=== PATIENT | female | born 1955 | race Two or more races ===

== ENCOUNTER 2019-12-28 09:57 | Emergency (ER) | payer MEDICAID, SELFPAY ==
[2019-12-28 10:31] VITALS: BP 159/72; PULSE 87; RESP 18; TEMP 36.7; O2SAT 94; BMI 34.3
--- NOTE | 2019-12-28 10:44 | XR_ITS ---
EXAMINATION: XR CHEST CLINICAL INFORMATION: Productive cough x1 week COMPARISON: None TECHNIQUE: 2 views of the chest were obtained. FINDINGS: The lungs are well-expanded and clear. The heart size and pulmonary vascularity is normal. There is moderate spondylosis dorsal spine. No lytic process. XR/XR chest 2V IMPRESSION: Unremarkable chest examination.
--- NOTE | 2019-12-28 11:49 | ED.URI ---
HPI - URI/Sore Throat General Chief Complaint: Upper Respiratory Symptoms Stated Complaint: vomiting Time Seen by Provider: 12/28/19 10:34 Source: patient Mode of arrival: ambulatory Limitations: language barrier (Lithuanian Speaking ) History of Present Illness HPI Narrative: 64yoF presenting t the ED c c/o intermittent headaches, Body aches, chills, subjective fevers and productive cough for a few days. Reports that her daughter is positive for COVID and she went to her house to bring her food despite knowing that she was COVID positive. Reports she also quit smoking 1 week ago. Denies any other additional complaints or concerns at this time. Denies recent travel. Related Data Previous Rx's Medication Instructions Recorded acetaminophen [Tylenol] 650 mg PO Q6H PRN #14 tab 12/28/19 albuterol sulfate 1 inh INHALATION QID PRN #6.7 g 12/28/19 azithromycin See Rx Instructions .ROUTE 12/28/19 .COMPLEX #6 tab ondansetron HCl [Zofran] 4 mg PO Q8H PRN #14 tab 12/28/19 Allergies Allergy/AdvReac Type Severity Reaction Status Date / Time peanut [PEANUTS] Allergy Severe THROAT Verified 12/28/19 10:31 SWELLING avocado [AVOCADO] Allergy Intermediate THROAT Unverified 11/19/19 15:19 SWELLING cat dander [CAT DANDER] Allergy Unknown UNKNOWN Unverified 11/19/19 15:19 PER H&P Review of Systems Review of Systems: Constitutional : + Fever, + Chills, No fatigue, No Malaise ENT/Mouth : No sore throat, No runny nose Eyes: No Discharge Cardiovascular : No Chest Pain, No SOB Respiratory : + Cough, + Sputum, No Wheezing, No Smoke Exposure, No Dyspnea Gastrointestinal : No Nausea, No Vomiting, No Diarrhea Genitourinary : No irregular bleeding, No Dysuria, No Urinary Frequency, No Hematuria, No Urinary Incontinence, No Urgency, No Flank Pain, Musculoskeletal : No Myalgia Skin : No rash Neuro : + Headache Yes all other systems are reviewed and are negative [facility] Past Medical History Attestation statement: The following information was validated with the patient. Surgical History H/O section History of esophagogastroduodenoscopy (EGD) Hx of brain surgery Hx of colonoscopy Family History Family History Father Esophageal cancer Smoker Mother No problems noted. Brother No problems noted. Brother No problems noted. Sister No problems noted. Sister No problems noted. Sister No problems noted. Sister No problems noted. Son No problems noted. Daughter No problems noted. Daughter No problems noted. Daughter No problems noted. Social History Social History Alcohol intake: never Smoking Status: Former smoker Tobacco Type: Cigarette and E-Cigarette Use of substances other than those prescribed or required for medical reasons: No Advance Directives: No Advance Directives Information Provided: No Physical Exam Vital Signs: Vital Signs: Vital Signs Temp Pulse Resp BP Pulse Ox 12/28/19 12:28 98.8 F 76 16 166/76 H 94 12/28/19 10:31 98.1 F 87 18 159/72 H 94 Body Mass Index 34.3 vital signs have been reviewed as normal and appeared to be correct. Blood pressure normal. Heart rate normal. Respiration rate normal. Temperature normal. Oxygen saturation normal. Appearance: Alert. Oriented X3. No acute distress. Head: Normal external exam. Normocephalic. Atraumatic. No Snowden signs noted. No raccoon eyes noted Eyes: PERRLA. EOMI. Conjunctiva and sclera normal. Eyelids normal. ENT: EAC normal. TM's Normal. Pharynx normal. Uvula midline. Moist mucous membranes. No trismus noted. No drooling noted. No muffled voice noted. Neck: Normal inspection. Neck supple. FROM. No adenopathy. Thyroid Normal. No meningeal signs. No neck mass noted. CVS: Normal heart rate and rhythm. Heart sound normal. No murmurs noted. Pulses normal throughout. Respiratory: No respiratory distress. Painless inspiration. Breath sounds normal. No wheezes/rales/rhonchi noted. Chest nontender. No accessory muscle usage noted or decreased air movement noted. Abdomen: Soft and nontender. Bowel sounds normal in all 4 quadrants. No distention noted. No organomegaly noted. No visible injury noted. Back: No CVA tenderness. Full range of motion noted. Skin: Skin warm and dry. Normal skin color. Normal skin turgor. No rashes/lesions/lacerations noted. Extremities: No lower extremity edema. Extremities exhibit normal range of motion. Extremities nontender. Neuro: Oriented X 3. No motor deficit. No sensory deficit. Reflexes normal. Course Course Course Narrative: 10:45AM 64yoF presenting t the ED c c/o intermittent headaches, Body aches, chills, subjective fevers and productive cough for a few days. Reports that her daughter is positive for COVID and she went to her house to bring her food despite knowing that she was COVID positive. Reports she also quit smoking 1 week ago. Denies any other additional complaints or concerns at this time. Denies recent travel. - Concern for COVID-19 vs bacterial PNA. - Plan CXR and COVID-19 swab then Re-evaluate. Reevaluation(s) Reevaluation #1: CXR WNL.COVID swab pending at this time. Will d/c home c symptomatic tx along c instructions to f/u PCP. Pt understands and agrees with plan . Discharge Plan Discharge Clinical Impression: Viral infection Patient Disposition: Home, Self-Care Instructions: Viral Syndrome (ED), COVID-19 (Coronavirus Disease 2019) (ED) Additional Instructions: Based on your symptoms and history we have sent a COVID-19. Although your RESULT IS PENDING at this time. RESULTS should return within 72 hours. At this time you will be contacted with either NEGATIVE OR POSITIVE results. -Please wait until we contact you for your results. At this time you will be okay for discharge. Please plan for self quarantine for up to 14 days. Do not expose yourself to others. You may not go to work. If testing does come back negative you may return to activities as long as you are no longer having any symptoms for at least 3 days. Please continue to follow cold instructions and wash your hands frequently. You may take Tylenol as directed on the bottle for pain or fever. Patient seen in the emergency department on 12/28/2019 and should be excused from work until negative test results AND until 72 hours without any symptoms AND at least 10 days have passed since symptoms first appeared or since last exposure to COVID-19 positive patient CDC Guidelines for home isolation: - Stay away from others - WEAR A MASK if you are sick AND STAY HOME - Cover your mouth and nose with a tissue when you cough or sneeze. Dispose of tissues in a lined trash can and wash your hands immediately with soap and water for at least 20 seconds. If soap and water are not available, clean hands with alcohol-based hand assembly lead person that contains at least 60% alcohol. - Clean your hands often with soap and water for at least 20 seconds - Avoid touching your eyes, nose and mouth with unwashed hands - Do not share dishes, drinking glasses, cups, eating utensils, towels, or bedding with other people in your home. After using these items, wash them thoroughly with soap and water or put in the obstetrics gyn physician. - Clean high-touch surfaces in your isolation area ( sick room and bathroom) every day; let a caregiver clean and disinfect high-touch surfaces in other areas of the home. Clean the area or item with soap and water or another detergent if it is dirty. Then, use a household disinfectant. - Limit contact with pets and animals: If you must care for a pet, wash your hands before and after interacting with them). Prescriptions: New azithromycin 250 mg tablet See Rx Instructions .ROUTE .COMPLEX Qty: 6 RF: 0 albuterol sulfate 90 mcg/actuation HFA aerosol inhaler 1 inh inhalation QID PRN (Reason: shortness of breath or wheezing) Qty: 6.7 RF: 0 acetaminophen [Tylenol] 325 mg tablet 650 mg PO Q6H PRN (Reason: fever or pain) Qty: 14 RF: 0 ondansetron HCl [Zofran] 4 mg tablet 4 mg PO Q8H PRN (Reason: nausea and vomiting) Qty: 14 RF: 0 Referrals: [facility] [Primary Care Provider] - 2 days Print Language: Lithuanian
[2019-12-28 12:28] VITALS: BP 166/76; PULSE 76; RESP 16; TEMP 37.1; O2SAT 94
== END 2019-12-28 12:44 | disposition home or self-care (01) ==
PROVIDERS: Physician Assistant Medical; Emergency Provider Emergency Medicine
DX: B34.9 Viral infection, unspecified (principal); J06.9 Acute upper respiratory infection, unspecified; Z20.828 Contact with and (suspected) exposure to other viral communicable diseases; F17.200 Nicotine dependence, unspecified, uncomplicated; Z71.6 Tobacco abuse counseling
CPT/HCPCS: 71046; 87635; 99283; 99284

== ENCOUNTER 2019-12-30 13:18 | Outpatient (REF) | payer MEDICAID, SELFPAY ==
--- NOTE | 2019-12-30 | US_ITS ---
EXAMINATION: NONINVASIVE ASSESSMENT OF THE ARTERIES OF BOTH LOWER EXTREMITIES WITH PVR EXAM AND BILATERAL LOWER EXTREMITY DUPLEX CLINICAL INFORMATION: Peripheral vascular disease TECHNIQUE: Ankle pulse volume recordings, ankle pressure measurements and ankle brachial indices were obtained of the lower extremity arterial system bilaterally in addition to duplex Doppler techniques with wave form analysis and measurement of velocities in the common femoral, profunda femoral, superficial femoral, popliteal and tibial arteries. The study was performed only at rest. COMPARISON: None FINDINGS: a) AT REST: RIGHT LE. The right ankle-brachial index is: 1.2 2. Right ankle pressure: normal. 3. Right ankle PVR waveform: normal. 4. Right direct duplex Doppler findings: No significant plaque or visible stenosis. * Common femoral artery: 132 cm/s, Diastolic flow reversal: Yes * Superficial femoral artery (proximal, mid, distal): 697267, and 128 cm/s, Diastolic flow reversal: Yes * Popliteal artery: 104 cm/s, Diastolic flow reversal: Yes * Posterior tibial artery: 46 cm/s, Diastolic flow reversal: No LEFT LE. The left ankle-brachial index is: 1.2 2. Left ankle pressure: normal. 3. Left ankle PVR waveform: normal. 4. Left direct duplex Doppler findings: No significant plaque or visible stenosis * Common femoral artery: 100 cm/s, Diastolic flow reversal: Yes * Superficial femoral artery (proximal, mid, distal): 116, 107 and 91 cm/s, Diastolic flow reversal: Yes * Popliteal artery: 69 cm/s, Diastolic flow reversal: Yes * Posterior tibial artery: 94 cm/s, Diastolic flow reversal: Yes SINGH Reference: * >0.97-1.25 = normal - no significant arterial disease * 0.75-0.96 = mild peripheral arterial disease * 0.5-0.74 = moderate peripheral arterial disease * <0.50 = severe peripheral arterial disease US/US SINGH complete IMPRESSION: There is no evidence of any hemodynamically significant lower extremity arterial disease by pressure, waveform or duplex Doppler criteria at rest. There is a monophasic waveform seen in the right posterior tibial artery. Otherwise there are normal triphasic waveforms throughout.
--- NOTE | 2019-12-30 13:33 | US_ITS ---
EXAMINATION: NONINVASIVE ASSESSMENT OF THE ARTERIES OF BOTH LOWER EXTREMITIES WITH PVR EXAM AND BILATERAL LOWER EXTREMITY DUPLEX CLINICAL INFORMATION: Peripheral vascular disease TECHNIQUE: Ankle pulse volume recordings, ankle pressure measurements and ankle brachial indices were obtained of the lower extremity arterial system bilaterally in addition to duplex Doppler techniques with wave form analysis and measurement of velocities in the common femoral, profunda femoral, superficial femoral, popliteal and tibial arteries. The study was performed only at rest. COMPARISON: None FINDINGS: a) AT REST: RIGHT LE. The right ankle-brachial index is: 1.2 2. Right ankle pressure: normal. 3. Right ankle PVR waveform: normal. 4. Right direct duplex Doppler findings: No significant plaque or visible stenosis. * Common femoral artery: 132 cm/s, Diastolic flow reversal: Yes * Superficial femoral artery (proximal, mid, distal): [id number], and 128 cm/s, Diastolic flow reversal: Yes * Popliteal artery: 104 cm/s, Diastolic flow reversal: Yes * Posterior tibial artery: 46 cm/s, Diastolic flow reversal: No LEFT LE. The left ankle-brachial index is: 1.2 2. Left ankle pressure: normal. 3. Left ankle PVR waveform: normal. 4. Left direct duplex Doppler findings: No significant plaque or visible stenosis * Common femoral artery: 100 cm/s, Diastolic flow reversal: Yes * Superficial femoral artery (proximal, mid, distal): 116, 107 and 91 cm/s, Diastolic flow reversal: Yes * Popliteal artery: 69 cm/s, Diastolic flow reversal: Yes * Posterior tibial artery: 94 cm/s, Diastolic flow reversal: Yes SINGH Reference: * >0.97-1.25 = normal - no significant arterial disease * 0.75-0.96 = mild peripheral arterial disease * 0.5-0.74 = moderate peripheral arterial disease * <0.50 = severe peripheral arterial disease US/US arterial duplex LE BI IMPRESSION: There is no evidence of any hemodynamically significant lower extremity arterial disease by pressure, waveform or duplex Doppler criteria at rest. There is a monophasic waveform seen in the right posterior tibial artery. Otherwise there are normal triphasic waveforms throughout.
== END 2019-12-30 13:19 | disposition home or self-care (01) ==
LOC: HO.US 13:18
PROVIDERS: PCP Internal Medicine; Visit Provider Surgery Vascular Surgery
DX: I73.9 Peripheral vascular disease, unspecified (principal)
CPT/HCPCS: 93923; 93925

== ENCOUNTER 2020-03-09 13:23 | Outpatient (RCR) | payer MEDICAID, SELFPAY ==
--- NOTE | 2020-03-23 15:17 | MHC.PT.EP ---
[facility] [place] Office [place] Office [place] Office [address] [phone] F: [phone] F: [phone] F: [phone] F: [phone] Physical Therapy Plan of Care Date of Evaluation: 03/09/20 Date of Surgery: NA Diagnosis: PAIN IN RIGHT THIGH (M79.651) PER DR. LINDQUIST Assessment: JOSE IS A PLEASANT 64 YO FEMALE WITH INCREASING POSTERIOR THIGH PAIN OF APROX 6 MONTHS DURATION WITH INSIDEOUS ONSET. IMPAIRMENTS INCLUDE DECREASED DECREASED TRUNK AND LE ROM, DECREASED STRENGTH OF CORE AND LE, ALTERED POSTURE AND SOFT TISSUE RESTRICTIONS, INCREASED PAIN. FUNCTIONAL LIMITATIONS INCLUDE DECREASED TOLERANCE TO LIFTING, REACHING, BENDING AND SQUATTING. DECREASED TOLERANCE TO WALKING, STANDING AND SITTING. SHE REPORTS DECREASED ABILITY TO PERFORM HOMEMAKING TASKS AND DISRUPTED SLEEP. Frequency and Duration: The patient will be seen 2 X WEEK FOR 5 WEEKS Short Term Goals: INITIATE HEP AND EDUC IN SELF MANAGEMENT OF SYMPTOMS WITH EVIDENCE OF LEARNING IN 4 WEEKS Nursing Home Goals: FULL LUMBAR ROM IN 5 WEEKS FULL LE STRENGTH EQUAL NADIYA IN 5 WEEKS INDEPENDENT WITH HEP WITH PAIN NO GREATER THAN 2/10 IN 5 WEEKS ELIMINATION OF LE SYMPTOMS IN 4 WEEKS Treatment Plan: Modalities to reduce pain, spasms and effusion. Manual therapy to restore motion and function. Therapeutic exercise to improve strength and flexibility. Neuromuscular re-education for posture and balance. Therapeutic activities to return to functional activities of daily living. Electronically signed by: ANIKET ASHBY PT, DPT Please sign and return to therapist. Thank you for your referral.
== END 2020-11-02 13:55 | disposition home or self-care (01) ==
LOC: HO.PT 13:23
PROVIDERS: PCP Internal Medicine; Visit Provider Internal Medicine
DX: M79.651 Pain in right thigh (principal)
CPT/HCPCS: 97110; 97162

== ENCOUNTER 2020-03-16 13:38 | Outpatient (REF) | payer MEDICAID, SELFPAY ==
--- NOTE | 2020-03-16 13:45 | MM_ITS ---
EXAMINATION: MM DIAGNOSTIC DIGITAL BREAST TOMOSYNTHESIS, BILATERAL US DIAGNOSTIC ULTRASOUND BREAST, BILATERAL CLINICAL INFORMATION: Bilateral upper outer breast pain and palpable fullness for approximately 3 weeks. The lifetime risk of breast cancer based on the Tyrer-Cuzick Model is 6%. COMPARISON: Mammography: 09/29/2018, 07/01/2017, 05/30/2016 TECHNIQUE: Digital breast tomosynthesis is performed in both the craniocaudal and mediolateral oblique views along with computer-aided detection (CAD). Synthesized 2D images are generated from the tomosynthesis. Additional exaggerated right CC view is provided. Ultrasound of each breast is targeted to the areas of clinical concern posterior upper outer breast. Grayscale imaging and color Doppler are performed without and with harmonics. Patient is able to point to the areas of concern at time of imaging. FINDINGS: The breasts are almost entirely fatty (ACR BI-RADS breast composition Category a). Parenchymal pattern is similar to prior studies. There is no developing density or interval mass or architectural abnormality. No abnormal calcifications. Bilateral axillary nodes are stable, similar to prior exams. There is no skin thickening or coarsening of the Farhat's ligaments. Ultrasound of each breast demonstrates no cystic or solid mass, architectural abnormality, or focal duct ectasia. There is no skin thickening or edema tracking in soft tissue planes. The patient's palpable areas correspond to the stable bilateral axilla. There is no melba hyperemia. Results are discussed with the patient at time of visit. MM/MM tomosynthesis diagnostic BI IMPRESSION: 1. No mammographic evidence of malignancy or inflammatory changes. 2. Unremarkable bilateral targeted breast ultrasound. ASSESSMENT: BI-RADS 2: Benign RECOMMENDATION: 1. Patient should be managed based on the clinical impression. If clinically indicated, further evaluation may be considered with surgical consult. Decision to proceed with biopsy should be based on clinical grounds and degree of clinical concern. 2. Otherwise, routine annual screening mammography. This patient's information was entered into a reminder system with a target due date for their next mammogram.
== END 2020-03-16 13:39 | disposition home or self-care (01) ==
LOC: HO.MAMMO 13:38
PROVIDERS: Visit Provider Internal Medicine
DX: N64.4 Mastodynia (principal); N64.1 Fat necrosis of breast
CPT/HCPCS: 76642; 77062; 77066

== ENCOUNTER 2020-04-08 13:00 | Outpatient (RCR) | payer MEDICAID, SELFPAY | END 2020-11-08 07:55 | disposition home or self-care (01) | LOC: HO.PT 13:00 | PROVIDERS: PCP Internal Medicine; Visit Provider Internal Medicine | DX: M79.651 Pain in right thigh (principal) ==

== ENCOUNTER 2020-06-22 10:35 | Outpatient (REF) | payer MEDICAID, SELFPAY ==
[2020-06-22 12:18] LABS: Blood Urea Nitrogen 22 mg/dL (9-16); Estimated Glomerular Filt Rate 45
== END 2020-06-22 10:36 | disposition home or self-care (01) ==
LOC: HO.LAB 10:35
PROVIDERS: PCP Internal Medicine; Visit Provider Psychiatry & Neurology Neurology
DX: G44.209 Tension-type headache, unspecified, not intractable (principal); I67.1 Cerebral aneurysm, nonruptured
CPT/HCPCS: 36415; 82565; 84520

== ENCOUNTER → 2020-06-24 08:41 | Outpatient (BNVA) | payer MEDICAID, SELFPAY | PROVIDERS: Visit Provider Nurse Practitioner ==

== ENCOUNTER 2020-06-30 13:32 | Outpatient (REF) | payer MEDICAID, SELFPAY ==
--- NOTE | ~2020-06-30 | CT_ITS ---
EXAMINATION: CT ANGIOGRAM BRAIN, HEAD CLINICAL INFORMATION: Tension-type headache. COMPARISON: CT head 11/20/2019. CT angiography head 02/21/2016. TECHNIQUE: Test bolus sequences followed by intravenous administration 100 mL of Omnipaque 350 intravenous contrast. Helical imaging was performed in the axial plane from the skull base to the vertex. Delayed postcontrast imaging of the head was also performed. The data was processed at the hematology technologist workstation for generation of MIP sequences. Three-dimensional volume rendered reformatted images were also generated at an offline 3-D workstation. Stenoses are made with reference to the NASCET criteria unless otherwise specified. This CT examination was performed using dose optimization techniques as appropriate, variously including the following: *Automated exposure control *Adjustment of mA and/or kV according to patient size (this includes techniques or standardized protocols for targeted exams where dose is matched to indication/reason for exam; i.e. extremities or head) *Use of iterative reconstruction technique DLP: 2597 mGy-cm FINDINGS: Preliminary unenhanced CT the head: A grossly compact 6 mm diameter coil mass is present medially superior to the terminus of the left internal carotid artery and partial visualization is made of a stent within the A1 segment of the left anterior cerebral artery. No intracranial hemorrhage, tumors or acute infarcts are noted. The ventricles and sulci demonstrate mild diffuse commensurate prominence. No abnormal extra-axial fluid collections are visualized. Bilateral ocular lens extractions are visualized. Mild physiologic mucosal thickening is noted within the maxillary sinuses. Delayed IV postcontrast enhanced CT of the head: No abnormal enhancement of the brain parenchyma is visualized. Normal intraluminal opacification is noted within the major intracranial dural sinuses. CT angiography head: Scattering artifact emanates from the left ICA terminus coil mass and stent within the A1 segment of the left anterior cerebral artery. Artifact partially obscures visualization of adjacent structures. No additional intracranial aneurysms are identified. An anterior communicating artery and a diminutive left posterior communicating artery are noted. No large vessel intracranial occlusions are visualized. Multiple 3-D thick section maximum intensity projection reformatted images confirm findings made upon review of the initial axial data image set. Multiple volumetric reformatted images confirm findings made upon review of the axial image data set. CT/CT angio head IMPRESSION: 1. 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 2. No additional intracranial aneurysms identified.
[2020-06-30] MEDS: iohexoL 350 MG/ML 100 ML INFUS..BTL IV (15:24)
== END 2020-06-30 13:33 | disposition home or self-care (01) ==
LOC: HO.CT 13:32
PROVIDERS: Visit Provider Psychiatry & Neurology Neurology
DX: G44.209 Tension-type headache, unspecified, not intractable (principal); I67.1 Cerebral aneurysm, nonruptured
CPT/HCPCS: 70496; Q9967

== ENCOUNTER → 2020-07-21 09:29 | Outpatient (BNVA) | payer MEDICAID, SELFPAY | PROVIDERS: Visit Provider Nurse Practitioner ==

== ENCOUNTER 2020-10-03 11:08 | Outpatient (REF) | payer MEDICARE, SELFPAY ==
--- NOTE | ~2020-10-03 | XR_ITS ---
EXAMINATION: RIGHT HIP AND LUMBAR SPINE. CLINICAL INFORMATION: Pain in right thigh. Low back pain. COMPARISON: None TECHNIQUE: 2 views right hip. Lumbar spine 3 views. FINDINGS: Right hip: There is no visible acute fracture, dislocation or subluxation seen. No bony erosive changes seen there are small enthesophytes along the greater and lesser trochanter. The soft tissues are normal. Lumbar spine: There is mild straightening of lumbar lordosis. The vertebral heights and alignment is normal. There is loss of L1-L2, L2-L3 disc heights with ventral L1-are normal left lateral L3-L4 moderate osteophytosis. No acute fracture or lytic process seen. Paravertebral soft tissues are normal. XR/XR hip RT min 2V IMPRESSION: No visible acute fracture or dislocation right hip. Small enthesophytes along the greater and lesser trochanter. Mild degenerative endplate spondylosis L1-L2 and L2-L4 disc levels. No visible acute fracture, dislocation or lytic process.
--- NOTE | ~2020-10-03 | XR_ITS ---
EXAMINATION: RIGHT HIP AND LUMBAR SPINE. CLINICAL INFORMATION: Pain in right thigh. Low back pain. COMPARISON: None TECHNIQUE: 2 views right hip. Lumbar spine 3 views. FINDINGS: Right hip: There is no visible acute fracture, dislocation or subluxation seen. No bony erosive changes seen there are small enthesophytes along the greater and lesser trochanter. The soft tissues are normal. Lumbar spine: There is mild straightening of lumbar lordosis. The vertebral heights and alignment is normal. There is loss of L1-L2, L2-L3 disc heights with ventral L1-are normal left lateral L3-L4 moderate osteophytosis. No acute fracture or lytic process seen. Paravertebral soft tissues are normal. XR/XR lumbar spine 2-3V IMPRESSION: No visible acute fracture or dislocation right hip. Small enthesophytes along the greater and lesser trochanter. Mild degenerative endplate spondylosis L1-L2 and L2-L4 disc levels. No visible acute fracture, dislocation or lytic process.
== END 2020-10-03 11:09 | disposition home or self-care (01) ==
LOC: HO.XRAY 11:08
PROVIDERS: PCP Internal Medicine; Visit Provider Internal Medicine
DX: M79.651 Pain in right thigh (principal); M54.89 Other dorsalgia
CPT/HCPCS: 72100; 73502

== ENCOUNTER → 2020-10-24 08:48 | Outpatient (BNVA) | payer MEDICARE, SELFPAY | PROVIDERS: Visit Provider Nurse Practitioner | DX: K59.04 Chronic idiopathic constipation (principal); K21.9 Gastro-esophageal reflux disease without esophagitis; K29.30 Chronic superficial gastritis without bleeding; R14.0 Abdominal distension (gaseous); R13.12 Dysphagia, oropharyngeal phase | CPT/HCPCS: Q3014 ==

== ENCOUNTER → 2020-11-24 15:46 | Outpatient (BNVA) | payer MEDICARE, SELFPAY | PROVIDERS: PCP Internal Medicine; Visit Provider Nurse Practitioner | DX: K21.9 Gastro-esophageal reflux disease without esophagitis (principal); K59.04 Chronic idiopathic constipation; R13.12 Dysphagia, oropharyngeal phase; R14.0 Abdominal distension (gaseous) | CPT/HCPCS: Q3014 ==

== ENCOUNTER → 2020-12-27 15:50 | Outpatient (BNVA) | payer MEDICARE, SELFPAY | PROVIDERS: Visit Provider Nurse Practitioner | DX: Z13.89 Encounter for screening for other disorder (principal) | CPT/HCPCS: Q3014 ==

== ENCOUNTER 2021-01-04 13:15 | Outpatient (REF) | payer MEDICARE, SELFPAY ==
--- NOTE | ~2021-01-04 | XR_ITS ---
EXAMINATION: XR KNEE, RIGHT CLINICAL INFORMATION: Pain in the right knee COMPARISON: None TECHNIQUE: Three views of the right knee. This includes AP upright view. FINDINGS: No fracture or subluxation. Compartmental joint spaces are maintained. Small tricompartmental marginal osteophytes. Small joint effusion. Enthesophyte formation of the patella. XR/XR knee RT 3V IMPRESSION: Mild tricompartmental degenerative changes. Small joint effusion.
== END 2021-01-04 13:16 | disposition home or self-care (01) ==
LOC: HO.XRAY 13:15
PROVIDERS: PCP Internal Medicine; Visit Provider Nurse Practitioner Family
DX: M25.561 Pain in right knee (principal); M47.816 Spondylosis without myelopathy or radiculopathy, lumbar region
CPT/HCPCS: 73562; 99202

== ENCOUNTER 2021-02-15 14:00 | Outpatient (RCR) | payer MEDICARE, SELFPAY ==
--- NOTE | 2021-01-17 16:08 | MHC.PT.EP ---
[facility] [place] [facility] [place] [facility] [place] Office [address] Tracy Suárez [address] [phone] F: [phone] F: [phone] F: [phone] F: [phone] Physical Therapy Plan of Care Date of Evaluation: Date of Surgery: NA Diagnosis: RIGHT SIDED LOW BACK AND LEG PAIN Assessment: JOSE RETURNS TO PT FOR SYMPTOMS SIMILIAR TO THOSE FROM THE BEGINNING OF THIS YEAR. AT THAT TIME SHE CHOSE NOT TO PURSUE PT BUT FEELS SHE IS NOW READY TO PARTICIPATE IN PT. UPON EXAM SHE DEMONSTRATES IMPAIRMENTS OF LOSS OF KNEE AND HIP ROM AND STRENGTH, DECREASED PATTERN AND ALTERED GAIT, INCREASED PAIN. FUNCTIONAL LIMITATIONS INCLUDE DECREASED ABILITY TO PERFORM HOMEMAKING AND SELF CARE TASKS, DECREASE TOLERANCE TO STANDING, WALKING AND STAIRS, DECREASED ABILITY TO PERFORM LIFTING, BENDING, PUSHING AND PULLING. SHE REPORTS DECREASED PARTICIPATION IN COMMUNITY AND RECREATIONAL TASKS AND DISRUPTED SLEEP. A PT IS A GOOD CANDIDATE FOR SKILLED PT DUE TO AGE, POTENTIAL REMEDIATION OF IMPAIRMENTS, TYPICAL DISEASE/CONDITION PROGRESSION AND PROGNOSIS, COMORBIDITIES, AND MOTIVATION. PT WOULD BENEFIT FROM TAILORED PROGRAM OF THERAPEUTIC ACTIVITIES, FUNCTIONAL TRAINING, GAIT TRAINING, POSTURAL EDUCATION, NEUROMUSCULAR RE-EDUCATION, AND MODALITIES NEEDED. 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 Manual therapy to restore motion and function. Therapeutic exercise to improve strength and flexibility. Neuromuscular re-education for posture and balance. Therapeutic activities to return to functional activities of daily living. Electronically signed by: ANIKET ASHBY PT, DPT Please sign and return to therapist. Thank you for your referral.
--- NOTE | 2021-03-08 14:38 | MHC.PT.DC ---
[facility] [place] [facility] [place] Office [place] Office [address] Tracy Suárez [address] [phone] F: [phone] F: [phone] F: [phone] F: [phone] Physical Therapy Discharge Report Diagnosis: RIGHT SIDED LOW BACK AND LEG PAIN Date of Surgery: NA Date of Evaluation: 01/17/21 Date of Discharge: 02/27/21 Treatments to Date: 4 Cancellations to Date: 0 No Shows to Date: 0 Discharge Status: Patient Elected to Stop Recommend MD Follow-up Discharge Summary: Pt PHONED TO SELF D/C, AT LAST ATTENDED VISIT ASSESSMENT STATED Spoke w/patient about f/u with pcp regarding pain continuing. Pt unable to complete all exercises, needing freq breaks. Electronically signed by: ANIKET ASHBY PT, DPT Please sign and return to therapist. Thank you for your referral.
== END 2021-03-08 14:38 | disposition home or self-care (01) ==
LOC: HO.PT 14:00
PROVIDERS: Visit Provider Internal Medicine
DX: M25.551 Pain in right hip (principal)
CPT/HCPCS: 97110; 97162

== ENCOUNTER 2021-03-31 13:05 | Outpatient (REF) | payer MEDICARE, SELFPAY ==
--- NOTE | ~2021-03-31 | MM_ITS ---
EXAMINATION: MM SCREENING DIGITAL BREAST TOMOSYNTHESIS, BILATERAL CLINICAL INFORMATION: Screening. Asymptomatic. The lifetime risk of breast cancer based on the Tyrer-Cuzick Model is 5%. COMPARISON: Mammography: 03/16/2020, 09/29/2018, 07/01/2017 TECHNIQUE: Digital breast tomosynthesis is performed in both the craniocaudal and mediolateral oblique views along with computer-aided detection (CAD). Synthesized 2D images are generated from the tomosynthesis. FINDINGS: The breasts are almost entirely fatty (ACR BI-RADS breast composition Category a). There are no significant masses, abnormal calcifications, or other abnormalities. Background stromal markings are stable. No significant changes. MM/MM tomosynthesis screening BI IMPRESSION: No mammographic evidence of malignancy. ASSESSMENT: BI-RADS 1: Negative RECOMMENDATION: Routine annual mammography screening. This patient's information was entered into a reminder system with a target due date for their next mammogram.
== END 2021-03-31 13:06 | disposition home or self-care (01) ==
LOC: HO.MAMMO 13:05
PROVIDERS: PCP Internal Medicine; Visit Provider Internal Medicine
DX: Z12.31 Encounter for screening mammogram for malignant neoplasm of breast (principal)
CPT/HCPCS: 77063; 77067

== ENCOUNTER 2021-04-11 13:43 | Outpatient (REF) | payer MEDICARE, SELFPAY ==
--- NOTE | ~2021-04-11 | MM_ITS ---
EXAMINATION: BONE DENSITOMETRY CLINICAL INDICATION: Menopause. COMPARISON: This is the patient's baseline examination. TECHNIQUE: Using a [employer] DXA System (software version: 13.1) manufactured by [employer], dual-energy x-ray absorptiometry was performed of the lumbar spine and left hip. The images are of good technical quality. Summary results are attached. FINDINGS: AP SPINE L1-L4: BMD 1.083 g/cm2, Z-score 0.0, T-score -0.8, normal. LEFT FEMUR, NECK: BMD 0.816 g/cm2, Z-score -0.6, T-score -1.6, osteopenia. LEFT FEMUR, TOTAL: BMD 0.887 g/cm2, Z-score -0.3, T-score -1.0, normal. IDENTIFIED RISK FACTORS: Rheumatoid arthritis, history of fracture (adult), tobacco, alcoholism. Early menopause, secondary osteoporosis, hysterectomy. HISTORY OF FRACTURE: Other. MEDICATIONS: Calcium supplements or multivitamin, vitamin D. MM/XR DEXA axial skeleton IMPRESSION: 1. DIAGNOSIS: Osteopenia based on the lowest T-score value of -1.6 in the femoral neck applying World Health Organization criteria. 2. 10-YEAR FRACTURE RISK PREDICTION, FRAX: Major osteoporotic fracture (clinical spine, forearm, hip or shoulder) 13.1%. Hip fracture 3.2%. 3. Treatment Recommendations: NOF guidelines recommend consideration for treatment in postmenopausal women and men age 50 and older presenting with the following: -A hip or vertebral (clinical or morphometric) fracture. -T-score less than or equal to -2.5 at the femoral neck or spine after appropriate evaluation to exclude secondary causes. -Low bone mass at the hip or spine and a 10-year fracture probability by FRAX of greater than or equal to 3% for hip fracture or greater than or equal to 20% for major osteoporotic fracture based on the [place] adapted WHO algorithm. 4. Other Recommendations: All treatment decisions require clinical judgment and consideration of individual patient factors, including patient preferences, comorbidities, previous drug use, risk factors not captured in the FRAX model (e.g. frailty, falls, vitamin D deficiency, increased bone turnover, interval significant decline in bone density) and possible under or overestimation of fracture risk by FRAX. Additional medical evaluation for secondary cause of low bone mineral density may be appropriate. FUTURE SCAN RECOMMENDATION: People with diagnosed cases of osteoporosis or at high risk for fracture should have regular bone mineral density tests. For patients eligible for Medicare, routine testing is allowed once every 2 years. The testing frequency can be increased to one year for patients who have rapidly progressing disease, those who are receiving or discontinuing medical therapy to restore bone mass, or have additional risk factors.
== END 2021-04-11 13:44 | disposition home or self-care (01) ==
LOC: HO.MAMMO 13:43
PROVIDERS: Visit Provider Internal Medicine
DX: Z13.820 Encounter for screening for osteoporosis (principal); M85.80 Other specified disorders of bone density and structure, unspecified site; Z78.0 Asymptomatic menopausal state; Z79.899 Other long term (current) drug therapy; Z87.81 Personal history of (healed) traumatic fracture
CPT/HCPCS: 77080

== ENCOUNTER → 2021-05-16 12:48 | Outpatient (BNVA) | payer MEDICARE, SELFPAY | PROVIDERS: PCP Internal Medicine; Visit Provider Nurse Practitioner Family | DX: M25.561 Pain in right knee (principal) | CPT/HCPCS: 99212 ==

== ENCOUNTER → 2021-06-30 11:26 | Outpatient (BNVA) | payer MEDICARE, SELFPAY | PROVIDERS: PCP Internal Medicine; Visit Provider Nurse Practitioner Family | DX: M25.561 Pain in right knee (principal); L02.425 Furuncle of right lower limb | CPT/HCPCS: 99212 ==

== ENCOUNTER → 2021-07-17 15:03 | Outpatient (BNVA) | payer MEDICARE, SELFPAY | PROVIDERS: PCP Internal Medicine; Visit Provider Internal Medicine | DX: L02.425 Furuncle of right lower limb (principal) | CPT/HCPCS: 20610; 99212; J3300 ==

== ENCOUNTER 2021-10-20 15:02 | Outpatient (REF) | payer OTHER, SELFPAY ==
--- NOTE | ~2021-10-20 | US_ITS ---
EXAMINATION: US EXTREMITY NON-VASCULAR CLINICAL INFORMATION: Right posterior thigh lump. COMPARISON: None. TECHNIQUE: Limited imaging through the right posterior thigh was performed. FINDINGS: There is a hypodense/anechoic ill-defined area seen along the right posterior thigh 2.4 cm deep from the skin margin and measuring approximately 1.2 cm wide. It does not have characteristics of an abscess and may represent intramuscular contusion or hematoma. US/US extremity nonvascular coyne IMPRESSION: Likely intramuscular contusion or hematoma right posterior thigh where patient complains of pain.
== END 2021-10-20 15:03 | disposition home or self-care (01) ==
LOC: HO.HMGCX 15:02
PROVIDERS: PCP Internal Medicine; Visit Provider Internal Medicine
DX: R22.41 Localized swelling, mass and lump, right lower limb (principal)
CPT/HCPCS: 76882

== ENCOUNTER → 2021-11-13 09:47 | Outpatient (BNVA) | payer OTHER, SELFPAY | PROVIDERS: PCP Internal Medicine; Visit Provider Internal Medicine | DX: M79.651 Pain in right thigh (principal) | CPT/HCPCS: 99212 ==

== ENCOUNTER 2021-12-18 15:20 | Outpatient (REF) | payer OTHER, SELFPAY ==
--- NOTE | ~2021-12-18 | MR_ITS ---
EXAMINATION: MRI WITHOUT CONTRAST FEMUR, RIGHT CLINICAL INFORMATION: Right thigh pain. COMPARISON: Ultrasound 10/20/2021. TECHNIQUE: MRI without contrast is performed on the right thigh on a 1.5 Mihaela MR scanner. FINDINGS: No acute muscle strain or tear. Mild tendinopathy of the right hamstring origin. No muscle atrophy. There is a small right knee joint effusion. No extra-articular fluid collection. No adenopathy. Bone marrow signal is normal. No stress reaction or fracture. MR/MR femur RT wo con IMPRESSION: Mild right hamstring origin tendinopathy. Otherwise unremarkable. No focal fluid collection, soft tissue mass, or discrete lipoma.
== END 2021-12-18 15:21 | disposition home or self-care (01) ==
LOC: HO.MRI 15:20
PROVIDERS: Visit Provider Internal Medicine
DX: M79.651 Pain in right thigh (principal)
CPT/HCPCS: 73718

== ENCOUNTER → 2022-01-18 13:06 | Outpatient (BNVA) | payer OTHER, SELFPAY | PROVIDERS: PCP Internal Medicine; Visit Provider Nurse Practitioner Family | DX: M79.651 Pain in right thigh (principal); M47.816 Spondylosis without myelopathy or radiculopathy, lumbar region; R20.0 Anesthesia of skin; R20.2 Paresthesia of skin; M76.891 Other specified enthesopathies of right lower limb, excluding foot | CPT/HCPCS: 99212 ==

== ENCOUNTER → 2022-03-09 | Outpatient (BNVA) | payer OTHER, SELFPAY | PROVIDERS: PCP Internal Medicine; Visit Provider Internal Medicine | DX: M79.18 Myalgia, other site (principal); M76.891 Other specified enthesopathies of right lower limb, excluding foot; R20.0 Anesthesia of skin; R20.2 Paresthesia of skin | CPT/HCPCS: 20552; 20553; 99212; J2795 ==

== ENCOUNTER 2022-04-09 09:36 | Outpatient (REF) | payer OTHER, SELFPAY ==
--- NOTE | ~2022-04-09 | MM_ITS ---
EXAMINATION: MM SCREENING DIGITAL BREAST TOMOSYNTHESIS, BILATERAL CLINICAL INFORMATION: Screening. Asymptomatic. The lifetime risk of breast cancer based on the Tyrer-Cuzick Model is 5.5%. COMPARISON: Mammography: March 31, 2021 and studies dating back to May 05, 2015 TECHNIQUE: Digital breast tomosynthesis is performed in both the craniocaudal and mediolateral oblique views along with computer-aided detection (CAD). Synthesized 2D images are generated from the tomosynthesis. FINDINGS: There are scattered areas of fibroglandular density (ACR BI-RADS breast composition Category b). There are no significant masses, abnormal calcifications, or other abnormalities. MM/MM tomosynthesis screening BI IMPRESSION: No significant changes from prior exam. ASSESSMENT: BI-RADS 1: Negative RECOMMENDATION: Routine annual mammography screening. This patient's information was entered into a reminder system with a target due date for their next mammogram.
== END 2022-04-09 09:37 | disposition home or self-care (01) ==
LOC: HO.MAMMO 09:36
PROVIDERS: Visit Provider Internal Medicine
DX: Z12.31 Encounter for screening mammogram for malignant neoplasm of breast (principal)
CPT/HCPCS: 77063; 77067

== ENCOUNTER 2022-05-30 09:43 | Outpatient (REF) | payer OTHER, SELFPAY ==
--- NOTE | 2022-05-30 09:48 | EMG_ITS ---
Please see scanned EMG / Nerve Conduction Report. MTDD
== END 2022-05-30 09:44 | disposition home or self-care (01) ==
LOC: HO.NEURO 09:43
PROVIDERS: PCP Internal Medicine; Visit Provider Nurse Practitioner Family
DX: R20.2 Paresthesia of skin (principal); R20.0 Anesthesia of skin; M79.651 Pain in right thigh; M47.816 Spondylosis without myelopathy or radiculopathy, lumbar region
CPT/HCPCS: 95885; 95909

== ENCOUNTER → 2022-06-26 11:19 | Outpatient (BNVA) | payer OTHER, SELFPAY | PROVIDERS: PCP Internal Medicine; Visit Provider Nurse Practitioner Family | DX: M47.816 Spondylosis without myelopathy or radiculopathy, lumbar region (principal); M54.16 Radiculopathy, lumbar region; M79.651 Pain in right thigh; R20.0 Anesthesia of skin; R20.2 Paresthesia of skin | CPT/HCPCS: 99212 ==

== ENCOUNTER 2022-07-18 06:08 | Outpatient (REF) | payer OTHER, SELFPAY | END 2022-07-18 06:09 | disposition home or self-care (01) | LOC: CF 06:08 | PROVIDERS: Visit Provider Internal Medicine | DX: Z13.89 Encounter for screening for other disorder (principal) ==

== ENCOUNTER 2022-07-20 11:39 | Outpatient (REF) | payer OTHER, SELFPAY ==
[2022-07-20 12:59] LABS: MANUAL DIFF FLAG NO
[2022-07-20 14:02] LABS: Basophils Absolute Auto 0.1 X10*3/uL (0.0-0.2); Basophils Percent Auto 0.7 % (0-2); Eosinophils Absolute Auto 0.6 X10*3/uL (0.0-0.4); Eosinophils Percent Auto 7.1 % (0-4); Hematocrit 38.9 % (37.0-47.0); Hemoglobin 12.3 g/dl (12.0-16.0); Imm Gran Abs Auto 0.02 X10*3/uL (0.00-0.03); Imm Gran Pct Auto 0.2 % (0.0-0.4); Lymphocytes Absolute Auto 1.8 X10*3/uL (1.2-4.9); Lymphocytes Percent Auto 20.2 % (20-40); Mean Corpuscular HGB Conc 31.6 g/dl (31.0-35.0); Mean Corpuscular Hemoglobin 27.9 pg (27.0-33.0); Mean Corpuscular Volume 88.2 fL (80.0-98.0); Mean Platelet Volume 9.8 fL (9.4-12.3); Monocytes Absolute Auto 0.4 X10*3/uL (0.1-1.2); Monocytes Percent Auto 4.8 % (2-11); Neutrophils Absolute Auto 5.9 x10*3/uL (2.0-8.3); Platelet Count 239 X10*3/uL (160-400); Red Blood Count 4.41 X10*6/uL (4.20-5.50); Red Cell Distribution Width 12.2 % (11.0-16.0); White Blood Count 8.8 X10*3/uL (4.8-10.8)
[2022-07-20 14:28] LABS: Alanine Aminotransferase 15 U/L (0-31); Albumin Level 4.2 g/dL (3.5-5.0); Alkaline Phosphatase 104 U/L (39-117); Anion Gap 13 (12-20); Aspartate Amino Transferase 15 U/L (5-31); Bilirubin Total 0.3 mg/dL (0.0-1.0); Blood Urea Nitrogen 16 mg/dL (9-16); Calcium 9.5 mg/dL (8.4-10.2); Carbon Dioxide 33 mmol/L (22-29); Chloride 104 mmol/L (96-108); Estimated Glomerular Filt Rate 56; Glucose Random 136 mg/dL (60-115); Potassium 3.8 mmol/L (3.3-5.1); Sodium 146 mmol/L (135-145)
== END 2022-07-20 11:40 | disposition home or self-care (01) ==
LOC: HO.LAB 11:39
PROVIDERS: PCP Internal Medicine; Visit Provider Nurse Practitioner
DX: Z01.818 Encounter for other preprocedural examination (principal); K59.04 Chronic idiopathic constipation; K21.9 Gastro-esophageal reflux disease without esophagitis; R14.0 Abdominal distension (gaseous)
CPT/HCPCS: 36415; 80053; 85025; 99212

== ENCOUNTER 2022-09-12 12:44 | Outpatient (REF) | payer OTHER, SELFPAY ==
--- NOTE | ~2022-09-12 | MR_ITS ---
EXAMINATION: MR LUMBAR SPINE WITHOUT CONTRAST CLINICAL INFORMATION: Lower back pain COMPARISON: None TECHNIQUE: MRI of the lumbar spine was obtained using routine sequences without contrast. FINDINGS: Normal anatomic alignment. No suspicious marrow signal or focal osseous lesion. The vertebral body heights are maintained. Mild multilevel disc desiccation and height loss. The conus medullaris terminates at the level of L1-L2. The distal spinal cord is normal in appearance. The cauda equina nerve roots appear normal. Mild subcutaneous edema in the dorsal soft tissues. Limited evaluation of the intra-abdominal structures without significant abnormalities. The abdominal aorta is of normal contour and caliber. SPINAL LEVELS: T12-L1: Shallow disc bulge and mild to moderate facet arthropathy. No significant spinal canal or neural foraminal narrowing L1-L2: Shallow disc bulge with superimposed thin central cranially oriented extrusion which extends nearly to the level of the T12-L1 endplate. Mild to moderate facet arthropathy. No significant central spinal canal stenosis. Mild bilateral neural foraminal narrowing, right greater than left L2-L3: Shallow disc bulge, moderate facet arthropathy, ligamentum flavum thickening. Mild central spinal canal stenosis with slight flattening of the thecal sac. Mild subarticular zone narrowing. Mild bilateral neural foraminal narrowing. L3-L4: Minimal disc bulge, moderate facet arthropathy, ligamentum flavum thickening. Mild central spinal canal stenosis with flattening of the ventral thecal sac and bilateral subarticular zone narrowing. No significant neural foraminal narrowing. L4-L5: Right eccentric disc bulge, moderate facet arthropathy, ligamentum flavum thickening. Mild central spinal canal stenosis and bilateral subarticular zone narrowing with likely mass effect on the traversing L5 nerve roots. Mild bilateral neural foraminal narrowing. L5-S1: Severe facet arthropathy with bilateral joint effusions. Ligamentum flavum thickening. Small disc osteophyte complex. No significant central spinal canal stenosis. Bilateral subarticular zone narrowing with likely mass effect on the traversing S1 nerve roots. Mild to moderate bilateral neural foraminal narrowing, left greater than right. MR/MR lumbar spine wo con IMPRESSION: Multilevel lumbar spondylosis as described above. There is mild spinal canal stenosis from L2-L3 to L4-L5 and multilevel [id number] neural foraminal narrowing as well as subarticular zone stenosis including likely compression of the traversing L5 and S1 nerve roots L4-L5 and L5-S1. Facet arthropathy is worst and severe bilaterally at L5-S1.
== END 2022-09-12 12:45 | disposition home or self-care (01) ==
LOC: HO.MRI 12:44
PROVIDERS: PCP Internal Medicine; Visit Provider Nurse Practitioner Family
DX: R20.0 Anesthesia of skin (principal); R20.2 Paresthesia of skin; M47.816 Spondylosis without myelopathy or radiculopathy, lumbar region; M54.16 Radiculopathy, lumbar region
CPT/HCPCS: 72148

== ENCOUNTER 2022-10-04 07:19 | Day surgery (SDC) | payer OTHER, SELFPAY ==
[2022-10-01 16:39] VITALS: BMI 34.4
[2022-10-04 07:29] VITALS: BP 140/76; PULSE 73; RESP 20; TEMP 36.6; O2SAT 97
[2022-10-04 07:39] LABS: Glucose, Whole Blood 159 mg/dL (60-115)
--- NOTE | 2022-10-04 07:55 | MHC.SHP ---
Pre-Procedural Eval Section A Date of Service: 10/04/22 Section B Chief Complaint: History of polyps Details of Present Illness: Surgical History H/O section History of esophagogastroduodenoscopy (EGD) Hx of brain surgery Hx of colonoscopy Family History Father Esophageal cancer Smoker Relevant Social History: None Present Medications: see Short Stay Collaborative assessment Allergies: Allergies Allergy/AdvReac Type Severity Reaction Status Date / Time peanut [PEANUTS] Allergy Severe THROAT Verified 07/20/22 11:53 SWELLING avocado [AVOCADO] Allergy Intermediate THROAT Verified 07/20/22 11:53 SWELLING colloidal oatmeal Allergy Mild unknown Verified 07/20/22 11:53 ketchup Allergy Mild unknown Verified 07/20/22 11:53 cat dander [CAT DANDER] Allergy Unknown UNKNOWN Verified 07/20/22 11:53 PER H&P Review of Systems Review of Systems Comment: Ten point ROS negative Exam Exam Comment: Gen appear: No acute distress HEENT: no icterus Chest: No overt resp distress Abd: soft, nontender, nondistended Psych: Stable affect, answering questions appropriately Neuro: A/Ox3 noted to move all extremities spontaneously Ext: no peripheral edema Plan Diagnosis/Plan: Unchanged I have reviewed the history and physical and performed a pertinent physical examination on my patient. No changes have occurred unless specified. Time Spent With Patient Time: Total time managing care of this patient today ____ minutes.
--- NOTE | 2022-10-04 07:57 | HO.ANESPROP2 ---
HPI - Anesthesia Eval Consult details Narrative: 67 yo female patient for Colonoscopy PMF Active Problems Active Problems: All Active Problems (Updated 10/04/22 @ 07:58 by Ramonita Fuller MD) Pre-op examination (Acute) Lumbar radicular pain (Acute) Lumbar spondylosis (Acute) Hamstring tendinitis of right thigh (Acute) Numbness and tingling of right leg (Acute) Right thigh pain (Acute) Boil of lower extremity (Acute) Furuncle of extremity (Acute) Spondylosis of lumbar region without myelopathy or radiculopathy (Acute) Right hip pain (Acute) Right knee pain (Acute) Tubular adenoma of colon (Acute) Acute sore throat (Acute) Abdominal bloating (Acute) Oropharyngeal dysphagia (Acute) Chronic idiopathic constipation (Acute) Chronic superficial gastritis (Acute) GERD (gastroesophageal reflux disease) (Acute) HTN Asthma SHAY. Not using CPAP Obesity BMI 34.4 Diabetes Family History Family History Father Esophageal cancer Smoker Mother No problems noted. Brother No problems noted. Brother No problems noted. Sister No problems noted. Sister No problems noted. Sister No problems noted. Sister No problems noted. Son No problems noted. Daughter No problems noted. Daughter No problems noted. Daughter No problems noted. Family history of problems with anesthesia: No Surgical History Surgical History H/O section History of esophagogastroduodenoscopy (EGD) Hx of brain surgery Hx of colonoscopy History of Problems with Anesthesia: No Social History Social History Household Members: None Alcohol intake: never Patient Tobacco Use Status: Current someday Tobacco user Are you DNR?: No Advance Directives: No Advance Directives Information Provided: Yes Nutrition Risks: No Nutritional Risk Current occupational status: disabled Meds Allergies Allergy/AdvReac Type Severity Reaction Status Date / Time peanut [PEANUTS] Allergy Severe THROAT Verified 07/20/22 11:53 SWELLING avocado [AVOCADO] Allergy Intermediate THROAT Verified 07/20/22 11:53 SWELLING colloidal oatmeal Allergy Mild unknown Verified 07/20/22 11:53 ketchup Allergy Mild unknown Verified 07/20/22 11:53 cat dander [CAT DANDER] Allergy Unknown UNKNOWN Verified 07/20/22 11:53 PER H&P Home Medications Medication Instructions Recorded Confirmed Last Taken Type amitriptyline 25 mg tablet 0 mg PO 07/20/22 Unknown History amlodipine 10 mg tablet 10 mg PO DAILY 07/20/22 10/04/22 History atorvastatin 40 mg tablet 40 mg PO DAILY 07/20/22 Unknown History bupropion HCl 300 mg 24 hr tablet, 300 mg PO DAILY 07/20/22 Unknown History extended release clonazepam 1 mg tablet 1 mg PO BID PRN 07/20/22 Unknown History diphenhydramine HCl 50 mg capsule 50 mg PO BEDTIME 07/20/22 Unknown History (Banophen) fluticasone propionate 50 spray intranasal 07/20/22 Unknown History mcg/actuation nasal spray,suspension hydrochlorothiazide 25 mg tablet 25 mg PO DAILY 07/20/22 Unknown History labetalol 100 mg tablet 100 mg PO BID 07/20/22 Unknown History metformin 500 mg tablet 500 mg PO BID 07/20/22 10/04/22 History zolpidem 10 mg tablet 10 mg PO BEDTIME PRN 07/20/22 Unknown History Exam Exam Date and Time: October 04, 2022 0757 Height,Weight and Vital Signs: Height 5 ft 2 in Weight 85.4 kg Last Vital Signs Temp 98 F 10/04/22 07:29 Pulse 73 10/04/22 07:29 Resp 20 10/04/22 07:29 BP 140/76 H 10/04/22 07:29 Pulse Ox 97 10/04/22 07:29 O2 Del Method Room Air 10/04/22 07:29 Pertinent Lab Results Pertinent Lab Results: Laboratory Tests 10/04/22 07:35 POC Glucose 159 H Airway Mallampati Class: II TM Dist: >3cm Neck ROM: Full Partial: Upper Loose/Missing/Broken Teeth: Yes (Some missing. Denies broken or loose teeth) Heart: RRR Lungs: CTAB Assessment and Plan Assessment Anesthesia Assessment: Anesthesia Plan Discussed and Chart Reviewed Final Anesthetic Review Family History of Problems with Anesthesia: No History of Problems with Anesthesia: No NPO: Yes ASA Class: III Final Preanesthetic Review: No Changes in Pt Med Stat, Meds/Allgs Chart Reviewed, Consent Obtained/Reviewed and Anes Risks/Benef Reviewed Patient Risk: Intermediate Procedure Risk: Low Assessment/Block/Sedation in SS: Assess/Block/Sedation-SS Anesthetic Plan Anesthetic Plan: MAC: Disposition: Standard PACU
--- NOTE | 2022-10-04 08:02 | W.PM.OPN ---
Operative Note Operative Note Date of Service: 10/04/22 Narrative: Procedure: Colonoscopy Indication: Screening Endoscopist: Nicki Kim MD Anesthesia Provider: Suzy Lyons CRNA Anesthesia type: MAC Instrument: Olympus [id number]-H190L Consent: Indication, risks vs benefits, and alternatives were discussed with the patient who gave written informed consent to proceed. An poultry service technician was utilized to assist with the consent. EKG, pulse, pulse oximetry and blood pressure were monitored throughout the procedure. Please see anesthesia flowsheet. Procedure: The patient was brought to the procedure room and placed in the left lateral decubitus position. IV medications were administered by the anesthesia provider in attendance. A digital rectal exam was performed which was abnormal due to finding of hemorrhoids. A distal attachment cap was affixed to the tip of the scope and the colonoscope was then inserted through the anus and advanced through the colon to the cecum at 85 cm,and terminal ileum. Mucosa was carefully examined under high definition white light as the instrument was slowly withdrawn in a retrograde panoramic fashion. Retroflexion was performed in rectum. The procedure was not difficult. There were no immediate obvious complications. The quality of the prep was BBPS: 1+2+2 = inadequate in R colon Withdrawal time 12 minutes. Limitations: Poor prep. Findings: Mucosa: Solid and semi solid stool was noted throughout colon which was attempted to suctioned out however cecum could not be visualised completely for polyp detection. Mucosa otherwise normal to cecum and terminal ileum to the extent visualised. Protruding lesions: 2 sessile polyp of size 2-4 mm in ascending colon. Cold snare polypectomy was performed. The polyps were completely removed and retrieved. 2 sessile polyp of size 3-5 mm in transverse colon. Cold snare polypectomy was performed. The polyps were completely removed and retrieved. Medium internal hemorrhoids without stigmata of recent bleeding. Impression: 1. Normal colon and terminal ileum mucosa 2. Total of 4 polyps removed from ascending and transverse colon. 3. External and internal hemorrhoids Recommendations: - Follow path results. - Repeat colonoscopy within a year due to poor prep. - Anusol supp sent to pharmacy to be used for 7 days at bedtime.
[2022-10-04 08:44] VITALS: BP 124/74; PULSE 90; RESP 16; TEMP 36.1; O2SAT 96
[2022-10-04 08:59] VITALS: BP 136/73; PULSE 83; RESP 16; TEMP 36.3; O2SAT 96
[2022-10-04 09:12] VITALS: BP 132/70; PULSE 82; RESP 16; TEMP 36.3; O2SAT 96
== END 2022-10-04 09:45 | disposition home or self-care (01) ==
PROVIDERS: PCP Internal Medicine; Visit Provider Internal Medicine
PROC: 0DJD8ZZ Inspection of Lower Intestinal Tract, Via Natural or Artificial Opening Endoscopic (ICD-10-PCS; CPT 45378; principal; 2022-10-04 09:10)
DX: Z12.11 Encounter for screening for malignant neoplasm of colon (principal); Z86.010 Personal history of colon polyps; D12.2 Benign neoplasm of ascending colon; D12.3 Benign neoplasm of transverse colon; K64.8 Other hemorrhoids; K64.4 Residual hemorrhoidal skin tags; K59.04 Chronic idiopathic constipation; K29.50 Unspecified chronic gastritis without bleeding; K21.9 Gastro-esophageal reflux disease without esophagitis; I10 Essential (primary) hypertension; J45.909 Unspecified asthma, uncomplicated; G47.33 Obstructive sleep apnea (adult) (pediatric); E11.9 Type 2 diabetes mellitus without complications; E66.9 Obesity, unspecified; Z68.34 Body mass index [BMI] 34.0-34.9, adult; Z79.51 Long term (current) use of inhaled steroids; Z79.84 Long term (current) use of oral hypoglycemic drugs; Z79.899 Other long term (current) drug therapy; F17.210 Nicotine dependence, cigarettes, uncomplicated
CPT/HCPCS: 45385; 82947; 88305

== ENCOUNTER → 2022-10-04 07:19 | Outpatient (BNV) | payer OTHER, SELFPAY | PROVIDERS: PCP Internal Medicine; Visit Provider Internal Medicine | DX: K63.5 Polyp of colon (principal); Z12.11 Encounter for screening for malignant neoplasm of colon | CPT/HCPCS: 45385 ==

== ENCOUNTER 2022-10-17 11:14 | Outpatient (AMB) | payer OTHER, SELFPAY ==
--- NOTE | 2022-10-17 11:24 | MHC.OFFVIS ---
Intake Vital Signs 10/17/22 11:25 Height 5 ft 2 in Weight 190 lb 7.67 oz BMI 34.8 BP 102/57 L Blood Pressure Location Lt brachial Position Sitting Pulse 100 Intake Visit Reasons: S/P [place]; Dr. Kim Intake Note: Patient presents to in office visit today in follow up of colonoscopy. CC: Patient reports abdominal bloating and feeling her abdomen is hard. 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 Kim HPI Details Assessment & Plan (1) Chronic idiopathic constipation: ?Code(s): K59.04 - Chronic idiopathic constipation ?Plan: [place] #[place], Live She received the Linzess and at the 290 micro g dose she is now moving her bowels well.? She is quite pleased with this and does not feel that we need to do anything more to manage this GI symptoms.? She has good control of her heartburn on her Dexilant. She has been in touch with weight management and is trying to do this in order to best protect her health and lose weight.? She is due for screening colonoscopy and is agreeable to having it scheduled at this time. There are no prior problems with anesthesia or sedation.? She denies any cardiac or respiratory problems.? There are no infectious disease problems. Her last colonoscopy was in 2019 and at that time for sessile colon polyps were removed. Return office visit in 6 months. (2) Abdominal bloating: ?Code(s): R14.0 - Abdominal distension (gaseous) (3) GERD (gastroesophageal reflux disease): ?Code(s): K21.9 - Gastro-esophageal reflux disease without esophagitis (4) Pre-op examination: ?Code(s): Z01.818 - Encounter for other preprocedural examination ? ? ? Orders: Orders Complete Blood Cou nt Auto Diff 07/20/22 Z01.818 - Encounte r for other prepro cedural examinatio n ? Comprehensive Met. Panel 07/20/22 Z01.818 - Encounte r for other prepro cedural examinatio n ? Medications: New sodium,potassium,m ag sulfates 17.5-3 .13-1.6 gram (Supr ep Bowel Prep Kit) ?480 mL orally;? 354 mL 0RF ? ? Refilled dexlansoprazole (D exilant) 60 mg? PO DAILY 30 days 30 caps 6RF K K21.9 - Gastro-eso phageal reflux dis ease without esoph agitis, K29.30 - C hronic superficial gastritis without bleeding ? linaclotide (Linze ss) 290 mcg? PO QAM 30 days 30 caps 6RF K K59.04 - Chronic i diopathic constipa tion ? simethicone 180 mg? PO QID 120 caps 6RF R14.0 - Abdominal distension (gaseou s) ? Discontinued bisacodyl (Dulcola x (bisacodyl)) ?? Discontinued Reaso n:? Doctor's Order 10 mg (2 x 5 mg) P O BEDTIME 30 days 60 tabs 6RF K59.04 - Chronic i diopathic constipa tion ? LABS: Laboratory Tests 07/20/22 07/20/22 12:58 12:58 WBC 8.8 Hgb 12.3 Hct 38.9 Plt Count 239 Estimated GFR 56 Total Bilirubin 0.3 AST 15 ALT 15 Alkaline Phosphata se 104 COLONOSCOPY 10/04/22 Findings: Mucosa: Solid and semi solid stool was noted throughout colon which was attempted to suctioned out however cecum could not be visualised completely for polyp detection. Mucosa otherwise normal to cecum and terminal ileum to the extent visualised. Protruding lesions: 2 sessile polyp of size 2-4 mm in ascending colon. Cold snare polypectomy was performed. The polyps were completely removed and retrieved. 2 sessile polyp of size 3-5 mm in transverse colon. Cold snare polypectomy was performed. The polyps were completely removed and retrieved. Medium internal hemorrhoids without stigmata of recent bleeding. Impression: 1. Normal colon and terminal ileum mucosa 2. Total of 4 polyps removed from ascending and transverse?colon. 3. External and internal hemorrhoids Recommendations: - Follow path results. - Repeat colonoscopy within a year due to poor prep. - Anusol supp sent to pharmacy to be used for 7 days at bedtime. BIOPSY Received: 10/04/22 Diagnosis A.? Colon, transverse, polypectomies (2): - Tubular adenoma; negative for high-grade dysplasia or carcinoma. - Hyperplastic mucosal polyp. B.? Colon, ascending, polypectomies (2): - Tubular adenoma; negative for high-grade dysplasia or carcinoma. - Colonic mucosa with mild surface hyperplastic changes. TODAY'S VISIT [place] #[place] L THe procedure needs to be repeated in 1 year due to poor prep. She will likely need a 2 day prep. She tells me she ate the day before. I thought it was not to eat after 6 pm. We again reviewed the prep instructions including the clear liquid diet that needs to start 24 hours prior to her procedure. I make her repeat verbalize understanding. The procedure was well tolerated. The results were explained and the patient is agreeable to the follow-up interval as stated. Education was provided to tell any 1st degree relatives about their findings to be sure that they are screened by age 45. Educated that they will be put on a recall list when it is time for their repeat scope but should they move out of state or away from the hospital they will need to remember along with their primary to repeat the procedure in a timely fashion to avoid any adverse complications. Despite taking the Linzess 290mcg daily and correctly she only moves her bowels every 2-3 days. We will add bisacodyl 1-2 tabs at bedtime and continue the Linzess. She continues to do well on her Dexilant and simethicone. ROV 5 weeks. [facility] Surgical History H/O section History of esophagogastroduodenoscopy (EGD) Hx of brain surgery Hx of colonoscopy Family History Father Esophageal cancer Smoker Mother No problems noted. Brother No problems noted. Brother No problems noted. Sister No problems noted. Sister No problems noted. Sister No problems noted. Sister No problems noted. Son No problems noted. Daughter No problems noted. Daughter No problems noted. Daughter No problems noted. Social History Household Members: None Alcohol intake: never Patient Tobacco Use Status: Current someday Tobacco user Current occupational status: disabled Review of Systems Const Denies fatigue, Denies fever(s), Denies night sweats, Denies poor appetite and Denies weight loss ENT Reports Normal hearing present, Denies dental pain, Denies dysphagia, Denies hearing loss, Denies mouth pain, Denies odynophagia, Denies throat swelling, Denies tongue swelling and Reports other (Dentition adequate) Card Reports no additional complaints Resp Reports no additional complaints GI Denies abdominal pain, Denies melena, Denies bloating, Denies hematochezia, Reports constipation, Denies GI cramping, Denies dysphagia, Denies excessive flatus, Denies early satiety, Reports heartburn, Denies diarrhea, Denies nausea, Denies odynophagia, Denies vomiting and Denies hematemesis Skin/Breast Denies pruritus, Denies lesions, Denies rash and Denies jaundice Neuro Reports Normal hearing present and Denies Abnormal speech present Endo Denies fatigue Aller/Immun Denies throat swelling and Denies tongue swelling Physical Exam Vital Signs: Last Vital Signs Pulse 100 10/17/22 11:25 BP 102/57 L 10/17/22 11:25 BMI result Body Mass Index 34.8 Const General: cooperative, no acute distress, well developed and well groomed Nutritional Appearance: well nourished and obese Orientation/consciousness: oriented to person, oriented to place and oriented to time Limitations: language barrier HEENT Head: Yes normocephalic and Yes atraumatic Eyes General: appearance normal, both eyes and all related structures Pupils: Equal, round and reactive pupils present Neck Neck: Yes normal visual inspection and Yes no lymphadenopathy Thyroid: Thyroid normal Resp Effort & Inspection: normal respiratory effort and able to speak in complete sentences Auscultation: clear to auscultation bilaterally Cardio Rate: regular rate Rhythm: regular rhythm Heart sounds: Normal, physiologic split S2 sound present Peripheral pulses: radial pulses present and posterior tibial pulses present GI Inspection: No distended, No Abdominal panniculus present and Yes obesity Palpation (GI): Soft to palpation, nontender, no guarding, not rigid and No hepatosplenomegaly present Percussion: Yes normal to percussion Auscultation: normal bowel sounds Rectal Exam - Female: deferred Skin General skin exam: no rashes or lesions noted, turgor normal, skin not dry, no jaundice, No spider nevi and no striae Rashes: no rashes Nails: normal Neuro General: oriented to person, oriented to place and oriented to time Cranial nerves: Yes Equal, round and reactive pupils present and Yes Normal hearing present Speech: No Abnormal speech present Extrem General: Yes normal to inspection, No clubbing, No cyanosis and No edema Psych Appearance: grossly normal and well kempt Mental Status: mental status grossly normal Speech and movement: Normal speech and movement present Affect: normal affect Attitude: cooperative Thought process: Normal thought process present and not confabulating Thought content: Normal thought content present Insight: Limited insight present (Psych) Judgement: Limited judgement present (Psych) Results Reviewed Results Reviewed: Laboratory Tests 07/20/22 07/20/22 12:58 12:58 WBC 8.8 Hgb 12.3 Hct 38.9 Plt Count 239 Estimated GFR 56 Total Bilirubin 0.3 AST 15 ALT 15 Alkaline Phosphatase 104 COLONOSCOPY 10/04/22 Findings: Mucosa: Solid and semi solid stool was noted throughout colon which was attempted to suctioned out however cecum could not be visualised completely for polyp detection. Mucosa otherwise normal to cecum and terminal ileum to the extent visualised. Protruding lesions: 2 sessile polyp of size 2-4 mm in ascending colon. Cold snare polypectomy was performed. The polyps were completely removed and retrieved. 2 sessile polyp of size 3-5 mm in transverse colon. Cold snare polypectomy was performed. The polyps were completely removed and retrieved. Medium internal hemorrhoids without stigmata of recent bleeding. Impression: 1. Normal colon and terminal ileum mucosa 2. Total of 4 polyps removed from ascending and transverse?colon. 3. External and internal hemorrhoids Recommendations: - Follow path results. - Repeat colonoscopy within a year due to poor prep. - Anusol supp sent to pharmacy to be used for 7 days at bedtime. BIOPSY Received: 10/04/22 Diagnosis A.? Colon, transverse, polypectomies (2): - Tubular adenoma; negative for high-grade dysplasia or carcinoma. - Hyperplastic mucosal polyp. B.? Colon, ascending, polypectomies (2): - Tubular adenoma; negative for high-grade dysplasia or carcinoma. - Colonic mucosa with mild surface hyperplastic changes. Assessment & Plan Assessment & Plan (1) Tubular adenoma of colon: Comment: 2022=2 TA and poor prep repeat 1 year: Four sessile polyps 2019 scope repeat in three years aeb Code(s): D12.6 - Benign neoplasm of colon, unspecified Plan: [place] #Jose L Newsome THe procedure needs to be repeated in 1 year due to poor prep. She will likely need a 2 day prep. She tells me she ate the day before. I thought it was not to eat after 6 pm. We again reviewed the prep instructions including the clear liquid diet that needs to start 24 hours prior to her procedure. I make her repeat verbalize understanding. The procedure was well tolerated. The results were explained and the patient is agreeable to the follow-up interval as stated. Education was provided to tell any 1st degree relatives about their findings to be sure that they are screened by age 45. Educated that they will be put on a recall list when it is time for their repeat scope but should they move out of state or away from the hospital they will need to remember along with their primary to repeat the procedure in a timely fashion to avoid any adverse complications. Despite taking the Linzess 290mcg daily and correctly she only moves her bowels every 2-3 days. We will add bisacodyl 1-2 tabs at bedtime and continue the Linzess. She continues to do well on her Dexilant and simethicone. ROV 5 weeks. (2) Abdominal bloating: Code(s): R14.0 - Abdominal distension (gaseous) (3) Oropharyngeal dysphagia: Comment: No cause found on 2018 EGD Code(s): R13.12 - Dysphagia, oropharyngeal phase (4) Chronic idiopathic constipation: Code(s): K59.04 - Chronic idiopathic constipation (5) GERD (gastroesophageal reflux disease): Code(s): K21.9 - Gastro-esophageal reflux disease without esophagitis Medications: New bisacodyl (Dulcolax (bisacodyl)) 10 mg (2 x 5 mg) PO BEDTIME 30 days 60 tabs 3RF K59.04 - Chronic idiopathic constipation Coding Level of Care Code Est Pt Level 4 (41573) Diagnoses Tubular adenoma of colon D12.6 Abdominal bloating R14.0 Oropharyngeal dysphagia R13.12 Chronic idiopathic constipation K59.04 GERD (gastroesophageal reflux disease) K21.9
[2022-10-17 11:25] VITALS: BP 102/57; PULSE 100; BMI 34.8
== END 2022-10-17 12:14 | disposition home or self-care (01) ==
PROVIDERS: PCP Internal Medicine; Visit Provider Nurse Practitioner
DX: D12.6 Benign neoplasm of colon, unspecified (principal); R14.0 Abdominal distension (gaseous); R13.12 Dysphagia, oropharyngeal phase; K59.04 Chronic idiopathic constipation; K21.9 Gastro-esophageal reflux disease without esophagitis
CPT/HCPCS: 99214

== ENCOUNTER → 2022-10-17 11:18 | Outpatient (BNVA) | payer OTHER, SELFPAY | PROVIDERS: PCP Internal Medicine; Visit Provider Nurse Practitioner | DX: D12.2 Benign neoplasm of ascending colon (principal); D12.3 Benign neoplasm of transverse colon; R14.0 Abdominal distension (gaseous); R13.12 Dysphagia, oropharyngeal phase; K59.04 Chronic idiopathic constipation; K21.9 Gastro-esophageal reflux disease without esophagitis | CPT/HCPCS: 99212 ==

== ENCOUNTER 2022-11-21 11:42 | Outpatient (AMB) | payer OTHER, SELFPAY ==
--- NOTE | 2022-11-21 11:55 | MHC.OFFVIS ---
Intake Vital Signs 11/21/22 12:04 Height 5 ft 2 in Weight 191 lb 12.835 oz BMI 35.1 BP 131/62 Blood Pressure Location Lt brachial Position Sitting Pulse 80 Intake Visit Reasons: 5 week fu Intake Note: Patient presents to in office visit today in 5 weeks follow up of dysphagia. CC: Patient reports about a week ago she chocked with a piece of cracker and felt like she was about to pass out. Denies other GI symptoms. 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 Accompanied by: Self / Same As Patient Allergies peanut [PEANUTS] Allergy (Severe, Verified 11/21/22 12:12) THROAT SWELLING avocado [AVOCADO] Allergy (Intermediate, Verified 11/21/22 12:12) THROAT SWELLING colloidal oatmeal Allergy (Mild, Verified 11/21/22 12:12) unknown ketchup Allergy (Mild, Verified 11/21/22 12:12) unknown cat dander [CAT DANDER] Allergy (Unknown, Verified 11/21/22 12:12) UNKNOWN PER H&P HPI 5 week fu HPI Details Assessment & Plan (1) Tubular adenoma of colon: Comment: 2022=2 TA and poor prep repeat 1 year: Four sessile polyps 2019 scope repeat in three years aeb Code(s): D12.6 - Benign neoplasm of colon, unspecified Plan: [place] #[place], Jose L THe procedure needs to be repeated in 1 year due to poor prep. She will likely need a 2 day prep. She tells me she ate the day before. I thought it was not to eat after 6 pm. We again reviewed the prep instructions including the clear liquid diet that needs to start 24 hours prior to her procedure. I make her repeat verbalize understanding. The procedure was well tolerated. The results were explained and the patient is agreeable to the follow-up interval as stated. Education was provided to tell any 1st degree relatives about their findings to be sure that they are screened by age 45. Educated that they will be put on a recall list when it is time for their repeat scope but should they move out of state or away from the hospital they will need to remember along with their primary to repeat the procedure in a timely fashion to avoid any adverse complications. Despite taking the Linzess 290mcg daily and correctly she only moves her bowels every 2-3 days. We will add bisacodyl 1-2 tabs at bedtime and continue the Linzess. She continues to do well on her Dexilant and simethicone. ROV 5 weeks. (2) Abdominal bloating: Code(s): R14.0 - Abdominal distension (gaseous) (3) Oropharyngeal dysphagia: Comment: No cause found on 2018 EGD Code(s): R13.12 - Dysphagia, oropharyngeal phase (4) Chronic idiopathic constipation: Code(s): K59.04 - Chronic idiopathic constipation (5) GERD (gastroesophageal reflux disease): Code(s): K21.9 - Gastro-esophageal reflux disease without esophagitis Medications: New bisacodyl (Dulcola x (bisacodyl)) 10 mg (2 x 5 mg) P O BEDTIME 30 days 60 tabs 3RF K59.04 - Chronic i diopathic constipa tion TODAY'S VISIT [place] #Juliana matias She will need to repeat the colonoscopy in one year from 10/2022 r/t poor prep. She received the bisacodyl and with the LInzess she is now moving her bowels well. She has a new c/o dysphagia and near choking. She says she nearly choked on a cracker recently. This is all in the oropharyngeal area, and EGD in 2019 did not show any specific cause, dilation was attempted with some help. She has never had a barium swallow and I will get a mod swallow with speech therapy. She may need ENT or neuro referral depending. Her GERD Is well controlled with her Dexilant. ROV after barium swallow or EGD. ROV 6 mos. PFSH Surgical History Hx of brain surgery Hx of colonoscopy H/O section History of esophagogastroduodenoscopy (EGD) Family History Father Esophageal cancer Smoker Mother No problems noted. Brother No problems noted. Brother No problems noted. Sister No problems noted. Sister No problems noted. Sister No problems noted. Sister No problems noted. Son No problems noted. Daughter No problems noted. Daughter No problems noted. Daughter No problems noted. Social History Household Members: None Alcohol intake: never Patient Tobacco Use Status: Current someday Tobacco user Current occupational status: disabled Review of Systems Const Denies fatigue, Denies fever(s), Denies night sweats, Denies poor appetite and Denies weight loss ENT Reports Normal hearing present, Denies dental pain, Reports dysphagia, Denies hearing loss, Denies mouth pain, Denies odynophagia, Denies throat swelling, Denies tongue swelling and Reports other (Dentition adequate) Card Reports no additional complaints Resp Reports no additional complaints GI Denies abdominal pain, Denies melena, Denies bloating, Denies hematochezia, Reports constipation, Denies GI cramping, Reports dysphagia, Denies excessive flatus, Denies early satiety, Reports heartburn, Denies diarrhea, Denies nausea, Denies odynophagia, Denies vomiting and Denies hematemesis Skin/Breast Denies pruritus, Denies lesions, Denies rash and Denies jaundice Neuro Reports Normal hearing present and Denies Abnormal speech present Endo Denies fatigue Aller/Immun Denies throat swelling and Denies tongue swelling Physical Exam Vital Signs: Last Vital Signs Pulse 80 11/21/22 12:04 BP 131/62 11/21/22 12:04 BMI result Body Mass Index 35.1 Const General: cooperative, no acute distress, well developed and well groomed Nutritional Appearance: well nourished and obese Orientation/consciousness: oriented to person, oriented to place and oriented to time Limitations: language barrier HEENT Head: Yes normocephalic and Yes atraumatic Eyes General: appearance normal, both eyes and all related structures Pupils: Equal, round and reactive pupils present Neck Neck: Yes normal visual inspection and Yes no lymphadenopathy Thyroid: Thyroid normal Resp Effort & Inspection: normal respiratory effort and able to speak in complete sentences Auscultation: clear to auscultation bilaterally Cardio Rate: regular rate Rhythm: regular rhythm Heart sounds: Normal, physiologic split S2 sound present Peripheral pulses: radial pulses present and posterior tibial pulses present GI Inspection: No distended, Yes Abdominal panniculus present and Yes obesity Palpation (GI): Soft to palpation, nontender, no guarding, not rigid and No hepatosplenomegaly present Percussion: Yes normal to percussion Auscultation: normal bowel sounds Rectal Exam - Female: deferred Skin General skin exam: no rashes or lesions noted, turgor normal, skin not dry, no jaundice, No spider nevi and no striae Rashes: no rashes Nails: normal Neuro General: oriented to person, oriented to place and oriented to time Cranial nerves: Yes Equal, round and reactive pupils present and Yes Normal hearing present Speech: No Abnormal speech present Extrem General: Yes normal to inspection, No clubbing, No cyanosis and No edema Psych Appearance: grossly normal and well kempt Mental Status: mental status grossly normal Speech and movement: Normal speech and movement present Affect: normal affect Attitude: cooperative Thought process: Normal thought process present and not confabulating Thought content: Normal thought content present Insight: Limited insight present (Psych) Judgement: Limited judgement present (Psych) Assessment & Plan Assessment & Plan (1) Oropharyngeal dysphagia: Comment: No cause found on 2018 EGD Code(s): R13.12 - Dysphagia, oropharyngeal phase Plan: [place] #Juliana live She will need to repeat the colonoscopy in one year from 10/2022 r/t poor prep. She received the bisacodyl and with the LInzess she is now moving her bowels well. She has a new c/o dysphagia and near choking. She says she nearly choked on a cracker recently. This is all in the oropharyngeal area, and EGD in 2019 did not show any specific cause, dilation was attempted with some help. She has never had a barium swallow and I will get a mod swallow with speech therapy. She may need ENT or neuro referral depending. Her GERD Is well controlled with her Dexilant. ROV after barium swallow or EGD. ROV 6 mos. (2) Chronic idiopathic constipation: Code(s): K59.04 - Chronic idiopathic constipation (3) GERD (gastroesophageal reflux disease): Code(s): K21.9 - Gastro-esophageal reflux disease without esophagitis (4) Tubular adenoma of colon: Comment: 2022=2 TA and poor prep repeat 1 year: Four sessile polyps 2019 scope repeat in three years aeb Code(s): D12.6 - Benign neoplasm of colon, unspecified Orders: Orders EGD with [facility] - GI Use Only 11/21/22 R13.12 - Dysphagia, oropharyngeal phase [place] barium swallow modified 11/21/22 R13.12 - Dysphagia, oropharyngeal phase Coding Level of Care Code Est Pt Level 4 (07704) Diagnoses Oropharyngeal dysphagia R13.12 Chronic idiopathic constipation K59.04 GERD (gastroesophageal reflux disease) K21.9 Tubular adenoma of colon D12.6
[2022-11-21 12:04] VITALS: BP 131/62; PULSE 80; BMI 35.1
== END 2022-11-21 12:33 | disposition home or self-care (01) ==
PROVIDERS: PCP Internal Medicine; Visit Provider Nurse Practitioner
DX: R13.12 Dysphagia, oropharyngeal phase (principal); K59.04 Chronic idiopathic constipation; K21.9 Gastro-esophageal reflux disease without esophagitis; D12.6 Benign neoplasm of colon, unspecified
CPT/HCPCS: 99214

== ENCOUNTER → 2022-11-21 11:42 | Outpatient (BNVA) | payer OTHER, SELFPAY | PROVIDERS: PCP Internal Medicine; Visit Provider Nurse Practitioner | DX: K21.9 Gastro-esophageal reflux disease without esophagitis (principal); K59.04 Chronic idiopathic constipation; D12.6 Benign neoplasm of colon, unspecified; R13.12 Dysphagia, oropharyngeal phase | CPT/HCPCS: 99212 ==

== ENCOUNTER 2022-11-23 09:23 | Outpatient (REF) | payer OTHER, SELFPAY ==
[2022-11-23 14:29] LABS: MANUAL DIFF FLAG NO
[2022-11-23 14:38] LABS: Basophils Absolute Auto 0.1 X10*3/uL (0.0-0.2); Basophils Percent Auto 0.9 % (0-2); Eosinophils Percent Auto 11.7 % (0-4); Hematocrit 36.6 % (37.0-47.0); Hemoglobin 11.4 g/dl (12.0-16.0); Imm Gran Abs Auto 0.02 X10*3/uL (0.00-0.03); Imm Gran Pct Auto 0.2 % (0.0-0.4); Lymphocytes Absolute Auto 1.7 X10*3/uL (1.2-4.9); Lymphocytes Percent Auto 19.8 % (20-40); Mean Corpuscular HGB Conc 31.1 g/dl (31.0-35.0); Mean Corpuscular Hemoglobin 26.7 pg (27.0-33.0); Mean Corpuscular Volume 85.7 fL (80.0-98.0); Monocytes Absolute Auto 0.5 X10*3/uL (0.1-1.2); Monocytes Percent Auto 6.1 % (2-11); Neutrophils Absolute Auto 5.3 x10*3/uL (2.0-8.3); Neutrophils Percent Auto 61.3 % (45-73); Platelet Count 297 X10*3/uL (160-400); Red Blood Count 4.27 X10*6/uL (4.20-5.50); Red Cell Distribution Width 12.8 % (11.0-16.0); White Blood Count 8.6 X10*3/uL (4.8-10.8)
[2022-11-23 15:00] LABS: Alanine Aminotransferase 11 U/L (0-31); Alkaline Phosphatase 90 U/L (39-117); Anion Gap 15 (12-20); Aspartate Amino Transferase 12 U/L (5-31); Bilirubin Total 0.3 mg/dL (0.0-1.0); Blood Urea Nitrogen 22 mg/dL (9-16); Calcium 9.4 mg/dL (8.4-10.2); Carbon Dioxide 26 mmol/L (22-29); Chloride 103 mmol/L (96-108); Cholesterol 110 mg/dL (<200); Estimated Glomerular Filt Rate 58; Glucose Fasting 140 mg/dL (60-99); HDL Cholesterol 41 mg/dL (>40); Iron 44 mcg/dL (30-160); LDL Cholesterol Calculated 50 mg/dL (<100); Percent Iron Saturation 17 % (15-50); Potassium 3.3 mmol/L (3.3-5.1); Sodium 141 mmol/L (135-145); Total Iron Binding Capacity 258 mcg/dL (228-428); Total Protein 7.4 g/dL (6.5-8.0); Triglycerides 95 mg/dL (<150); Unsaturated Iron Binding 214 ug/dL
[2022-11-23 15:23] LABS: Folate 12.6 ng/mL (> or = 4.0); Vitamin B12 331 pg/mL (200-900)
== END 2022-11-23 09:24 | disposition home or self-care (01) ==
LOC: HO.CHCLDS 09:23
PROVIDERS: Visit Provider Internal Medicine
DX: E11.9 Type 2 diabetes mellitus without complications (principal)
CPT/HCPCS: 36415; 80053; 80061; 82607; 82746; 83540; 85025

== ENCOUNTER 2023-01-09 07:44 | Day surgery (SDC) | payer OTHER, SELFPAY ==
--- NOTE | 2023-01-08 10:35 | HO.ANESPROP2 ---
HPI - Anesthesia Eval Consult details Narrative: 67yo F for Upper Endoscopy PMFSH Active Problems Active Problems: All Active Problems (Updated 10/17/22 @ 11:44 by JANNA Hutchins) Pre-op examination (Acute) Lumbar radicular pain (Acute) Lumbar spondylosis (Acute) Hamstring tendinitis of right thigh (Acute) Numbness and tingling of right leg (Acute) Right thigh pain (Acute) Boil of lower extremity (Acute) Furuncle of extremity (Acute) Spondylosis of lumbar region without myelopathy or radiculopathy (Acute) Right hip pain (Acute) Right knee pain (Acute) Tubular adenoma of colon (Acute) Acute sore throat (Acute) Abdominal bloating (Acute) Oropharyngeal dysphagia (Acute) Chronic idiopathic constipation (Acute) Chronic superficial gastritis (Acute) GERD (gastroesophageal reflux disease) (Acute) Past Medical History Medical History (Updated 01/08/23 @ 10:42 by Sandra Izquierdo NP) HLD (hyperlipidemia) HTN (hypertension) Lumbar spondylosis Chronic idiopathic constipation GERD (gastroesophageal reflux disease) Family History Family History Father Esophageal cancer Smoker Mother No problems noted. Brother No problems noted. Brother No problems noted. Sister No problems noted. Sister No problems noted. Sister No problems noted. Sister No problems noted. Son No problems noted. Daughter No problems noted. Daughter No problems noted. Daughter No problems noted. Family history of problems with anesthesia: No Surgical History Surgical History Hx of brain surgery Hx of colonoscopy H/O section History of esophagogastroduodenoscopy (EGD) History of Problems with Anesthesia: No Social History Social History Household Members: None Alcohol intake: never Patient Tobacco Use Status: Current someday Tobacco user Current occupational status: disabled Meds Allergies Allergy/AdvReac Type Severity Reaction Status Date / Time peanut [PEANUTS] Allergy Severe THROAT Verified 11/21/22 12:12 SWELLING avocado [AVOCADO] Allergy Intermediate THROAT Verified 11/21/22 12:12 SWELLING colloidal oatmeal Allergy Mild unknown Verified 11/21/22 12:12 ketchup Allergy Mild unknown Verified 11/21/22 12:12 cat dander [CAT DANDER] Allergy Unknown UNKNOWN Verified 11/21/22 12:12 PER H&P Home Medications Medication Instructions Recorded Confirmed Last Taken Type amlodipine 10 mg tablet 10 mg PO DAILY 07/20/22 10/04/22 History atorvastatin 40 mg tablet 40 mg PO DAILY 07/20/22 Unknown History bupropion HCl 300 mg 24 hr tablet, 300 mg PO DAILY 07/20/22 Unknown History extended release clonazepam 1 mg tablet 1 mg PO BID PRN 07/20/22 Unknown History diphenhydramine HCl 50 mg capsule 50 mg PO BEDTIME 07/20/22 Unknown History (Banophen) fluticasone propionate 50 spray intranasal 07/20/22 Unknown History mcg/actuation nasal spray,suspension hydrochlorothiazide 25 mg tablet 25 mg PO DAILY 07/20/22 Unknown History labetalol 100 mg tablet 100 mg PO BID 07/20/22 Unknown History metformin 500 mg tablet 500 mg PO BID 07/20/22 10/04/22 History zolpidem 10 mg tablet 10 mg PO BEDTIME PRN 07/20/22 Unknown History amitriptyline 25 mg tablet 25 mg PO DAILY 10/17/22 Unknown History lisinopril 40 mg tablet 40 mg PO DAILY 10/17/22 Unknown History Exam Exam Date and Time: January 08, 2023 1035 Pertinent Lab Results Pertinent Lab Results: Laboratory Tests 11/23/22 09:29 WBC 8.6 Hgb 11.4 L Hct 36.6 L Plt Count 297 Sodium 141 Potassium 3.3 Chloride 103 Carbon Dioxide 26 BUN 22 H Creatinine 0.96 Assessment and Plan Assessment Anesthesia Assessment: Chart Reviewed Final Anesthetic Review Family History of Problems with Anesthesia: No History of Problems with Anesthesia: No
[2023-01-09] VITALS (7 sets, daily range): BP systolic 116–132; BP diastolic 61–84; PULSE 77–98; RESP 16; TEMP 36.6–37.1; O2SAT 93–94; BMI 33.7
[2023-01-09] MEDS: Lactated Ringers 1,000 ML 100 ML IVCONT (08:50)
[2023-01-09 08:56] LABS: Glucose, Whole Blood 134 mg/dL (60-115)
--- NOTE | 2023-01-09 09:40 | MHC.SHP ---
Pre-Procedural Eval Section A Date of Service: 01/09/23 The patient is an INPATIENT: No The History & Physical has been completed within 30 days and I have reviewed it.: No Section B Chief Complaint: Dysphagia, GERD Relevant Family History (Specify if Yes): Yes Relevant Social History: Tobacco Use Present Medications: see Short Stay Collaborative assessment Medical History: Significant History ( hypertension, hyperlipidemia, GERD, chronic constipation) History of Previous Operations: Relevant previous surgery/procedure and date(s) (Hx of brain surgery Hx of colonoscopy H/O section History of esophagogastroduodenoscopy (EGD)) Allergies: Allergies Allergy/AdvReac Type Severity Reaction Status Date / Time peanut [PEANUTS] Allergy Severe THROAT Verified 11/21/22 12:12 SWELLING avocado [AVOCADO] Allergy Intermediate THROAT Verified 11/21/22 12:12 SWELLING colloidal oatmeal Allergy Mild unknown Verified 11/21/22 12:12 ketchup Allergy Mild unknown Verified 11/21/22 12:12 cat dander [CAT DANDER] Allergy Unknown UNKNOWN Verified 11/21/22 12:12 PER H&P Plan Diagnosis/Plan: Unchanged I have reviewed the history and physical and performed a pertinent physical examination on my patient. No changes have occurred unless specified. Time Spent With Patient Time: Total time managing care of this patient today ____ minutes.
--- NOTE | 2023-01-09 09:41 | W.PM.OPN ---
Operative Note Operative Note Date of Service: 01/09/23 Narrative: FLEXIBLE TRANSORAL UPPER GASTROINTESTINAL ENDOSCOPY WITH BIOPSIES AND ESOPHAGEAL BALLOON DILATION Pre-op diagnosis: GERD, dysphagia Post-op diagnosis: GERD, dysphagia, gastric polyp, gastritis Endoscopist:? Rosy Gonzalez MD Anesthesia:?GA with ETT (Dr Herrera) Consent: Indications for the procedure and potential complications of bleeding, perforation, reaction to medications and missed diagnosis were discussed with the patient and informed consent was obtained. Instrument: Olympus GIF H 190 mid size upper endoscope Monitoring: Vital signs and clinical assessment, continuous EKG monitoring, Pulse oximetry, Carbon Dioxide monitoring and blood pressure monitoring were done throughout the procedure. Procedure: The patient was placed in the left lateral decubitis position and pre-procedure medications were administered and a bite block was placed. The endoscope was inserted into the mouth and advanced under direct vision to the third part of duodenum. A careful inspection was made as the upper endoscope was withdrawn including a retroflexed examination of the proximal stomach; Findings and interventions are described below. Findings: Larynx: Normal Esophagus: A few circular rings in the mid/distal esophagus without stricture or ring. Biopsies were obtained from proximal and distal esophagus to check for EOE. GE junction at 40 cms. No esophagitis. A 1 cms tongue of possible Ibanez's - biopsied. Empiric balloon dilation of the esophagus was performed with a 20 mm CRE balloon x 60 seconds Stomach: A 10-12 mm benign appearing polyp in the gastric body - biopsied. Minimal gastric erythema. Biopsies were obtained. Grade 2 flap valve on retroflexed examination of the cardia. Duodenum: Normal bulb and descending duodenum Intervention: Biopsies and esophageal balloon dilation as noted above Impression and Post Procedure Diagnosis: Endoscopy Findings: ESOPHAGUS: A few circular rings in the mid/distal esophagus without stricture or ring. Biopsies were obtained from proximal and distal esophagus to check for EOE. GE junction at 40 cms. No esophagitis. A 1 cms tongue of possible Ibanez's - biopsied. Empiric balloon dilation of the esophagus was performed with a 20 mm CRE balloon x 60 seconds Dysphagia likely due to esophageal motility disorder STOMACH: Mild gastritis and gastric polyp Plan: Await pathology results Patient has an appointment on 01/22/23 in the GI [facility] with Rianna Vargas NP. Above findings were reviewed with the patient and GERD and Gastric Polyps handouts were given in the discharge area Pt was advised to schedule an appt for Barium swallow - not scheduled yet.
--- NOTE | 2023-01-09 10:23 | P.CONAN_ITS ---
[facility] Active Problems Active Problems: All Active Problems (Updated 01/08/23 @ 10:42 by Sandra Izquierdo NP) Chronic idiopathic constipation (Acute) Pre-op examination (Acute) Lumbar radicular pain (Acute) Hamstring tendinitis of right thigh (Acute) Numbness and tingling of right leg (Acute) Right thigh pain (Acute) Boil of lower extremity (Acute) Furuncle of extremity (Acute) Spondylosis of lumbar region without myelopathy or radiculopathy (Acute) Right hip pain (Acute) Right knee pain (Acute) Tubular adenoma of colon (Acute) Acute sore throat (Acute) Abdominal bloating (Acute) Oropharyngeal dysphagia (Acute) Chronic superficial gastritis (Acute) Past Medical History Medical History (Updated 01/08/23 @ 10:42 by Sandra Izquierdo NP) HLD (hyperlipidemia) HTN (hypertension) Lumbar spondylosis Chronic idiopathic constipation GERD (gastroesophageal reflux disease) Functional capacity: independent ambulation Family History Family History Father Esophageal cancer Smoker Mother No problems noted. Brother No problems noted. Brother No problems noted. Sister No problems noted. Sister No problems noted. Sister No problems noted. Sister No problems noted. Son No problems noted. Daughter No problems noted. Daughter No problems noted. Daughter No problems noted. Family history of problems with anesthesia: No Surgical History Surgical History Hx of brain surgery Hx of colonoscopy H/O section History of esophagogastroduodenoscopy (EGD) History of Problems with Anesthesia: No Social History Social History Household Members: None Alcohol intake: never Patient Tobacco Use Status: Current someday Tobacco user Tobacco use type: Cigarette Use of substances other than those prescribed or required for medical reasons: No Are you DNR?: No Advance Directives: No Advance Directives Information Provided: Yes Current occupational status: disabled Meds Allergies Allergy/AdvReac Type Severity Reaction Status Date / Time peanut [PEANUTS] Allergy Severe THROAT Verified 11/21/22 12:12 SWELLING avocado [AVOCADO] Allergy Intermediate THROAT Verified 11/21/22 12:12 SWELLING colloidal oatmeal Allergy Mild unknown Verified 11/21/22 12:12 ketchup Allergy Mild unknown Verified 11/21/22 12:12 cat dander [CAT DANDER] Allergy Unknown UNKNOWN Verified 11/21/22 12:12 PER H&P Active Medications: Current Medications Albuterol Sulfate (Albuterol Sulfate (0.083%) 2.5 Mg/3 Ml Vial.Neb) 2.5 mg INHALE ONCE PRN PRN Reason: Shortness of Breath/Wheezing Lactated Ringer's (Lr) 1,000 mls @ 100 mls/hr IVCONT .Q10H CICI Last Admin: 01/09/23 08:50 Dose: 100 mls/hr Home Medications Medication Instructions Recorded Confirmed Last Taken Type amlodipine 10 mg tablet 10 mg PO DAILY 07/20/22 10/04/22 History atorvastatin 40 mg tablet 40 mg PO DAILY 07/20/22 Unknown History bupropion HCl 300 mg 24 hr tablet, 300 mg PO DAILY 07/20/22 Unknown History extended release clonazepam 1 mg tablet 1 mg PO BID PRN 07/20/22 Unknown History diphenhydramine HCl 50 mg capsule 50 mg PO BEDTIME 07/20/22 Unknown History (Banophen) fluticasone propionate 50 spray intranasal 07/20/22 Unknown History mcg/actuation nasal spray,suspension hydrochlorothiazide 25 mg tablet 25 mg PO DAILY 07/20/22 Unknown History labetalol 100 mg tablet 100 mg PO BID 07/20/22 01/09/23 01/09/23 History metformin 500 mg tablet 500 mg PO BID 07/20/22 10/04/22 History zolpidem 10 mg tablet 10 mg PO BEDTIME PRN 07/20/22 Unknown History amitriptyline 25 mg tablet 25 mg PO DAILY 10/17/22 Unknown History lisinopril 40 mg tablet 40 mg PO DAILY 10/17/22 Unknown History Exam Exam Date and Time: January 09, 2023 1023 Height,Weight and Vital Signs: Height 5 ft 2 in Weight 83.518 kg Last Vital Signs Temp 97.9 F 01/09/23 08:38 Pulse 77 01/09/23 08:38 Resp 16 01/09/23 08:38 BP 116/61 01/09/23 08:38 Pulse Ox 93 01/09/23 08:38 O2 Del Method Room Air 01/09/23 08:38 Pertinent Lab Results Pertinent Lab Results: Laboratory Tests 01/09/23 08:53 POC Glucose 134 H Airway Mallampati Class: III TM Dist: >3cm Neck ROM: Full Heart: RRR Lungs: CTA Assessment and Plan Assessment Anesthesia Assessment: Anesthesia Plan Discussed Final Anesthetic Review Family History of Problems with Anesthesia: No History of Problems with Anesthesia: No ASA Class: III Final Preanesthetic Review: Meds/Allgs Chart Reviewed, Consent Obtained/Reviewed and Anes Risks/Benef Reviewed Patient Risk: Low Procedure Risk: Low Anesthetic Plan Anesthetic Plan: MAC: Disposition: Standard PACU
--- NOTE | 2023-01-09 12:37 | HO.POSTANES ---
Post Anesthesia Evaluation Post Anesthesia Evaluation Date of Service: 01/09/23 Vital Signs: Vital Signs Temp Pulse Resp BP Pulse Ox O2 Del Method 01/09/23 11:24 98.5 F 89 16 132/69 94 Room Air 01/09/23 11:08 98.5 F 88 16 118/70 93 Room Air 01/09/23 10:53 92 16 131/68 94 Room Air 01/09/23 10:48 94 16 129/63 94 Room Air 01/09/23 10:43 98 16 125/84 94 Room Air 01/09/23 10:38 98.7 F 94 16 128/73 94 Room Air 01/09/23 08:38 97.9 F 77 16 116/61 93 Room Air Anesthesia: General Endotracheal-GETA Mental Status: Awake Pain Control: Satisfactory Nausea/Vomiting: None Hydration: Adequate Anesthesia-Related Issues: No Anes. Related Issues
== END 2023-01-09 12:26 | disposition home or self-care (01) ==
PROVIDERS: PCP Internal Medicine; Visit Provider Internal Medicine Gastroenterology
PROC: 0DJ08ZZ Inspection of Upper Intestinal Tract, Via Natural or Artificial Opening Endoscopic (ICD-10-PCS; CPT 43235; principal; 2023-01-09 09:30)
DX: R13.12 Dysphagia, oropharyngeal phase (principal); K31.7 Polyp of stomach and duodenum; R14.0 Abdominal distension (gaseous); K21.9 Gastro-esophageal reflux disease without esophagitis; K29.50 Unspecified chronic gastritis without bleeding; I10 Essential (primary) hypertension; E78.5 Hyperlipidemia, unspecified; K59.04 Chronic idiopathic constipation; Z79.84 Long term (current) use of oral hypoglycemic drugs; Z79.899 Other long term (current) drug therapy; Z91.010 Allergy to peanuts; Z91.018 Allergy to other foods; F17.210 Nicotine dependence, cigarettes, uncomplicated
CPT/HCPCS: 43249; 43239; 82947; 88305; 88342; C1726

== ENCOUNTER → 2023-01-09 07:44 | Outpatient (BNV) | payer OTHER, SELFPAY | PROVIDERS: PCP Internal Medicine; Visit Provider Internal Medicine Gastroenterology | DX: R13.10 Dysphagia, unspecified (principal); K21.9 Gastro-esophageal reflux disease without esophagitis; K31.7 Polyp of stomach and duodenum; K29.70 Gastritis, unspecified, without bleeding | CPT/HCPCS: 43239; 43249 ==

== ENCOUNTER 2023-04-02 13:14 | Inpatient (IN) | payer OTHER, SELFPAY ==
[2023-04-02] VITALS (7 sets, daily range): BP systolic 100–118; BP diastolic 46–58; PULSE 94–100; RESP 18–32; TEMP 36.8–37.7; O2SAT 82–100; BMI 29.9
--- NOTE | ~2023-04-02 | XR_ITS ---
EXAMINATION: XR CHEST CLINICAL INFORMATION: Follow-up pneumonia COMPARISON: Previous chest x-ray most recent 04/05/2019 TECHNIQUE: Frontal view of the chest was obtained. FINDINGS: Almost complete white out of the right hemithorax. There is increasing right pleural effusion. There is a portion of aerated right upper lung with consolidation. The left lung is clear. No left pleural effusion. No pneumothorax. Right hilar and mediastinal contours are obscured; left unchanged. Degenerative changes of the spine. XR/XR chest 1V IMPRESSION: Almost complete whiteout of the right hemithorax likely from combination of increasing right pleural effusion and airspace disease.
--- NOTE | ~2023-04-02 | XR_ITS ---
EXAMINATION: XR CHEST CLINICAL INFORMATION: Line placement COMPARISON: Chest x-ray 04/09/[address] chest to 524. TECHNIQUE: Frontal view of the chest was obtained. FINDINGS: There is a large bore chest catheter at right lung base. There is new right jugular central line with its tip in the mid to distal SVC. New endotracheal tube approximately 3 cm above the nitin. New enteric tube tip is below the diaphragm. The left lung is expanded and clear. There is complete opacification of right lung. There is a new right chest catheter with its tip overlying the third posterior rib. XR/XR chest 1V IMPRESSION: 1. Complete opacification of right lung likely due to collapse/consolidation. 2. New right jugular central line, endotracheal tube, enteric tube and right chest tube are in satisfactory position. 3. The left lung is expanded and clear.
--- NOTE | ~2023-04-02 | XR_ITS ---
EXAMINATION: XR CHEST CLINICAL INFORMATION: Right chest tube insertion. COMPARISON: CT chest 04/08/2023 and chest x-ray 04/07/2023. TECHNIQUE: Frontal view of the chest was obtained. FINDINGS: There is a large bowel chest catheter along the right lung base. There is more aeration of right upper lobe with improvement of the complete whiteout seen previously. There is however mild ipsilateral mediastinal shift present. The left lung is expanded and clear. Heart size is enlarged. Pulmonary vascularity is normal. No gross bony abnormality seen. XR/XR chest 1V IMPRESSION: Interval insertion of a right chest catheter with its tip along the right lung base with more aeration of right upper lobe. Mild dzbr-[id number] midline shift is noted. The left lung is clear.
--- NOTE | ~2023-04-02 | CT_ITS ---
EXAMINATION: CT CHEST WITHOUT CONTRAST CLINICAL INFORMATION: Hypoxia COMPARISON: Chest x-ray 04/09/2023 TECHNIQUE: Multidetector volumetric CT imaging of the chest was done. Axial MIP volume rendering provided. Sagittal and coronal reformatted images were obtained. This CT examination was performed using dose optimization techniques as appropriate, variously including the following: *Automated exposure control *Adjustment of mA and/or kV according to patient size (this includes techniques or standardized protocols for targeted exams where dose is matched to indication/reason for exam; i.e. extremities or head) *Use of iterative reconstruction technique DLP: 253 mGy-cm FINDINGS: AP OPERATOR: Expanded lungs with complete whiteout right lung. LUNGS: There is complete consolidation right lung with air bronchogram and mild loss of volume resulting in ipsilateral mediastinal shift. The left lung is expanded and clear. There are multiple ill-defined opacities throughout left lung suggestive of developing patchy infiltrates or metastatic process. There is a left lung base patchy consolidation MEDIASTINUM: The mediastinum is mildly shifted to the right. Heart size and the great vessels are normal caliber. No pericardial effusion seen. Central trachea and the left main bronchi is widely patent. The right distal main bronchi is narrowed secondary to consolidation. No radiopaque foreign body seen in the trachea or the bronchi. CORONARY ARTERY CALCIFICATION: There is mild coronary artery calcifications present. PLEURA: There is trace right pleural effusion. AXILLA: No abnormal axillary lymph nodes seen. The chest wall is unremarkable. UPPER ABDOMEN: Visualized liver, spleen, pancreas and bilateral adrenal glands are unremarkable. OSSEOUS STRUCTURES: No aggressive lytic and sclerotic process seen.. There is moderate ventral spondylosis mid and lower dorsal spine. No aggressive lytic or sclerotic process seen. CT/CT chest wo IV con IMPRESSION: 1. Complete consolidation right lung with air bronchogram and mild loss of volume resulting in ipsilateral mediastinal shift. 2. There are multiple ill-defined opacities throughout the left lung suggestive of developing patchy infiltrates or metastatic process. 3. Trace right pleural effusion. There is a right chest catheter along the lung bases in good position. Fleischner guidelines were followed.
--- NOTE | ~2023-04-02 | XR_ITS ---
EXAMINATION: XR CHEST CLINICAL INFORMATION: ET tube placement. COMPARISON: Multiple prior chest x-rays, most recent of which is dated 04/12/2023. CT scan of the chest dated 04/09/2023. TECHNIQUE: AP semiupright portable view of the chest was obtained. FINDINGS: Multiple EKG leads overlie the chest. An endotracheal tube is in place. The advanced and now projects into the proximal right mainstem bronchus. Enteric tube courses into the left upper quadrant with tip projected over the gas distended gastric fundus. Right jugular central venous line is in the right atrium. 2 right-sided chest tubes are unchanged in position, projecting peripherally in the right lung apex and medially in the right mid lung. There is continued complete opacification of the right hemithorax with slight shift of the mediastinum to the right side, consistent with the CT demonstrated complete consolidation in the right lung. There is now patchy opacity seen throughout the left lung, likely related to underinflation from malpositioned endotracheal tube. There may be a trace left pleural effusion. No definite pneumothorax is seen. Moderate vertebral spondylosis seen throughout the thoracic spine. XR/XR chest 1V IMPRESSION: * Endotracheal tube tip is malpositioned and projects into the proximal right mainstem bronchus. Resultant interval development of patchy opacities in the left lung, likely related to underinflation of the left lung from malposition ET tube. Repositioning of the endotracheal tube is advised with repeat radiograph taken to assess positioning. * Other lines and tubes in place as discussed above. * Continued complete opacification of the right hemithorax with slight shift of the mediastinum to the right side, consistent with the CT demonstrated complete consolidation in the right lung. This critical result was discussed with Dr. Morales 04/14/2023, 8:16 PM and it was ascertained that the content and urgency of this report was understood at the time of direct communication.
--- NOTE | ~2023-04-02 | XR_ITS ---
EXAMINATION: XR CHEST CLINICAL INFORMATION: Status post thoracotomy. COMPARISON: Chest x-ray 04/11/2023 TECHNIQUE: Frontal view of the chest was obtained. FINDINGS: There is complete opacification of right lung with 2 right-sided chest tubes with mild ipsilateral mediastinal shift. The left lung is expanded and clear. Position of right jugular central tip is in mid to distal SVC. Endotracheal tube tip is 3.8 cm above the nitin. Tip of enteric tube is in the stomach. There is moderate spondylosis dorsal spine. XR/XR chest 1V IMPRESSION: 1. Complete opacification of right lung with 2 right-sided chest tubes and mild ipsilateral mediastinal shift. 2. The left lung is expanded and clear. 3. There is no major change from 04/11/2023 chest x-ray exam.
--- NOTE | ~2023-04-02 | CT_ITS ---
EXAMINATION: CT CHEST WITH CONTRAST CLINICAL INFORMATION: Abnormal right lung. Abnormal chest x-ray COMPARISON: Portable chest x-ray 04/02/23 TECHNIQUE: Multidetector volumetric CT imaging of the chest was obtained after the administration of 65 mL of Omnipaque 350 intravenous contrast without immediate adverse reactions. Axial MIP volume rendering provided. Sagittal and coronal reformatted images were obtained. This CT examination was performed using dose optimization techniques as appropriate, variously including the following: *Automated exposure control *Adjustment of mA and/or kV according to patient size (this includes techniques or standardized protocols for targeted exams where dose is matched to indication/reason for exam; i.e. extremities or head) *Use of iterative reconstruction technique DLP: 445 mGy-cm FINDINGS: TAKER OFF BRAKER MACHINE: Numerous devices overlie the patient. Extensive opacities throughout the right lung with pleural or extrapleural thickening. LUNGS: Limited by motion artifact. There are severe areas of consolidation, airspace disease and reticular opacities throughout the right lung with complete fine loss of the middle lobe. There are rounded opacities in the left upper and lower lobes. There are focal rounded areas of low attenuation in the right lung. This could represent areas of necrosis or developing abscess. There is a rounded calcification in the right middle lobe MEDIASTINUM: There is poor definition of the interface between the lung and the right upper mediastinum. There is retrocaval pretracheal lymphadenopathy. There is probable right hilar adenopathy. There is mild coronary calcification PLEURA: There is at least a small amount of right pleural fluid which extends along the lateral chest into the apex. There is no pneumothorax. AXILLA: No lymphadenopathy. UPPER ABDOMEN: No large suspicious abnormality demonstrated OSSEOUS STRUCTURES: No suspicious focal lesion. There are some osteophytes present. I suspect some degenerative change around the partially included right coraco clavicular region. CT/CT chest w IV con IMPRESSION: Severe right lung disease with areas of internal low attenuation which could represent necrosis or evolving abscess. There are multiple round opacities in the left lung. There is right pleural fluid and there is retrocaval pretracheal adenopathy and there may be right hilar adenopathy. The findings could be related to severe pneumonia. However, underlying neoplasm could be present. Depending upon the clinical circumstances consider cytology and microbiology of the right pleural fluid. Fleischner guidelines were followed.
--- NOTE | ~2023-04-02 | XR_ITS ---
EXAMINATION: XR CHEST CLINICAL INFORMATION: Pneumonia COMPARISON: 04/02/2023 TECHNIQUE: Frontal view of the chest was obtained. XR/XR chest 1V FINDINGS AND IMPRESSION: Persistent ill-defined patchy opacity in the left lung in this patient with multilobar pneumonia. Increased opacity of the right hemithorax could represent a combination of worsening consolidation and increased size of a layering pleural effusion. The pleural fluid tracks from the base to the apex. The right diaphragm and right cardiac border are obscured by the pulmonary disease and effusion. No pneumothorax no other significant change.
--- NOTE | ~2023-04-02 | XR_ITS ---
EXAMINATION: XR CHEST CLINICAL INFORMATION: Pneumonia. COMPARISON: Prior radiographs, most recently 04/04/2023; CT chest dated 04/02/2023. TECHNIQUE: Frontal view of the chest was obtained. FINDINGS: The heart, great vessels, pulmonary vasculature and mediastinum are stable. The right lung field is largely opacified, with mild residual central upper lobe aeration. The left lung field is relatively clear. No left pleural effusion or bilateral pneumothorax is seen. There is no acute osseous abnormality. There is a mild thoracolumbar dextroscoliosis. There is multi-level thoracic spondylosis. XR/XR chest 1V IMPRESSION: There is persistent marked right lung opacification, with stable mild residual right upper lobe aeration. The left lung remains clear.
--- NOTE | ~2023-04-02 | XR_ITS ---
EXAMINATION: XR CHEST CLINICAL INFORMATION: Malpositioned endotracheal tube COMPARISON: 04/14/2023 TECHNIQUE: Frontal view of the chest was obtained. FINDINGS: Endotracheal tube is in better position approximately 2 cm from the nitin. Nasogastric tube is in the stomach and there is a right jugular central venous line with the tip at the atriocaval junction. Right hemithorax is completely opacified. Left lung is incompletely expanded. Mediastinum is possibly slightly shifted to the left. XR/XR chest 1V IMPRESSION: Satisfactory positioning of supporting tubes and lines No interval change in appearance of lungs
--- NOTE | ~2023-04-02 | XR_ITS ---
EXAMINATION: XR CHEST CLINICAL INFORMATION: Reason for Exam SOB COMPARISON: Chest radiograph 12/28/2019 TECHNIQUE: One view of the chest FINDINGS: Lines and tubes: EKG leads overlie the patient. Multifocal parenchymal airspace opacities which may reflect multifocal infection, asymmetric edema, and/or possibly underlying neoplasm given the prominence of the right hong which may reflect hilar lymphadenopathy. Moderate right pleural effusion. No pneumothorax. Unchanged cardiomediastinal silhouette. XR/XR chest 1V IMPRESSION: * Multifocal parenchymal airspace opacities which may reflect multifocal infection, asymmetric edema, and/or possibly underlying neoplasm given the prominence of the right hong which may reflect hilar lymphadenopathy. Recommend further evaluation with CT chest with contrast if clinically warranted. * Moderate right pleural effusion new from prior.
--- NOTE | ~2023-04-02 | US_ITS ---
PROCEDURE: Ultrasound-guided right thoracentesis History: Right pleural effusion, significant Specimen: A sample of pleural fluid was sent for analysis Access: 5 Fij[place] Yueh catheter Medications: 10 mL 1% lidocaine TECHNIQUE/FINDINGS Appropriate preprocedural clinical history and imaging studies were reviewed. The patient was brought to the department and placed in the seated position. Ultrasound images of the right thorax were obtained to localize a moderate pleural effusion. Permanent ultrasound images were saved. Risks and benefits and possible complications were discussed with the patient's daughter and consent form was signed. An area of the patient's right back was prepped and draped in usual sterile fashion. 10 mL of 1% lidocaine was used to obtain local anesthesia of the skin and deeper tissues. A standard small bore needle was introduced to sample pleural fluid and demonstrate a safe access route. A 5 F[place] Yueh catheter was then used to access the pleural cavity. 700 ml of yellow fluid was removed passively. The catheter was then removed. A dressing was applied. A postprocedure chest x-ray will be performed and will be dictated separately. There were no immediate complications. No drainage tube was left in place. The procedure was performed by Selvin Cartwright PA-C and supervised by Dr. Cash US/US thoracentesis IMPRESSION: Successful Ultrasound-guided right thoracentesis. Postprocedural chest x-ray demonstrates no evidence of pneumothorax..
--- NOTE | ~2023-04-02 | XR_ITS ---
EXAMINATION: XR CHEST CLINICAL INFORMATION: Post right thoracentesis COMPARISON: Previous chest x-ray from earlier the same day and chest CT April 02 TECHNIQUE: Frontal view of the chest was obtained. FINDINGS: Interval decrease in right pleural effusion. Multifocal right-sided consolidation. Scattered smaller nodular opacities, stable. Cardiac and mediastinal contours are stable. No left pleural effusion. No pneumothorax. XR/XR chest 1V IMPRESSION: Decrease in right pleural effusion post thoracentesis. No pneumothorax.
--- NOTE | ~2023-04-02 | CT_ITS ---
EXAMINATION: CT CHEST WITHOUT CONTRAST CLINICAL INFORMATION: 67-year-old female with hypoxia COMPARISON: Chest radiograph from 04/07/[address] scan of chest from 04/02/2023 TECHNIQUE: Multidetector volumetric CT imaging of the chest was done. Axial MIP volume rendering provided. Sagittal and coronal reformatted images were obtained. This CT examination was performed using dose optimization techniques as appropriate, variously including the following: *Automated exposure control *Adjustment of mA and/or kV according to patient size (this includes techniques or standardized protocols for targeted exams where dose is matched to indication/reason for exam; i.e. extremities or head) *Use of iterative reconstruction technique DLP: 399 mGy-cm FINDINGS: TECHNICAL SERVICES REP: There is opacification of right hemithorax LUNGS: Left lung revealed numerous lung nodules measured between 0.8 cm image 17 series 4 and 2.2 cm image 48 series 4. The appearance of nodules most likely inflammatory or neoplastic. Right lung is opacified more prominently than on the previous study due to increased consolidation and increased pleural effusion. There is obliteration of the right upper lobe bronchus and the right lower lobe bronchus. Central trachea and left lung bronchi are patent. MEDIASTINUM: Limited by noncontrast technique study demonstrate mediastinal lymphadenopathy with multiple lymph nodes in pretracheal space. Evaluation of hong is limited due to noncontrast technique. There is no pericardial effusion. CORONARY ARTERY CALCIFICATION: None visualized on this study. PLEURA: There is growing since previous study right-sided pleural effusion. AXILLA: No lymphadenopathy. UPPER ABDOMEN: Unremarkable. OSSEOUS STRUCTURES: Unremarkable. CT/CT chest wo IV con IMPRESSION: 1. Increasing right-sided pleural effusion and consolidation in the right lung with obliteration of right upper lobe bronchus and right lower lobe bronchus. 2. Numerous lung nodules on the left most likely inflammatory or neoplastic. 3. Mediastinal lymphadenopathy. Fleischner guidelines were followed.
--- NOTE | ~2023-04-02 | US_ITS ---
EXAMINATION: US CHEST CLINICAL INFORMATION: Pleural effusion COMPARISON: Chest CT from 04/02/2023 TECHNIQUE: Sonographic imaging of the right chest is performed. US/US chest FINDINGS AND IMPRESSION: The images demonstrate [id number] right pleural effusion. The pleural fluid is seen at a depth of approximately 2.5 cm from the skin surface. The pleural fluid has an AP dimension of 3.2 cm (on image 1). There are no thick septations within the visualized fluid.
--- NOTE | ~2023-04-02 | XR_ITS ---
EXAMINATION: XR CHEST CLINICAL INFORMATION: Chest tube insertion. Dyspnea. Low O2 saturation. COMPARISON: 04/08/2023. TECHNIQUE: Frontal view of the chest was obtained. FINDINGS: The cardiomediastinal silhouette is grossly stable. There is significant opacification throughout the right lung similar to previous. A right lung base chest tube is noted in place similar position compared to previous. Faint lingular opacity. There is no pneumothorax. The bony structures and soft tissues are unremarkable. XR/XR chest 1V IMPRESSION: 1. No significant change in significant opacification throughout the right lung. Right lung base chest tube is noted in place similar in position compared to previous. 2. Faint lingular opacity possibly atelectasis or infiltrate.
--- NOTE | 2023-04-02 13:32 | ECG_ITS ---
Test Reason : SOB Blood Pressure : / mmHG Vent. Rate : 098 BPM Atrial Rate : 098 BPM P-R Int : 160 ms QRS Dur : 094 ms QT Int : 340 ms P-R-T Axes : 030 -03 033 degrees QTc Int : 434 ms Normal sinus rhythm Normal ECG When compared with ECG of 08-NOV-2017 22:29, No significant change was found Referred By: Solange Flowers Electronically Signed By:MIKE ANDERSEN MD
--- NOTE | 2023-04-02 13:34 | PC.NURSE ---
Pt presents to ED via EMS from SNF. SNF called for hypoxia, SOB and hypotension, RA sats for SNF 88% per EMS. EMS administered one DuoNeb (2.5 mg albutero/ 0.5 mg of Atrovent) and 300 mL normal saline, improvements in both BP and SPO2. Pt is [place] speaking only, japanese interpreter utilized. Pt reports SOB, cough, weakness, fatigue, diarrhea for the last week. Pt noted to desat quickly to 80's without O2, pt currently on O2 via NC 2L and improves to 96%. Pt has right sided deficits from previous stroke. Pt noted to be tachypnic at this time.
--- NOTE | 2023-04-02 13:58 | ED_ITS ---
HPI - SOB/Dyspnea General Chief Complaint: Dyspnea Stated Complaint: SOB, HYPOTENSION Time Seen by Provider: 04/02/23 13:27 Source: patient and EMS Mode of arrival: EMS Limitations: no limitations History of Present Illness HPI Narrative: Patient comes to the emergency room via ambulance from [facility]. According to EMS, patient's oxygen saturation was in the low 80s on room air and patient's blood pressure was in the mid 90s. Patient states that she has been having diarrhea for almost 3 weeks and has not taking anything for diarrhea. Patient denies nausea or vomiting, no abdominal pain. According to patient's nurse, when the patient got to the emergency room, they try weaning the patient off oxygen, O2 dropped to 80% on room air. According to EMS, patient is not O2 dependent Related Data Home Medications Medication Instructions Recorded Confirmed amlodipine 10 mg tablet 10 mg PO DAILY 07/20/22 atorvastatin 40 mg tablet 40 mg PO DAILY 07/20/22 bupropion HCl 300 mg 24 hr tablet, 300 mg PO DAILY 07/20/22 extended release clonazepam 1 mg tablet 1 mg PO BID PRN 07/20/22 diphenhydramine HCl 50 mg capsule 50 mg PO BEDTIME 07/20/22 (Banophen) fluticasone propionate 50 spray intranasal 07/20/22 mcg/actuation nasal spray,suspension hydrochlorothiazide 25 mg tablet 25 mg PO DAILY 07/20/22 labetalol 100 mg tablet 100 mg PO BID 07/20/22 01/09/23 metformin 500 mg tablet 500 mg PO BID 07/20/22 zolpidem 10 mg tablet 10 mg PO BEDTIME PRN 07/20/22 amitriptyline 25 mg tablet 25 mg PO DAILY 10/17/22 lisinopril 40 mg tablet 40 mg PO DAILY 10/17/22 Previous Rx's Medication Instructions Recorded acetaminophen 325 mg tablet 650 mg (2 x 325 mg) PO Q6H PRN 12/28/19 (Tylenol) fever or pain #14 tabs albuterol sulfate 90 mcg/actuation 1 inh inhalation QID PRN shortness 12/28/19 aerosol inhaler of breath or wheezing #6.7 grams ondansetron HCl 4 mg tablet 4 mg PO Q8H PRN nausea and 12/28/19 (Zofran) vomiting #14 tabs lidocaine 5 % topical patch 1 patch topical DAILY #30 ea 05/16/21 dexlansoprazole 60 mg 60 mg PO DAILY 30 days #30 caps 07/20/22 capsule,biphase delayed release (Dexilant) linaclotide 290 mcg capsule 290 mcg PO QAM #30 caps 08/31/22 (Linzess) hydrocortisone acetate 25 mg 25 mg [place] BEDTIME #12 ea 10/04/22 rectal suppository (Anusol-HC) bisacodyl 5 mg tablet,delayed 10 mg (2 x 5 mg) PO BEDTIME 30 10/17/22 release (Dulcolax (bisacodyl)) days #60 tabs celecoxib 100 mg capsule 100 mg PO BID 30 days #60 caps 11/19/22 gabapentin 300 mg capsule 300 mg PO TID for pain 30 days #90 02/04/23 caps simethicone 180 mg capsule 180 mg PO QID #120 caps 03/12/23 Allergies Allergy/AdvReac Type Severity Reaction Status Date / Time peanut [PEANUTS] Allergy Severe THROAT Verified 11/21/22 12:12 SWELLING avocado [AVOCADO] Allergy Intermediate THROAT Verified 11/21/22 12:12 SWELLING colloidal oatmeal Allergy Mild unknown Verified 11/21/22 12:12 ketchup Allergy Mild unknown Verified 11/21/22 12:12 cat dander [CAT DANDER] Allergy Unknown UNKNOWN Verified 11/21/22 12:12 PER H&P Review of Systems 2 Review of Systems: Constitutional : No Weight loss, No Fever, No Chills, No Night Sweats, No Fatigue, No Malaise ENT/Mouth : No Hearing loss, No Ear Pain, No Nasal Congestion, No Sinus Pain, No Hoarseness, No sore throat, No Rhinorrhea, No Swallowing Difficulty Eyes: No Eye Pain, No Swelling, No Redness, No Foreign Body, No Discharge, No Vision Changes Cardiovascular : No Chest Pain, No SOB, No Dyspnea on Exertion, No Orthopnea, No Edema, No Palpitations complaining of low blood pressure Respiratory : Complaining of low oxygen saturation No Cough, No Sputum, No Wheezing, No Smoke Exposure, No Dyspnea Gastrointestinal : No Nausea, No Vomiting, complaining of 3 weeks of Diarrhea, No Constipation, No abdominal Pain, No Hematochezia, No Melena Genitourinary : no irregular bleeding, No Dysuria, No Urinary Frequency, No Hematuria, No Urinary Incontinence, No Urgency, No Flank Pain, No Urinary Flow Changes, No Hesitancy Musculoskeletal : No joint pain, No Myalgias, No Joint Swelling Skin : No Skin Lesions, No rash Neuro : No Weakness, No Numbness, No Paresthesias, No Loss of Consciousness, No Dizziness, No Headache Psych : No Anxiety/Panic, No Depression, No SI/HI/AH/VH, No Social Issues, Heme/Lymph: No Bruising, No Bleeding,No Lymphadenopathy Endocrine : No Polyuria, No Polydipsia, No Temperature Intolerance [facility] Past Medical History Medical History HLD (hyperlipidemia) HTN (hypertension) Lumbar spondylosis Chronic idiopathic constipation GERD (gastroesophageal reflux disease) Surgical History Hx of brain surgery Hx of colonoscopy H/O section History of esophagogastroduodenoscopy (EGD) Family History Family History Father Esophageal cancer Smoker Mother No problems noted. Brother No problems noted. Brother No problems noted. Sister No problems noted. Sister No problems noted. Sister No problems noted. Sister No problems noted. Son No problems noted. Daughter No problems noted. Daughter No problems noted. Daughter No problems noted. Social History Social History Household Members: None Alcohol intake: never Patient Tobacco Use Status: Current someday Tobacco user Tobacco use type: Cigarette Smoked in Last 30 Days: No Use of substances other than those prescribed or required for medical reasons: No Advance Directives: No Advance Directives Information Provided: No Current occupational status: disabled Physical Exam 2 Vital Signs: Vital Signs: Last Vital Signs Temp 98.4 F 04/02/23 15:31 Pulse 96 04/02/23 17:41 Resp 22 H 04/02/23 17:41 BP 104/46 L 04/02/23 17:41 Pulse Ox 97 04/02/23 17:41 O2 Del Method Nasal Cannula 04/02/23 17:41 O2 Flow Rate 2 04/02/23 17:41 Oxygen Flow Rate 2 04/02/23 13:19 BMI result Body Mass Index 29.9 Const: Other: Appearance: Alert. Oriented X3. No acute distress. Eyes: Pupils equal, round and reactive to light. ENT: Pharynx normal. Neck: Normal inspection. Neck supple. No lymph nodes noted. No crepitus CVS: Normal heart rate and rhythm. Pulses normal. Normal S1 and S2 Respiratory: No respiratory distress. Bilateral rales Abdomen: Soft and nontender. No rigidity. No distention. Skin: Skin warm and dry. Normal skin color. Normal skin turgor. Extremities: No lower extremity edema. No Lacerations. No Rash Neuro: Oriented X 3. No motor deficit. No sensory deficit. Moving all extremities. No slurred speech. CN 2 through 12 grossly intact Psych: calm, cooperative, normal affect Course Course Course Narrative: -all of patient's labs and imaging pending. -patient's oxygen saturation dropped to the low 80s on room air. Patient now on 2 L saturating 98%. Medications Administered Discontinued Medications Generic Name Dose Route Start Last Admin Trade Name Freq PRN Reason Stop Dose Admin Sodium Chloride 1,000 mls @ 999 mls/hr 04/02/23 13:56 04/02/23 15:14 Ns IVCONT 04/02/23 14:56 Infused .Q1H1M ONE Infusion Ceftriaxone Sodium 1 gm/ 50 mls @ 100 mls/hr 04/02/23 14:34 04/02/23 15:53 Sodium Chloride IV 04/02/23 15:03 Infused ONCE ONE Infusion Azithromycin 500 mg/ Sodium 250 mls @ 125 mls/hr 04/02/23 14:34 04/02/23 15:53 Chloride IV 04/02/23 16:33 125 mls/hr ONCE ONE Administration Sodium Chloride 1,000 mls @ 999 mls/hr 04/02/23 14:34 04/02/23 15:17 Ns IVCONT 04/02/23 15:34 999 mls/hr .Q1H1M ONE Administration Iohexol 100 ml 04/02/23 16:53 04/02/23 17:00 Iohexol 350 Mg/Ml 100 Ml Infus..Btl IV 04/02/23 16:54 65 ml ONCE ONE Administration Loperamide HCl 4 mg 04/02/23 13:56 04/02/23 14:04 Loperamide Hcl 2 Mg Capsule PO 04/02/23 13:57 4 mg ONCE ONE Administration Medical Decision Making Medical Decision Making [facility] Narrative: -my interpretation of EKG: Normal sinus rhythm, heart rate 98, no ST segment depression or elevation, no T-wave inversion, QTC 434 -14:33: my interpretation of chest x-ray, significant abnormality on the right lung, possible malignancy, possible pneumonia, pleural effusion? -all of the patient's labs are pending. Patient empirically being treated with IV fluids based on ideal weight of 55 kg, patient is obese, patient receiving IV antibiotics as well ceftriaxone and azithromycin. -we will obtain a CT scan with contrast of the chest -it was noted that patient has new onset anemia. Patient states she has never been told that she is anemic. Occult test negative -my interpretation of CT scan, there is severe right lung disease. Could be multilevel pneumonia versus effusion versus neoplasm -I discussed the patient with Dr. Colmenares, patient being admitted Differential Diagnosis Differential Diagnoses: The differential diagnosis associated with the presentation includes (As above) Admission/Observation Consideration of admission/observation: Escalation of care including admission/observation considered (Patient is hypoxic, patient will be staying in the hospital) Lab Data [facility] Lab Attestation statement: I reviewed the patient's lab results. 04/02/23 14:25 04/02/23 14:25 Labs: Lab Results 04/02/23 04/02/23 04/02/23 Range/Units 14:24 14:25 14:36 WBC 17.2 H (4.8-10.8) X10*3/uL RBC 3.09 L D (4.20-5.50) X10*6/uL Hgb 7.8 L D (12.0-16.0) g/dl Hct 25.5 L D (37.0-47.0) % MCV 82.5 (80.0-98.0) fL MCH 25.2 L (27.0-33.0) pg MCHC 30.6 L (31.0-35.0) g/dl RDW 14.6 (11.0-16.0) % Plt Count 349 (160-400) X10*3/uL MPV 9.5 (9.4-12.3) fL Immature Gran % (Auto) 0.3 (0.0-0.4) % Neut % (Auto) 86.0 H (45-73) % Lymph % (Auto) 4.1 L (20-40) % Isabela % (Auto) 6.0 (2-11) % Eos % (Auto) 3.3 (0-4) % Baso % (Auto) 0.3 (0-2) % Lymph # (Auto) 0.7 L (1.2-4.9) X10*3/uL Isabela # (Auto) 1.0 (0.1-1.2) X10*3/uL Eos # (Auto) 0.6 H (0.0-0.4) X10*3/uL Baso # (Auto) 0.1 (0.0-0.2) X10*3/uL Abs Immat Gran (auto) 0.06 H (0.00-0.03) X10*3/uL Absolute Neuts (auto) 14.8 H (2.0-8.3) x10*3/uL Absolute Nucleated RBC 0.000 (0.0-0.012) X10*3/uL Nucleated RBC % (auto) 0.0 (0.0-0.2) /100WBC PT 17.1 H (11.1-13.3) SEC INR 1.4 H (0.9-1.1) VBG pH 7.36 (7.32-7.43) VBG pCO2 51 mmHg VBG pO2 45 mmHg VBG HCO3 29 H (22-26) mmol/L VBG O2 Saturation 64.0 % VBG Base Excess 3.2 mmol/L Sodium 138 (135-145) mmol/L Potassium 3.2 L (3.3-5.1) mmol/L Chloride 99 (96-108) mmol/L Carbon Dioxide 27 (22-29) mmol/L Anion Gap 15 (12-20) BUN 15 (9-16) mg/dL Creatinine 0.92 (0.5-1.4) mg/dL Estim Creat Clear Calc 60.3 Estimated GFR > 60 Random Glucose 85 (60-115) mg/dL Lactic Acid 1.1 (0.5-2.0) mmol/L Calcium 9.2 (8.4-10.2) mg/dL Magnesium 1.6 (1.6-2.6) mg/dL Troponin I High Sens 12.8 (<3.5-17.0) ng/L B-Natriuretic Peptide < 10 (<100) pg/mL Stool Occult Blood (NEGATIVE) COVID-19 (AVILA) Negative (Negative) COVID-19 Clin Com See Note Influenza Type A (CINDY) Negative (Negative) Influenza Type B (CINDY) Negative (Negative) Influenza A & B Note See Note 04/02/23 Range/Units 15:30 WBC (4.8-10.8) X10*3/uL RBC (4.20-5.50) X10*6/uL Hgb (12.0-16.0) g/dl Hct (37.0-47.0) % MCV (80.0-98.0) fL MCH (27.0-33.0) pg MCHC (31.0-35.0) g/dl RDW (11.0-16.0) % Plt Count (160-400) X10*3/uL MPV (9.4-12.3) fL Immature Gran % (Auto) (0.0-0.4) % Neut % (Auto) (45-73) % Lymph % (Auto) (20-40) % Isabela % (Auto) (2-11) % Eos % (Auto) (0-4) % Baso % (Auto) (0-2) % Lymph # (Auto) (1.2-4.9) X10*3/uL Isabela # (Auto) (0.1-1.2) X10*3/uL Eos # (Auto) (0.0-0.4) X10*3/uL Baso # (Auto) (0.0-0.2) X10*3/uL Abs Immat Gran (auto) (0.00-0.03) X10*3/uL Absolute Neuts (auto) (2.0-8.3) x10*3/uL Absolute Nucleated RBC (0.0-0.012) X10*3/uL Nucleated RBC % (auto) (0.0-0.2) /100WBC PT (11.1-13.3) SEC INR (0.9-1.1) VBG pH (7.32-7.43) VBG pCO2 mmHg VBG pO2 mmHg VBG HCO3 (22-26) mmol/L VBG O2 Saturation % VBG Base Excess mmol/L Sodium (135-145) mmol/L Potassium (3.3-5.1) mmol/L Chloride (96-108) mmol/L Carbon Dioxide (22-29) mmol/L Anion Gap (12-20) BUN (9-16) mg/dL Creatinine (0.5-1.4) mg/dL Estim Creat Clear Calc Estimated GFR Random Glucose (60-115) mg/dL Lactic Acid (0.5-2.0) mmol/L Calcium (8.4-10.2) mg/dL Magnesium (1.6-2.6) mg/dL Troponin I High Sens (<3.5-17.0) ng/L B-Natriuretic Peptide (<100) pg/mL Stool Occult Blood NEGATIVE (NEGATIVE) COVID-19 (AVILA) (Negative) COVID-19 Clin Com Influenza Type A (CINDY) (Negative) Influenza Type B (CINDY) (Negative) Influenza A & B Note Independent Interpretation I performed an independent interpretation of an: EKG and Plain X-Ray Radiology Impression Discussion of test interpretation with radiology: I have reviewed the radiologist's reading. Radiologist Impression: FINDINGS: Lines and tubes: EKG leads overlie the patient. Multifocal parenchymal airspace opacities which may reflect multifocal infection, asymmetric edema, and/or possibly underlying neoplasm given the prominence of the right hong which may reflect hilar lymphadenopathy. Moderate right pleural effusion. No pneumothorax. Unchanged cardiomediastinal silhouette. XR/XR chest 1V IMPRESSION: * Multifocal parenchymal airspace opacities which may reflect multifocal infection, asymmetric edema, and/or possibly underlying neoplasm given the prominence of the right hong which may reflect hilar lymphadenopathy. Recommend further evaluation with CT chest with contrast if clinically warranted. * Moderate right pleural effusion new from prior. Independent Historian Clinical information obtained from an independent historian. History obtained from or confirmed by: EMS Critical Care Time Critical Care Time Critical Care Time: Yes Total Critical Care Time: 90 Attestation: I have personally provided critical care time. Time includes review of lab data, radiology results, discussion with consultants, and monitoring for potential decompensation. Intervention performed as documented. Discharge Plan Discharge Clinical Impression: Severe pneumonia Patient Disposition: Admitted As Inpatient Prescriptions: No Action Linzess 290 mcg capsule 290 mcg PO QAM Qty: 30 1RF celecoxib 100 mg capsule 100 mg PO BID 30 Days Qty: 60 3RF gabapentin 300 mg capsule 300 mg PO TID 30 Days Qty: 90 3RF simethicone 180 mg capsule 180 mg PO QID Qty: 120 0RF albuterol sulfate 90 mcg/actuation HFA aerosol inhaler 1 inh inhalation QID PRN (Reason: shortness of breath or wheezing) Qty: 6.7 0RF acetaminophen [Tylenol] 325 mg tablet 650 mg PO Q6H PRN (Reason: fever or pain) Qty: 14 0RF ondansetron HCl [Zofran] 4 mg tablet 4 mg PO Q8H PRN (Reason: nausea and vomiting) Qty: 14 0RF hydrocortisone acetate [Anusol-HC] 25 mg suppository 25 mg [place] BEDTIME Qty: 12 0RF lidocaine 5 % adhesive patch,medicated 1 patch topical DAILY Qty: 30 5RF Rx Instructions: leave on most painful area for up to 12 hrs bupropion HCl 300 mg tablet extended release 24 hr 300 mg PO DAILY labetalol 100 mg tablet 100 mg PO BID fluticasone propionate 50 mcg/actuation spray,suspension intranasal amlodipine 10 mg tablet 10 mg PO DAILY hydrochlorothiazide 25 mg tablet 25 mg PO DAILY zolpidem 10 mg tablet 10 mg PO BEDTIME PRN clonazepam 1 mg tablet 1 mg PO BID PRN diphenhydramine HCl [Banophen] 50 mg capsule 50 mg PO BEDTIME metformin 500 mg tablet 500 mg PO BID atorvastatin 40 mg tablet 40 mg PO DAILY Dexilant 60 mg capsule,biphase delayed releas 60 mg PO DAILY 30 Days Qty: 30 6RF amitriptyline 25 mg tablet 25 mg PO DAILY lisinopril 40 mg tablet 40 mg PO DAILY bisacodyl [Dulcolax (bisacodyl)] 5 mg tablet,delayed release (DR/EC) 10 mg PO BEDTIME 30 Days Qty: 60 3RF
[2023-04-02] MEDS: Loperamide HCl 2 MG CAPSULE 4 MG PO (14:04)
[2023-04-02] MEDS: 0.9 % Sodium Chloride 1,000 ML 999 ML IVCONT ×2 (14:05→15:17)
[2023-04-02 14:38] LABS: MANUAL DIFF FLAG NO
[2023-04-02 14:42] LABS: Venous Blood Gas Refer to POC result
[2023-04-02 14:43] LABS: VBG Base Excess 3.2 mmol/L; VBG HCO3 29 mmol/L (22-26); VBG pCO2 51 mmHg; VBG pH 7.36 (7.32-7.43); VBG pO2 45 mmHg
[2023-04-02 14:45] LABS: Basophils Absolute Auto 0.1 X10*3/uL (0.0-0.2); Basophils Percent Auto 0.3 % (0-2); Eosinophils Absolute Auto 0.6 X10*3/uL (0.0-0.4); Eosinophils Percent Auto 3.3 % (0-4); Hematocrit 25.5 % (37.0-47.0); Hemoglobin 7.8 g/dl (12.0-16.0); Imm Gran Abs Auto 0.06 X10*3/uL (0.00-0.03); Imm Gran Pct Auto 0.3 % (0.0-0.4); Lymphocytes Absolute Auto 0.7 X10*3/uL (1.2-4.9); Lymphocytes Percent Auto 4.1 % (20-40); Mean Corpuscular HGB Conc 30.6 g/dl (31.0-35.0); Mean Corpuscular Hemoglobin 25.2 pg (27.0-33.0); Mean Corpuscular Volume 82.5 fL (80.0-98.0); Mean Platelet Volume 9.5 fL (9.4-12.3); Neutrophils Absolute Auto 14.8 x10*3/uL (2.0-8.3); Platelet Count 349 X10*3/uL (160-400); Red Blood Count 3.09 X10*6/uL (4.20-5.50); Red Cell Distribution Width 14.6 % (11.0-16.0); White Blood Count 17.2 X10*3/uL (4.8-10.8)
[2023-04-02 14:51] LABS: Lactic Acid 1.1 mmol/L (0.5-2.0)
[2023-04-02 14:54] LABS: Anion Gap 15 (12-20); Blood Urea Nitrogen 15 mg/dL (9-16); Calcium 9.2 mg/dL (8.4-10.2); Carbon Dioxide 27 mmol/L (22-29); Chloride 99 mmol/L (96-108); Creatinine Clr Calc Pharmacy 60.3; Estimated Glomerular Filt Rate > 60; Glucose Random 85 mg/dL (60-115); Potassium 3.2 mmol/L (3.3-5.1); Sodium 138 mmol/L (135-145)
[2023-04-02 14:55] LABS: Magnesium 1.6 mg/dL (1.6-2.6)
[2023-04-02 15:01] LABS: B Type Natriuretic Peptide < 10 pg/mL (<100)
[2023-04-02 15:02] LABS: Troponin-I High Sensitivity 12.8 ng/L (<3.5-17.0)
[2023-04-02] MEDS: cefTRIAXone sodium 1 GM in 0.9 % Sodium Chloride 50 ML IV (15:06)
[2023-04-02 15:07] LABS: COVID-19 Test Negative (Negative); IDNOW Serial# 16C4AD1C
[2023-04-02 15:20] LABS: INTERNATIONAL NORM RATIO 1.4 (0.9-1.1); Prothrombin Time 17.1 SEC (11.1-13.3)
[2023-04-02 15:38] LABS: IDNOW Serial# 16C4AD1C; Influenza A Negative (Negative); Influenza B2 Negative (Negative)
[2023-04-02 15:42] LABS: OBS Int Ctl Valid YES; OBS1 NEGATIVE (NEGATIVE)
--- NOTE | 2023-04-02 15:42 | PC.NURSE ---
Pt noted to have cough, tachypnic. SPO2 94-98% on 2L O2. Pt medicated per MAY. Pt denies pain or new complaints.
[2023-04-02] MEDS: Azithromycin 500 MG in 0.9 % Sodium Chloride 250 ML 125 MG IV (15:53)
[2023-04-02] MEDS: iohexoL 350 MG/ML 100 ML INFUS..BTL IV (17:00)
--- NOTE | 2023-04-02 17:42 | PC.NURSE ---
Prolonged fluid infusion as pt keeps bending right arm
[2023-04-02] MEDS: Piperacillin Sodium/Tazobactam 3.375 GM in 0.9 % Sodium Chloride 50 ML IV (18:28)
--- NOTE | 2023-04-02 19:02 | PC.NURSE ---
Assumed care of pt. Pt repositioned on stretcher, VS obtained. Pt denies acute distress at this time, IV abx complete, IVF running in L arm. Pt with intermittent cough during assessment. Pending bed availability for admission.
--- NOTE | 2023-04-02 19:53 | MHC.EDTECH ---
EKG documented at this time for prior shift
--- NOTE | 2023-04-02 19:53 | PHA.MEDREC ---
Pharmacy Consult ? Medication Reconciliation Pharmacy has completed the medication reconciliation. Received list from Onofre Shane. Beba Higgins, [facility]
--- NOTE | 2023-04-02 20:24 | P.HPHOSP_ITS ---
History of Present Illness Date of Service: 04/02/23 Attending physician on admission: Morenita Agrawal Chief Complaint: sob, hypoxia 67-year-old female with history of aut-[id number] type 2 diabetes, hypertension, hyperlipidemia, recent embolic CVA with hospitalization at [facility] from 03/06-03/11 now on DAPT, mood disorder unspecified, former smoker who presented to ED from [place] where she has been residing for short-term rehab following CVA for evaluation of shortness of breath and hypoxia. She was found to be hypoxic in the 80s this morning by nursing staff and EMS was called. She was placed on supplemental O2. She has not oxygen dependent at baseline. She states that she has had a productive cough with green sputum production as well as shortness of breath both at rest and with exertion ongoing for 3 weeks. She has also had weightloss, unable to quantify. Denies any fevers or chills. No sore throat, congestion, nausea, vomiting, melena, hematochezia, lightheadedness, palpitations, or chest pain. She states she has also had between 1-3 episodes of watery diarrhea on a daily but basis with some incontinence associated with diffuse mild abdominal pain. During her hospitalization at [facility], she was hypoxic requiring 2 L supplemental O2 and found to have multifocal pneumonia with CT angio of the head/neck showing right hilar lymphadenopathy and hilar mass with confluence multi focal airspace opacities visualized within the right lung as well as multiple pulmonary nodules. At time of discharge, outpatient CT chest with contrast recommended but has not yet been obtained. On arrival, patient hypoxic to 82% on room air placed on 2 L supplemental O2 maintaining oximetry 97%. She has been tachypneic to 26 with soft blood pressures and mild tachycardia in the 90s. No hypoxia or fevers. There is a leukocytosis of 17.8. H/H 7.8/25.5% (1/4 [facility] H/H 9.6/31.1%). Renal function is baseline, electrolyte levels are normal except for a mild hypokalemia of 3.2. Hepatic panel pending. Lactic acid 1.1. Troponin 12.8, BNP below detectable limits. Stool occult blood negative. Negative for COVID-19, influenza. CT chest shows severe right lung disease with areas of internal low attenuation which could represent necrosis resolving abscess as well as multiple round opacities in the left lung. There is also right pleural fluid and a retrocaval pretracheal adenopathy and possible right hilar adenopathy. Findings possibly related to severe pneumonia but underlying neoplasm can not be excluded. She reports she has a former smoker who quit about 40 years ago. Denies any drug use or alcohol use. In the ED, has received 2 L IV fluid, IV Rocephin, IV Zithromax and antibiotics brought in to IV Zosyn and vancomycin following chest CT results. She was also given 4 mg loperamide and GI panel/C diff PCR are pending. Liberian interpretor used for examination. Also discussed with pt's daughter, Joselito. Review of Systems 2 Review of Systems: General: No fevers, malaise. +weight loss HEENT: No blurred vision, diplopia. No sore throat, nasal congestion, rhinorrhea, sinus pain, ear pain Cardiovascular: No chest pain, palpitations, or leg edema Respiratory: +sob, +cough. No wheezing GI: +diarrhea. No abdominal pain, nausea, vomiting, constipation, melena, hematochezia : No dysuria, hematuria, increased urinary frequency, decreased urinary output MSK: No myalgia, back pain Neuro: No headaches, weakness, paresthesias Skin: No rashes or lesions [facility] Medical History Former smoker Pulmonary nodule HFrEF (heart failure with reduced ejection fraction) Embolic stroke Diabetes HLD (hyperlipidemia) HTN (hypertension) Lumbar spondylosis Chronic idiopathic constipation GERD (gastroesophageal reflux disease) Family History Father Esophageal cancer Smoker Mother No problems noted. Brother No problems noted. Brother No problems noted. Sister No problems noted. Sister No problems noted. Sister No problems noted. Sister No problems noted. Son No problems noted. Daughter No problems noted. Daughter No problems noted. Daughter No problems noted. Surgical History Hx of brain surgery Hx of colonoscopy H/O section History of esophagogastroduodenoscopy (EGD) Social History Household Members: None Alcohol intake: never Patient Tobacco Use Status: Current someday Tobacco user Tobacco use type: Cigarette Smoked in Last 30 Days: No Use of substances other than those prescribed or required for medical reasons: No Advance Directives: No Advance Directives Information Provided: No Current occupational status: disabled Meds Allergies Allergy/AdvReac Type Severity Reaction Status Date / Time peanut [PEANUTS] Allergy Severe THROAT Verified 11/21/22 12:12 SWELLING avocado [AVOCADO] Allergy Intermediate THROAT Verified 11/21/22 12:12 SWELLING colloidal oatmeal Allergy Mild unknown Verified 11/21/22 12:12 ketchup Allergy Mild unknown Verified 11/21/22 12:12 cat dander [CAT DANDER] Allergy Unknown UNKNOWN Verified 11/21/22 12:12 PER H&P Active Medications: Current Medications Acetaminophen (Acetaminophen 325 Mg Tablet) 650 mg PO Q6H PRN PRN Reason: Pain, Mild (Pain Scale 1-3) Atorvastatin Calcium (Atorvastatin Calcium 40 Mg Tablet) 40 mg PO DAILY CICI Bupropion HCl (Bupropion Hcl Xl 300 Mg Tab.Er.24h) 300 mg PO DAILY CICI Furosemide (Furosemide 20 Mg Tablet) 20 mg PO DAILY CICI; Protocol Heparin Sodium (Porcine) (Heparin Sodium,Porcine 5,000 Unit/Ml Vial) 5,000 unit SUBCUT Q12H CICI Piperacillin Sod/Tazobactam (Sod 4.5 gm/ Sodium Chloride) 100 mls @ 200 mls/hr IV Q6H [facility]ICI Magnesium Oxide (Magnesium Oxide 400 Mg Tablet) 400 mg PO DAILY CICI Non-Formulary Medication (Ferrous Sulfate) 325 mg PO BID CICI Non-Formulary Medication (Guaifenesin) 1,200 mg PO Q12H [facility]I Non-Formulary Medication (Lactobacillus Acidoph-L.Bulgar [Floranex]) 4 tab PO TID CICI Ondansetron HCl (Ondansetron Hcl 4 Mg/2 Ml Vial) 4 mg IVPUSH Q8H PRN PRN Reason: Nausea and Vomiting Pharmacy Consult (Consult Rx Vancomycin Dosing) 1 each MISCELLANE DAILY PRN PRN Reason: Consult order Senna (Sennosides 8.6 Mg Tablet) 17.2 mg PO BEDTIME PRN PRN Reason: Constipation Sodium Chloride (0.9 % Sodium Chloride Flush 3 Ml Syringe) 3 ml IVFLUSH QSHIFT CICI Vitamin D (Cholecalciferol (Vitamin D3) 25 Mcg Tablet) 50 mcg PO DAILY [facility] Home Medications Medication Instructions Recorded Confirmed Last Taken Type atorvastatin 40 mg tablet 40 mg PO DAILY 07/20/22 04/02/23 Unknown History bupropion HCl 300 mg 24 hr tablet, 300 mg PO DAILY 07/20/22 04/02/23 Unknown History extended release clonazepam 1 mg tablet 1 mg PO BID 07/20/22 04/02/23 Unknown History metformin 500 mg tablet 500 mg PO BID 07/20/22 04/02/23 10/04/22 History zolpidem 10 mg tablet 10 mg PO BEDTIME PRN Insomnia 07/20/22 04/02/23 Unknown History Lactobacillus acidoph-L.bulgaricus 4 tab PO TID 04/02/23 04/02/23 Unknown History 1 million cell tablet (Floranex) aspirin 81 mg chewable tablet 81 mg PO DAILY 04/02/23 04/02/23 Unknown History cholecalciferol (vitamin D3) 50 50 mcg PO DAILY 04/02/23 04/02/23 Unknown History mcg (2,000 unit) tablet clopidogrel 75 mg tablet (Plavix) 75 mg PO DAILY 04/02/23 04/02/23 Unknown History dapagliflozin propanediol 10 mg 10 mg PO DAILY 04/02/23 04/02/23 Unknown History tablet ferrous sulfate 325 mg (65 mg 325 mg PO BID 04/02/23 04/02/23 Unknown History iron) tablet,delayed release furosemide 20 mg tablet 20 mg PO DAILY 04/02/23 04/02/23 Unknown History guaifenesin 1,200 mg tablet, 1,200 mg PO Q12H 04/02/23 04/02/23 Unknown History extended release 12 hr magnesium oxide 400 mg PO DAILY 04/02/23 04/02/23 Unknown History metoprolol tartrate 25 mg tablet 25 mg PO BID 04/02/23 04/02/23 Unknown History omeprazole 20 mg capsule,delayed 20 mg PO DAILY 04/02/23 04/02/23 Unknown History release Physical Exam 2 Vital Signs and Narrative: Vital Signs: Last Vital Signs Temp 98.4 F 04/02/23 15:31 Pulse 97 04/02/23 19:01 Resp 18 04/02/23 19:01 BP 101/52 L 04/02/23 19:01 Pulse Ox 97 04/02/23 19:01 O2 Del Method Nasal Cannula 04/02/23 19:01 O2 Flow Rate 2 04/02/23 19:01 Oxygen Flow Rate 2 04/02/23 13:19 BMI result Body Mass Index 29.9 Constitutional - Awake and Alert, No apparent distress Eyes - PERRLA, EOMI Cardiovascular - S1S2, RRR, No edema Respiratory - Normal lung expansion, Normal respiratory effort, No respiratory distress on 2L supplemental O2, diminished lung sounds bilaterally, absent lung sounds RLL with scattered expiratory wheezing Gastrointestinal - NT / ND; +BS; No rebound or guarding Extremities - no calf tenderness bilaterally, no swelling Skin - Warm/Dry Neurological - Alert & oriented x3 Psychological - Appropriate affect Results Labs 04/02/23 14:25 04/02/23 14:25 Labs: Laboratory Results - last 24 hr 04/02/23 04/02/23 04/02/23 14:24 14:25 14:36 MCV 82.5 MCH 25.2 L MCHC 30.6 L RDW 14.6 Plt Count 349 MPV 9.5 Immature Gran % (Auto) 0.3 Neut % (Auto) 86.0 H Lymph % (Auto) 4.1 L Pettis % (Auto) 6.0 Eos % (Auto) 3.3 Baso % (Auto) 0.3 Lymph # (Auto) 0.7 L Pettis # (Auto) 1.0 Eos # (Auto) 0.6 H Baso # (Auto) 0.1 Abs Immat Gran (auto) 0.06 H Absolute Neuts (auto) 14.8 H Absolute Nucleated RBC 0.000 Nucleated RBC % (auto) 0.0 PT 17.1 H INR 1.4 H VBG pH 7.36 VBG pCO2 51 VBG pO2 45 VBG HCO3 29 H VBG O2 Saturation 64.0 VBG Base Excess 3.2 Anion Gap 15 Estim Creat Clear Calc 60.3 Estimated GFR > 60 Random Glucose 85 Lactic Acid 1.1 Calcium 9.2 Magnesium 1.6 B-Natriuretic Peptide < 10 Stool Occult Blood COVID-19 (AVILA) Negative COVID-19 Clin Com See Note Influenza Type A (CINDY) Negative Influenza Type B (CINDY) Negative Influenza A & B Note See Note 04/02/23 15:30 MCV MCH MCHC RDW Plt Count MPV Immature Gran % (Auto) Neut % (Auto) Lymph % (Auto) Pettis % (Auto) Eos % (Auto) Baso % (Auto) Lymph # (Auto) Pettis # (Auto) Eos # (Auto) Baso # (Auto) Abs Immat Gran (auto) Absolute Neuts (auto) Absolute Nucleated RBC Nucleated RBC % (auto) PT INR VBG pH VBG pCO2 VBG pO2 VBG HCO3 VBG O2 Saturation VBG Base Excess Anion Gap Estim Creat Clear Calc Estimated GFR Random Glucose Lactic Acid Calcium Magnesium B-Natriuretic Peptide Stool Occult Blood NEGATIVE COVID-19 (AVILA) COVID-19 Clin Com Influenza Type A (CINDY) Influenza Type B (CINDY) Influenza A & B Note Imaging Radiologist's Impressions: Impressions Chest X-Ray 04/02/23 13:50 IMPRESSION: * Multifocal parenchymal airspace opacities which may reflect multifocal infection, asymmetric edema, and/or possibly underlying neoplasm given the prominence of the right hong which may reflect hilar lymphadenopathy. Recommend further evaluation with CT chest with contrast if clinically warranted. * Moderate right pleural effusion new from prior. Chest CT 04/02/23 17:01 IMPRESSION: Severe right lung disease with areas of internal low attenuation which could represent necrosis or evolving abscess. There are multiple round opacities in the left lung. There is right pleural fluid and there is retrocaval pretracheal adenopathy and there may be right hilar adenopathy. The findings could be related to severe pneumonia. However, underlying neoplasm could be present. Depending upon the clinical circumstances consider cytology and microbiology of the right pleural fluid. Fleischner guidelines were followed. Assessment and Plan (1) Severe pneumonia: Status: Acute (2) Acute hypoxemic respiratory failure: Status: Acute (3) Sepsis: Status: Acute (4) Diarrhea: Status: Acute Plan 67-year-old female with history of woo-hmmaovk-dlzzeeaoz type 2 diabetes, hypertension, hyperlipidemia, recent embolic CVA with hospitalization at [facility] from 03/06-03/11 now on DAPT, mood disorder unspecified, former smoker admitted for further management of severe pneumonia with sepsis and acute hypoxemic respiratory failure #Severe multifocal pneumonia with possible necrosis/abscess and sepsis -recently hospitalized [facility] 03/06-03/11 for CVA, multifocal pneumonia treated with IV ctx -?underlying malignancy given unintentional weight loss (8kg last 5 months) and possible hemolytic anemia -leukocytosis 17.8, tachypneic, tachycardic. No lactic acidosis/end organ damage. No severe sepsis/shock -IV zosyn and vanco (initiated 04/02) -Sputum culture, MRSA nasal screen, legionella ag, and strep pneumo ag pending -symptomatic management -pulmonology consult -follow CBC, cultures -admit to med/tele # acute hypoxemic respiratory failure -2/2 above -continue supplemental O2 to maintain oximetry >92% #Acute on chronic normocytic anemia -stool occult blood negative -?r/t acute illness -evaluate for hemolysis with bili level, ldh. Check haptoglobin am -iron studies pending -H/H above transfusion threshold -follow h/h -Continue DAPT, but hold SCP for DVT proph for now #Acute diarrhea -recently treated with IV abx at [facility] -Cdiff pcr and GI panel pending #Acute hypokalemia -likely 2/2 diarrhea -repleted -follow lytes # wci-kskvwob-lerorlggz type 2 diabetes -POC glucose, diabetic diet -Humalog on sliding scale -hold metformin # hypertension -blood pressure is soft, has received 2 L IVF -hold antihypertensives tonight, consider resuming a.m. if blood pressure improving #HFrEf -no acute exacerbation -EF 35-40% 03/07 [facility] -continue lasix #Embolic CVA -Continue DAPT, statin -recent admission 03/06- at [facility]. Etiology of embolic stroke unclear, recommended outpt follow up with heme # unspecified mood disorder -continue home meds, reduced zolpidem dose to 5 mg DVT prophylaxis- SCPs for now pending anemia work up Full code Discussed with patient's daughter, Macario [phone] Pt will require inpt stay at least 2 midnights for management of multifocal pneumonia with sepsis and hypoxia with possible necrosis and abscess with concern for possible underlying malignancy which requires IV abx, supplemental O2, and expert consultation. Quality Stroke Does the patient have a stroke diagnosis?: No VTE Prior VTE?: No VTE Risk Level:: Medical - moderate - high VTE Device Contraindication: Treatment Not Indicated VTE Drug Contraindication: N/A - Med Ordered
--- NOTE | 2023-04-02 20:38 | PHA.PROG ---
Admission Date/Time: Indication: Resp Infection Weight in k kg Adjusted body weight in K.4 kg [place] body weight in K.7 kg Obesity Dosing Indication % IBW: 144% Serum Creatinine - Last 168 Hours 04/02/23 14:25 Creatinine 0.92 Estimated CrCl and GFR - Last 168 Hours 04/02/23 14:25 Estim Creat Clear Calc 60.3 Estimated GFR > 60 Vancomycin Loading Dose:2000 mg Current Vancomycin Dosing Regimen: 750 mg Q12H Date and Time for next Vancomycin Level to be drawn: 04/04 @ 0500 Pharmacist Comments on Vancomycin Plan: Patient received an adequate load dose in the ER on 04/02 @ 1907 Maintenance dose vancomycin 750 mg Q12H is schedule to start 04/03 @ 0700. Predicted AUC 486 with a trough of 16.3 Patient is consider obese with %IBW > 130% therefore careful monitor is required due to vancomycin's high volume of distribtution Level will be drawn prior to 4th dose Pharmacy will monitor renal function daily Beba Higgins PharmD Vancomycin dosing will take advantage of [employer] as a clinical decision support tool that uses Bayesian modeling to calculate individual patient's pharmacokinetic parameters and forecast the patient's drug concentration time course with the target goal AUC 24 range of 400 - 600 mg/L/hr.
[2023-04-02 20:54] LABS: Alanine Aminotransferase 15 U/L (0-31); Albumin Level 2.7 g/dL (3.5-5.0); Alkaline Phosphatase 44 U/L (39-117); Aspartate Amino Transferase 23 U/L (5-31); Bilirubin Direct 0.2 mg/dL (0.0-0.5); Bilirubin Total 0.3 mg/dL (0.0-1.0); Total Protein 6.4 g/dL (6.5-8.0)
[2023-04-02] MEDS: Potassium Chloride Packet 20 MEQ PACKET 40 MEQ PO (20:59)
[2023-04-02] MEDS: Metoprolol Tartrate 25 MG TABLET PO (20:59)
[2023-04-02 21:00] LABS: Lactate Dehydrogenase 212 U/L (122-220)
[2023-04-02] MEDS: Gabapentin 300 MG CAPSULE PO (21:00)
[2023-04-02] MEDS: clonazePAM 1 MG TABLET PO (21:00)
[2023-04-02] MEDS: Ferrous Sulfate 324 MG TABLET.DR PO (21:00)
[2023-04-02 21:09] LABS: Glucose, Whole Blood 81 mg/dL (60-115)
[2023-04-02 21:14] LABS: Ferritin 589 ng/mL (10-250)
[2023-04-02 21:24] LABS: Iron 7 mcg/dL (30-160); Percent Iron Saturation 6 % (15-50); Total Iron Binding Capacity 114 mcg/dL (228-428); Unsaturated Iron Binding 107 ug/dL
[2023-04-02 23:09] LABS: Glucose, Whole Blood 77 mg/dL (60-115)
[2023-04-03] VITALS (10 sets, daily range): BP systolic 100–137; BP diastolic 54–65; PULSE 91–125; RESP 16–26; TEMP 36.8–39.6; O2SAT 92–98; BMI 29.0
[2023-04-03] MEDS: Piperacillin Sodium/Tazobactam 4.5 GM in 0.9 % Sodium Chloride 100 ML IV ×4 (00:06→18:09)
[2023-04-03] MEDS: 0.9 % Sodium Chloride Flush 3 ML SYRINGE IVFLUSH ×4 (00:13→21:54)
[2023-04-03 02:02] LABS: Glucose, Whole Blood 87 mg/dL (60-115)
[2023-04-03] MEDS: guaiFENesin LA 600 MG TAB.ER.12H 1200 MG PO ×2 (06:22→21:53)
[2023-04-03] MEDS: Acetaminophen 325 MG TABLET 650 MG PO ×2 (06:22→19:45)
[2023-04-03] MEDS: Omeprazole 20 MG CAPSULE.DR PO (06:23)
[2023-04-03 07:13] LABS: MANUAL DIFF FLAG NO
[2023-04-03 07:42] LABS: Anion Gap 15 (12-20); Blood Urea Nitrogen 10 mg/dL (9-16); Calcium 8.2 mg/dL (8.4-10.2); Carbon Dioxide 23 mmol/L (22-29); Chloride 107 mmol/L (96-108); Creatinine Clr Calc Pharmacy 72.9; Estimated Glomerular Filt Rate > 60; Glucose Random 94 mg/dL (60-115); Potassium 3.5 mmol/L (3.3-5.1); Sodium 141 mmol/L (135-145)
[2023-04-03 07:44] LABS: Glucose, Whole Blood 83 mg/dL (60-115)
[2023-04-03 07:48] LABS: Basophils Absolute Auto 0.1 X10*3/uL (0.0-0.2); Basophils Percent Auto 0.3 % (0-2); Eosinophils Absolute Auto 0.7 X10*3/uL (0.0-0.4); Eosinophils Percent Auto 4.6 % (0-4); Hematocrit 23.1 % (37.0-47.0); Imm Gran Abs Auto 0.07 X10*3/uL (0.00-0.03); Imm Gran Pct Auto 0.5 % (0.0-0.4); Lymphocytes Absolute Auto 0.5 X10*3/uL (1.2-4.9); Lymphocytes Percent Auto 3.5 % (20-40); Mean Corpuscular HGB Conc 30.3 g/dl (31.0-35.0); Mean Corpuscular Hemoglobin 25.5 pg (27.0-33.0); Mean Platelet Volume 9.8 fL (9.4-12.3); Monocytes Absolute Auto 0.8 X10*3/uL (0.1-1.2); Monocytes Percent Auto 5.7 % (2-11); Neutrophils Absolute Auto 12.5 x10*3/uL (2.0-8.3); Neutrophils Percent Auto 85.4 % (45-73); Platelet Count 307 X10*3/uL (160-400); Red Blood Count 2.75 X10*6/uL (4.20-5.50); Red Cell Distribution Width 14.8 % (11.0-16.0); White Blood Count 14.7 X10*3/uL (4.8-10.8)
[2023-04-03] MEDS: vancomycin HCL 750 MG in 0.9 % Sodium Chloride 250 ML 265 MG IV ×2 (08:01→20:06)
[2023-04-03] MEDS: Cholecalciferol (Vitamin D3) 25 MCG TABLET 50 MCG PO (08:03)
[2023-04-03] MEDS: Magnesium Oxide 400 MG TABLET PO (08:03)
[2023-04-03] MEDS: buPROPion HCl XL 300 MG TAB.ER.24H PO (08:03)
[2023-04-03] MEDS: clonazePAM 1 MG TABLET PO ×2 (08:03→21:53)
[2023-04-03] MEDS: Gabapentin 300 MG CAPSULE PO ×3 (08:03→21:53)
[2023-04-03] MEDS: Ferrous Sulfate 324 MG TABLET.DR PO ×2 (08:03→21:53)
[2023-04-03] MEDS: Empagliflozin 10 MG TABLET PO (08:04)
[2023-04-03] MEDS: Atorvastatin Calcium 40 MG TABLET PO (08:04)
[2023-04-03 08:12] LABS: Folate 11.9 ng/mL (> or = 4.0); Vitamin B12 377 pg/mL (200-900)
--- NOTE | 2023-04-03 08:36 | P.CONPL_ITS ---
History of Present Illness History of Present Illness Consult date: 04/03/23 Chief complaint: Pneomunia with lung abcess/necrosis, sepsis, hypox Narrative: This is an inpatient pulmonary consultation. The patient is a 67-year-old female with history of [id number] type 2 diabetes, hypertension, hyperlipidemia, recent embolic CVA with hospitalization at [facility] from 03/06-03/11 which was complicated by pneumonia. The patient was [facility] a [facility]term [facility] after the stroke. She was found to be hypoxic in the 80s this morning by nursing staff and EMS was called. She was placed on supplemental O2. She has not oxygen dependent at baseline. She states that she has had a productive cough with green sputum production as well as shortness of breath both at rest and with exertion ongoing for 3 weeks. She has also had weightloss, unable to quantify. Denies any fevers or chills. No sore throat, congestion, nausea, vomiting, melena, hematochezia, lightheadedness, palpitations, or chest pain. She states she has also had between 1-3 episodes of watery diarrhea on a daily but basis with some incontinence associated with diffuse mild abdominal pain. During her hospitalization at [facility], she was hypoxic requiring 2 L supplemental O2 and found to have multifocal pneumonia with CT angio of the head/neck which was personally by me demonstrating significant airspace disease in the right hemithorax although limited windows. Masslike consolidation appreciated as well. Significant hilar and mediastinal lymphadenopathy. The patient was discharged and subsequently developed worsening respiratory failure and was brought to the [facility] ED where she then had a CT of the chest which was also personally by me demonstrating significant airspace disease now with appears to have some loculated effusions again that masslike consolidation in the right middle lobe area. Difficult to assess because of the sick significant extent of her lower respiratory infection. The patient is likely aspirating. Review of Systems 2 Review of Systems: General: No fevers, malaise. +weight loss HEENT: No blurred vision, diplopia. No sore throat, nasal congestion, rhinorrhea, sinus pain, ear pain Cardiovascular: No chest pain, palpitations, or leg edema Respiratory: +sob, +cough. No wheezing GI: +diarrhea. No abdominal pain, nausea, vomiting, constipation, melena, hematochezia : No dysuria, hematuria, increased urinary frequency, decreased urinary output MSK: No myalgia, back pain Neuro: No headaches, weakness, paresthesias Skin: No rashes or lesions [facility] Past Medical History Medical History (Updated 04/03/23 @ 08:43 by Gurvinder Estrada MD) Dysphagia Lung mass Former smoker Pulmonary nodule HFrEF (heart failure with reduced ejection fraction) Embolic stroke Diabetes HLD (hyperlipidemia) HTN (hypertension) Lumbar spondylosis Chronic idiopathic constipation GERD (gastroesophageal reflux disease) Family History Family History Father Esophageal cancer Smoker Mother No problems noted. Brother No problems noted. Brother No problems noted. Sister No problems noted. Sister No problems noted. Sister No problems noted. Sister No problems noted. Son No problems noted. Daughter No problems noted. Daughter No problems noted. Daughter No problems noted. Surgical History Surgical History Hx of brain surgery Hx of colonoscopy H/O section History of esophagogastroduodenoscopy (EGD) Social History Social History Household Members: Other Housing: Other Housing Other:: Rehab facility Alcohol intake: never Patient Tobacco Use Status: Former Tobacco user Tobacco use type: Cigarette Smoked in Last 30 Days: No Patient Interested in Nicotine Replacement: No Patient Given Instructions on How to Stop Smoking: No Use of substances other than those prescribed or required for medical reasons: No Currently Displaying Signs/Symptoms of Drug Intoxication Withdrawal: No Any prior treatment program specific to substance use: No Have you been hit, kicked, punched, or otherwise hurt by someone within the past year? If so, by whom?: No Do you feel safe in your current relationship?: Yes Is there a partner from a previous relationship who is making you feel unsafe now?: No Are you made to feel afraid or neglected: No Advance Directives: No Advance Directives Information Provided: No Do you have thoughts of harming others: None Do you have a plan to hurt others: No Plan Recently lost weight without trying: Unsure Eating poorly because of decreased appetite: Yes Nutrition Risks: Difficulty swallowing Patient : No : No Poor oral hygiene: No Current occupational status: disabled Meds Allergies Allergy/AdvReac Type Severity Reaction Status Date / Time peanut [PEANUTS] Allergy Severe THROAT Verified 11/21/22 12:12 SWELLING avocado [AVOCADO] Allergy Intermediate THROAT Verified 11/21/22 12:12 SWELLING colloidal oatmeal Allergy Mild unknown Verified 11/21/22 12:12 ketchup Allergy Mild unknown Verified 11/21/22 12:12 cat dander [CAT DANDER] Allergy Unknown UNKNOWN Verified 11/21/22 12:12 PER H&P Active Medications: Current Medications Acetaminophen (Acetaminophen 325 Mg Tablet) 650 mg PO Q6H PRN PRN Reason: Pain, Mild (Pain Scale 1-3) Last Admin: 04/03/23 06:22 Dose: 650 mg Aspirin (Aspirin 81 Mg Tab.Chew) 81 mg PO DAILY [facility] Atorvastatin Calcium (Atorvastatin Calcium 40 Mg Tablet) 40 mg PO DAILY [facility] Last Admin: 04/03/23 08:04 Dose: 40 mg Bupropion HCl (Bupropion Hcl Xl 300 Mg Tab.Er.24h) 300 mg PO DAILY [facility] Last Admin: 04/03/23 08:03 Dose: 300 mg Clonazepam (Clonazepam 1 Mg Tablet) 1 mg PO BID [facility] Last Admin: 04/03/23 08:03 Dose: 1 mg Clopidogrel Bisulfate (Clopidogrel Bisulfate 75 Mg Tablet) 75 mg PO DAILY [facility] Dextrose (Dextrose 50 % 25 Gm/50 Ml Syringe) 25 gm IVPUSH Q15M PRN; Protocol PRN Reason: per Hypoglycemia Standing Ord. Empagliflozin (Empagliflozin 10 Mg Tablet) 10 mg PO DAILY [facility] Last Admin: 04/03/23 08:04 Dose: 10 mg Ferrous Sulfate (Ferrous Sulfate 324 Mg Tablet.Dr) 324 mg PO BID [facility] Last Admin: 04/03/23 08:03 Dose: 324 mg Furosemide (Furosemide 20 Mg Tablet) 20 mg PO DAILY [facility]; Protocol Gabapentin (Gabapentin 300 Mg Capsule) 300 mg PO TID [facility] Last Admin: 04/03/23 08:03 Dose: 300 mg Glucose (Glucose Gel 15 Gm Gel..Gram.) 15 gm PO Q15M PRN; Protocol PRN Reason: per Hypoglycemia Standing Ord. Guaifenesin (Guaifenesin La 600 Mg Tab.Er.12h) 1,200 mg PO Q12H [facility] Last Admin: 04/03/23 06:22 Dose: 1,200 mg Piperacillin Sod/Tazobactam (Sod 4.5 gm/ Sodium Chloride) 100 mls @ 200 mls/hr IV Q6H [facility] Last Infusion: 04/03/23 06:36 Dose: Infused Vancomycin HCl 750 mg/ Sodium (Chloride) 265 mls @ 265 mls/hr IV Q12H [facility] Last Admin: 04/03/23 08:01 Dose: 265 mls/hr Insulin Human Lispro (Insulin Lispro 100 Unit/Ml 3 Ml Vial) 0 unit SUBCUT QIDACHS [facility]; Protocol Last Admin: 04/03/23 08:01 Dose: Not Given Magnesium Oxide (Magnesium Oxide 400 Mg Tablet) 400 mg PO DAILY [facility] Last Admin: 04/03/23 08:03 Dose: 400 mg Metoprolol Tartrate (Metoprolol Tartrate 25 Mg Tablet) 25 mg PO BID [facility]; Protocol Last Admin: 04/02/23 20:59 Dose: 25 mg Omeprazole (Omeprazole 20 Mg Capsule.Dr) 20 mg PO DAILY@0630 [facility] Last Admin: 04/03/23 06:23 Dose: 20 mg Ondansetron HCl (Ondansetron Hcl 4 Mg/2 Ml Vial) 4 mg IVPUSH Q8H PRN PRN Reason: Nausea and Vomiting Pharmacy Consult (Consult Rx Vancomycin Dosing) 1 each MISCELLANE DAILY PRN PRN Reason: Consult order Senna (Sennosides 8.6 Mg Tablet) 17.2 mg PO BEDTIME PRN PRN Reason: Constipation Sodium Chloride (0.9 % Sodium Chloride Flush 3 Ml Syringe) 3 ml IVFLUSH QSHIFT [facility] Last Admin: 04/03/23 08:11 Dose: Not Given Vitamin D (Cholecalciferol (Vitamin D3) 25 Mcg Tablet) 50 mcg PO DAILY [facility] Last Admin: 04/03/23 08:03 Dose: 50 mcg Zolpidem Tartrate (Zolpidem Tartrate 5 Mg Tablet) 5 mg PO BEDTIME PRN PRN Reason: Insomnia Home Medications Medication Instructions Recorded Confirmed Last Taken Type atorvastatin 40 mg tablet 40 mg PO DAILY 07/20/22 04/02/23 Unknown History bupropion HCl 300 mg 24 hr tablet, 300 mg PO DAILY 07/20/22 04/02/23 Unknown History extended release clonazepam 1 mg tablet 1 mg PO BID 07/20/22 04/02/23 Unknown History metformin 500 mg tablet 500 mg PO BID 07/20/22 04/02/23 10/04/22 History zolpidem 10 mg tablet 10 mg PO BEDTIME PRN Insomnia 07/20/22 04/02/23 Unknown History Lactobacillus acidoph-L.bulgaricus 4 tab PO TID 04/02/23 04/02/23 Unknown History 1 million cell tablet (Floranex) aspirin 81 mg chewable tablet 81 mg PO DAILY 04/02/23 04/02/23 Unknown History cholecalciferol (vitamin D3) 50 50 mcg PO DAILY 04/02/23 04/02/23 Unknown History mcg (2,000 unit) tablet clopidogrel 75 mg tablet (Plavix) 75 mg PO DAILY 04/02/23 04/02/23 Unknown History dapagliflozin propanediol 10 mg 10 mg PO DAILY 04/02/23 04/02/23 Unknown History tablet ferrous sulfate 325 mg (65 mg 325 mg PO BID 04/02/23 04/02/23 Unknown History iron) tablet,delayed release furosemide 20 mg tablet 20 mg PO DAILY 04/02/23 04/02/23 Unknown History guaifenesin 1,200 mg tablet, 1,200 mg PO Q12H 04/02/23 04/02/23 Unknown History extended release 12 hr magnesium oxide 400 mg PO DAILY 04/02/23 04/02/23 Unknown History metoprolol tartrate 25 mg tablet 25 mg PO BID 04/02/23 04/02/23 Unknown History omeprazole 20 mg capsule,delayed 20 mg PO DAILY 04/02/23 04/02/23 Unknown History release Physical Exam 2 Vital Signs: Vital Signs: Last Vital Signs Temp 99.1 F 04/03/23 07:18 Pulse 92 04/03/23 07:18 Resp 16 04/03/23 07:18 BP 100/54 L 04/03/23 08:12 Pulse Ox 93 04/03/23 07:18 O2 Del Method Nasal Cannula 04/03/23 07:18 O2 Flow Rate 2 04/03/23 07:18 Oxygen Flow Rate 2 04/02/23 13:19 BMI result Body Mass Index 29.0 Const: Other: Appearance: Alert. Oriented X3. No acute distress. Eyes: Pupils equal, round and reactive to light. ENT: Pharynx normal. Neck: Normal inspection. Neck supple. No lymph nodes noted. No crepitus CVS: Normal heart rate and rhythm. Pulses normal. Normal S1 and S2 Respiratory: No respiratory distress. Bilateral rales Abdomen: Soft and nontender. No rigidity. No distention. Skin: Skin warm and dry. Normal skin color. Normal skin turgor. Extremities: No lower extremity edema. No Lacerations. No Rash Neuro: Oriented X 3. No motor deficit. No sensory deficit. Moving all extremities. No slurred speech. CN 2 through 12 grossly intact Psych: calm, cooperative, normal affect Results Laboratory Findings 04/03/23 06:58 04/03/23 06:58 ABG, PT/INR, D-dimer: PT/INR, D-dimer PT 17.1 SEC (11.1-13.3) H 04/02/23 14:24 INR 1.4 (0.9-1.1) H 04/02/23 14:24 Abnormal lab findings: Abnormal Labs 04/02/23 04/02/23 04/02/23 14:24 14:25 14:36 WBC 17.2 H RBC 3.09 L D Hgb 7.8 L D Hct 25.5 L D MCH 25.2 L MCHC 30.6 L Immature Gran % (Auto) Neut % (Auto) 86.0 H Lymph % (Auto) 4.1 L Eos % (Auto) Lymph # (Auto) 0.7 L Eos # (Auto) 0.6 H Abs Immat Gran (auto) 0.06 H Absolute Neuts (auto) 14.8 H PT 17.1 H INR 1.4 H VBG HCO3 29 H Potassium 3.2 L Calcium Iron 7 L TIBC 114 L % Saturation 6 L Ferritin 589 H Total Protein 6.4 L Albumin 2.7 L 04/03/23 06:58 WBC 14.7 H RBC 2.75 L Hgb 7.0 L* Hct 23.1 L MCH 25.5 L MCHC 30.3 L Immature Gran % (Auto) 0.5 H Neut % (Auto) 85.4 H Lymph % (Auto) 3.5 L Eos % (Auto) 4.6 H Lymph # (Auto) 0.5 L Eos # (Auto) 0.7 H Abs Immat Gran (auto) 0.07 H Absolute Neuts (auto) 12.5 H PT INR VBG HCO3 Potassium Calcium 8.2 L D Iron TIBC % Saturation Ferritin Total Protein Albumin Assessment and Plan (1) Acute respiratory failure: Qualifiers: Respiratory failure complication: hypoxia Qualified Code(s): J96.01 - Acute respiratory failure with hypoxia Status: Acute (2) Severe pneumonia: Status: Acute (3) Lung mass: Status: Acute (4) Dysphagia: Qualifiers: Dysphagia type: unspecified Qualified Code(s): R13.10 - Dysphagia, unspecified Status: Acute Plan The patient is presenting with acute respiratory failure in view of worsening right-sided airspace disease. My suspicion is this is related to progressively worsening aspiration pneumonia. Can not rule out a postobstructive pneumonia in view of the significant inflammation of the airways. May benefit from a bronchoscopy if no improvement after broad-spectrum antibiotics. Recommendations: Continue vancomycin and Zosyn for likely polymicrobial lower respiratory infection Sputum culture Legionella and strep urine antigen Should have a modified barium swallow to assess her aspiration risk in view of this right-sided airspace disease after having a stroke Consider bronchoscopy if no better to assess for postobstructive process Continue oxygen supplementation to maintain a pulse ox above 90% Should be provided with an Acapella valve or an Aerobika flutter valve in order to perform chest physical therapy Should have a repeat chest x-ray in 24 hours anemia w/u Will follow Procedures Date of Service Date of Service: 04/03/23
--- NOTE | 2023-04-03 09:37 | MHC.CM.PN ---
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 She lives alone and has home care services from [facility] of a [employer] for 3 hours a day and a nurse that visits her. For medical equipment, she has a cane, and a wheelchair. HCP form to be obtained from [facility]. Clinical info sent to [facility] via [employer] NATAN to follow and assist with DC plan.
[2023-04-03 10:28] LABS: MRSA Nasal PCR NEGATIVE (Negative); SA Nasal PCR NEGATIVE (Negative)
[2023-04-03 11:41] LABS: Erythrocyte Sedimentation Rate 119 MM/HR (0-20)
[2023-04-03 11:58] LABS: Glucose, Whole Blood 108 mg/dL (60-115)
--- NOTE | 2023-04-03 14:41 | HO.PM.IMPN ---
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, h/h noted to be lower we discussed transfusion Physical Exam Vital Signs: Vital Signs: Last Vital Signs Temp 98.3 F 04/03/23 11:37 Pulse 95 04/03/23 11:37 Resp 20 04/03/23 11:37 BP 114/61 04/03/23 11:37 Pulse Ox 95 04/03/23 11:37 O2 Del Method Nasal Cannula 04/03/23 11:37 O2 Flow Rate 2 04/03/23 11:37 Oxygen Flow Rate 2 04/02/23 13:19 BMI result Body Mass Index 29.0 Const: Other: General: AO X 3, no acute distress Resp: diminished lung sounds bilaterally, absent lung sounds rl lung field, normal effort CVS: S1,S2,RRR GI: +BS, NT, no distention Skin: No rash Neuro: motor grossly intact Psych: appropriate affect Objective Data Active Medications Acetaminophen (Acetaminophen 325 Mg Tablet) 650 mg PO Q6H PRN PRN Reason: Pain, Mild (Pain Scale 1-3) Last Admin: 04/03/23 06:22 Dose: 650 mg Documented By: ROSALEE Aspirin (Aspirin 81 Mg Tab.Chew) 81 mg PO DAILY [facility] Last Admin: 04/03/23 10:12 Dose: Not Given Documented By: NAIDA Non-Admin Reason: Physician Held Med Atorvastatin Calcium (Atorvastatin Calcium 40 Mg Tablet) 40 mg PO DAILY [facility] Last Admin: 04/03/23 08:04 Dose: 40 mg Documented By: NAIDA Bupropion HCl (Bupropion Hcl Xl 300 Mg Tab.Er.24h) 300 mg PO DAILY [facility] Last Admin: 04/03/23 08:03 Dose: 300 mg Documented By: NAIDA Clonazepam (Clonazepam 1 Mg Tablet) 1 mg PO BID [facility] Last Admin: 04/03/23 08:03 Dose: 1 mg Documented By: NAIDA Clopidogrel Bisulfate (Clopidogrel Bisulfate 75 Mg Tablet) 75 mg PO DAILY [facility] Last Admin: 04/03/23 10:12 Dose: Not Given Documented By: NAIDA Non-Admin Reason: Physician Held Med Dextrose (Dextrose 50 % 25 Gm/50 Ml Syringe) 25 gm IVPUSH Q15M PRN; Protocol PRN Reason: per Hypoglycemia Standing Ord. Empagliflozin (Empagliflozin 10 Mg Tablet) 10 mg PO DAILY [facility] Last Admin: 04/03/23 08:04 Dose: 10 mg Documented By: NAIDA Ferrous Sulfate (Ferrous Sulfate 324 Mg Tablet.) 324 mg PO BID [facility] Last Admin: 04/03/23 08:03 Dose: 324 mg Documented By: NAIDA Furosemide (Furosemide 20 Mg Tablet) 20 mg PO DAILY [facility]; Protocol Last Admin: 04/03/23 10:13 Dose: Not Given Documented By: NAIDA Non-Admin Reason: Physician Held Med Gabapentin (Gabapentin 300 Mg Capsule) 300 mg PO TID [facility] Last Admin: 04/03/23 08:03 Dose: 300 mg Documented By: NAIDA Glucose (Glucose Gel 15 Gm Gel..Gram.) 15 gm PO Q15M PRN; Protocol PRN Reason: per Hypoglycemia Standing Ord. Guaifenesin (Guaifenesin La 600 Mg Tab.Er.12h) 1,200 mg PO Q12H [facility] Last Admin: 04/03/23 06:22 Dose: 1,200 mg Documented By: ROSALEE Piperacillin Sod/Tazobactam (Sod 4.5 gm/ Sodium Chloride) 100 mls @ 200 mls/hr IV Q6H [facility] Last Infusion: 04/03/23 13:09 Dose: Infused Documented By: NAIDA Vancomycin HCl 750 mg/ Sodium (Chloride) 265 mls @ 265 mls/hr IV Q12H [facility] Last Infusion: 04/03/23 10:13 Dose: Infused Documented By: NAIDA Insulin Human Lispro (Insulin Lispro 100 Unit/Ml 3 Ml Vial) 0 unit SUBCUT QIDACHS [facility]; Protocol Last Admin: 04/03/23 12:00 Dose: Not Given Documented By: NAIDA Non-Admin Reason: No Insulin Coverage Magnesium Oxide (Magnesium Oxide 400 Mg Tablet) 400 mg PO DAILY [facility] Last Admin: 04/03/23 08:03 Dose: 400 mg Documented By: NAIDA Metoprolol Tartrate (Metoprolol Tartrate 25 Mg Tablet) 25 mg PO BID [facility]; Protocol Last Admin: 04/02/23 20:59 Dose: 25 mg Documented By: BOBBY Omeprazole (Omeprazole 20 Mg Capsule.) 20 mg PO DAILY@0630 [facility] Last Admin: 04/03/23 06:23 Dose: 20 mg Documented By: ROSALEE Ondansetron HCl (Ondansetron Hcl 4 Mg/2 Ml Vial) 4 mg IVPUSH Q8H PRN PRN Reason: Nausea and Vomiting Pharmacy Consult (Consult Rx Vancomycin Dosing) 1 each MISCELLANE DAILY PRN PRN Reason: Consult order Senna (Sennosides 8.6 Mg Tablet) 17.2 mg PO BEDTIME PRN PRN Reason: Constipation Sodium Chloride (0.9 % Sodium Chloride Flush 3 Ml Syringe) 3 ml IVFLUSH QSHIFT [facility] Last Admin: 04/03/23 08:11 Dose: Not Given Documented By: NAIDA Non-Admin Reason: IV Running Vitamin D (Cholecalciferol (Vitamin D3) 25 Mcg Tablet) 50 mcg PO DAILY [facility] Last Admin: 04/03/23 08:03 Dose: 50 mcg Documented By: NAIDA Zolpidem Tartrate (Zolpidem Tartrate 5 Mg Tablet) 5 mg PO BEDTIME PRN PRN Reason: Insomnia Labs 04/03/23 10:24 04/03/23 06:58 Labs: Laboratory Results - last 24 hr 04/02/23 04/02/23 04/02/23 14:24 14:25 14:36 MCV 82.5 MCH 25.2 L MCHC 30.6 L RDW 14.6 Plt Count 349 MPV 9.5 Immature Gran % (Auto) 0.3 Neut % (Auto) 86.0 H Lymph % (Auto) 4.1 L [place] % (Auto) 6.0 Eos % (Auto) 3.3 Baso % (Auto) 0.3 Lymph # (Auto) 0.7 L [place] # (Auto) 1.0 Eos # (Auto) 0.6 H Baso # (Auto) 0.1 Abs Immat Gran (auto) 0.06 H Absolute Neuts (auto) 14.8 H Absolute Nucleated RBC 0.000 Nucleated RBC % (auto) 0.0 ESR PT 17.1 H INR 1.4 H VBG pH 7.36 VBG pCO2 51 VBG pO2 45 VBG HCO3 29 H VBG O2 Saturation 64.0 VBG Base Excess 3.2 Anion Gap 15 Estim Creat Clear Calc 60.3 Estimated GFR > 60 POC Glucose Random Glucose 85 Lactic Acid 1.1 Calcium 9.2 Magnesium 1.6 Iron 7 L TIBC 114 L % Saturation 6 L Unsat Iron Binding 107 Ferritin 589 H Total Bilirubin 0.3 Direct Bilirubin 0.2 AST 23 ALT 15 Alkaline Phosphatase 44 Lactate Dehydrogenase 212 B-Natriuretic Peptide < 10 Total Protein 6.4 L Albumin 2.7 L Vitamin B12 Folate Nasal Screen MRSA (PCR) Nasal S. aureus Screen Nasal MRSA/S.aureus Interp Stool Occult Blood COVID-19 (AVILA) Negative COVID-19 Clin Com See Note Influenza Type A (CINDY) Negative Influenza Type B (CINDY) Negative Influenza A & B Note See Note Blood Type Antibody Screen 04/02/23 04/02/23 04/02/23 15:30 21:04 23:03 MCV MCH MCHC RDW Plt Count MPV Immature Gran % (Auto) Neut % (Auto) Lymph % (Auto) [place] % (Auto) Eos % (Auto) Baso % (Auto) Lymph # (Auto) [place] # (Auto) Eos # (Auto) Baso # (Auto) Abs Immat Gran (auto) Absolute Neuts (auto) Absolute Nucleated RBC Nucleated RBC % (auto) ESR PT INR VBG pH VBG pCO2 VBG pO2 VBG HCO3 VBG O2 Saturation VBG Base Excess Anion Gap Estim Creat Clear Calc Estimated GFR POC Glucose 81 77 Random Glucose Lactic Acid Calcium Magnesium Iron TIBC % Saturation Unsat Iron Binding Ferritin Total Bilirubin Direct Bilirubin AST ALT Alkaline Phosphatase Lactate Dehydrogenase B-Natriuretic Peptide Total Protein Albumin Vitamin B12 Folate Nasal Screen MRSA (PCR) Nasal S. aureus Screen Nasal MRSA/S.aureus Interp Stool Occult Blood NEGATIVE COVID-19 (AVILA) COVID-19 Clin Com Influenza Type A (CINDY) Influenza Type B (CINDY) Influenza A & B Note Blood Type Antibody Screen 04/03/23 04/03/23 04/03/23 01:58 06:32 06:58 MCV 84.0 MCH 25.5 L MCHC 30.3 L RDW 14.8 Plt Count 307 MPV 9.8 Immature Gran % (Auto) 0.5 H Neut % (Auto) 85.4 H Lymph % (Auto) 3.5 L [place] % (Auto) 5.7 Eos % (Auto) 4.6 H Baso % (Auto) 0.3 Lymph # (Auto) 0.5 L [place] # (Auto) 0.8 Eos # (Auto) 0.7 H Baso # (Auto) 0.1 Abs Immat Gran (auto) 0.07 H Absolute Neuts (auto) 12.5 H Absolute Nucleated RBC 0.000 Nucleated RBC % (auto) 0.0 ESR PT INR VBG pH VBG pCO2 VBG pO2 VBG HCO3 VBG O2 Saturation VBG Base Excess Anion Gap 15 Estim Creat Clear Calc 72.9 Estimated GFR > 60 POC Glucose 87 Random Glucose 94 Lactic Acid Calcium 8.2 L D Magnesium Iron TIBC % Saturation Unsat Iron Binding Ferritin Total Bilirubin Direct Bilirubin AST ALT Alkaline Phosphatase Lactate Dehydrogenase B-Natriuretic Peptide Total Protein Albumin Vitamin B12 377 Folate 11.9 Nasal Screen MRSA (PCR) NEGATIVE Nasal S. aureus Screen NEGATIVE Nasal MRSA/S.aureus Interp SEE NOTE Stool Occult Blood COVID-19 (AVILA) COVID-19 Clin Com Influenza Type A (CINDY) Influenza Type B (CINDY) Influenza A & B Note Blood Type Antibody Screen 04/03/23 04/03/23 04/03/23 07:39 09:52 10:24 MCV MCH MCHC RDW Plt Count MPV Immature Gran % (Auto) Neut % (Auto) Lymph % (Auto) [place] % (Auto) Eos % (Auto) Baso % (Auto) Lymph # (Auto) [place] # (Auto) Eos # (Auto) Baso # (Auto) Abs Immat Gran (auto) Absolute Neuts (auto) Absolute Nucleated RBC Nucleated RBC % (auto) ESR 119 H PT INR VBG pH VBG pCO2 VBG pO2 VBG HCO3 VBG O2 Saturation VBG Base Excess Anion Gap Estim Creat Clear Calc Estimated GFR POC Glucose 83 Random Glucose Lactic Acid Calcium Magnesium Iron TIBC % Saturation Unsat Iron Binding Ferritin Total Bilirubin Direct Bilirubin AST ALT Alkaline Phosphatase Lactate Dehydrogenase B-Natriuretic Peptide Total Protein Albumin Vitamin B12 Folate Nasal Screen MRSA (PCR) Nasal S. aureus Screen Nasal MRSA/S.aureus Interp Stool Occult Blood COVID-19 (AVILA) COVID-19 Clin Com Influenza Type A (CINDY) Influenza Type B (CINDY) Influenza A & B Note Blood Type B Positive Antibody Screen NEGATIVE 04/03/23 11:35 MCV MCH MCHC RDW Plt Count MPV Immature Gran % (Auto) Neut % (Auto) Lymph % (Auto) [place] % (Auto) Eos % (Auto) Baso % (Auto) Lymph # (Auto) [place] # (Auto) Eos # (Auto) Baso # (Auto) Abs Immat Gran (auto) Absolute Neuts (auto) Absolute Nucleated RBC Nucleated RBC % (auto) ESR PT INR VBG pH VBG pCO2 VBG pO2 VBG HCO3 VBG O2 Saturation VBG Base Excess Anion Gap Estim Creat Clear Calc Estimated GFR POC Glucose 108 Random Glucose Lactic Acid Calcium Magnesium Iron TIBC % Saturation Unsat Iron Binding Ferritin Total Bilirubin Direct Bilirubin AST ALT Alkaline Phosphatase Lactate Dehydrogenase B-Natriuretic Peptide Total Protein Albumin Vitamin B12 Folate Nasal Screen MRSA (PCR) Nasal S. aureus Screen Nasal MRSA/S.aureus Interp Stool Occult Blood COVID-19 (AVILA) COVID-19 Clin Com Influenza Type A (CINDY) Influenza Type B (CINDY) Influenza A & B Note Blood Type Antibody Screen Assessment and Plan (1) Acute respiratory failure: Status: Acute (2) Pneumonia: Status: Acute Plan 67-year-old female with history of [id number] type 2 diabetes, hypertension, hyperlipidemia, recent embolic CVA with hospitalization at [facility] from 03/06-03/11 now on DAPT, mood disorder unspecified, former smoker admitted for further management of severe pneumonia with sepsis and acute hypoxemic respiratory failure #Severe multifocal pneumonia with possible necrosis/abscess and sepsis -recently hospitalized [facility] [place] 03/06-03/11 for CVA, multifocal pneumonia treated with IV ctx -?underlying malignancy given unintentional weight loss (8kg last 5 months) vs possible aspirarion relaed to pneumonia -MRSA nasal screen negative -continue Zosyn 04/02/23 -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 if no improvment with Abx # acute hypoxemic respiratory failure -2/2 above -continue supplemental O2 to maintain oximetry >92% #Acute on chronic normocytic anemia, last hgb at [facility] [place] on 03/07 was 9 -stool occult blood negative -?r/t acute illness -no evidence of hemolysis -H/H lower, she and daugther considering transfusion, strong recommendation if less than 7 #Acute diarrhea -recently treated with IV abx at [facility] [place] -Cdiff pcr and GI panel pending #Acute hypokalemia -likely 2/2 diarrhea -repleted and corrected # [id number]-diphptllj type 2 diabetes -POC glucose, diabetic diet -Humalog on sliding scale -hold metformin # hypertension--BP normal with meds on hold #HFrEf -no acute exacerbation -EF 35-40% 03/07 [facility] [place] -continue lasix #recent Embolic CVA -Continue DAPT, statin -recent admission 03/06- at [facility] [place]. Etiology of embolic stroke unclear, recommended outpt follow up with heme # unspecified mood disorder -continue home meds, reduced zolpidem dose to 5 mg DVT prophylaxis- SCPs d/t worsening anemia Full code Discussed with patient's daughter, Macario [phone] over the phone inpt for overwhelming pneumonia and hypoxia and requires iv abx to preven detelioration and she might need bronchosopy Quality Stroke Does the patient have a stroke diagnosis?: No VTE Prior VTE?: No VTE Risk Level:: Medical - moderate - high VTE Device Contraindication: Treatment Not Indicated VTE Drug Contraindication: N/A - Med Ordered
[2023-04-03 14:59] LABS: Hematocrit 24.9 % (37.0-47.0); Hemoglobin 7.6 g/dl (12.0-16.0); Mean Corpuscular HGB Conc 30.5 g/dl (31.0-35.0); Mean Corpuscular Hemoglobin 25.2 pg (27.0-33.0); Mean Corpuscular Volume 82.5 fL (80.0-98.0); Mean Platelet Volume 9.9 fL (9.4-12.3); Platelet Count 315 X10*3/uL (160-400); Red Blood Count 3.02 X10*6/uL (4.20-5.50); Red Cell Distribution Width 14.8 % (11.0-16.0); White Blood Count 14.7 X10*3/uL (4.8-10.8)
[2023-04-03 16:02] LABS: Glucose, Whole Blood 109 mg/dL (60-115)
[2023-04-03 21:33] LABS: Glucose, Whole Blood 123 mg/dL (60-115)
[2023-04-03] MEDS: Metoprolol Tartrate 25 MG TABLET PO (21:53)
[2023-04-04] VITALS (8 sets, daily range): BP systolic 120–142; BP diastolic 56–88; PULSE 81–114; RESP 17–20; TEMP 36.7–38.2; O2SAT 94–98
[2023-04-04] MEDS: Piperacillin Sodium/Tazobactam 4.5 GM in 0.9 % Sodium Chloride 100 ML IV ×4 (01:10→18:28)
[2023-04-04 02:00] LABS: Haptoglobin 480 MG/DL ((30-200))
[2023-04-04] MEDS: Acetaminophen 325 MG TABLET 650 MG PO ×2 (04:12→19:44)
[2023-04-04] MEDS: Omeprazole 20 MG CAPSULE.DR PO (06:25)
[2023-04-04 06:58] LABS: Hematocrit 23.4 % (37.0-47.0); Hemoglobin 7.2 g/dl (12.0-16.0); Mean Corpuscular HGB Conc 30.8 g/dl (31.0-35.0); Mean Corpuscular Hemoglobin 25.9 pg (27.0-33.0); Mean Corpuscular Volume 84.2 fL (80.0-98.0); Mean Platelet Volume 9.4 fL (9.4-12.3); Platelet Count 287 X10*3/uL (160-400); Red Blood Count 2.78 X10*6/uL (4.20-5.50); Red Cell Distribution Width 14.9 % (11.0-16.0); White Blood Count 14.9 X10*3/uL (4.8-10.8)
[2023-04-04 07:03] LABS: Glucose, Whole Blood 83 mg/dL (60-115)
[2023-04-04 07:11] LABS: Vancomycin Trough 12.3 mcg/mL (10.0-20.0)
[2023-04-04 07:14] LABS: Estimated Glomerular Filt Rate > 60
--- NOTE | 2023-04-04 07:24 | HE.PHANOTE ---
RE: vanco Trough on 04/04 came back at 12.3 mg/L; increased dose to 1000mg Q12H with predicted trough of 16.1 mg/L, AUC of 511 mg/L. Next level to be drawn 04/05 @1800
[2023-04-04] MEDS: vancomycin HCL 1,000 MG in 0.9 % Sodium Chloride 250 ML 270 MG IV (09:37)
[2023-04-04 11:01] LABS: Glucose, Whole Blood 79 mg/dL (60-115)
--- NOTE | 2023-04-04 11:23 | HO.PM.IMPN ---
Subjective Subjective Date of Service: 04/04/23 Interval History: No sob, still hypoxic on 3 liters of O2 repeat CXR appear worse Physical Exam Vital Signs: Vital Signs: Last Vital Signs Temp 98.1 F 04/04/23 11:14 Pulse 101 H 04/04/23 11:14 Resp 20 04/04/23 11:14 BP 142/68 H 04/04/23 11:14 Pulse Ox 96 04/04/23 11:14 O2 Del Method Nasal Cannula 04/04/23 11:14 O2 Flow Rate 3 04/04/23 11:14 Oxygen Flow Rate 2 04/02/23 13:19 BMI result Body Mass Index 29.0 Const: Other: General: AO X 3, no acute distress Resp: diminished lung sounds bilaterally, absent lung sounds rl lung field, normal effort CVS: S1,S2,RRR GI: +BS, NT, no distention Skin: No rash Neuro: motor grossly intact Psych: appropriate affect Objective Data Active Medications Acetaminophen (Acetaminophen 325 Mg Tablet) 650 mg PO Q6H PRN PRN Reason: Pain, Mild (Pain Scale 1-3) Last Admin: 04/04/23 04:12 Dose: 650 mg Documented By: CURLY Aspirin (Aspirin 81 Mg Tab.Chew) 81 mg PO DAILY [facility] Last Admin: 04/03/23 10:12 Dose: Not Given Documented By: NAIDA Non-Admin Reason: Physician Held Med Atorvastatin Calcium (Atorvastatin Calcium 40 Mg Tablet) 40 mg PO DAILY [facility] Last Admin: 04/03/23 08:04 Dose: 40 mg Documented By: NAIDA Bupropion HCl (Bupropion Hcl Xl 300 Mg Tab.Er.24h) 300 mg PO DAILY [facility] Last Admin: 04/03/23 08:03 Dose: 300 mg Documented By: NAIDA Clonazepam (Clonazepam 1 Mg Tablet) 1 mg PO BID [facility] Last Admin: 04/03/23 21:53 Dose: 1 mg Documented By: CURLY Clopidogrel Bisulfate (Clopidogrel Bisulfate 75 Mg Tablet) 75 mg PO DAILY [facility] Last Admin: 04/03/23 10:12 Dose: Not Given Documented By: NAIDA Non-Admin Reason: Physician Held Med Dextrose (Dextrose 50 % 25 Gm/50 Ml Syringe) 25 gm IVPUSH Q15M PRN; Protocol PRN Reason: per Hypoglycemia Standing Ord. Empagliflozin (Empagliflozin 10 Mg Tablet) 10 mg PO DAILY [facility] Last Admin: 04/03/23 08:04 Dose: 10 mg Documented By: NAIDA Ferrous Sulfate (Ferrous Sulfate 324 Mg Tablet.) 324 mg PO BID [facility] Last Admin: 04/03/23 21:53 Dose: 324 mg Documented By: CURLY Furosemide (Furosemide 20 Mg Tablet) 20 mg PO DAILY [facility]; Protocol Last Admin: 04/03/23 10:13 Dose: Not Given Documented By: NAIDA Non-Admin Reason: Physician Held Med Gabapentin (Gabapentin 300 Mg Capsule) 300 mg PO TID [facility] Last Admin: 04/03/23 21:53 Dose: 300 mg Documented By: CURLY Glucose (Glucose Gel 15 Gm Gel..Gram.) 15 gm PO Q15M PRN; Protocol PRN Reason: per Hypoglycemia Standing Ord. Guaifenesin (Guaifenesin La 600 Mg Tab.Er.12h) 1,200 mg PO Q12H [facility] Last Admin: 04/03/23 21:53 Dose: 1,200 mg Documented By: CURLY Piperacillin Sod/Tazobactam (Sod 4.5 gm/ Sodium Chloride) 100 mls @ 200 mls/hr IV Q6H [facility] Last Infusion: 04/04/23 07:00 Dose: Infused Documented By: ZEKE Vancomycin HCl 1,000 mg/ (Sodium Chloride) 270 mls @ 270 mls/hr IV Q12H [facility] Last Infusion: 04/04/23 10:40 Dose: Infused Documented By: ZEKE Insulin Human Lispro (Insulin Lispro 100 Unit/Ml 3 Ml Vial) 0 unit SUBCUT QIDACHS [facility]; Protocol Last Admin: 04/04/23 09:37 Dose: Not Given Documented By: ZEKE Non-Admin Reason: No Insulin Coverage Magnesium Oxide (Magnesium Oxide 400 Mg Tablet) 400 mg PO DAILY [facility] Last Admin: 04/03/23 08:03 Dose: 400 mg Documented By: NAIDA Metoprolol Tartrate (Metoprolol Tartrate 25 Mg Tablet) 25 mg PO BID [facility]; Protocol Last Admin: 04/03/23 21:53 Dose: 25 mg Documented By: CURLY Omeprazole (Omeprazole 20 Mg Capsule.) 20 mg PO DAILY@0630 [facility] Last Admin: 04/04/23 06:25 Dose: 20 mg Documented By: CURLY Ondansetron HCl (Ondansetron Hcl 4 Mg/2 Ml Vial) 4 mg IVPUSH Q8H PRN PRN Reason: Nausea and Vomiting Pharmacy Consult (Consult Rx Vancomycin Dosing) 1 each MISCELLANE DAILY PRN PRN Reason: Consult order Senna (Sennosides 8.6 Mg Tablet) 17.2 mg PO BEDTIME PRN PRN Reason: Constipation Sodium Chloride (0.9 % Sodium Chloride Flush 3 Ml Syringe) 3 ml IVFLUSH QSHIFT [facility] Last Admin: 04/03/23 21:54 Dose: 3 ml Documented By: CURLY Vitamin D (Cholecalciferol (Vitamin D3) 25 Mcg Tablet) 50 mcg PO DAILY [facility] Last Admin: 04/04/23 09:38 Dose: Not Given Documented By: ZEKE Non-Admin Reason: NPO Zolpidem Tartrate (Zolpidem Tartrate 5 Mg Tablet) 5 mg PO BEDTIME PRN PRN Reason: Insomnia Labs 04/04/23 06:46 04/04/23 06:46 Labs: Laboratory Results - last 24 hr 04/03/23 04/03/23 04/03/23 06:58 10:24 11:35 MCV 82.5 MCH 25.2 L MCHC 30.5 L RDW 14.8 Plt Count 315 MPV 9.9 Absolute Nucleated RBC 0.000 Nucleated RBC % (auto) 0.0 ESR 119 H Haptoglobin 480 H Estim Creat Clear Calc Estimated GFR POC Glucose 108 Vancomycin Trough 04/03/23 04/03/23 04/04/23 15:58 21:27 06:46 MCV 84.2 MCH 25.9 L MCHC 30.8 L RDW 14.9 Plt Count 287 MPV 9.4 Absolute Nucleated RBC 0.000 Nucleated RBC % (auto) 0.0 ESR Haptoglobin Estim Creat Clear Calc 72.0 Estimated GFR > 60 POC Glucose 109 123 H Vancomycin Trough 12.3 04/04/23 04/04/23 06:59 10:56 MCV MCH MCHC RDW Plt Count MPV Absolute Nucleated RBC Nucleated RBC % (auto) ESR Haptoglobin Estim Creat Clear Calc Estimated GFR POC Glucose 83 79 Vancomycin Trough Microbiology Microbiology Results: Microbiology 04/02/23 14:54 Blood Culture - Preliminary Blood - Venous No growth after 24 hours. 04/02/23 14:24 Blood Culture - Preliminary Blood - Venous No growth after 24 hours. Assessment and Plan (1) Acute respiratory failure: Status: Acute (2) Pneumonia: Status: Acute Plan 67-year-old female with history of [id number] type 2 diabetes, hypertension, hyperlipidemia, recent embolic CVA with hospitalization at [facility] from 03/06-03/11 now on DAPT, mood disorder unspecified, former smoker admitted for further management of severe pneumonia with sepsis and acute hypoxemic respiratory failure #Severe multifocal pneumonia with possible necrosis/abscess and sepsis -recently hospitalized [facility] 03/06-03/11 for CVA, multifocal pneumonia treated with IV ctx -?underlying malignancy given unintentional weight loss (8kg last 5 months) vs possible aspirarion relaed to pneumonia -MRSA nasal screen negative -continue Zosyn + Vanco started 04/02/23 -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 if no improvment with Abx -US today to rule out fluid collection # acute hypoxemic respiratory failure -2/2 above -continue supplemental O2 to maintain oximetry >92% #Acute on chronic normocytic anemia, last hgb at [facility] on 03/07 was 9 -stool occult blood negative -?r/t acute illness -no evidence of hemolysis -H/H lower, stable, she is agreable to transfusion, give 1 unit today #Acute diarrhea -recently treated with IV abx at [facility] -Cdiff pcr and GI not collected for 2 days, dc #Acute hypOkalemia -likely 2/2 diarrhea -repleted and corrected # [id number] type 2 diabetes -POC glucose, diabetic diet -Humalog on sliding scale -hold metformin # hypertension--BP normal with meds on hold #HFrEf -no acute exacerbation -EF 35-40% 03/07 [facility] -continue lasix #recent Embolic CVA -Continue DAPT (ASA and Plavix), statin -recent admission 03/06- at [facility]. Etiology of embolic stroke unclear, recommended outpt follow up with heme # unspecified mood disorder -continue home meds, reduced zolpidem dose to 5 mg Dysphagia--LATIN DANCER rec chopped + thin liquid DVT prophylaxis- SCPs d/t worsening anemia Full code Discussed with patient's daughter, Macario [phone] over the phone inpt for overwhelming pneumonia and hypoxia and requires iv abx to preven detelioration and she might need bronchosopy Quality Stroke Does the patient have a stroke diagnosis?: No VTE Prior VTE?: No VTE Risk Level:: Medical - moderate - high VTE Device Contraindication: Treatment Not Indicated VTE Drug Contraindication: N/A - Med Ordered
[2023-04-04] MEDS: guaiFENesin LA 600 MG TAB.ER.12H 1200 MG PO ×2 (11:31→21:42)
[2023-04-04] MEDS: Clopidogrel Bisulfate 75 MG TABLET PO (11:31)
[2023-04-04] MEDS: buPROPion HCl XL 300 MG TAB.ER.24H PO (11:31)
[2023-04-04] MEDS: Aspirin 81 MG TAB.CHEW PO (11:32)
[2023-04-04] MEDS: clonazePAM 1 MG TABLET PO ×2 (11:32→21:42)
[2023-04-04] MEDS: Metoprolol Tartrate 25 MG TABLET PO ×2 (11:32→21:42)
[2023-04-04] MEDS: Empagliflozin 10 MG TABLET PO (11:32)
[2023-04-04] MEDS: Gabapentin 300 MG CAPSULE PO ×2 (11:32→21:42)
[2023-04-04] MEDS: Cholecalciferol (Vitamin D3) 25 MCG TABLET 50 MCG PO (11:32)
[2023-04-04] MEDS: Ferrous Sulfate 324 MG TABLET.DR PO ×2 (11:32→21:42)
[2023-04-04] MEDS: Atorvastatin Calcium 40 MG TABLET PO (11:33)
[2023-04-04] MEDS: Furosemide 20 MG TABLET PO (11:33)
[2023-04-04] MEDS: Magnesium Oxide 400 MG TABLET PO (11:35)
[2023-04-04 12:01] LABS: Anion Gap 13 (12-20); Carbon Dioxide 22 mmol/L (22-29); Chloride 108 mmol/L (96-108); Potassium 3.3 mmol/L (3.3-5.1); Sodium 140 mmol/L (135-145)
--- NOTE | 2023-04-04 12:42 | P.PNPL_ITS ---
Subjective Subjective Date of Service: 04/04/23 Interval history: The patient was seen on exam. Denies any worsening shortness of breath. She still. She did have a chest x-ray today with worsening opacity to the right hemithorax. She did have a component of loculated effusion. It does not look like her mediastinum is shifted to suggest volume loss. She is done broad- spectrum antibiotics. I did request a sputum culture but not available as of yet. I did give her 2 specimen cups yesterday. Currently having a swallow test. I do believe the patient is likely micro aspirating resulting in worsening infection. Objective Data Labs 04/04/23 06:46 04/04/23 06:46 Labs: Laboratory Results - last 24 hr 04/03/23 04/03/23 04/03/23 06:58 10:24 15:58 WBC 14.7 H RBC 3.02 L Hgb 7.6 L Hct 24.9 L MCV 82.5 MCH 25.2 L MCHC 30.5 L RDW 14.8 Plt Count 315 MPV 9.9 Absolute Nucleated RBC 0.000 Nucleated RBC % (auto) 0.0 Haptoglobin 480 H Sodium Potassium Chloride Carbon Dioxide Anion Gap Creatinine Estim Creat Clear Calc Estimated GFR POC Glucose 109 Vancomycin Trough 04/03/23 04/04/23 04/04/23 21:27 06:46 06:59 WBC 14.9 H RBC 2.78 L Hgb 7.2 L Hct 23.4 L MCV 84.2 MCH 25.9 L MCHC 30.8 L RDW 14.9 Plt Count 287 MPV 9.4 Absolute Nucleated RBC 0.000 Nucleated RBC % (auto) 0.0 Haptoglobin Sodium 140 Potassium 3.3 Chloride 108 Carbon Dioxide 22 Anion Gap 13 Creatinine 0.76 Estim Creat Clear Calc 72.0 Estimated GFR > 60 POC Glucose 123 H 83 Vancomycin Trough 12.3 04/04/23 10:56 WBC RBC Hgb Hct MCV MCH MCHC RDW Plt Count MPV Absolute Nucleated RBC Nucleated RBC % (auto) Haptoglobin Sodium Potassium Chloride Carbon Dioxide Anion Gap Creatinine Estim Creat Clear Calc Estimated GFR POC Glucose 79 Vancomycin Trough Microbiology Microbiology Results: Microbiology 04/02/23 14:54 Blood - Venous Blood Culture - Preliminary No growth after 24 hours. 04/02/23 14:24 Blood - Venous Blood Culture - Preliminary No growth after 24 hours. Review of Systems Review of Systems General: No fevers, malaise. +weight loss HEENT: No blurred vision, diplopia. No sore throat, nasal congestion, rhinorrhea, sinus pain, ear pain Cardiovascular: No chest pain, palpitations, or leg edema Respiratory: +sob, +cough. No wheezing GI: +diarrhea. No abdominal pain, nausea, vomiting, constipation, melena, hematochezia : No dysuria, hematuria, increased urinary frequency, decreased urinary output MSK: No myalgia, back pain Neuro: No headaches, weakness, paresthesias Skin: No rashes or lesions Physical Exam 2 Vital Signs: Vital Signs: Last Vital Signs Temp 98.1 F 04/04/23 11:14 Pulse 101 H 04/04/23 11:14 Resp 20 04/04/23 11:14 BP 142/68 H 04/04/23 11:14 Pulse Ox 96 04/04/23 11:14 O2 Del Method Nasal Cannula 04/04/23 11:14 O2 Flow Rate 3 04/04/23 11:14 Oxygen Flow Rate 2 04/02/23 13:19 BMI result Body Mass Index 29.0 Const: Other: General: AO X 3, no acute distress Resp: diminished lung sounds bilaterally, absent lung sounds rl lung field, normal effort CVS: S1,S2,RRR GI: +BS, NT, no distention Skin: No rash Neuro: motor grossly intact Psych: appropriate affect Procedures Date of Service Date of Service: 04/04/23 Assessment and Plan Assessment and plan (1) Pneumonia: Status: Acute (2) Lung mass: Status: Acute (3) Pleural effusion: Status: Acute (4) Acute hypoxemic respiratory failure: Status: Acute Plan Continue broad-spectrum antibiotics Chest ultrasound to assess pleural fluid which indeed if it is worsen may need to have a thoracentesis CPT with Anil. Continue oxygen to maintain a pulse ox above 92% Repeat chest x-ray tomorrow Awaiting sputum culture If the patient is not better she will require bronchoscopy Time Spent With Patient Time: Total time managing care of this patient today ____ minutes. Progress Note: Quality Stroke Does the patient have a stroke diagnosis?: No
[2023-04-04 16:13] LABS: Glucose, Whole Blood 113 mg/dL (60-115)
--- NOTE | 2023-04-04 16:40 | MHC.SL.SWA ---
Speech Pathologist Impression: Risk of Aspiration Due to: Neurological Condition History of Pneumonia Dysphasia Diet Status: Liquid Consistency and Strategies for Safe Swallow: Liquid Intake Recommendation: Thin Liquid Intake Strategies: Small Sips Solid Food Consistency: Dietary Recommendations: Chopped/Advanced (NDD3) Additional Modifications to Solid Foods: Patient would benefit from direct supervision during her meals to monitor for any clinical signs of aspiration or any difficulty. Oral Medication Intake: Whole with Puree Please contact the pharmacy regarding appropriate crushable or liquid drug formulations that are available whenever modified delivery is recommended. Compensatory Strategies and Precautions to be Taken for Safe Swallow: Sitting Upright (90 deg) Liquids from Cup Liquids from Straw Small Bites and Sips Alternate Liquids/Solids Rate of Ingestion Change Supervision While Eating and Drinking for Safe Swallow: Total Supervision (1:1) Foods to Avoid: Crunchy or crumble foods, difficulty to chew solids. Swallowing Recommended Treatments: Compens. Strategy Educat. Recommendation for Speech: Inpatient Speech Therapy Comment: Patient presents with a mild oral phase dysphagia characterized by a slow rate of mastication. Patient is missing a few back teeth. Recommend START diet of Chopped/Advanced with THIN liquids, pills whole in puree or with liquid as preferred by patient. Given medical team concern for possible micro aspiration recommend supervision during meals to monitor for any clinical signs of aspiration or difficulty evidenced by patient. Patient can otherwise eat independently. ROOM SERVICE FOOD SERVER will continue to follow while inpatient, and patient may benefit from further speech/language/cognitive evaluation, given recent CVA. MONCHO PARKS notified of recommendations by secure sujit, RN in person. Frequency/Duration: M-F while inpatient. Date Range for Service Req: Timeline to reassess: Rcis Clinican/Clinical Fellow: No Supervisory Statement: I have reviewed and agree with the student/clinical fellow's documentation: N/A Speech Language Pathologist: Nini Ramírez M.A., [facility]-ROOM SERVICE FOOD SERVER
[2023-04-04] MEDS: 0.9 % Sodium Chloride Flush 3 ML SYRINGE IVFLUSH (18:32)
[2023-04-04] MEDS: vancomycin HCL 1,000 MG in 0.9 % Sodium Chloride 250 ML 27 MG IV (19:44)
[2023-04-04 20:38] LABS: Glucose, Whole Blood 146 mg/dL (60-115)
[2023-04-04 23:16] LABS: OBS Int Ctl Valid YES; OBS1 NEGATIVE (NEGATIVE)
[2023-04-05] VITALS (7 sets, daily range): BP systolic 109–135; BP diastolic 57–66; PULSE 88–105; RESP 18–20; TEMP 36.6–37.8; O2SAT 18–95
[2023-04-05] MEDS: Piperacillin Sodium/Tazobactam 4.5 GM in 0.9 % Sodium Chloride 100 ML IV ×4 (01:27→18:19)
[2023-04-05] MEDS: 0.9 % Sodium Chloride Flush 3 ML SYRINGE IVFLUSH ×3 (01:27→16:01)
[2023-04-05 06:59] LABS: Glucose, Whole Blood 99 mg/dL (60-115)
[2023-04-05 09:04] LABS: Hemoglobin 7.9 g/dl (12.0-16.0); Mean Corpuscular HGB Conc 30.4 g/dl (31.0-35.0); Mean Corpuscular Hemoglobin 25.6 pg (27.0-33.0); Mean Corpuscular Volume 84.1 fL (80.0-98.0); Mean Platelet Volume 9.5 fL (9.4-12.3); Platelet Count 369 X10*3/uL (160-400); Red Blood Count 3.09 X10*6/uL (4.20-5.50); Red Cell Distribution Width 15.1 % (11.0-16.0); White Blood Count 15.4 X10*3/uL (4.8-10.8)
--- NOTE | 2023-04-05 09:25 | P.PNPL_ITS ---
Subjective Subjective Date of Service: 04/05/23 Interval history: The patient was seen on exam. She is feeling about the same. Still on 3 L of oxygen. Denies any worsening chest pains or cough. She did have a ultrasound of the chest yesterday. Demonstrating moderate pleural effusion. The x-ray also appears to show worsening right-sided opacity now with complete whiteout of the right side. Mediastinum seems to be fixed without any shift. Objective Data Labs 04/05/23 08:46 04/04/23 06:46 Labs: Laboratory Results - last 24 hr 04/04/23 04/04/23 04/04/23 06:46 10:56 16:10 WBC RBC Hgb Hct MCV MCH MCHC RDW Plt Count MPV Absolute Nucleated RBC Nucleated RBC % (auto) Sodium 140 Potassium 3.3 Chloride 108 Carbon Dioxide 22 Anion Gap 13 POC Glucose 79 113 Stool Occult Blood 04/04/23 04/04/23 04/05/23 19:48 23:05 06:53 WBC RBC Hgb Hct MCV MCH MCHC RDW Plt Count MPV Absolute Nucleated RBC Nucleated RBC % (auto) Sodium Potassium Chloride Carbon Dioxide Anion Gap POC Glucose 146 H 99 Stool Occult Blood NEGATIVE 04/05/23 08:46 WBC 15.4 H RBC 3.09 L Hgb 7.9 L Hct 26.0 L MCV 84.1 MCH 25.6 L MCHC 30.4 L RDW 15.1 Plt Count 369 D MPV 9.5 Absolute Nucleated RBC 0.000 Nucleated RBC % (auto) 0.0 Sodium Potassium Chloride Carbon Dioxide Anion Gap POC Glucose Stool Occult Blood Microbiology Microbiology Results: Microbiology 04/02/23 14:54 Blood - Venous Blood Culture - Preliminary No growth after 48 hours. 04/02/23 14:24 Blood - Venous Blood Culture - Preliminary No growth after 48 hours. Review of Systems Review of Systems General: No fevers, malaise. +weight loss HEENT: No blurred vision, diplopia. No sore throat, nasal congestion, rhinorrhea, sinus pain, ear pain Cardiovascular: No chest pain, palpitations, or leg edema Respiratory: +sob, +cough. No wheezing GI: +diarrhea. No abdominal pain, nausea, vomiting, constipation, melena, hematochezia : No dysuria, hematuria, increased urinary frequency, decreased urinary output MSK: No myalgia, back pain Neuro: No headaches, weakness, paresthesias Skin: No rashes or lesions Physical Exam 2 Vital Signs: Vital Signs: Last Vital Signs Temp 98.3 F 04/05/23 07:29 Pulse 105 H 04/05/23 07:29 Resp 20 04/05/23 07:29 BP 135/64 04/05/23 07:29 Pulse Ox 94 04/05/23 07:29 O2 Del Method Nasal Cannula 04/05/23 07:29 O2 Flow Rate 3 04/05/23 07:29 Oxygen Flow Rate 2 04/02/23 13:19 BMI result Body Mass Index 29.0 Const: Other: General: AO X 3, no acute distress Resp: diminished lung sounds bilaterally, absent lung sounds rl lung field, normal effort CVS: S1,S2,RRR GI: +BS, NT, no distention Skin: No rash Neuro: motor grossly intact Psych: appropriate affect Procedures Date of Service Date of Service: 04/05/23 Assessment and Plan Assessment and plan (1) Pneumonia: Status: Acute (2) Lung mass: Status: Acute (3) Pleural effusion: Status: Acute (4) Acute hypoxemic respiratory failure: Status: Acute Plan Continue broad-spectrum antibiotics Recommend a right-sided thoracentesis both for diagnostic and therapeutic reasons. Cytology needs to be sent Should continue with CPT with Aerobika. May need also manual CPT Continue oxygen to maintain a pulse ox above 92% Repeat chest x-ray after thoracentesis Awaiting sputum culture Bronchoscopy next week if no better over the weekend Time Spent With Patient Time: Total time managing care of this patient today ____ minutes. Progress Note: Quality Stroke Does the patient have a stroke diagnosis?: No
[2023-04-05 09:27] LABS: Anion Gap 13 (12-20); Blood Urea Nitrogen 8 mg/dL (9-16); Calcium 8.3 mg/dL (8.4-10.2); Carbon Dioxide 25 mmol/L (22-29); Chloride 108 mmol/L (96-108); Creatinine Clr Calc Pharmacy 69.2; Estimated Glomerular Filt Rate > 60; Glucose Random 95 mg/dL (60-115); Potassium 3.2 mmol/L (3.3-5.1); Sodium 143 mmol/L (135-145)
[2023-04-05] MEDS: Metoprolol Tartrate 25 MG TABLET PO ×2 (09:44→22:08)
[2023-04-05] MEDS: Gabapentin 300 MG CAPSULE PO ×2 (09:44→16:00)
[2023-04-05] MEDS: buPROPion HCl XL 300 MG TAB.ER.24H PO (09:44)
[2023-04-05] MEDS: Aspirin 81 MG TAB.CHEW PO (09:44)
[2023-04-05] MEDS: Ferrous Sulfate 324 MG TABLET.DR PO ×2 (09:44→22:08)
[2023-04-05] MEDS: Clopidogrel Bisulfate 75 MG TABLET PO (09:44)
[2023-04-05] MEDS: clonazePAM 1 MG TABLET PO (09:44)
[2023-04-05] MEDS: Magnesium Oxide 400 MG TABLET PO (09:44)
[2023-04-05] MEDS: Empagliflozin 10 MG TABLET PO (09:44)
[2023-04-05] MEDS: guaiFENesin LA 600 MG TAB.ER.12H 1200 MG PO ×2 (09:44→22:08)
[2023-04-05] MEDS: Atorvastatin Calcium 40 MG TABLET PO (09:44)
[2023-04-05] MEDS: vancomycin HCL 1,000 MG in 0.9 % Sodium Chloride 250 ML 270 MG IV ×2 (09:45→22:05)
[2023-04-05] MEDS: Furosemide 20 MG TABLET PO (09:45)
[2023-04-05 10:55] LABS: Glucose, Whole Blood 141 mg/dL (60-115)
--- NOTE | 2023-04-05 11:22 | MHC.SL.SWA ---
Speech Pathologist Impression: Oral phase dysphagia Risk of Aspiration Due to: Neurological Condition History of Pneumonia Dysphasia Diet Status: No changes at this time Liquid Consistency and Strategies for Safe Swallow: Liquid Intake Recommendation: Thin Liquid Intake Strategies: Small Sips Solid Food Consistency: Dietary Recommendations: Chopped/Advanced (NDD3) Additional Modifications to Solid Foods: Patient would benefit from direct supervision during her meals to monitor for any clinical signs of aspiration or any difficulty. Oral Medication Intake: Whole with Puree Please contact the pharmacy regarding appropriate crushable or liquid drug formulations that are available whenever modified delivery is recommended. Compensatory Strategies and Precautions to be Taken for Safe Swallow: Sitting Upright (90 deg) Double Swallow Small Bites and Sips Alternate Liquids/Solids Rate of Ingestion Change Avoid Specific Foods Supervision While Eating and Drinking for Safe Swallow: Total Supervision (1:1) Foods to Avoid: Crunchy or crumble foods, difficulty to chew solids. Swallowing Recommended Treatments: Compens. Strategy Educat. Recommendation for Speech: Inpatient Speech Therapy Comment: Patient presents with a mild oral phase dysphagia characterized by a slow rate of mastication. Patient is missing a few back teeth. Given medical team concern for possible micro aspiration recommend supervision during meals to monitor for any clinical signs of aspiration or difficulty evidenced by patient. Patient can otherwise eat independently. PLASTICS TECHNICIAN will continue to follow while inpatient, and patient may benefit from further speech/language/cognitive evaluation, given recent CVA. Frequency/Duration: M-F while inpatient. Date Range for Service Req: Timeline to reassess: Cable Former Clinican/Clinical Fellow: No Supervisory Statement: I have reviewed and agree with the student/clinical fellow's documentation: N/A Speech Language Pathologist: Hortencia Bermeo M.A., CCC-PLASTICS TECHNICIAN
--- NOTE | 2023-04-05 11:24 | P.PNIM_ITS ---
Subjective Subjective Date of Service: 04/05/23 Interval History: No signficant change, still O2 Physical Exam 2 Vital Signs: Vital Signs: Last Vital Signs Temp 98.8 F 04/05/23 11:10 Pulse 90 04/05/23 11:10 Resp 20 04/05/23 11:10 BP 109/57 L 04/05/23 11:10 Pulse Ox 95 04/05/23 11:10 O2 Del Method Nasal Cannula 04/05/23 11:10 O2 Flow Rate 3 04/05/23 11:10 Oxygen Flow Rate 2 04/02/23 13:19 BMI result Body Mass Index 29.0 Const: Other: General: AO X 3, no acute distress Resp: diminished lung sounds bilaterally, absent lung sounds rl lung field, normal effort CVS: S1,S2,RRR GI: +BS, NT, no distention Skin: No rash Neuro: motor grossly intact Psych: appropriate affect Objective Data Active Medications Acetaminophen (Acetaminophen 325 Mg Tablet) 650 mg PO Q6H PRN PRN Reason: Pain, Mild (Pain Scale 1-3) Last Admin: 04/04/23 19:44 Dose: 650 mg Documented By: YULIA Aspirin (Aspirin 81 Mg Tab.Chew) 81 mg PO DAILY [facility] Last Admin: 04/05/23 09:44 Dose: 81 mg Documented By: ZEKE Atorvastatin Calcium (Atorvastatin Calcium 40 Mg Tablet) 40 mg PO DAILY [facility] Last Admin: 04/05/23 09:44 Dose: 40 mg Documented By: ZEKE Bupropion HCl (Bupropion Hcl Xl 300 Mg Tab.Er.24h) 300 mg PO DAILY [facility] Last Admin: 04/05/23 09:44 Dose: 300 mg Documented By: ZEKE Clonazepam (Clonazepam 1 Mg Tablet) 1 mg PO BID [facility] Last Admin: 04/05/23 09:44 Dose: 1 mg Documented By: ZEKE Clopidogrel Bisulfate (Clopidogrel Bisulfate 75 Mg Tablet) 75 mg PO DAILY [facility] Last Admin: 04/05/23 09:44 Dose: 75 mg Documented By: ZEKE Dextrose (Dextrose 50 % 25 Gm/50 Ml Syringe) 25 gm IVPUSH Q15M PRN; Protocol PRN Reason: per Hypoglycemia Standing Ord. Empagliflozin (Empagliflozin 10 Mg Tablet) 10 mg PO DAILY [facility] Last Admin: 04/05/23 09:44 Dose: 10 mg Documented By: ZEKE Ferrous Sulfate (Ferrous Sulfate 324 Mg Tablet.) 324 mg PO BID [facility] Last Admin: 04/05/23 09:44 Dose: 324 mg Documented By: ZEKE Furosemide (Furosemide 20 Mg Tablet) 20 mg PO DAILY [facility]; Protocol Last Admin: 04/05/23 09:45 Dose: 20 mg Documented By: ZEKE Gabapentin (Gabapentin 300 Mg Capsule) 300 mg PO TID [facility] Last Admin: 04/05/23 09:44 Dose: 300 mg Documented By: ZEKE Glucose (Glucose Gel 15 Gm Gel..Gram.) 15 gm PO Q15M PRN; Protocol PRN Reason: per Hypoglycemia Standing Ord. Guaifenesin (Guaifenesin La 600 Mg Tab.Er.12h) 1,200 mg PO Q12H [facility] Last Admin: 04/05/23 09:44 Dose: 1,200 mg Documented By: ZEKE Piperacillin Sod/Tazobactam (Sod 4.5 gm/ Sodium Chloride) 100 mls @ 200 mls/hr IV Q6H [facility] Last Infusion: 04/05/23 06:32 Dose: Infused Documented By: ANTWAN Vancomycin HCl 1,000 mg/ (Sodium Chloride) 270 mls @ 270 mls/hr IV Q12H [facility] Last Admin: 04/05/23 09:45 Dose: 270 mls/hr Documented By: ZEKE Insulin Human Lispro (Insulin Lispro 100 Unit/Ml 3 Ml Vial) 0 unit SUBCUT QIDACHS [facility]; Protocol Last Admin: 04/05/23 08:50 Dose: Not Given Documented By: ZEKE Non-Admin Reason: No Insulin Coverage Magnesium Oxide (Magnesium Oxide 400 Mg Tablet) 400 mg PO DAILY [facility] Last Admin: 04/05/23 09:44 Dose: 400 mg Documented By: ZEKE Metoprolol Tartrate (Metoprolol Tartrate 25 Mg Tablet) 25 mg PO BID [facility]; Protocol Last Admin: 04/05/23 09:44 Dose: 25 mg Documented By: ZEKE Omeprazole (Omeprazole 20 Mg Capsule.) 20 mg PO DAILY@0630 [facility] Last Admin: 04/05/23 06:05 Dose: Not Given Documented By: ANTWAN Non-Admin Reason: Patient Asleep Ondansetron HCl (Ondansetron Hcl 4 Mg/2 Ml Vial) 4 mg IVPUSH Q8H PRN PRN Reason: Nausea and Vomiting Pharmacy Consult (Consult Rx Vancomycin Dosing) 1 each MISCELLANE DAILY PRN PRN Reason: Consult order Senna (Sennosides 8.6 Mg Tablet) 17.2 mg PO BEDTIME PRN PRN Reason: Constipation Sodium Chloride (0.9 % Sodium Chloride Flush 3 Ml Syringe) 3 ml IVFLUSH QSHIFT [facility] Last Admin: 04/05/23 09:45 Dose: 3 ml Documented By: ZEKE Vitamin D (Cholecalciferol (Vitamin D3) 25 Mcg Tablet) 50 mcg PO DAILY [facility] Last Admin: 04/04/23 11:32 Dose: 50 mcg Documented By: ZEKE Zolpidem Tartrate (Zolpidem Tartrate 5 Mg Tablet) 5 mg PO BEDTIME PRN PRN Reason: Insomnia Labs 04/05/23 08:46 04/05/23 08:46 Labs: Laboratory Results - last 24 hr 04/04/23 04/04/23 04/04/23 06:46 16:10 19:48 MCV MCH MCHC RDW Plt Count MPV Absolute Nucleated RBC Nucleated RBC % (auto) Anion Gap 13 Estim Creat Clear Calc Estimated GFR POC Glucose 113 146 H Random Glucose Calcium Stool Occult Blood 04/04/23 04/05/23 04/05/23 23:05 06:53 08:46 MCV 84.1 MCH 25.6 L MCHC 30.4 L RDW 15.1 Plt Count 369 D MPV 9.5 Absolute Nucleated RBC 0.000 Nucleated RBC % (auto) 0.0 Anion Gap 13 Estim Creat Clear Calc 69.2 Estimated GFR > 60 POC Glucose 99 Random Glucose 95 Calcium 8.3 L Stool Occult Blood NEGATIVE 04/05/23 10:51 MCV MCH MCHC RDW Plt Count MPV Absolute Nucleated RBC Nucleated RBC % (auto) Anion Gap Estim Creat Clear Calc Estimated GFR POC Glucose 141 H Random Glucose Calcium Stool Occult Blood Microbiology Microbiology Results: Microbiology 04/02/23 14:54 Blood Culture - Preliminary Blood - Venous No growth after 48 hours. 04/02/23 14:24 Blood Culture - Preliminary Blood - Venous No growth after 48 hours. Assessment and Plan (1) Acute respiratory failure: Status: Acute (2) Pneumonia: Status: Acute Plan 67-year-old female with history of nzt-[id number] type 2 diabetes, hypertension, hyperlipidemia, recent embolic CVA with hospitalization at [facility] from 03/06-03/11 now on DAPT, mood disorder unspecified, former smoker admitted for further management of severe pneumonia with sepsis and acute hypoxemic respiratory failure #Severe multifocal pneumonia with possible necrosis/abscess and sepsis/Parapneumonic effusion -recently hospitalized [facility] [place] 03/06-03/11 for CVA, multifocal pneumonia treated with IV ctx -?underlying malignancy given unintentional weight loss (8kg last 5 months) vs possible aspirarion relaed to pneumonia -MRSA nasal screen negative -continue Zosyn + Vanco started 04/02/23 -french edge operator recommends bronch if no improvment with Abx -US show effusion -thoracentesis # acute hypoxemic respiratory failure d/t above -continue supplemental O2 to maintain oximetry >92% #Acute on chronic normocytic anemia, last hgb at [facility] [place] on 03/07 was 9 -stool occult blood negative -?r/t acute illness -no evidence of hemolysis -H/H lower, stable, she is agreable to transfusion 1unit of rbc on 04/04, H/H is better #Acute diarrhea -recently treated with IV abx at [facility] [place] -Cdiff pcr and GI not collected for 2 days, dc #Acute hypOkalemia -likely 2/2 diarrhea -repleted and corrected # nxa-jfajnnq-plitrhnsm type 2 diabetes -POC glucose, diabetic diet -Humalog on sliding scale -hold metformin # hypertension--BP normal with meds on hold #HFrEf -no acute exacerbation -EF 35-40% 03/07 [facility] [place] -continue lasix #recent Embolic CVA -Continue DAPT (ASA and Plavix), statin -recent admission 03/06- at [facility] [place]. Etiology of embolic stroke unclear, recommended outpt follow up with heme # unspecified mood disorder -continue home meds, reduced zolpidem dose to 5 mg Dysphagia--OFFSET PRINTING PRESSMEN rec chopped + thin liquid DVT prophylaxis- SCPs d/t worsening anemia Full code Discussed with patient's daughter, Macario [phone] over the phone inpt for overwhelming pneumonia and hypoxia and requires iv abx to preven detelioration and she might need bronchosopy, thoracentesis today Quality Stroke Does the patient have a stroke diagnosis?: No VTE Prior VTE?: No VTE Risk Level:: Medical - moderate - high VTE Device Contraindication: Treatment Not Indicated VTE Drug Contraindication: N/A - Med Ordered
--- NOTE | 2023-04-05 13:15 | MHC.CM.PN ---
EMR REVIEWED, PT W/LUNG ABSCESS/NECROSIS, PLAN FOR THORACENTESIS TODAY, NO PLAN FOR DC, CM WILL CONT TO FOLLOW DC NEEDS.
--- NOTE | 2023-04-05 14:23 | PM.EVENT ---
Event Note Date of Service: 04/05/23 Event Note: Procedure Note: US right thoracentesis 700 cc yellow fluid removed and sent for analysis Post CXR shows no pneumothorax Selvin MILIAN Interventional Radiology Time Spent With Patient Time: Total time managing care of this patient today ____ minutes.
[2023-04-05] MEDS: Lidocaine HCl 1 % MPF 5 ML VIAL SUBCUT (14:29)
[2023-04-05 14:59] LABS: MN% 38.6 %; PMN% 61.4 %; WBC Pleural Fluid 3.053 X10*3/uL
[2023-04-05 15:14] LABS: RBC Pleural Fluid < 0.002 X10*6/uL
[2023-04-05 15:31] LABS: BF Shift QC OK YES
[2023-04-05 15:57] LABS: Lymphocytes Pleural Fluid 15 %; Neutrophils Pleural Fluid 81 %
[2023-04-05 15:58] LABS: Eosinophils Pleural Fluid 2 %; Monocytes Pleural Fluid 2 %
[2023-04-05] MEDS: Acetaminophen 325 MG TABLET 650 MG PO (16:00)
[2023-04-05 16:02] LABS: Glucose, Whole Blood 95 mg/dL (60-115)
--- NOTE | 2023-04-05 16:58 | HO.WOUND ---
Wound Consult: Initial 67yr old? admitted to [facility] on 04/02/23 20:15 - See progress notes and H&P for detailed history.? Wound consult placed for coccyx / sacral wound noted on assessment. Unable to assess patient skin at this time photo review completed - wounds not consistent with pressure at this time - appears to be friction and MASD (Moisture Associated Skin Damage) related. Direct care team reports patient is incontinent of loose stool. Topical recommendations made below and will attempt to assess in person early next week. ? Recommendations: 1. Turn and Reposition every 2 hours and as needed for patient comfort.? Use pillows or wedges to support off loading positions. 2. Off Load all bony prominences with use of pillows and heel boots if needed.? Apply Preventative foams where needed. ? 3. Monitor for incontinence and moisture control, use barrier creams when needed for prevention and treatment. 4. Provide adequate and supplemental nutrition.? 5. Order or Continue low air loss mattress. 6. When applicable maintain blood glucose levels per Providers order. 7. Sacrum and Coccyx - Off Load Pressure - Cleanse with PH balance spray or wipes, pat dry. ?Apply thin layer of Triad to wound bed - only pat and dab no scrub and rub when soiling occurs. Reapply thin layer PRN after each episode of incontinence. Re-consult wound care Nurse for wound deterioration or wound changes.
[2023-04-05 17:21] LABS: ABG Base Excess 4.3 mmol/L; ABG HCO3 30 mmol/L (22-26); ABG pCO2 48 mmHg (32-45); ABG pH 7.39 (7.35-7.45); ABG pO2 74 mmHg (83-108)
--- NOTE | 2023-04-05 17:55 | PC.NURSE ---
Pt Frisian speaking mat linker utilized for communication and assessment. A&OX3 speech slurred/garbled at times, right facial droop at baseline. Denies pain/discomfort. LS dim remains on 2L oxygen via nasal cannula satting mid 90's. NS/ST on tele. BS+X4 abdomen soft non-tender incontinent of loose mucous green stool. 2 small areas noted to bilat inner buttocks, meticulous maxx care provided with each incontinent episode. Purewick for urine. Dr Colmenares notified and wound consult placed RN notified. Triad cream ordered repos to offload pressure. Right side weakness at baseline RUE 1-2/5, RLE 2-3/5 sensation intact, +pp bilat, 1+ edema to bilat ankles. OOB to chair in afternoon with staff assist. Off unit mid afternoon for thoracentesis returns to unit dressing to right back CDI denies pain. Pt more drowsy this shift Dr Colmenares notified of concerns on unit to see patient, meds adjusted and ABG obtained by RT. Potassium replaced per order. Will continue to monitor and report changes
[2023-04-05 18:02] LABS: ABG Refer to POC result
[2023-04-05] MEDS: Potassium Chloride Packet 20 MEQ PACKET 40 MEQ PO (18:18)
[2023-04-05 18:26] LABS: Vancomycin Trough 15.4 mcg/mL (10.0-20.0)
--- NOTE | 2023-04-05 18:31 | HE.PHANOTE ---
RE VANCO DOSING SCR STABLE AT 0.79 AND TROUGH TODAY 15.4. INSIGHT SHOWS PT PRACTICALLY AT [facility] SO WILL CONTINUE CURRENT DOSING REGIMEN AND RECHECK TROUGH ON 04/07 @1800.
[2023-04-05 19:36] LABS: Albumin Pleural Fluid 1.5 GM/DL; Glucose Pleural Fluid 119 MG/DL; LDH Pleural Fluid 137 U/L; Total Protein Pleural Fluid 3.3 GM/DL
[2023-04-05 19:46] LABS: pH Pleural Fluid 7.53
[2023-04-05 20:55] LABS: Glucose, Whole Blood 121 mg/dL (60-115)
[2023-04-05] MEDS: Gabapentin 100 MG CAPSULE PO (22:08)
[2023-04-06] MEDS: Piperacillin Sodium/Tazobactam 4.5 GM in 0.9 % Sodium Chloride 100 ML IV ×4 (00:58→17:11)
[2023-04-06] MEDS: 0.9 % Sodium Chloride Flush 3 ML SYRINGE IVFLUSH ×3 (01:03→17:11)
[2023-04-06 03:51] VITALS: BP 128/65; PULSE 103; RESP 19; TEMP 36.9; O2SAT 94
[2023-04-06 07:21] VITALS: BP 122/61; PULSE 105; RESP 20; TEMP 36.8; O2SAT 93
[2023-04-06 07:31] LABS: Glucose, Whole Blood 93 mg/dL (60-115)
[2023-04-06 08:00] LABS: Creatinine Clr Calc Pharmacy 72.9; Estimated Glomerular Filt Rate > 60
--- NOTE | 2023-04-06 09:03 | HO.PM.IMPN ---
Subjective Subjective Date of Service: 04/06/23 Interval History: She says she feels better, still on 2, no resp distress, throacentesis completed yesterday Physical Exam Vital Signs: Vital Signs: Last Vital Signs Temp 98.2 F 04/06/23 07:21 Pulse 105 H 04/06/23 07:21 Resp 20 04/06/23 07:21 BP 122/61 04/06/23 07:21 Pulse Ox 93 04/06/23 07:21 O2 Del Method Nasal Cannula 04/06/23 07:21 O2 Flow Rate 2 04/06/23 07:21 Oxygen Flow Rate 2 04/02/23 13:19 BMI result Body Mass Index 29.0 Const: Other: General: AO X 3, no acute distress Resp: diminished lung sounds bilaterally, absent lung sounds rl lung field, normal effort CVS: S1,S2,RRR GI: +BS, NT, no distention Skin: No rash Neuro: motor grossly intact Psych: appropriate affect Objective Data Active Medications Acetaminophen (Acetaminophen 325 Mg Tablet) 650 mg PO Q6H PRN PRN Reason: Pain, Mild (Pain Scale 1-3) Last Admin: 04/05/23 16:00 Dose: 650 mg Documented By: ZEKE Aspirin (Aspirin 81 Mg Tab.Chew) 81 mg PO DAILY [facility] Last Admin: 04/05/23 09:44 Dose: 81 mg Documented By: ZEKE Atorvastatin Calcium (Atorvastatin Calcium 40 Mg Tablet) 40 mg PO DAILY [facility] Last Admin: 04/05/23 09:44 Dose: 40 mg Documented By: ZEKE Bupropion HCl (Bupropion Hcl Xl 300 Mg Tab.Er.24h) 300 mg PO DAILY [facility] Last Admin: 04/05/23 09:44 Dose: 300 mg Documented By: ZEKE Clopidogrel Bisulfate (Clopidogrel Bisulfate 75 Mg Tablet) 75 mg PO DAILY [facility] Last Admin: 04/05/23 09:44 Dose: 75 mg Documented By: ZEKE Dextrose (Dextrose 50 % 25 Gm/50 Ml Syringe) 25 gm IVPUSH Q15M PRN; Protocol PRN Reason: per Hypoglycemia Standing Ord. Empagliflozin (Empagliflozin 10 Mg Tablet) 10 mg PO DAILY [facility] Last Admin: 04/05/23 09:44 Dose: 10 mg Documented By: ZEKE Ferrous Sulfate (Ferrous Sulfate 324 Mg Tablet.Dr) 324 mg PO BID [facility] Last Admin: 04/05/23 22:08 Dose: 324 mg Documented By: ROSALEE Furosemide (Furosemide 20 Mg Tablet) 20 mg PO DAILY [facility]; Protocol Last Admin: 04/05/23 09:45 Dose: 20 mg Documented By: ZEKE Gabapentin (Gabapentin 100 Mg Capsule) 100 mg PO BID [facility] Last Admin: 04/05/23 22:08 Dose: 100 mg Documented By: ROSALEE Glucose (Glucose Gel 15 Gm Gel..Gram.) 15 gm PO Q15M PRN; Protocol PRN Reason: per Hypoglycemia Standing Ord. Guaifenesin (Guaifenesin La 600 Mg Tab.Er.12h) 1,200 mg PO Q12H [facility] Last Admin: 04/05/23 22:08 Dose: 1,200 mg Documented By: ROSALEE Piperacillin Sod/Tazobactam (Sod 4.5 gm/ Sodium Chloride) 100 mls @ 200 mls/hr IV Q6H [facility] Last Admin: 04/06/23 06:17 Dose: 200 mls/hr Documented By: ROSALEE Vancomycin HCl 1,000 mg/ (Sodium Chloride) 270 mls @ 270 mls/hr IV Q12H [facility] Last Infusion: 04/05/23 23:05 Dose: Infused Documented By: ROSALEE Insulin Human Lispro (Insulin Lispro 100 Unit/Ml 3 Ml Vial) 0 unit SUBCUT QIDACHS [facility]; Protocol Last Admin: 04/05/23 22:08 Dose: Not Given Documented By: ROSALEE Non-Admin Reason: No Insulin Coverage Magnesium Oxide (Magnesium Oxide 400 Mg Tablet) 400 mg PO DAILY [facility] Last Admin: 04/05/23 09:44 Dose: 400 mg Documented By: ZEKE Metoprolol Tartrate (Metoprolol Tartrate 25 Mg Tablet) 25 mg PO BID [facility]; Protocol Last Admin: 04/05/23 22:08 Dose: 25 mg Documented By: ROSALEE Omeprazole (Omeprazole 20 Mg Capsule.) 20 mg PO DAILY@0630 [facility] Last Admin: 04/06/23 06:24 Dose: Not Given Documented By: ROSALEE Non-Admin Reason: Patient Asleep Ondansetron HCl (Ondansetron Hcl 4 Mg/2 Ml Vial) 4 mg IVPUSH Q8H PRN PRN Reason: Nausea and Vomiting Pharmacy Consult (Consult Rx Vancomycin Dosing) 1 each MISCELLANE DAILY PRN PRN Reason: Consult order Senna (Sennosides 8.6 Mg Tablet) 17.2 mg PO BEDTIME PRN PRN Reason: Constipation Sodium Chloride (0.9 % Sodium Chloride Flush 3 Ml Syringe) 3 ml IVFLUSH QSHIFT [facility] Last Admin: 04/06/23 01:03 Dose: 3 ml Documented By: ROSALEE Vitamin D (Cholecalciferol (Vitamin D3) 25 Mcg Tablet) 50 mcg PO DAILY [facility] Last Admin: 04/04/23 11:32 Dose: 50 mcg Documented By: ZEKE Zolpidem Tartrate (Zolpidem Tartrate 5 Mg Tablet) 5 mg PO BEDTIME PRN PRN Reason: Insomnia Labs 04/05/23 08:46 04/06/23 07:08 Labs: Laboratory Results - last 24 hr 04/05/23 04/05/23 04/05/23 08:46 10:51 14:15 MCV 84.1 MCH 25.6 L MCHC 30.4 L RDW 15.1 Plt Count 369 D MPV 9.5 Absolute Nucleated RBC 0.000 Nucleated RBC % (auto) 0.0 O2 Saturation ABG pH at Pt Temp ABG pCO2 at Pt Temp ABG pO2 at Pt Temp ABG HCO3 ABG Base Excess (Actual) Anion Gap 13 Estim Creat Clear Calc 69.2 Estimated GFR > 60 POC Glucose 141 H Random Glucose 95 Calcium 8.3 L Pleural pH 7.53 Pleural WBC 3.053 Pleural RBC < 0.002 Pleural Neutrophils 81 Pleural Lymphocytes 15 Pleural Monocytes 2 Pleural Eosinophils 2 Pleural Total Protein 3.3 Pleural Albumin 1.5 Pleural LDH 137 Pleural Glucose 119 Vancomycin Trough 04/05/23 04/05/23 04/05/23 15:59 17:14 18:04 MCV MCH MCHC RDW Plt Count MPV Absolute Nucleated RBC Nucleated RBC % (auto) O2 Saturation 94.0 ABG pH at Pt Temp 7.39 ABG pCO2 at Pt Temp 48 H ABG pO2 at Pt Temp 74 L ABG HCO3 30 H ABG Base Excess (Actual) 4.3 Anion Gap Estim Creat Clear Calc Estimated GFR POC Glucose 95 Random Glucose Calcium Pleural pH Pleural WBC Pleural RBC Pleural Neutrophils Pleural Lymphocytes Pleural Monocytes Pleural Eosinophils Pleural Total Protein Pleural Albumin Pleural LDH Pleural Glucose Vancomycin Trough 15.4 04/05/23 04/06/23 04/06/23 20:51 07:08 07:23 MCV MCH MCHC RDW Plt Count MPV Absolute Nucleated RBC Nucleated RBC % (auto) O2 Saturation ABG pH at Pt Temp ABG pCO2 at Pt Temp ABG pO2 at Pt Temp ABG HCO3 ABG Base Excess (Actual) Anion Gap Estim Creat Clear Calc 72.9 Estimated GFR > 60 POC Glucose 121 H 93 Random Glucose Calcium Pleural pH Pleural WBC Pleural RBC Pleural Neutrophils Pleural Lymphocytes Pleural Monocytes Pleural Eosinophils Pleural Total Protein Pleural Albumin Pleural LDH Pleural Glucose Vancomycin Trough Microbiology Microbiology Results: Microbiology 04/05/23 14:15 Gram Stain - Final Thoracentesis Fluid Anaerobic Culture - Preliminary No growth to date. Body Fluid Culture - Preliminary No growth after 1 day Assessment and Plan (1) Acute respiratory failure: Status: Acute (2) Pneumonia: Status: Acute Plan 67-year-old female with history of [id number] type 2 diabetes, hypertension, hyperlipidemia, recent embolic CVA with hospitalization at [facility] from 03/06-03/11 now on DAPT, mood disorder unspecified, former smoker admitted for further management of severe pneumonia with sepsis and acute hypoxemic respiratory failure #Severe multifocal pneumonia with possible necrosis/abscess and sepsis/Parapneumonic effusion -recently hospitalized [facility] [place] [facility] 03/06-03/11 for CVA, multifocal pneumonia treated with IV ctx -?underlying malignancy given unintentional weight loss (8kg last 5 months) vs possible aspirarion relaed to pneumonia -MRSA nasal screen negative -effusion culture so far negative -continue Zosyn + Vanco started 04/02/23 -analytics senior manager recommends bronch if no improvment with Abx # acute hypoxemic respiratory failure d/t above -continue supplemental O2 to maintain oximetry >92% #Acute on chronic normocytic anemia, last hgb at [facility] [place] on 03/07 was 9 -stool occult blood negative -?r/t acute illness -no evidence of hemolysis 1unit of rbc on 04/04, H/H is better #Acute diarrhea -recently treated with IV abx at [facility] [place] -Cdiff pcr and GI pending #Acute hypOkalemia -likely 2/2 diarrhea -repleted and corrected # [id number] type 2 diabetes -POC glucose, diabetic diet -Humalog on sliding scale -hold metformin # hypertension--BP normal with meds on hold #HFrEf -no acute exacerbation -EF 35-40% 03/07 [facility] [place] -continue lasix #recent Embolic CVA -Continue DAPT (ASA and Plavix), statin -recent admission 03/06- at [facility] [place]. 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
[2023-04-06] MEDS: buPROPion HCl XL 300 MG TAB.ER.24H PO (09:28)
[2023-04-06] MEDS: Empagliflozin 10 MG TABLET PO (09:29)
[2023-04-06] MEDS: guaiFENesin LA 600 MG TAB.ER.12H 1200 MG PO ×2 (09:29→20:32)
[2023-04-06] MEDS: Gabapentin 100 MG CAPSULE PO ×2 (09:30→20:32)
[2023-04-06] MEDS: Furosemide 20 MG TABLET PO (09:30)
[2023-04-06] MEDS: Metoprolol Tartrate 25 MG TABLET PO ×2 (09:30→20:32)
[2023-04-06] MEDS: Ferrous Sulfate 324 MG TABLET.DR PO ×2 (09:30→20:32)
[2023-04-06] MEDS: Clopidogrel Bisulfate 75 MG TABLET PO (09:30)
[2023-04-06] MEDS: Atorvastatin Calcium 40 MG TABLET PO (09:30)
[2023-04-06] MEDS: Cholecalciferol (Vitamin D3) 25 MCG TABLET 50 MCG PO (09:30)
[2023-04-06] MEDS: Aspirin 81 MG TAB.CHEW PO (09:30)
[2023-04-06] MEDS: Magnesium Oxide 400 MG TABLET PO (11:15)
[2023-04-06 11:17] VITALS: BP 114/55; PULSE 85; RESP 18; TEMP 36.6; O2SAT 94
[2023-04-06] MEDS: vancomycin HCL 1,000 MG in 0.9 % Sodium Chloride 250 ML 270 MG IV ×2 (11:22→20:29)
[2023-04-06] MEDS: Heparin Sodium,Porcine 5,000 UNIT/ML VIAL 5000 UNIT SUBCUT ×2 (11:23→20:29)
[2023-04-06 11:28] LABS: Glucose, Whole Blood 129 mg/dL (60-115)
--- NOTE | 2023-04-06 12:56 | HE.PHANOTE ---
re: yahairao patient due for vanco level tomorrow 04/07 @1800. will continue current dose. renal function (scr) down to 0.75 from 0.79 yesterday
[2023-04-06 15:43] VITALS: BP 127/82; PULSE 96; RESP 17; TEMP 36.9; O2SAT 91
[2023-04-06 16:13] LABS: Glucose, Whole Blood 82 mg/dL (60-115)
[2023-04-06 17:17] LABS: CDIFF Internal ctrl Dots and bkg OK (V); CDiff Gene PCR POSITIVE (Negative)
[2023-04-06 17:32] LABS: CDiff Toxin Positive (Negative)
[2023-04-06] MEDS: vancomycin HCL 125 MG CAPSULE PO (18:43)
[2023-04-06 20:00] VITALS: BP 151/67; PULSE 104; RESP 19; TEMP 36.3; O2SAT 87
[2023-04-06 20:04] LABS: Glucose, Whole Blood 113 mg/dL (60-115)
[2023-04-06] MEDS: Acetaminophen 325 MG TABLET 650 MG PO (20:32)
[2023-04-06 23:51] VITALS: BP 131/59; PULSE 83; RESP 20; TEMP 36.1; O2SAT 94
[2023-04-07] VITALS (13 sets, daily range): BP systolic 104–154; BP diastolic 56–76; PULSE 79–162; RESP 16–24; TEMP 36.2–36.9; O2SAT 87–97
[2023-04-07] MEDS: Piperacillin Sodium/Tazobactam 4.5 GM in 0.9 % Sodium Chloride 100 ML IV ×4 (00:29→17:09)
[2023-04-07] MEDS: vancomycin HCL 125 MG CAPSULE PO ×5 (00:29→23:37)
[2023-04-07 06:37] LABS: Creatinine Clr Calc Pharmacy 70.1; Estimated Glomerular Filt Rate > 60
[2023-04-07 07:15] LABS: Glucose, Whole Blood 88 mg/dL (60-115)
[2023-04-07] MEDS: Omeprazole 20 MG CAPSULE.DR PO (07:38)
--- NOTE | 2023-04-07 09:18 | ECG_ITS ---
Test Reason : TACHYCARDIA Blood Pressure : / mmHG Vent. Rate : 110 BPM Atrial Rate : 110 BPM P-R Int : 200 ms QRS Dur : 096 ms QT Int : 316 ms P-R-T Axes : 040 -01 068 degrees QTc Int : 427 ms Sinus tachycardia Nonspecific T wave abnormality Abnormal ECG When compared with ECG of 07-APR-2023 09:18, Sinus rhythm has replaced Atrial fibrillation Referred By: Rashel Colmenares Electronically Signed By:MONICA ABURTO
--- NOTE | 2023-04-07 09:18 | ECG_ITS ---
Test Reason : AFIB Blood Pressure : / mmHG Vent. Rate : 124 BPM Atrial Rate : 000 BPM P-R Int : 000 ms QRS Dur : 090 ms QT Int : 330 ms P-R-T Axes : 000 -01 097 degrees QTc Int : 474 ms Atrial fibrillation with rapid ventricular response ST & T wave abnormality, consider lateral ischemia Abnormal ECG When compared with ECG of 02-APR-2023 13:59, Atrial fibrillation has replaced Sinus rhythm T wave inversion now evident in Lateral leads Referred By: Rashel Colmenares Electronically Signed By:MONICA ABURTO
--- NOTE | 2023-04-07 09:19 | P.PNIM_ITS ---
Subjective Subjective Date of Service: 04/07/23 Interval History: Has no sob, she has had bursts of afib with rvr this morning Physical Exam 2 Vital Signs: Vital Signs: Last Vital Signs Temp 97.2 F 04/07/23 07:44 Pulse 104 H 04/07/23 07:44 Resp 24 H 04/07/23 07:44 BP 154/68 H 04/07/23 07:44 Pulse Ox 95 04/07/23 07:44 O2 Del Method Nasal Cannula 04/07/23 07:44 O2 Flow Rate 4 04/07/23 07:44 Oxygen Flow Rate 2 04/02/23 13:19 BMI result Body Mass Index 29.0 Const: Other: . Objective Data Active Medications Acetaminophen (Acetaminophen 325 Mg Tablet) 650 mg PO Q6H PRN PRN Reason: Pain, Mild (Pain Scale 1-3) Last Admin: 04/06/23 20:32 Dose: 650 mg Documented By: ROSALEE Aspirin (Aspirin 81 Mg Tab.Chew) 81 mg PO DAILY [facility] Last Admin: 04/06/23 09:30 Dose: 81 mg Documented By: MESSI Atorvastatin Calcium (Atorvastatin Calcium 40 Mg Tablet) 40 mg PO DAILY [facility] Last Admin: 04/06/23 09:30 Dose: 40 mg Documented By: MESSI Bupropion HCl (Bupropion Hcl Xl 300 Mg Tab.Er.24h) 300 mg PO DAILY [facility] Last Admin: 04/06/23 09:28 Dose: 300 mg Documented By: MESSI Clopidogrel Bisulfate (Clopidogrel Bisulfate 75 Mg Tablet) 75 mg PO DAILY [facility] Last Admin: 04/06/23 09:30 Dose: 75 mg Documented By: MESSI Dextrose (Dextrose 50 % 25 Gm/50 Ml Syringe) 25 gm IVPUSH Q15M PRN; Protocol PRN Reason: per Hypoglycemia Standing Ord. Empagliflozin (Empagliflozin 10 Mg Tablet) 10 mg PO DAILY [facility] Last Admin: 04/06/23 09:29 Dose: 10 mg Documented By: MESSI Ferrous Sulfate (Ferrous Sulfate 324 Mg Tablet.) 324 mg PO BID [facility] Last Admin: 04/06/23 20:32 Dose: 324 mg Documented By: ROSALEE Furosemide (Furosemide 20 Mg Tablet) 20 mg PO DAILY [facility]; Protocol Last Admin: 04/06/23 09:30 Dose: 20 mg Documented By: MESSI Gabapentin (Gabapentin 100 Mg Capsule) 100 mg PO BID [facility] Last Admin: 04/06/23 20:32 Dose: 100 mg Documented By: ROSALEE Glucose (Glucose Gel 15 Gm Gel..Gram.) 15 gm PO Q15M PRN; Protocol PRN Reason: per Hypoglycemia Standing Ord. Guaifenesin (Guaifenesin La 600 Mg Tab.Er.12h) 1,200 mg PO Q12H [facility] Last Admin: 04/06/23 20:32 Dose: 1,200 mg Documented By: ROSALEE Heparin Sodium (Porcine) (Heparin Sodium,Porcine 5,000 Unit/Ml Vial) 5,000 unit SUBCUT Q12H [facility] Last Admin: 04/06/23 20:29 Dose: 5,000 unit Documented By: ROSALEE Piperacillin Sod/Tazobactam (Sod 4.5 gm/ Sodium Chloride) 100 mls @ 200 mls/hr IV Q6H [facility] Last Admin: 04/07/23 07:37 Dose: 200 mls/hr Documented By: ROSALEE Vancomycin HCl 1,000 mg/ (Sodium Chloride) 270 mls @ 270 mls/hr IV Q12H [facility] Last Infusion: 04/06/23 21:29 Dose: Infused Documented By: ROSALEE Insulin Human Lispro (Insulin Lispro 100 Unit/Ml 3 Ml Vial) 0 unit SUBCUT QIDACHS [facility]; Protocol Last Admin: 04/06/23 20:44 Dose: Not Given Documented By: ROSALEE Non-Admin Reason: No Insulin Coverage Magnesium Oxide (Magnesium Oxide 400 Mg Tablet) 400 mg PO DAILY [facility] Last Admin: 04/06/23 11:15 Dose: 400 mg Documented By: MESSI Metoprolol Tartrate (Metoprolol Tartrate 25 Mg Tablet) 25 mg PO BID [facility]; Protocol Last Admin: 04/06/23 20:32 Dose: 25 mg Documented By: ROSALEE Omeprazole (Omeprazole 20 Mg Capsule.) 20 mg PO DAILY@0630 [facility] Last Admin: 04/07/23 07:38 Dose: 20 mg Documented By: ROSALEE Ondansetron HCl (Ondansetron Hcl 4 Mg/2 Ml Vial) 4 mg IVPUSH Q8H PRN PRN Reason: Nausea and Vomiting Pharmacy Consult (Consult Rx Vancomycin Dosing) 1 each MISCELLANE DAILY PRN PRN Reason: Consult order Senna (Sennosides 8.6 Mg Tablet) 17.2 mg PO BEDTIME PRN PRN Reason: Constipation Sodium Chloride (0.9 % Sodium Chloride Flush 3 Ml Syringe) 3 ml IVFLUSH QSHIFT [facility] Last Admin: 04/07/23 00:00 Dose: 3 ml Documented By: ROSALEE Vancomycin HCl (Vancomycin Hcl 125 Mg Capsule) 125 mg PO Q6H [facility] Last Admin: 04/07/23 07:38 Dose: 125 mg Documented By: ROSALEE Vitamin D (Cholecalciferol (Vitamin D3) 25 Mcg Tablet) 50 mcg PO DAILY [facility] Last Admin: 04/06/23 09:30 Dose: 50 mcg Documented By: MESSI Zolpidem Tartrate (Zolpidem Tartrate 5 Mg Tablet) 5 mg PO BEDTIME PRN PRN Reason: Insomnia Labs 04/07/23 09:03 04/07/23 06:02 Labs: Laboratory Results - last 24 hr 04/06/23 04/06/23 04/06/23 11:24 15:16 16:08 Hold Purple Top Estim Creat Clear Calc Estimated GFR POC Glucose 129 H 82 C. difficile Tox B Gene POSITIVE A* C. difficile Toxin A&B Positive A* C. difficile Interpret SEE NOTE 04/06/23 04/07/23 04/07/23 20:01 06:02 07:12 Hold Purple Top SEE NOTE Estim Creat Clear Calc 70.1 Estimated GFR > 60 POC Glucose 113 88 C. difficile Tox B Gene C. difficile Toxin A&B C. difficile Interpret Microbiology Microbiology Results: Microbiology 04/05/23 14:15 Gram Stain - Final Thoracentesis Fluid Anaerobic Culture - Preliminary No growth to date. Body Fluid Culture - Final No growth after 2 days Assessment and Plan (1) Acute respiratory failure: Status: Acute (2) Pneumonia: Status: Acute Plan 67-year-old female with history of [id number]-[id number] type 2 diabetes, hypertension, hyperlipidemia, recent embolic CVA with hospitalization at [facility] from 03/06-03/11 now on DAPT, mood disorder unspecified, former smoker admitted for further management of severe pneumonia with sepsis and acute hypoxemic respiratory failure. paroxysmal AFIB (PAF)noted this morning #Severe multifocal pneumonia with possible necrosis/abscess and sepsis/Parapneumonic effusion -recently hospitalized [facility] 03/06-03/11 for CVA, multifocal pneumonia treated with IV ctx -?underlying malignancy given unintentional weight loss (8kg last 5 months) vs possible aspirarion relaed to pneumonia -MRSA nasal screen negative -effusion culture so far negative -continue Zosyn + Vanco started 04/02/23 -ophthalmic medical technician recommends bronch if no improvment with Abx # acute hypoxemic respiratory failure d/t above -continue supplemental O2 to maintain oximetry >92% #PAF--no prior documentation of AFIB, increase metoprolol to 25 q6, ideally should be anticoagulation, however she's profoundly anemic and recently required transfusion, she may need work upfor gi source of bleed. Echo, cardiology #Acute on chronic normocytic anemia, last hgb at [facility] on 03/07 was 9 -stool occult blood negative -?r/t acute illness -no evidence of hemolysis 1unit of rbc on 04/04, H/H is better #Acute diarrhea -recently treated with IV abx at [facility] -Cdiff pcr and GI pending #Acute hypOkalemia -likely 2/2 diarrhea -repleted and corrected # [id number]-demmbryri type 2 diabetes -POC glucose, diabetic diet -Humalog on sliding scale -hold metformin # hypertension--BP normal with meds on hold #HFrEf -no acute exacerbation -EF 35-40% 03/07 [facility] -continue lasix #recent Embolic CVA -Continue DAPT (ASA and Plavix), statin -recent admission 03/06- at [facility]. 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
[2023-04-07 09:24] LABS: Hematocrit 27.1 % (37.0-47.0); Hemoglobin 7.8 g/dl (12.0-16.0); Mean Corpuscular HGB Conc 28.8 g/dl (31.0-35.0); Mean Corpuscular Hemoglobin 24.5 pg (27.0-33.0); Mean Platelet Volume 9.9 fL (9.4-12.3); Platelet Count 373 X10*3/uL (160-400); Red Blood Count 3.19 X10*6/uL (4.20-5.50); White Blood Count 10.3 X10*3/uL (4.8-10.8)
[2023-04-07] MEDS: guaiFENesin LA 600 MG TAB.ER.12H 1200 MG PO ×2 (09:35→21:50)
[2023-04-07] MEDS: buPROPion HCl XL 300 MG TAB.ER.24H PO (09:36)
[2023-04-07] MEDS: Ferrous Sulfate 324 MG TABLET.DR PO ×2 (09:36→21:49)
[2023-04-07] MEDS: Empagliflozin 10 MG TABLET PO (09:36)
[2023-04-07] MEDS: Furosemide 20 MG TABLET PO (09:36)
[2023-04-07] MEDS: Gabapentin 100 MG CAPSULE PO ×2 (09:36→21:50)
[2023-04-07] MEDS: vancomycin HCL 1,000 MG in 0.9 % Sodium Chloride 250 ML 270 MG IV (09:37)
[2023-04-07] MEDS: Aspirin 81 MG TAB.CHEW PO (09:37)
[2023-04-07] MEDS: Atorvastatin Calcium 40 MG TABLET PO (09:37)
[2023-04-07] MEDS: Cholecalciferol (Vitamin D3) 25 MCG TABLET 50 MCG PO (09:37)
[2023-04-07] MEDS: Clopidogrel Bisulfate 75 MG TABLET PO (09:37)
[2023-04-07] MEDS: Magnesium Oxide 400 MG TABLET PO (09:37)
[2023-04-07] MEDS: Metoprolol Tartrate 25 MG TABLET PO ×3 (09:37→21:51)
[2023-04-07] MEDS: 0.9 % Sodium Chloride Flush 3 ML SYRINGE IVFLUSH ×4 (09:55→21:51)
[2023-04-07] MEDS: Heparin Sodium,Porcine 5,000 UNIT/ML VIAL 5000 UNIT SUBCUT (10:00)
[2023-04-07 10:37] LABS: Thyroid Stimulating Hormone 1.87 uIU/mL (0.32-4.0)
[2023-04-07 10:45] LABS: Anion Gap 15 (12-20); Carbon Dioxide 27 mmol/L (22-29); Chloride 106 mmol/L (96-108); Magnesium 1.9 mg/dL (1.6-2.6); Potassium 2.9 mmol/L (3.3-5.1); Sodium 145 mmol/L (135-145)
[2023-04-07 11:14] LABS: Glucose, Whole Blood 86 mg/dL (60-115)
--- NOTE | 2023-04-07 11:32 | PM.CNCAR ---
History of Present Illness History of Present Illness Date of Service: 04/07/23 Requesting physician: Rashel [facility] Consult reason: atrial fibrillation Chief complaint: Pneomunia with lung abcess/necrosis, sepsis, hypox Narrative: I was consulted to see Edwin in cardiology consultation today for noted new onset atrial fibrillation, paroxysmal. History was obtained with help of reexaminer. Patient recently had a CVA, admitted to [facility] and was started on dual antiplatelet therapy. 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 Patient continues to have residual right upper extremity paresis and speech disturbances although she says she does not have new speech abnormality. She has no issues with weakness in the right lower extremity. However she says she can not walk normally because of weakness in the lower extremity. She came to the hospital because she is had shortness of breath and was noted to be in acute hypoxemic respiratory failure suspected to be related to severe pneumonia and possible underlying pulmonary mass along with sepsis. She is admitted being managed. She also has diarrhea which is fall smelling and was diagnosed with C diff. Currently getting antibiotics. She is on clinical research monitor and noted to have atrial fibrillation rapid ventricular response. During her hospitalization at [facility] there was no findings of atrial fibrillation. Echo reported as EF of 35-40%, do not have a copy of the same. Need to obtain the same. Cardiology consult was sought for intermittent atrial fibrillation rapid ventricular response. Patient has no symptoms of palpitations. Appears to be mildly short of breath but denies any new shortness of breath. Denies any chest pain or lightheadedness. Noted to have potassium of 2.9 this morning. Review of Systems Constitutional: Constitutional: Reports lethargy and Reports weakness Cardiovascular: Cardiovascular: Reports no additional cardiovascular complaints and Reports dyspnea Respiratory: Respiratory: Reports cough and Reports dyspnea Gastrointestinal: Gastrointestinal: Reports diarrhea Musculoskeletal: Musculoskeletal: Reports no additional musculoskeletal complaints Neurologic: Reports weakness and Reports other (Right upper extremity weakness) Psychiatric: Psychiatric: Reports no additional psychiatric complaints [facility] Past Medical History Medical History Pleural effusion Dysphagia Lung mass Former smoker Pulmonary nodule HFrEF (heart failure with reduced ejection fraction) Embolic stroke Diabetes HLD (hyperlipidemia) HTN (hypertension) Lumbar spondylosis Chronic idiopathic constipation GERD (gastroesophageal reflux disease) Family History Family History Father Esophageal cancer Smoker Mother No problems noted. Brother No problems noted. Brother No problems noted. Sister No problems noted. Sister No problems noted. Sister No problems noted. Sister No problems noted. Son No problems noted. Daughter No problems noted. Daughter No problems noted. Daughter No problems noted. Surgical History Surgical History Hx of brain surgery Hx of colonoscopy H/O section History of esophagogastroduodenoscopy (EGD) Social History Social History Household Members: Other Housing: Other Housing Other:: Rehab facility Alcohol intake: never Patient Tobacco Use Status: Former Tobacco user Tobacco use type: Cigarette Smoked in Last 30 Days: No Patient Interested in Nicotine Replacement: No Patient Given Instructions on How to Stop Smoking: No Use of substances other than those prescribed or required for medical reasons: No Currently Displaying Signs/Symptoms of Drug Intoxication Withdrawal: No Any prior treatment program specific to substance use: No Have you been hit, kicked, punched, or otherwise hurt by someone within the past year? If so, by whom?: No Do you feel safe in your current relationship?: Yes Is there a partner from a previous relationship who is making you feel unsafe now?: No Are you made to feel afraid or neglected: No Advance Directives: No Advance Directives Information Provided: No Do you have thoughts of harming others: None Do you have a plan to hurt others: No Plan Recently lost weight without trying: Unsure Eating poorly because of decreased appetite: Yes Nutrition Risks: Difficulty swallowing Patient : No : No Poor oral hygiene: No service: No Current occupational status: disabled Meds Allergies Allergy/AdvReac Type Severity Reaction Status Date / Time peanut [PEANUTS] Allergy Severe THROAT Verified 11/21/22 12:12 SWELLING avocado [AVOCADO] Allergy Intermediate THROAT Verified 11/21/22 12:12 SWELLING colloidal oatmeal Allergy Mild unknown Verified 11/21/22 12:12 ketchup Allergy Mild unknown Verified 11/21/22 12:12 cat dander [CAT DANDER] Allergy Unknown UNKNOWN Verified 11/21/22 12:12 PER H&P Active Medications: Current Medications Acetaminophen (Acetaminophen 325 Mg Tablet) 650 mg PO Q6H PRN PRN Reason: Pain, Mild (Pain Scale 1-3) Last Admin: 04/06/23 20:32 Dose: 650 mg Amiodarone HCl (Amiodarone Hcl 200 Mg Tablet) 400 mg PO BID [facility] Apixaban (Apixaban 5 Mg Tablet) 5 mg PO BID [facility] Aspirin (Aspirin 81 Mg Tab.Chew) 81 mg PO DAILY [facility] Last Admin: 04/07/23 09:37 Dose: 81 mg Atorvastatin Calcium (Atorvastatin Calcium 40 Mg Tablet) 40 mg PO DAILY [facility] Last Admin: 04/07/23 09:37 Dose: 40 mg Bupropion HCl (Bupropion Hcl Xl 300 Mg Tab.Er.24h) 300 mg PO DAILY [facility] Last Admin: 04/07/23 09:36 Dose: 300 mg Dextrose (Dextrose 50 % 25 Gm/50 Ml Syringe) 25 gm IVPUSH Q15M PRN; Protocol PRN Reason: per Hypoglycemia Standing Ord. Empagliflozin (Empagliflozin 10 Mg Tablet) 10 mg PO DAILY [facility] Last Admin: 04/07/23 09:36 Dose: 10 mg Ferrous Sulfate (Ferrous Sulfate 324 Mg Tablet.Dr) 324 mg PO BID [facility] Last Admin: 04/07/23 09:36 Dose: 324 mg Furosemide (Furosemide 20 Mg Tablet) 20 mg PO DAILY [facility]; Protocol Last Admin: 04/07/23 09:36 Dose: 20 mg Gabapentin (Gabapentin 100 Mg Capsule) 100 mg PO BID [facility] Last Admin: 04/07/23 09:36 Dose: 100 mg Glucose (Glucose Gel 15 Gm Gel..Gram.) 15 gm PO Q15M PRN; Protocol PRN Reason: per Hypoglycemia Standing Ord. Guaifenesin (Guaifenesin La 600 Mg Tab.Er.12h) 1,200 mg PO Q12H [facility] Last Admin: 04/07/23 09:35 Dose: 1,200 mg Piperacillin Sod/Tazobactam (Sod 4.5 gm/ Sodium Chloride) 100 mls @ 200 mls/hr IV Q6H [facility] Last Infusion: 04/07/23 10:01 Dose: Infused Vancomycin HCl 1,000 mg/ (Sodium Chloride) 270 mls @ 270 mls/hr IV Q12H [facility] Last Infusion: 04/07/23 10:46 Dose: Infused Sodium Chloride (Ns) 100 mls @ 100 mls/hr IV ONCE ONE Stop: 04/07/23 12:13 Potassium Chloride (Potassium Chloride/H20) 10 meq in 100 mls @ 100 mls/hr IV Q1H [facility] Stop: 04/07/23 13:29 Insulin Human Lispro (Insulin Lispro 100 Unit/Ml 3 Ml Vial) 0 unit SUBCUT QIDACHS [facility]; Protocol Last Admin: 04/07/23 09:20 Dose: Not Given Magnesium Oxide (Magnesium Oxide 400 Mg Tablet) 400 mg PO DAILY [facility] Last Admin: 04/07/23 09:37 Dose: 400 mg Metoprolol Tartrate (Metoprolol Tartrate 25 Mg Tablet) 25 mg PO Q6H [facility]; Protocol Omeprazole (Omeprazole 20 Mg Capsule.Dr) 20 mg PO DAILY@0630 [facility] Last Admin: 04/07/23 07:38 Dose: 20 mg Ondansetron HCl (Ondansetron Hcl 4 Mg/2 Ml Vial) 4 mg IVPUSH Q8H PRN PRN Reason: Nausea and Vomiting Pharmacy Consult (Consult Rx Vancomycin Dosing) 1 each MISCELLANE DAILY PRN PRN Reason: Consult order Potassium Chloride (Potassium Chloride Packet 20 Meq Packet) 40 meq PO BID [facility] Stop: 04/08/23 09:01 Senna (Sennosides 8.6 Mg Tablet) 17.2 mg PO BEDTIME PRN PRN Reason: Constipation Sodium Chloride (0.9 % Sodium Chloride Flush 3 Ml Syringe) 3 ml IVFLUSH QSHIFT [facility] Last Admin: 04/07/23 09:55 Dose: 3 ml Valsartan (Valsartan 40 Mg Tablet) 40 mg PO BID [facility]; Protocol Vancomycin HCl (Vancomycin Hcl 125 Mg Capsule) 125 mg PO Q6H [facility] Last Admin: 04/07/23 07:38 Dose: 125 mg Vitamin D (Cholecalciferol (Vitamin D3) 25 Mcg Tablet) 50 mcg PO DAILY [facility] Last Admin: 04/07/23 09:37 Dose: 50 mcg Zolpidem Tartrate (Zolpidem Tartrate 5 Mg Tablet) 5 mg PO BEDTIME PRN PRN Reason: Insomnia Home Medications Medication Instructions Recorded Confirmed Last Taken Type atorvastatin 40 mg tablet 40 mg PO DAILY 07/20/22 04/02/23 Unknown History bupropion HCl 300 mg 24 hr tablet, 300 mg PO DAILY 07/20/22 04/02/23 Unknown History extended release clonazepam 1 mg tablet 1 mg PO BID 07/20/22 04/02/23 Unknown History metformin 500 mg tablet 500 mg PO BID 07/20/22 04/02/23 10/04/22 History zolpidem 10 mg tablet 10 mg PO BEDTIME PRN Insomnia 07/20/22 04/02/23 Unknown History Lactobacillus acidoph-L.bulgaricus 4 tab PO TID 04/02/23 04/02/23 Unknown History 1 million cell tablet (Floranex) aspirin 81 mg chewable tablet 81 mg PO DAILY 04/02/23 04/02/23 Unknown History cholecalciferol (vitamin D3) 50 50 mcg PO DAILY 04/02/23 04/02/23 Unknown History mcg (2,000 unit) tablet clopidogrel 75 mg tablet (Plavix) 75 mg PO DAILY 04/02/23 04/02/23 Unknown History dapagliflozin propanediol 10 mg 10 mg PO DAILY 04/02/23 04/02/23 Unknown History tablet ferrous sulfate 325 mg (65 mg 325 mg PO BID 04/02/23 04/02/23 Unknown History iron) tablet,delayed release furosemide 20 mg tablet 20 mg PO DAILY 04/02/23 04/02/23 Unknown History guaifenesin 1,200 mg tablet, 1,200 mg PO Q12H 04/02/23 04/02/23 Unknown History extended release 12 hr magnesium oxide 400 mg PO DAILY 04/02/23 04/02/23 Unknown History metoprolol tartrate 25 mg tablet 25 mg PO BID 04/02/23 04/02/23 Unknown History omeprazole 20 mg capsule,delayed 20 mg PO DAILY 04/02/23 04/02/23 Unknown History release Physical Exam Vital Signs: Vital Signs: Last Vital Signs Temp 97.2 F 04/07/23 07:44 Pulse 162 H 04/07/23 08:21 Resp 20 04/07/23 08:21 BP 154/68 H 04/07/23 07:44 Pulse Ox 94 04/07/23 08:21 O2 Del Method Nasal Cannula 04/07/23 08:21 O2 Flow Rate 2 04/07/23 08:21 Oxygen Flow Rate 2 04/02/23 13:19 BMI result Body Mass Index 29.0 Const: General: cooperative, alert, awake and in distress mild and respiratory Nutritional Appearance: overweight Orientation/consciousness: patient oriented x3 HEENT: Head: Yes normocephalic and Yes atraumatic Neck: Neck: Yes trachea midline, Yes supple and Yes no JVD Resp: Effort & Inspection: decreased respiratory effort Auscultation: crackles (coarse right lung) and diminished lung sounds Cardio: Jugular venous distension: no JVD Palpation: normal PMI Rate: regular rate Rhythm: regular rhythm Heart sounds: S1 normal heart sound present, S2 normal heart sound present, no click, no gallops and no murmurs GI: Auscultation: normal bowel sounds Skin: General skin exam: no rashes or lesions noted Neuro: General: patient oriented x3 Speech: Expressive aphasia present Motor exam (neuro): Other motor observations present (Right upper extremity weakness) Extrem: General: Yes no clubbing, cyanosis or edema Objective Labs and Meds 04/07/23 09:03 04/07/23 06:02 Lab results: Laboratory Results - last 24 hr 04/06/23 04/06/23 04/06/23 15:16 16:08 20:01 WBC RBC Hgb Hct MCV MCH MCHC RDW Plt Count MPV Absolute Nucleated RBC Nucleated RBC % (auto) Hold Purple Top Sodium Potassium Chloride Carbon Dioxide Anion Gap Creatinine Estim Creat Clear Calc Estimated GFR POC Glucose 82 113 Magnesium TSH C. difficile Tox B Gene POSITIVE A* C. difficile Toxin A&B Positive A* C. difficile Interpret SEE NOTE 04/07/23 04/07/23 04/07/23 06:02 07:12 09:03 WBC 10.3 RBC 3.19 L Hgb 7.8 L Hct 27.1 L MCV 85.0 MCH 24.5 L MCHC 28.8 L RDW 15.0 Plt Count 373 MPV 9.9 Absolute Nucleated RBC 0.000 Nucleated RBC % (auto) 0.0 Hold Purple Top SEE NOTE Sodium 145 Potassium 2.9 L* Chloride 106 Carbon Dioxide 27 Anion Gap 15 Creatinine 0.78 Estim Creat Clear Calc 70.1 Estimated GFR > 60 POC Glucose 88 Magnesium 1.9 TSH 1.87 C. difficile Tox B Gene C. difficile Toxin A&B C. difficile Interpret 04/07/23 11:10 WBC RBC Hgb Hct MCV MCH MCHC RDW Plt Count MPV Absolute Nucleated RBC Nucleated RBC % (auto) Hold Purple Top Sodium Potassium Chloride Carbon Dioxide Anion Gap Creatinine Estim Creat Clear Calc Estimated GFR POC Glucose 86 Magnesium TSH C. difficile Tox B Gene C. difficile Toxin A&B C. difficile Interpret EKG shows atrial fibrillation rapid ventricular response, nonspecific ST T wave changes Imaging Radiologist's impression: Impressions Chest Ultrasound 04/04/23 15:22 FINDINGS AND IMPRESSION: The images demonstrate [id number] right pleural effusion. The pleural fluid is seen at a depth of approximately 2.5 cm from the skin surface. The pleural fluid has an AP dimension of 3.2 cm (on image 1). There are no thick septations within the visualized fluid. Assessment and Plan (1) Paroxysmal atrial fibrillation: Status: Acute Patient with new onset atrial fibrillation rapid ventricular response most likely induced by acute medical illness but likely cause of her recent stroke. She is multiple risk factors including diabetes and hypertension and low LV ejection fraction. CHADSVASc score of 7. She is noted to be anemic although she has negative stool occult blood. I would transfuse 1 unit and switch her dual antiplatelet therapy to oral anticoagulation therapy with Eliquis. Given her recurrent atrial fibrillation rapid ventricular response with prior cardiomyopathy although having no symptoms would try to suppress it with amiodarone 400 mg b.i.d.. Continue metoprolol. Can repeat echocardiogram to assess LV ejection fraction, could be that she has stress-induced cardiomyopathy at the time of stroke. Although I would start on valsartan 40 mg b.i.d. for her known prior low ejection fraction hypertension. Aggressively replace potassium with IV therapy to maintain potassium above 4 Will follow with you Procedures Date of Service Date of Service: 04/07/23
[2023-04-07] MEDS: Apixaban 5 MG TABLET PO (11:44)
[2023-04-07] MEDS: Amiodarone HCL 200 MG TABLET 400 MG PO ×2 (11:44→21:49)
[2023-04-07] MEDS: Valsartan 40 MG TABLET PO ×2 (11:44→21:49)
[2023-04-07] MEDS: Potassium Chloride/H20 10 MEQ/100 ML PIGGYBACK 100 MEQ IV ×2 (11:44→12:51)
[2023-04-07] MEDS: Potassium Chloride Packet 20 MEQ PACKET 40 MEQ PO ×2 (11:49→21:50)
[2023-04-07 16:05] LABS: Glucose, Whole Blood 86 mg/dL (60-115)
[2023-04-07 18:28] LABS: Anion Gap 15 (12-20); Carbon Dioxide 27 mmol/L (22-29); Chloride 107 mmol/L (96-108); Potassium 3.3 mmol/L (3.3-5.1); Sodium 146 mmol/L (135-145)
[2023-04-07 18:47] LABS: Vancomycin Random 19.7 mcg/mL (15-20)
--- NOTE | 2023-04-07 19:09 | HE.PHANOTE ---
VANCO DOSE ADJUSTMENT BASED ON SCR AND TROUGH OF 19.7 DOSE DECREASED TO 750 Q 12. NEXT LEVEL PUT IN FOR 04/08 @ 2100
[2023-04-07 20:12] LABS: Glucose, Whole Blood 88 mg/dL (60-115)
[2023-04-07] MEDS: Zolpidem Tartrate 5 MG TABLET PO (21:50)
[2023-04-07] MEDS: vancomycin HCL 750 MG in 0.9 % Sodium Chloride 250 ML 265 MG IV (23:37)
[2023-04-08] MEDS: Piperacillin Sodium/Tazobactam 4.5 GM in 0.9 % Sodium Chloride 100 ML IV ×4 (00:55→17:50)
[2023-04-08 03:34] VITALS: BP 128/59; PULSE 82; RESP 20; TEMP 36.8; O2SAT 96
[2023-04-08] MEDS: vancomycin HCL 125 MG CAPSULE PO ×3 (05:22→17:50)
[2023-04-08] MEDS: Omeprazole 20 MG CAPSULE.DR PO (05:22)
[2023-04-08] MEDS: Metoprolol Tartrate 25 MG TABLET PO ×4 (05:22→22:23)
--- NOTE | 2023-04-08 07:00 | CA_ITS ---
Transthoracic Echocardiogram Patient (Last, First, Middle): Saira Acosta, Gender: Female Date of : 1955 Age: 67 Procedure Date: 04/08/2023 Procedure Type: Transthoracic Echocardiogram Location: [facility] [place] Height: 162.56 cm Weight: 76.66 kg BSA: 1.82 m2 Heart Rate: 83 bpm BP: 128 / 59 mmHg Trimmer Sorter: SB Referring MD: Rashel Colmenares MD Symptoms: new afib Study Quality: Adequate ECG Rhythm: Sinus Conclusions: - The left ventricular systolic function is normal. The visually estimated ejection fraction is between 55-60%. - No obvious valvular pathology seen on this study. Findings Left Ventricle Normal left ventricular cavity size. The left ventricular systolic function is normal. The visually estimated ejection fraction is between 55-60%. There is no evidence of regional wall motion abnormalities. Diastolic function is normal for age. There is mild septal asymmetric hypertrophy. LV peak GLS -17.9%. Right Ventricle Normal right ventricular cavity size and systolic function. Atria Both atria are normal in size. Aortic Valve There is a normal trileaflet aortic valve. There is no aortic valve stenosis. There is no aortic valve regurgitation. Mitral Valve The mitral valve appears normal. There is no mitral valve regurgitation. There is no mitral valve stenosis. Pulmonic Valve The pulmonic valve is likely normal. Tricuspid Valve Normal tricuspid valve structure. There is trace tricuspid valve regurgitation. There is no evidence of pulmonary hypertension. Great Vessels The asc aorta is normal in size. Venous The inferior vena cava is normal in size and collapses greater than 50% with inspiration. Pericardium/Pleural There is a trivial pericardial effusion. Prior Study Comparison No prior study available for comparison. Recommendations, Care & Conclusions No obvious valvular pathology seen on this study. Measurements 2D Linear Measurements IVSd: 1.09 0.6-0.9/0.6-1.0 cm LVIDd: 5.50 3.9-5.3/4.2-5.9 cm LVIDd Index: 3.02 2.4-3.2/2.2-3.1 cm/m2 LVIDs: 3.78 2.0-3.6 cm LVPWd: 1.00 0.7-1.1 cm LA Diam: 4.00 2.7-3.8/3.0-4.0 cm LAIDs Index: 2.20 1.5-2.3 cm/m2 LV Mass: 280.99 67-162/88-224 g LV Mass Index: 154.39 43-95/49-115 g/m2 LVOT Diam: 2.00 3.0+(-)1.3 cm 2D Systolic Function EF 4C: 65.70 >55% EF 2C: 66.40 >55% EF BiP: 66.00 >55% Mitral Valve MV Pk E: 0.89 MV PK A: 0.91 MV Decel Time: 203.00 E/A: 1.00 E'Lateral: 8.27 E'Medial: 8.27 E/E' Med: 10.80 E/E' Lat: 10.80 PHT: 60.00 MVA PHT: 3.67 Decel Ward: 4.38 Aortic Valve AoV Pk Edwin: 2.18 AoV Mn Edwin: 1.37 AoV VTI: 0.39 AoV Pk Grad: 19.00 Aov Mn Grad: 9.00 KIERRA Cont.VTI: 2.22 LVOT LVOT Pk Edwin: 1.41 LVOT Mn Edwin: 0.91 LVOT VTI: 0.27 LVOT Pk Grad: 8.00 LVOT Mn Grad: 4.00 LVOT Diam: 2.00 LVOT Area: 3.14 Diastolic Function MV Pk E: 0.89 MV Pk A: 0.91 E/A: 1.00 E'Medial: 8.27 E/E' Med: 10.80 E' Laterial: 8.27 E/E' Lat: 10.80 Right Ventricle TAPSE (mm): 17.10 TVS' Edwin: 12.50 Tricuspid Valve TR Pk Edwin: 2.38 TR Pk Grad: 23.00 RA Press: 3.00 RVSP: 26.00 Great Vessels Aorta Sinus of Valsalva: 2.70 2.0-3.5 cm Ao Asc: 3.10 2.1-3.4 cm Pulmonary Veins Pulm Vein S/D 0.90 Pulmonary Valve PV Pk Edwin: 1.29 Peak PV Grad: 7.00 Updated in Other Vendor System with Status of Final Zachary Mercado MD electronically signed on 04/08/2023 12:57:23 PM with status of Final
[2023-04-08 07:15] VITALS: BP 123/61; PULSE 79; RESP 17; TEMP 36.6; O2SAT 94
[2023-04-08 07:16] LABS: Glucose, Whole Blood 90 mg/dL (60-115)
[2023-04-08 07:40] LABS: Amylase Pleural Fluid 27
[2023-04-08 08:53] LABS: Estimated Glomerular Filt Rate > 60
--- NOTE | 2023-04-08 09:16 | MHC.SLORD ---
Speech Language Pathology Order Status: Per MD, pt is NPO today for procedure. Dysphagia treatment deferred.
[2023-04-08] MEDS: Cholecalciferol (Vitamin D3) 25 MCG TABLET 50 MCG PO (09:56)
[2023-04-08] MEDS: guaiFENesin LA 600 MG TAB.ER.12H 1200 MG PO ×2 (09:56→22:20)
[2023-04-08] MEDS: Ferrous Sulfate 324 MG TABLET.DR PO ×2 (09:56→22:23)
[2023-04-08] MEDS: Atorvastatin Calcium 40 MG TABLET PO (09:56)
[2023-04-08] MEDS: Valsartan 40 MG TABLET PO ×2 (09:56→22:48)
[2023-04-08] MEDS: Amiodarone HCL 200 MG TABLET 400 MG PO ×2 (09:56→22:22)
[2023-04-08] MEDS: Potassium Chloride Packet 20 MEQ PACKET 40 MEQ PO (09:56)
[2023-04-08] MEDS: Aspirin 81 MG TAB.CHEW PO (09:56)
[2023-04-08] MEDS: buPROPion HCl XL 300 MG TAB.ER.24H PO (09:56)
[2023-04-08] MEDS: Furosemide 20 MG TABLET PO (09:56)
[2023-04-08] MEDS: Gabapentin 100 MG CAPSULE PO ×2 (09:56→22:23)
[2023-04-08] MEDS: Empagliflozin 10 MG TABLET PO (09:57)
[2023-04-08] MEDS: Magnesium Oxide 400 MG TABLET PO (09:57)
[2023-04-08] MEDS: vancomycin HCL 750 MG in 0.9 % Sodium Chloride 250 ML 265 MG IV ×2 (10:08→22:47)
[2023-04-08 11:00] LABS: Glucose, Whole Blood 117 mg/dL (60-115)
[2023-04-08 11:08] VITALS: BP 146/69; PULSE 82; RESP 20; TEMP 36.3; O2SAT 95
--- NOTE | 2023-04-08 12:46 | HO.PM.IMPN ---
Subjective Subjective Date of Service: 04/08/23 Interval History: f/u on PNA with effusion, Cdif and new AFIB yesterdaya, no further episode AFIB, still hypoxic and O2 at 3 liters and sating 95 Physical Exam Vital Signs: Vital Signs: Last Vital Signs Temp 97.4 F 04/08/23 11:08 Pulse 82 04/08/23 11:08 Resp 20 04/08/23 11:08 BP 146/69 H 04/08/23 11:08 Pulse Ox 95 04/08/23 11:08 O2 Del Method Nasal Cannula 04/08/23 11:08 O2 Flow Rate 3.5 04/08/23 11:08 Oxygen Flow Rate 2 04/02/23 13:19 BMI result Body Mass Index 29.0 Const: Other: General: AO X 3, no acute distress Resp: diminished lung sounds bilaterally, absent lung sounds rl lung field, normal effort CVS: S1,S2,RRR GI: +BS, NT, no distention Skin: No rash Neuro: motor grossly intact Psych: appropriate affect Objective Data Active Medications Acetaminophen (Acetaminophen 325 Mg Tablet) 650 mg PO Q6H PRN PRN Reason: Pain, Mild (Pain Scale 1-3) Last Admin: 04/06/23 20:32 Dose: 650 mg Documented By: ROSALEE Amiodarone HCl (Amiodarone Hcl 200 Mg Tablet) 400 mg PO BID [facility] Last Admin: 04/08/23 09:56 Dose: 400 mg Documented By: CHEN Aspirin (Aspirin 81 Mg Tab.Chew) 81 mg PO DAILY [facility] Last Admin: 04/08/23 09:56 Dose: 81 mg Documented By: CHEN Atorvastatin Calcium (Atorvastatin Calcium 40 Mg Tablet) 40 mg PO DAILY [facility] Last Admin: 04/08/23 09:56 Dose: 40 mg Documented By: CHEN Bupropion HCl (Bupropion Hcl Xl 300 Mg Tab.Er.24h) 300 mg PO DAILY [facility] Last Admin: 04/08/23 09:56 Dose: 300 mg Documented By: CHEN Dextrose (Dextrose 50 % 25 Gm/50 Ml Syringe) 25 gm IVPUSH Q15M PRN; Protocol PRN Reason: per Hypoglycemia Standing Ord. Empagliflozin (Empagliflozin 10 Mg Tablet) 10 mg PO DAILY [facility] Last Admin: 04/08/23 09:57 Dose: 10 mg Documented By: CHEN Ferrous Sulfate (Ferrous Sulfate 324 Mg Tablet.) 324 mg PO BID [facility] Last Admin: 04/08/23 09:56 Dose: 324 mg Documented By: CHEN Furosemide (Furosemide 20 Mg Tablet) 20 mg PO DAILY [facility]; Protocol Last Admin: 04/08/23 09:56 Dose: 20 mg Documented By: CHEN Gabapentin (Gabapentin 100 Mg Capsule) 100 mg PO BID [facility] Last Admin: 04/08/23 09:56 Dose: 100 mg Documented By: CHEN Glucose (Glucose Gel 15 Gm Gel..Gram.) 15 gm PO Q15M PRN; Protocol PRN Reason: per Hypoglycemia Standing Ord. Guaifenesin (Guaifenesin La 600 Mg Tab.Er.12h) 1,200 mg PO Q12H [facility] Last Admin: 04/08/23 09:56 Dose: 1,200 mg Documented By: CHEN Piperacillin Sod/Tazobactam (Sod 4.5 gm/ Sodium Chloride) 100 mls @ 200 mls/hr IV Q6H [facility] Last Infusion: 04/08/23 12:08 Dose: Infused Documented By: CHEN Vancomycin HCl 750 mg/ Sodium (Chloride) 265 mls @ 265 mls/hr IV Q12H [facility] Last Infusion: 04/08/23 11:12 Dose: Infused Documented By: CHEN Insulin Human Lispro (Insulin Lispro 100 Unit/Ml 3 Ml Vial) 0 unit SUBCUT QIDACHS [facility]; Protocol Last Admin: 04/08/23 11:12 Dose: Not Given Documented By: CHEN Non-Admin Reason: See Note Magnesium Oxide (Magnesium Oxide 400 Mg Tablet) 400 mg PO DAILY [facility] Last Admin: 04/08/23 09:57 Dose: 400 mg Documented By: CHEN Metoprolol Tartrate (Metoprolol Tartrate 25 Mg Tablet) 25 mg PO Q6H [facility]; Protocol Last Admin: 04/08/23 09:56 Dose: 25 mg Documented By: CHEN Omeprazole (Omeprazole 20 Mg Capsule.) 20 mg PO DAILY@0630 [facility] Last Admin: 04/08/23 05:22 Dose: 20 mg Documented By: IMELDA Ondansetron HCl (Ondansetron Hcl 4 Mg/2 Ml Vial) 4 mg IVPUSH Q8H PRN PRN Reason: Nausea and Vomiting Pharmacy Consult (Consult Rx Vancomycin Dosing) 1 each MISCELLANE DAILY PRN PRN Reason: Consult order Senna (Sennosides 8.6 Mg Tablet) 17.2 mg PO BEDTIME PRN PRN Reason: Constipation Sodium Chloride (0.9 % Sodium Chloride Flush 3 Ml Syringe) 3 ml IVFLUSH QSHIFT [facility] Last Admin: 04/08/23 12:24 Dose: Not Given Documented By: CHEN Non-Admin Reason: See Note Valsartan (Valsartan 40 Mg Tablet) 40 mg PO BID [facility]; Protocol Last Admin: 04/08/23 09:56 Dose: 40 mg Documented By: CHEN Vancomycin HCl (Vancomycin Hcl 125 Mg Capsule) 125 mg PO Q6H [facility] Last Admin: 04/08/23 11:38 Dose: 125 mg Documented By: CHEN Vitamin D (Cholecalciferol (Vitamin D3) 25 Mcg Tablet) 50 mcg PO DAILY [facility] Last Admin: 04/08/23 09:56 Dose: 50 mcg Documented By: CHEN Zolpidem Tartrate (Zolpidem Tartrate 5 Mg Tablet) 5 mg PO BEDTIME PRN PRN Reason: Insomnia Last Admin: 04/07/23 21:50 Dose: 5 mg Documented By: IMELDA Labs 04/07/23 09:03 04/08/23 08:10 Labs: Laboratory Results - last 24 hr 04/05/23 04/06/23 04/07/23 14:15 15:16 11:37 Hold Purple Top Anion Gap Estim Creat Clear Calc Estimated GFR POC Glucose Pleural Amylase 27 Random Vancomycin C. difficile Interpret SEE NOTE Blood Type B Positive Antibody Screen NEGATIVE Crossmatch See Detail 04/07/23 04/07/23 04/07/23 16:00 18:06 20:09 Hold Purple Top Anion Gap 15 Estim Creat Clear Calc Estimated GFR POC Glucose 86 88 Pleural Amylase Random Vancomycin 19.7 C. difficile Interpret Blood Type Antibody Screen Crossmatch 04/08/23 04/08/23 04/08/23 07:11 08:10 10:47 Hold Purple Top SEE NOTE Anion Gap Estim Creat Clear Calc 77.0 Estimated GFR > 60 POC Glucose 90 117 H Pleural Amylase Random Vancomycin C. difficile Interpret Blood Type Antibody Screen Crossmatch Microbiology Microbiology Results: Microbiology 04/05/23 14:15 Gram Stain - Final Thoracentesis Fluid Anaerobic Culture - Preliminary No growth to date. Body Fluid Culture - Final No growth after 2 days 04/02/23 14:54 Blood Culture - Final Blood - Venous No growth after 5 days. 04/02/23 14:24 Blood Culture - Final Blood - Venous No growth after 5 days. Assessment and Plan (1) Acute respiratory failure: Status: Acute (2) Pneumonia: Status: Acute Plan 67-year-old female with history of [id number] type 2 diabetes, hypertension, hyperlipidemia, recent embolic CVA with hospitalization at [facility] from 03/06-03/11 now on DAPT, mood disorder unspecified, former smoker admitted for further management of severe pneumonia with sepsis and acute hypoxemic respiratory failure. paroxysmal AFIB (PAF)noted this morning #Severe multifocal pneumonia with possible necrosis/abscess and Parapneumonic effusion -recently hospitalized [facility] [place] for CVA, multifocal pneumonia treated with IV ctx -?underlying malignancy given unintentional weight loss (8kg last 5 months) vs possible aspirarion relaated pneumonia -MRSA nasal screen negative -effusion culture so far negative -CXR 04/07 showed near complete opacification of right side -CT cheset 04/08 result pending -continue Zosyn + Vanco started 04/02/23 -reconsulting pulmonology for need for chest tube or bronch # acute hypoxemic respiratory failure d/t above -continue supplemental O2 to maintain oximetry >92% #PAF--no prior documentation of AFIB, started on Metoprolol 25 q6, amiodarone 400 bid and eliquis added but on hold for possible procedure today and resume promptly #Acute on chronic normocytic anemia, last hgb at [facility] [place] 03/07 was 9 -stool occult blood negative -?r/t acute illness -no evidence of hemolysis 1unit of rbc on 04/04, H/H is better #Acute diarrhea, Dif positive, patient was treated with Abx prior to hospitalaztion, diarrhea was present before admission and no change in consitent, stool sample was delayed as she was incontient with stool missed with urine all the time until we were able to colect sample and therefore Cdif present on admission. -Continue PO Vanco 4 times a day #Acute hypOkalemia -likely 2/2 diarrhea -repleted and corrected # yen-cdzbuvg-[id number] type 2 diabetes -POC glucose, diabetic diet -Humalog on sliding scale -hold metformin # hypertension--BP normal with meds on hold #HFrEf -no acute exacerbation -EF 35-40% 03/07 [facility] -continue lasix #recent Embolic CVA, + now new afib -was on DAPT (ASA and Plavix), statin. Stoping Plavix since eliquis added -now it is clear that source of stroke was likely AFIB # unspecified mood disorder -continue home meds, reduced zolpidem dose to 5 mg Dysphagia--[employer] rec chopped + thin liquid DVT prophylaxis- SCPs, eliquis to resume if no procedure planned Full code inpt for overwhelming pneumonia and hypoxia and requires iv abx to preven detelioration and she might need bronchosopy, thoracentesis today Quality Stroke Does the patient have a stroke diagnosis?: No VTE Prior VTE?: No VTE Risk Level:: Medical - moderate - high VTE Device Contraindication: Treatment Not Indicated VTE Drug Contraindication: N/A - Med Ordered
--- NOTE | 2023-04-08 13:00 | MHC.CM.PN ---
EMR REVIEWED, PT W/PNA W/R HEMITHORAX, PLAN FOR CHEST TUBE PLACEMENT TODAY, NO PLAN FOR DC AT THIS TIME, CM WILL CONT TO FOLLOW DC NEEDS.
[2023-04-08 13:40] LABS: Hematocrit 27.5 % (37.0-47.0); Hemoglobin 8.5 g/dl (12.0-16.0); Mean Corpuscular HGB Conc 30.9 g/dl (31.0-35.0); Mean Corpuscular Hemoglobin 26.5 pg (27.0-33.0); Mean Corpuscular Volume 85.7 fL (80.0-98.0); Mean Platelet Volume 9.2 fL (9.4-12.3); Platelet Count 352 X10*3/uL (160-400); Red Blood Count 3.21 X10*6/uL (4.20-5.50); Red Cell Distribution Width 15.5 % (11.0-16.0); White Blood Count 11.7 X10*3/uL (4.8-10.8)
[2023-04-08 13:47] LABS: INTERNATIONAL NORM RATIO 1.5 (0.9-1.1); Prothrombin Time 17.8 SEC (11.1-13.3)
[2023-04-08 13:53] LABS: Anion Gap 12 (12-20); Blood Urea Nitrogen 10 mg/dL (9-16); Calcium 8.8 mg/dL (8.4-10.2); Carbon Dioxide 29 mmol/L (22-29); Chloride 107 mmol/L (96-108); Creatinine Clr Calc Pharmacy 74.9; Estimated Glomerular Filt Rate > 60; Glucose Random 91 mg/dL (60-115); Potassium 3.5 mmol/L (3.3-5.1); Sodium 144 mmol/L (135-145)
--- NOTE | 2023-04-08 14:53 | HO.THORCON_ITS ---
History of Present Illness Consult details Consult date: 04/08/23 Reason for consult: chest tube Requesting physician: Rashel Colmenares Narrative: 67-year-old female with history of type 2 diabetes, hypertension, hyperlipidemia, recent embolic CVA with hospitalization at [facility] from 03/06-03/11 now on DAPT, former smoker who presented to ED from [facility] where she has been residing for evaluation of shortness of breath and hypoxia. She was found to be hypoxic in the 80s by nursing staff and EMS was called. She had a productive cough with green sputum production as well as shortness of breath both at rest and with exertion ongoing for 3 weeks associated with weight loss. During her hospitalization at [facility], she was hypoxic requiring 2 L supplemental O2 and found to have multifocal pneumonia with CT angio of the head/neck showing right hilar lymphadenopathy and hilar mass with multi focal airspace opacities visualized within the right lung as well as multiple pulmonary nodules. Work up in the ED included a CT chest which showed severe right lung disease with concern for necrosis and abscess as well as multiple round opacities in the left lung and pleural fluid. She was admitted to the hospitalist service for further treatment and started on IV zosyn and vanco. She had worsening right sided opacity and right thoracentesis was therefore performed. The opacity however persisted and was a near white out of the right lung. Chest CT was therefore performed today which showed right-sided pleural effusion and consolidation in the right lung with obliteration of right upper lobe bronchus and right lower lobe bronchus and numerous lung nodules on the left most likely inflammatory or neoplastic. Thoracic surgery was consulted for chest tube placement. Review of Systems 2 Constitutional: Constitutional: Denies chills and Denies fever(s) ENT: Denies dizziness Cardiovascular: Cardiovascular: Denies chest pain and Reports dyspnea Respiratory: Respiratory: Reports dyspnea Integumentary/Breasts: Skin/Breast: Denies rash and Denies jaundice Neurologic: Denies dizziness PMFSH Past Medical History Medical History Pleural effusion Dysphagia Lung mass Former smoker Pulmonary nodule HFrEF (heart failure with reduced ejection fraction) Embolic stroke Diabetes HLD (hyperlipidemia) HTN (hypertension) Lumbar spondylosis Chronic idiopathic constipation GERD (gastroesophageal reflux disease) Family History Family History Father Esophageal cancer Smoker Mother No problems noted. Brother No problems noted. Brother No problems noted. Sister No problems noted. Sister No problems noted. Sister No problems noted. Sister No problems noted. Son No problems noted. Daughter No problems noted. Daughter No problems noted. Daughter No problems noted. Surgical History Surgical History Hx of brain surgery Hx of colonoscopy H/O section History of esophagogastroduodenoscopy (EGD) Social History Social History Household Members: Other Housing: Other Housing Other:: Rehab facility Alcohol intake: never Patient Tobacco Use Status: Former Tobacco user Tobacco use type: Cigarette Smoked in Last 30 Days: No Patient Interested in Nicotine Replacement: No Patient Given Instructions on How to Stop Smoking: No Use of substances other than those prescribed or required for medical reasons: No Currently Displaying Signs/Symptoms of Drug Intoxication Withdrawal: No Any prior treatment program specific to substance use: No Have you been hit, kicked, punched, or otherwise hurt by someone within the past year? If so, by whom?: No Do you feel safe in your current relationship?: Yes Is there a partner from a previous relationship who is making you feel unsafe now?: No Are you made to feel afraid or neglected: No Advance Directives: No Advance Directives Information Provided: No Do you have thoughts of harming others: None Do you have a plan to hurt others: No Plan Recently lost weight without trying: Unsure Eating poorly because of decreased appetite: Yes Nutrition Risks: Difficulty swallowing Patient : No : No Poor oral hygiene: No service: No Current occupational status: disabled Meds Allergies Allergy/AdvReac Type Severity Reaction Status Date / Time peanut [PEANUTS] Allergy Severe THROAT Verified 11/21/22 12:12 SWELLING avocado [AVOCADO] Allergy Intermediate THROAT Verified 11/21/22 12:12 SWELLING colloidal oatmeal Allergy Mild unknown Verified 11/21/22 12:12 ketchup Allergy Mild unknown Verified 11/21/22 12:12 cat dander [CAT DANDER] Allergy Unknown UNKNOWN Verified 11/21/22 12:12 PER H&P Active Medications: Current Medications Acetaminophen (Acetaminophen 325 Mg Tablet) 650 mg PO Q6H PRN PRN Reason: Pain, Mild (Pain Scale 1-3) Last Admin: 04/06/23 20:32 Dose: 650 mg Amiodarone HCl (Amiodarone Hcl 200 Mg Tablet) 400 mg PO BID [facility] Last Admin: 04/08/23 09:56 Dose: 400 mg Aspirin (Aspirin 81 Mg Tab.Chew) 81 mg PO DAILY [facility] Last Admin: 04/08/23 09:56 Dose: 81 mg Atorvastatin Calcium (Atorvastatin Calcium 40 Mg Tablet) 40 mg PO DAILY [facility] Last Admin: 04/08/23 09:56 Dose: 40 mg Bupropion HCl (Bupropion Hcl Xl 300 Mg Tab.Er.24h) 300 mg PO DAILY [facility] Last Admin: 04/08/23 09:56 Dose: 300 mg Dextrose (Dextrose 50 % 25 Gm/50 Ml Syringe) 25 gm IVPUSH Q15M PRN; Protocol PRN Reason: per Hypoglycemia Standing Ord. Empagliflozin (Empagliflozin 10 Mg Tablet) 10 mg PO DAILY [facility] Last Admin: 04/08/23 09:57 Dose: 10 mg Ferrous Sulfate (Ferrous Sulfate 324 Mg Tablet.Dr) 324 mg PO BID [facility] Last Admin: 04/08/23 09:56 Dose: 324 mg Furosemide (Furosemide 20 Mg Tablet) 20 mg PO DAILY [facility]; Protocol Last Admin: 04/08/23 09:56 Dose: 20 mg Gabapentin (Gabapentin 100 Mg Capsule) 100 mg PO BID [facility] Last Admin: 04/08/23 09:56 Dose: 100 mg Glucose (Glucose Gel 15 Gm Gel..Gram.) 15 gm PO Q15M PRN; Protocol PRN Reason: per Hypoglycemia Standing Ord. Guaifenesin (Guaifenesin La 600 Mg Tab.Er.12h) 1,200 mg PO Q12H [facility] Last Admin: 04/08/23 09:56 Dose: 1,200 mg Piperacillin Sod/Tazobactam (Sod 4.5 gm/ Sodium Chloride) 100 mls @ 200 mls/hr IV Q6H [facility] Last Infusion: 04/08/23 12:08 Dose: Infused Vancomycin HCl 750 mg/ Sodium (Chloride) 265 mls @ 265 mls/hr IV Q12H [facility] Last Infusion: 04/08/23 11:12 Dose: Infused Insulin Human Lispro (Insulin Lispro 100 Unit/Ml 3 Ml Vial) 0 unit SUBCUT QIDACHS [facility]; Protocol Last Admin: 04/08/23 11:12 Dose: Not Given Magnesium Oxide (Magnesium Oxide 400 Mg Tablet) 400 mg PO DAILY [facility] Last Admin: 04/08/23 09:57 Dose: 400 mg Metoprolol Tartrate (Metoprolol Tartrate 25 Mg Tablet) 25 mg PO Q6H [facility]; Protocol Last Admin: 04/08/23 09:56 Dose: 25 mg Omeprazole (Omeprazole 20 Mg Capsule.Dr) 20 mg PO DAILY@0630 [facility] Last Admin: 04/08/23 05:22 Dose: 20 mg Ondansetron HCl (Ondansetron Hcl 4 Mg/2 Ml Vial) 4 mg IVPUSH Q8H PRN PRN Reason: Nausea and Vomiting Pharmacy Consult (Consult Rx Vancomycin Dosing) 1 each MISCELLANE DAILY PRN PRN Reason: Consult order Senna (Sennosides 8.6 Mg Tablet) 17.2 mg PO BEDTIME PRN PRN Reason: Constipation Sodium Chloride (0.9 % Sodium Chloride Flush 3 Ml Syringe) 3 ml IVFLUSH QSHIFT [facility] Last Admin: 04/08/23 12:24 Dose: Not Given Valsartan (Valsartan 40 Mg Tablet) 40 mg PO BID [facility]; Protocol Last Admin: 04/08/23 09:56 Dose: 40 mg Vancomycin HCl (Vancomycin Hcl 125 Mg Capsule) 125 mg PO Q6H [facility] Last Admin: 04/08/23 11:38 Dose: 125 mg Vitamin D (Cholecalciferol (Vitamin D3) 25 Mcg Tablet) 50 mcg PO DAILY [facility] Last Admin: 04/08/23 09:56 Dose: 50 mcg Zolpidem Tartrate (Zolpidem Tartrate 5 Mg Tablet) 5 mg PO BEDTIME PRN PRN Reason: Insomnia Last Admin: 04/07/23 21:50 Dose: 5 mg Home Medications Medication Instructions Recorded Confirmed Last Taken Type atorvastatin 40 mg tablet 40 mg PO DAILY 07/20/22 04/02/23 Unknown History bupropion HCl 300 mg 24 hr tablet, 300 mg PO DAILY 07/20/22 04/02/23 Unknown History extended release clonazepam 1 mg tablet 1 mg PO BID 07/20/22 04/02/23 Unknown History metformin 500 mg tablet 500 mg PO BID 07/20/22 04/02/23 10/04/22 History zolpidem 10 mg tablet 10 mg PO BEDTIME PRN Insomnia 07/20/22 04/02/23 Unknown History Lactobacillus acidoph-L.bulgaricus 4 tab PO TID 04/02/23 04/02/23 Unknown History 1 million cell tablet (Floranex) aspirin 81 mg chewable tablet 81 mg PO DAILY 04/02/23 04/02/23 Unknown History cholecalciferol (vitamin D3) 50 50 mcg PO DAILY 04/02/23 04/02/23 Unknown History mcg (2,000 unit) tablet clopidogrel 75 mg tablet (Plavix) 75 mg PO DAILY 04/02/23 04/02/23 Unknown History dapagliflozin propanediol 10 mg 10 mg PO DAILY 04/02/23 04/02/23 Unknown History tablet ferrous sulfate 325 mg (65 mg 325 mg PO BID 04/02/23 04/02/23 Unknown History iron) tablet,delayed release furosemide 20 mg tablet 20 mg PO DAILY 04/02/23 04/02/23 Unknown History guaifenesin 1,200 mg tablet, 1,200 mg PO Q12H 04/02/23 04/02/23 Unknown History extended release 12 hr magnesium oxide 400 mg PO DAILY 04/02/23 04/02/23 Unknown History metoprolol tartrate 25 mg tablet 25 mg PO BID 04/02/23 04/02/23 Unknown History omeprazole 20 mg capsule,delayed 20 mg PO DAILY 04/02/23 04/02/23 Unknown History release Physical Exam 2 Vital Signs: Vital Signs: Last Vital Signs Temp 97.4 F 04/08/23 11:08 Pulse 82 04/08/23 11:08 Resp 20 04/08/23 11:08 BP 146/69 H 04/08/23 11:08 Pulse Ox 95 04/08/23 11:08 O2 Del Method Nasal Cannula 04/08/23 11:08 O2 Flow Rate 3.5 04/08/23 11:08 Oxygen Flow Rate 2 04/02/23 13:19 BMI result Body Mass Index 29.0 Const: General: comfortable, no acute distress and alert O rientation/consciousness: patient oriented x3 Chest: Chest palpation & inspection: normal inspection of the chest Resp: Effort & Inspection: normal respiratory effort, able to speak in complete sentences and no respiratory distress Skin: General skin exam: no rashes or lesions noted Neuro: General: patient oriented x3 and moves all extremities Results Labs 04/08/23 13:25 04/08/23 13:25 Labs: Abnormal lab results 04/07/23 04/07/23 04/08/23 Range/Units 11:37 18:06 10:47 WBC (4.8-10.8) X10*3/uL RBC (4.20-5.50) X10*6/uL Hgb (12.0-16.0) g/dl Hct (37.0-47.0) % MCH (27.0-33.0) pg MCHC (31.0-35.0) g/dl MPV (9.4-12.3) fL PT (11.1-13.3) SEC INR (0.9-1.1) Sodium 146 H (135-145) mmol/L POC Glucose 117 H (60-115) mg/dL Crossmatch See Detail 04/08/23 Range/Units 13:25 WBC 11.7 H (4.8-10.8) X10*3/uL RBC 3.21 L (4.20-5.50) X10*6/uL Hgb 8.5 L (12.0-16.0) g/dl Hct 27.5 L (37.0-47.0) % MCH 26.5 L (27.0-33.0) pg MCHC 30.9 L (31.0-35.0) g/dl MPV 9.2 L (9.4-12.3) fL PT 17.8 H (11.1-13.3) SEC INR 1.5 H (0.9-1.1) Sodium (135-145) mmol/L POC Glucose (60-115) mg/dL Crossmatch Short CBC 04/08/23 Range/Units 13:25 WBC 11.7 H (4.8-10.8) X10*3/uL Hgb 8.5 L (12.0-16.0) g/dl Hct 27.5 L (37.0-47.0) % Plt Count 352 (160-400) X10*3/uL BMP 04/07/23 04/08/23 04/08/23 18:06 08:10 13:25 Sodium 146 H 144 Potassium 3.3 3.5 Chloride 107 107 Carbon Dioxide 27 29 BUN 10 Creatinine 0.71 0.73 Calcium 8.8 D All other labs normal. Imaging Chest x-ray: report reviewed and image reviewed CT scan - chest: report reviewed and image reviewed Assessment and Plan (1) Pleural effusion: Status: Acute (2) Pneumonia: Status: Acute (3) Acute respiratory failure: Qualifiers: Respiratory failure complication: hypoxia Qualified Code(s): J96.01 - Acute respiratory failure with hypoxia Status: Acute Plan 67 year old female admitted with pneumonia, acute hypoxemic respiratory failure with worsening right pleural effusion. Thoracic surger was consulted for chest tube insertion. R 32 F angled chest tube was inserted at bedside without immediate complications. Patient tolerated the procedure well. There was evacuation of a large amount of serous appearing pleural fluid. Pleural studies ordered. Post procedure CXR and f/u CXR ordered in AM. May require decortication down the line if no further improvement. Procedures Date of Service Date of Service: 04/08/23 Chest Tube Chest Tube 1: Chest tube location: Anterior Chest Size of tube: 32 Chest tube procedure: Yes betadine prep Tube sutured to skin: Yes Sterile dressing applied: Yes Anesthesia: 1% Lidocaine Volume anesthetic (ml): 30 Incision made with: #10 blade Post procedure: sutured to skin and sterile dressing applied Cormier of air heard: Yes Tube Drainage: fluid Amount of initial drainage (ml): 650 Post procedure CXR?: Yes Patient tolerated procedure: Yes Progress: The risks and benefits, alternatives were discussed with the patient and consent was obtained. Time out was performed. The patient's anterolateral chest was prepped with betadine and draped in the usual sterile fashion. 30 mL of 1% lidocaine was used for local anesthesia of the skin and subcutaneous tissues. An incision was made and then carried down through the skin and subcutaneous tissues down to the intercostal fascia using metzenbaum scissors. A alisha clamp was used to enter the chest cavity carefully and cormier of air was heard along with a large amount of serous appearing pleural fluid. The chest tube was then inserted. The tube was then connected to a closed chest drainage system. It was secured to the skin with a single silk suture and a sterile dressing was applied over the site. The patient tolerated the procedure well. No immediate complications.
[2023-04-08] MEDS: Morphine Sulfate 2 MG/ML CARTRIDGE IVPUSH ×3 (14:56→22:44)
[2023-04-08 15:50] VITALS: BP 103/50; PULSE 77; RESP 18; TEMP 36.5; O2SAT 93
[2023-04-08] MEDS: Heparin Sodium,Porcine 5,000 UNIT/ML VIAL 5000 UNIT SUBCUT (16:07)
--- NOTE | 2023-04-08 16:21 | PM.EVENT ---
Event Note Date of Service: 04/08/23 Event Note: chest tube inserted, with blood tinged output, discussed with CT surgery sub cut heparin and possible anticoagulation tomorrow, it is understood she's at increased risk of stroke, fortunately she in sinus rythm Time Spent With Patient Time: Total time managing care of this patient today ____ minutes.
--- NOTE | 2023-04-08 16:52 | P.PNPL_ITS ---
Subjective Subjective Date of Service: 04/08/23 Interval history: No significant improvement. Continues to complain of dyspnea and productive cough. Objective Data Labs 04/08/23 13:25 04/08/23 13:25 Labs: Laboratory Results - last 24 hr 04/05/23 04/06/23 04/07/23 14:15 15:16 18:06 WBC RBC Hgb Hct MCV MCH MCHC RDW Plt Count MPV Absolute Nucleated RBC Nucleated RBC % (auto) Hold Purple Top PT INR Sodium 146 H Potassium 3.3 Chloride 107 Carbon Dioxide 27 Anion Gap 15 BUN Creatinine Estim Creat Clear Calc Estimated GFR POC Glucose Random Glucose Calcium Pleural Amylase 27 Stl C. cayetanensis PCR Cancelled Stool Rotavirus A PCR Cancelled Stl Adenov F 40/ PCR Cancelled Stool Astrovirus (PCR) Cancelled Stool Campylobacter PCR Cancelled Stool Cryptosporidium PCR Cancelled Stl Sh Tox Pr E STEC PCR Cancelled Stool E coli O157 PCR Cancelled Stl Enterotoxigenic E PCR Cancelled Stool EPEC (PCR) Cancelled Stool EAEC (PCR) Cancelled Stl E. histolytica PCR Cancelled Stool Giardia Lamblia PCR Cancelled Stl P. shigelloides PCR Cancelled Stool Salmonella PCR Cancelled Stool Sapovirus (PCR) Cancelled Stl Shigella/EIEC PCR Cancelled St Y.enterocolitica PCR Cancelled Stool Vibrio (PCR) Cancelled Stl Vibrio cholerae PCR Cancelled Stl Norovirus GI/GII PCR Cancelled Random Vancomycin 19.7 C. difficile Interpret SEE NOTE 04/07/23 04/08/23 04/08/23 20:09 07:11 08:10 WBC RBC Hgb Hct MCV MCH MCHC RDW Plt Count MPV Absolute Nucleated RBC Nucleated RBC % (auto) Hold Purple Top SEE NOTE PT INR Sodium Potassium Chloride Carbon Dioxide Anion Gap BUN Creatinine 0.71 Estim Creat Clear Calc 77.0 Estimated GFR > 60 POC Glucose 88 90 Random Glucose Calcium Pleural Amylase Stl C. cayetanensis PCR Stool Rotavirus A PCR Stl Adenov F 40/41 PCR Stool Astrovirus (PCR) Stool Campylobacter PCR Stool Cryptosporidium PCR Stl Sh Tox Pr E STEC PCR Stool E coli O157 PCR Stl Enterotoxigenic E PCR Stool EPEC (PCR) Stool EAEC (PCR) Stl E. histolytica PCR Stool Giardia Lamblia PCR Stl P. shigelloides PCR Stool Salmonella PCR Stool Sapovirus (PCR) Stl Shigella/EIEC PCR St Y.enterocolitica PCR Stool Vibrio (PCR) Stl Vibrio cholerae PCR Stl Norovirus GI/GII PCR Random Vancomycin C. difficile Interpret 04/08/23 04/08/23 10:47 13:25 WBC 11.7 H RBC 3.21 L Hgb 8.5 L Hct 27.5 L MCV 85.7 MCH 26.5 L MCHC 30.9 L RDW 15.5 Plt Count 352 MPV 9.2 L Absolute Nucleated RBC 0.000 Nucleated RBC % (auto) 0.0 Hold Purple Top PT 17.8 H INR 1.5 H Sodium 144 Potassium 3.5 Chloride 107 Carbon Dioxide 29 Anion Gap 12 BUN 10 Creatinine 0.73 Estim Creat Clear Calc 74.9 Estimated GFR > 60 POC Glucose 117 H Random Glucose 91 Calcium 8.8 D Pleural Amylase Stl C. cayetanensis PCR Stool Rotavirus A PCR Stl Adenov F 40/41 PCR Stool Astrovirus (PCR) Stool Campylobacter PCR Stool Cryptosporidium PCR Stl Sh Tox Pr E STEC PCR Stool E coli O157 PCR Stl Enterotoxigenic E PCR Stool EPEC (PCR) Stool EAEC (PCR) Stl E. histolytica PCR Stool Giardia Lamblia PCR Stl P. shigelloides PCR Stool Salmonella PCR Stool Sapovirus (PCR) Stl Shigella/EIEC PCR St Y.enterocolitica PCR Stool Vibrio (PCR) Stl Vibrio cholerae PCR Stl Norovirus GI/GII PCR Random Vancomycin C. difficile Interpret Microbiology Microbiology Results: Microbiology 04/05/23 14:15 Thoracentesis Fluid Gram Stain - Final 04/05/23 14:15 Thoracentesis Fluid Anaerobic Culture - Preliminary No growth to date. 04/05/23 14:15 Thoracentesis Fluid Body Fluid Culture - Final No growth after 2 days 04/02/23 14:54 Blood - Venous Blood Culture - Final No growth after 5 days. 04/02/23 14:24 Blood - Venous Blood Culture - Final No growth after 5 days. Review of Systems Cardiovascular: Reports dyspnea Respiratory: Reports cough, Reports excessive phlegm production and Reports dyspnea Physical Exam 2 Vital Signs: Vital Signs: Last Vital Signs Temp 97.7 F 04/08/23 15:50 Pulse 77 04/08/23 15:50 Resp 18 04/08/23 15:50 BP 103/50 L 04/08/23 15:50 Pulse Ox 93 04/08/23 15:50 O2 Del Method Nasal Cannula 04/08/23 15:50 O2 Flow Rate 3 04/08/23 15:50 Oxygen Flow Rate 2 04/02/23 13:19 BMI result Body Mass Index 29.0 Const: General: no acute distress, alert and awake Eyes: Sclerae: sclerae normal EOM: EOMs intact bilaterally Neck: Neck: Yes no lymphadenopathy, Yes trachea midline and Yes supple Resp: Effort & Inspection: normal respiratory effort and no respiratory distress Auscultation: clear to auscultation bilaterally Cardio: Rate: regular rate Rhythm: regular rhythm Heart sounds: no gallops, no murmurs and no rubs GI: Palpation (GI): Soft to palpation and Other GI palpation findings present ( Nontender) Auscultation: normal bowel sounds Extrem: General: No clubbing, No cyanosis and Yes edema (Trace bilateral) Procedures Date of Service Date of Service: 04/08/23 Assessment and Plan Assessment and plan (1) Pleural effusion: Status: Acute (2) Pneumonia: Status: Acute (3) Acute hypoxemic respiratory failure: Status: Acute Plan Impression: 67-year-old lady with worsening right-sided pneumonia with recurrence of right-sided pleural effusion, parapneumonic versus empyema. Recommendations: Agree with current broad-spectrum antibiotics. Patient would benefit from large-bore chest tube and follow-up x-ray in a.m.. Time Spent With Patient Time: Total time managing care of this patient today ____ minutes. Progress Note: Quality Stroke Does the patient have a stroke diagnosis?: No
[2023-04-08 17:13] LABS: Glucose, Whole Blood 78 mg/dL (60-115)
--- NOTE | 2023-04-08 17:20 | HO.WOUND ---
Wound Consult: Follow up 67yr old? admitted to [facility]02/23 20:15 - See progress notes and H&P for detailed history.? Wound consult placed for coccyx / sacral wound noted on assessment. Arrival to bedside patient was agreeable to assessment. Patient is noted to be incontinent or urine - Purewick in place - wounds are not consistent with pressure at this time - appears to be friction and MASD (Moisture Associated Skin Damage) related. Topical recommendations made below. Sacrum - Gluteal Fold Etiology: ??MASD-IAD (Moisture Associated Skin Damage - Incontinence Associated Dermatitis) with Friction Measurements: two pinpoint moist wound beds - mirrored in location Wound Bed: Location not consistent with pressure - wound beds with adherent slough noted - periwound with [place] blanchable erythema Drainage / Odor: None noted Edges: ? Attached, well defined Fe wound: [place] red blanchable throughout pigmentation - ? No Induration, Fluctuance or Warmth noted Pain: Denies Goals of Treatment: ? Off Load pressure - Triad to allow for autolytic debridement and moist wound healing and to protect from moisture and friction Recommendations: 1. Turn and Reposition every 2 hours and as needed for patient comfort.? Use pillows or wedges to support off loading positions. 2. Off Load all bony prominences with use of pillows and heel boots if needed.? Apply Preventative foams where needed. ? 3. Monitor for incontinence and moisture control, use barrier creams when needed for prevention and treatment. 4. Provide adequate and supplemental nutrition.? 5. Order or Continue low air loss mattress. 6. When applicable maintain blood glucose levels per Providers order. 7. Sacrum and Coccyx - Off Load Pressure - Cleanse with PH balance spray or wipes, pat dry. ?Apply thin layer of Triad to wound bed - only pat and dab no scrub and rub when soiling occurs. Reapply thin layer PRN after each episode of incontinence. Re-consult wound care Nurse for wound deterioration or wound changes.
[2023-04-08 20:00] VITALS: BP 134/62; PULSE 95; RESP 20; TEMP 36.9; O2SAT 97
[2023-04-08 20:41] LABS: Glucose, Whole Blood 120 mg/dL (60-115)
[2023-04-08 21:45] LABS: Vancomycin Random 15.1 mcg/mL (15-20)
--- NOTE | 2023-04-08 21:52 | HE.PHANOTE ---
Vanco dosing Level 15.1 today. Continue current regimen. Next level 04/10 @ 0900. Itz MahmoodD
[2023-04-08] MEDS: 0.9 % Sodium Chloride Flush 3 ML SYRINGE IVFLUSH (22:23)
[2023-04-08 23:16] VITALS: BP 122/58; PULSE 82; RESP 20; TEMP 37.4; O2SAT 97
[2023-04-09] VITALS (8 sets, daily range): BP systolic 109–150; BP diastolic 53–79; PULSE 75–124; RESP 16–26; TEMP 36.3–37; O2SAT 90–98; BMI 30.3
[2023-04-09] MEDS: Piperacillin Sodium/Tazobactam 4.5 GM in 0.9 % Sodium Chloride 100 ML IV ×5 (00:43→23:15)
[2023-04-09] MEDS: vancomycin HCL 125 MG CAPSULE PO ×5 (00:51→23:35)
[2023-04-09] MEDS: oxyCODONE HCl Immed Release 5 MG TABLET PO (02:24)
[2023-04-09] MEDS: Morphine Sulfate 2 MG/ML CARTRIDGE IVPUSH ×4 (03:08→21:34)
[2023-04-09] MEDS: Albuterol/Iprat 2.5/0.5MG 3 ML AMPUL.NEB INHALE (03:18)
[2023-04-09] MEDS: Furosemide 100 MG/10 ML VIAL 60 MG IVPUSH (03:19)
[2023-04-09] MEDS: Metoprolol Tartrate 25 MG TABLET PO ×4 (05:11→23:09)
[2023-04-09] MEDS: Omeprazole 20 MG CAPSULE.DR PO (05:12)
[2023-04-09 05:28] LABS: Glucose, Whole Blood 106 mg/dL (60-115)
[2023-04-09 07:17] LABS: Glucose, Whole Blood 110 mg/dL (60-115)
[2023-04-09] MEDS: Empagliflozin 10 MG TABLET PO (08:27)
[2023-04-09] MEDS: Furosemide 20 MG TABLET PO (08:27)
[2023-04-09] MEDS: Valsartan 40 MG TABLET PO ×2 (08:27→21:37)
[2023-04-09] MEDS: guaiFENesin LA 600 MG TAB.ER.12H 1200 MG PO ×2 (08:27→21:37)
[2023-04-09] MEDS: Cholecalciferol (Vitamin D3) 25 MCG TABLET 50 MCG PO (08:27)
[2023-04-09] MEDS: Magnesium Oxide 400 MG TABLET PO (08:27)
[2023-04-09] MEDS: Atorvastatin Calcium 40 MG TABLET PO (08:27)
[2023-04-09] MEDS: buPROPion HCl XL 300 MG TAB.ER.24H PO (08:27)
[2023-04-09] MEDS: Ferrous Sulfate 324 MG TABLET.DR PO ×2 (08:27→21:37)
[2023-04-09] MEDS: Aspirin 81 MG TAB.CHEW PO (08:27)
[2023-04-09] MEDS: Amiodarone HCL 200 MG TABLET 400 MG PO ×2 (08:27→21:36)
[2023-04-09] MEDS: Gabapentin 100 MG CAPSULE PO ×2 (08:27→21:36)
[2023-04-09] MEDS: 0.9 % Sodium Chloride Flush 3 ML SYRINGE IVFLUSH ×2 (08:28→16:31)
--- NOTE | 2023-04-09 08:47 | PM.PNTS ---
Subjective Subjective Date of Service: 04/09/23 <Elisabeth Catherine PA-C - Last Filed: 04/09/23 08:52> 04/10/23 <Hoang Flores MD - Last Filed: 04/10/23 10:39> Interval history: Increasing oxygen requirements overnight. C/o pain at chest tube site. <DAPHNE Alvarez Last Filed: 04/09/23 08:52> Physical Exam Vital Signs: Vital Signs: Last Vital Signs Temp 97.6 F 04/09/23 07:04 Pulse 87 04/09/23 07:04 Resp 20 04/09/23 07:04 BP 111/53 L 04/09/23 07:04 Pulse Ox 98 04/09/23 07:04 O2 Del Method Oxymask 04/09/23 07:04 O2 Flow Rate 13 04/09/23 07:04 FiO2 95 04/09/23 05:12 Oxygen Flow Rate 2 04/02/23 13:19 BMI result Body Mass Index 30.3 <DAPHNE Alvarez Last Filed: 04/09/23 08:52> Const: General: comfortable, no acute distress and alert <DAPHNE Alvarez Last Filed: 04/09/23 08:52> Orientation/consciousness: patient oriented x3 <DAPHNE Alvaerz Last Filed: 04/09/23 08:52> Chest: Other: right chest tube in place, dressing dry, no air leak, high serosanguineous drainage overnight <Elisabeth Catherine PA-C - Last Filed: 04/09/23 08:52> Resp: Effort & Inspection: normal respiratory effort, able to speak in complete sentences and no respiratory distress <DAPHNE Alvarez Last Filed: 04/09/23 08:52> Cardio: Rate: regular rate <DAPHNE Alvarez Last Filed: 04/09/23 08:52> Skin: General skin exam: no rashes or lesions noted <DAPHNE Alvarez Last Filed: 04/09/23 08:52> Neuro: General: patient oriented x3 <DAPHNE Alvarez Last Filed: 04/09/23 08:52> Procedures Date of Service Date of Service: 04/09/23 <Elisabeth Catherine PA-C - Last Filed: 04/09/23 08:52> 04/10/23 <Hoang Flores MD - Last Filed: 04/10/23 10:39> Progress Note: A&P Assessment and plan (1) Pleural effusion: Status: Acute <Elisabeth Catherine PA-C - Last Filed: 04/09/23 08:52> (2) Pneumonia: Status: Acute <Elisabeth Catherine PA-C - Last Filed: 04/09/23 08:52> Assessment and Plan: Chest tube has drained >1L however AM CXR shows no improvement in opacification and she has had increasing oxygen requirements. Keep chest tube in place to suction. Repeat Chest CT scan, pulmology follow up. Await pleural fluid results. encourage OOB/ambulation and IS use. <Elisabeth Catherine PA-C - Last Filed: 04/09/23 08:52> Chest tube has drained >1L however AM CXR shows no improvement in opacification and she has had increasing oxygen requirements. Keep chest tube in place to suction. Repeat Chest CT scan, pulmology follow up. Await pleural fluid results. encourage OOB/ambulation and IS use. As noted above. Please see other thoracic note. For surgery tomorrow. <Hoang Flores MD - Last Filed: 04/10/23 10:39> Time Spent With Patient Time: Total time managing care of this patient today ____ minutes. <Elisabeth Catherine PA-C - Last Filed: 04/09/23 08:52> Quality Stroke Does the patient have a stroke diagnosis?: No <Elisabeth Catherine PA-C - Last Filed: 04/09/23 08:52> VTE Prior VTE?: No <Elisabeth Catherine PA-C - Last Filed: 04/09/23 08:52> VTE Risk Level:: Medical - moderate - high <Elisabeth Catherine PA-C - Last Filed: 04/09/23 08:52> VTE Device Contraindication: Treatment Not Indicated <Elisabeth Catherine PA-C - Last Filed: 04/09/23 08:52> VTE Drug Contraindication: N/A - Med Ordered <Elisabeth Catherine PA-C - Last Filed: 04/09/23 08:52>
[2023-04-09] MEDS: vancomycin HCL 750 MG in 0.9 % Sodium Chloride 250 ML 265 MG IV ×2 (11:10→23:34)
[2023-04-09 11:16] LABS: Glucose, Whole Blood 138 mg/dL (60-115)
[2023-04-09 11:24] LABS: Creatinine Clr Calc Pharmacy 68.9; Estimated Glomerular Filt Rate > 60
--- NOTE | 2023-04-09 12:25 | MHC.SL.DTX ---
Dysphagia Diet modifications: Last documented Solid diet consistencies: Chopped/Advanced (NDD3) Last documented Liquid consistency: Thin Changes made to current diet?: No: No changes at this time Liquid Consistency and Strategies: Liquid Intake Recommendation: Thin Compensatory Strategies for Safe Swallow: Small Sips Compensatory Strategies for Safe Swallow(b): Sitting Upright (90 deg) Double Swallow Small Bites and Sips Alternate Liquids/Solids Rate of Ingestion Change Avoid Specific Foods Solid Food Consistency: Dietary Recommendations: Regular Oral Medication Intake: Whole with Puree Strategies and Precautions to be Taken for Safe Swallow: Sitting Upright (90 deg) Double Swallow Small Bites and Sips Alternate Liquids/Solids Rate of Ingestion Change Avoid Specific Foods Supervision While Eating and/Drinking: Total Supervision (1:1) Foods to Avoid: Difficult to chew solids. Swallowing Recommended Treatments: Compens. Strategy Educat. Level of Impact on: Daily activities: Interpersonal interactions: Education: Employment: Community: Prognosis for Improvement: Recommendation for Speech: Inpatient Speech Therapy Frequency/Duration: M-F while inpatient. Date Range for Service Req: Timeline to reassess: Additional Comments: Pt w/ hx recent embolic CVA with hospitalization at [facility] [place] 03/06[place]03/11. Pt now presents with multifactorial PNA. She is followed by [employer] for concern of microaspiration. Treatment: Pt observed eating a ham sandwich with chips and grapes at lunch. Mastication is slowed, but sufficient. Her diet was changed to regular textures after her procedure. No s/s of difficulty chewing or drinking liquids at bedside. Pt is requesting rice and beans, other cultural dishes from home. [employer] will lift texture restrictions and monitor x1 to assess toleration. Demo Coordinator Clinican/Clinical Fellow: No Supervisory Statement: I have reviewed and agree with the student/clinical fellow's documentation: N/A Speech Language Pathologist: Myke Chavez M.A., CCC-[employer] [facility]
--- NOTE | 2023-04-09 13:46 | HO.PM.IMPN ---
Subjective Subjective Date of Service: 04/09/23 Interval History: f/u on PNA with effusion, Cdif and new AFIB Review of Systems sob somewhat improving no fever oxygen demand somewhat improving Physical Exam Vital Signs: Vital Signs: Last Vital Signs Temp 97.3 F 04/09/23 11:11 Pulse 90 04/09/23 11:11 Resp 20 04/09/23 11:11 BP 109/53 L 04/09/23 11:11 Pulse Ox 96 04/09/23 11:11 O2 Del Method Nasal Cannula 04/09/23 11:11 O2 Flow Rate 6 04/09/23 11:11 FiO2 95 04/09/23 05:12 Oxygen Flow Rate 2 04/02/23 13:19 BMI result Body Mass Index 30.3 General: AO X 3, no acute distress Resp:: air entry diminshed significantly right >left CVS: S1,S2,RRR GI: +BS, NT, no distention Skin: No rash Neuro: motor grossly intact Psych: appropriate affect Objective Data Active Medications Acetaminophen (Acetaminophen 325 Mg Tablet) 650 mg PO Q6H PRN PRN Reason: Pain, Mild (Pain Scale 1-3) Last Admin: 04/06/23 20:32 Dose: 650 mg Documented By: ROSALEE Albuterol/Ipratropium (Albuterol/Iprat 2.5/0.5mg 3 Ml Ampul.Neb) 3 ml INHALE Q4H PRN PRN Reason: Shortness of Breath/Wheezing Last Admin: 04/09/23 03:18 Dose: 3 ml Documented By: ORTIZ Amiodarone HCl (Amiodarone Hcl 200 Mg Tablet) 400 mg PO BID [facility] Last Admin: 04/09/23 08:27 Dose: 400 mg Documented By: BJ Aspirin (Aspirin 81 Mg Tab.Chew) 81 mg PO DAILY [facility] Last Admin: 04/09/23 08:27 Dose: 81 mg Documented By: BJ Atorvastatin Calcium (Atorvastatin Calcium 40 Mg Tablet) 40 mg PO DAILY [facility] Last Admin: 04/09/23 08:27 Dose: 40 mg Documented By: BJ Bupropion HCl (Bupropion Hcl Xl 300 Mg Tab.Er.24h) 300 mg PO DAILY [facility] Last Admin: 04/09/23 08:27 Dose: 300 mg Documented By: BJ Dextrose (Dextrose 50 % 25 Gm/50 Ml Syringe) 25 gm IVPUSH Q15M PRN; Protocol PRN Reason: per Hypoglycemia Standing Ord. Empagliflozin (Empagliflozin 10 Mg Tablet) 10 mg PO DAILY [facility] Last Admin: 04/09/23 08:27 Dose: 10 mg Documented By: BJ Ferrous Sulfate (Ferrous Sulfate 324 Mg Tablet.) 324 mg PO BID [facility] Last Admin: 04/09/23 08:27 Dose: 324 mg Documented By: BJ Furosemide (Furosemide 20 Mg Tablet) 20 mg PO DAILY [facility]; Protocol Last Admin: 04/09/23 08:27 Dose: 20 mg Documented By: BJ Gabapentin (Gabapentin 100 Mg Capsule) 100 mg PO BID [facility] Last Admin: 04/09/23 08:27 Dose: 100 mg Documented By: BJ Glucose (Glucose Gel 15 Gm Gel..Gram.) 15 gm PO Q15M PRN; Protocol PRN Reason: per Hypoglycemia Standing Ord. Guaifenesin (Guaifenesin La 600 Mg Tab.Er.12h) 1,200 mg PO Q12H [facility] Last Admin: 04/09/23 08:27 Dose: 1,200 mg Documented By: BJ Heparin Sodium (Porcine) (Heparin Sodium,Porcine 5,000 Unit/Ml Vial) 5,000 unit SUBCUT Q12H [facility] Last Admin: 04/09/23 04:03 Dose: Not Given Documented By: IMELDA Non-Admin Reason: per Dr. Andrew nash. Piperacillin Sod/Tazobactam (Sod 4.5 gm/ Sodium Chloride) 100 mls @ 200 mls/hr IV Q6H [facility] Last Infusion: 04/09/23 12:05 Dose: Infused Documented By: BJ Vancomycin HCl 750 mg/ Sodium (Chloride) 265 mls @ 265 mls/hr IV Q12H [facility] Last Infusion: 04/09/23 12:17 Dose: Infused Documented By: BJ Insulin Human Lispro (Insulin Lispro 100 Unit/Ml 3 Ml Vial) 0 unit SUBCUT QIDACHS [facility]; Protocol Last Admin: 04/09/23 11:13 Dose: Not Given Documented By: BJ Non-Admin Reason: No Insulin Coverage Magnesium Oxide (Magnesium Oxide 400 Mg Tablet) 400 mg PO DAILY [facility] Last Admin: 04/09/23 08:27 Dose: 400 mg Documented By: BJ Metoprolol Tartrate (Metoprolol Tartrate 25 Mg Tablet) 25 mg PO Q6H [facility]; Protocol Last Admin: 04/09/23 08:28 Dose: 25 mg Documented By: BJ Morphine Sulfate (Morphine Sulfate 2 Mg/Ml Cartridge) 2 mg IVPUSH Q4H PRN; Protocol PRN Reason: Pain, Severe (Pain Scale 7-10) Last Admin: 04/09/23 08:28 Dose: 2 mg Documented By: BJ Omeprazole (Omeprazole 20 Mg Capsule.) 20 mg PO DAILY@06 [facility] Last Admin: 04/09/23 05:12 Dose: 20 mg Documented By: IMELDA Ondansetron HCl (Ondansetron Hcl 4 Mg/2 Ml Vial) 4 mg IVPUSH Q8H PRN PRN Reason: Nausea and Vomiting Oxycodone HCl (Oxycodone Hcl Immed Release 5 Mg Tablet) 5 mg PO Q4H PRN PRN Reason: Pain, Moderate(Pain Scale 4-6) Last Admin: 04/09/23 02:24 Dose: 5 mg Documented By: IMELDA Pharmacy Consult (Consult Rx Vancomycin Dosing) 1 each MISCELLANE DAILY PRN PRN Reason: Consult order Senna (Sennosides 8.6 Mg Tablet) 17.2 mg PO BEDTIME PRN PRN Reason: Constipation Sodium Chloride (0.9 % Sodium Chloride Flush 3 Ml Syringe) 3 ml IVFLUSH QSHIFT [facility] Last Admin: 04/09/23 08:28 Dose: 3 ml Documented By: BJ Valsartan (Valsartan 40 Mg Tablet) 40 mg PO BID [facility]; Protocol Last Admin: 04/09/23 08:27 Dose: 40 mg Documented By: BJ Vancomycin HCl (Vancomycin Hcl 125 Mg Capsule) 125 mg PO Q6H [facility] Last Admin: 04/09/23 11:13 Dose: 125 mg Documented By: BJ Vitamin D (Cholecalciferol (Vitamin D3) 25 Mcg Tablet) 50 mcg PO DAILY [facility] Last Admin: 04/09/23 08:27 Dose: 50 mcg Documented By: BJ Zolpidem Tartrate (Zolpidem Tartrate 5 Mg Tablet) 5 mg PO BEDTIME PRN PRN Reason: Insomnia Last Admin: 04/07/23 21:50 Dose: 5 mg Documented By: IMELDA Labs 04/08/23 13:25 04/09/23 10:49 Labs: Laboratory Results - last 24 hr 04/08/23 04/08/23 04/08/23 13:25 17:09 20:24 PT 17.8 H INR 1.5 H Anion Gap 12 Estim Creat Clear Calc 74.9 Estimated GFR > 60 POC Glucose 78 120 H Random Glucose 91 Calcium 8.8 D Random Vancomycin 04/08/23 04/09/23 04/09/23 21:10 03:03 07:08 PT INR Anion Gap Estim Creat Clear Calc Estimated GFR POC Glucose 106 110 Random Glucose Calcium Random Vancomycin 15.1 04/09/23 04/09/23 10:49 11:09 PT INR Anion Gap Estim Creat Clear Calc 68.9 Estimated GFR > 60 POC Glucose 138 H Random Glucose Calcium Random Vancomycin Microbiology Microbiology Results: Microbiology 04/05/23 14:15 Gram Stain - Final Thoracentesis Fluid Anaerobic Culture - Preliminary No growth to date. Body Fluid Culture - Final No growth after 2 days Assessment and Plan (1) Pleural effusion: Status: Acute (2) Pneumonia: Status: Acute (3) Acute respiratory failure: Status: Acute Plan 67-year-old female with history of [id number] type 2 diabetes, hypertension, hyperlipidemia, recent embolic CVA with hospitalization at [facility] from 03/06-03/11 now on DAPT, mood disorder unspecified, former smoker admitted for further management of severe pneumonia with sepsis and acute hypoxemic respiratory failure. paroxysmal AFIB (PAF)noted this morning Severe multifocal pneumonia with possible necrosis/abscess and Parapneumonic effusion recently hospitalized [facility] 03/06-03/11 for CVA, multifocal pneumonia treated with IV ctx ?underlying malignancy given unintentional weight loss (8kg last 5 months) vs possible aspirarion relaated pneumonia MRSA nasal screen negative,effusion culture so far negative CXR 04/07 showed near complete opacification of right side Ct chest 04/09:1. Complete consolidation right lung with air bronchogram and mild loss of volume resulting in ipsilateral mediastinal shift. There are multiple ill-defined opacities throughout the left lung suggestive of developing patchy infiltrates or metastatic process. Trace right pleural effusion. There is a right chest catheter along the lung bases in good position. 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 keep npo past midnight acute hypoxemic respiratory failure d/t above -continue supplemental O2 to maintain oximetry >92% PAF--no prior documentation of AFIB, started on Metoprolol 25 q6, amiodarone 400 bid and eliquis added but on hold for possible procedure today and resume promptly Acute on chronic normocytic anemia, last hgb at [facility] on 03/07 was 9 -stool occult blood negative ?r/t acute illness no evidence of hemolysis 1unit of rbc on 04/04, H/H is better Acute diarrhea, Dif positive, patient was treated with Abx prior to hospitalaztion, diarrhea was present before admission and no change in consitent, stool sample was delayed as she was incontient with stool missed with urine all the time until we were able to colect sample and therefore Cdif present on admission. -Continue PO Vanco 4 times a day Acute hypOkalemia -likely 2/2 diarrhea -repleted and corrected [id number] type 2 diabetes -POC glucose, diabetic diet -Humalog on sliding scale -hold metformin hypertension--BP normal with meds on hold HFrEf -no acute exacerbation -EF 35-40% 03/07 [facility] -continue lasix recent Embolic CVA, + now new afib -was on DAPT (ASA and Plavix), statin. Stoping Plavix since eliquis added -now it is clear that source of stroke was likely AFIB unspecified mood disorder -continue home meds, reduced zolpidem dose to 5 mg Dysphagia--[employer] rec chopped + thin liquid DVT prophylaxis- SCPs, eliquis to resume if no procedure planned Full code inpt for overwhelming pneumonia and hypoxia and requires iv abx to preven detelioration and she might need bronchosopy, s/p thoracentesis -patient will need decortication possibly tomorrow due to trapped lung.t Quality Stroke Does the patient have a stroke diagnosis?: No VTE Prior VTE?: No VTE Risk Level:: Medical - moderate - high VTE Device Contraindication: Treatment Not Indicated VTE Drug Contraindication: N/A - Med Ordered
--- NOTE | 2023-04-09 15:25 | P.PNPL_ITS ---
Subjective Subjective Date of Service: 04/09/23 Principal diagnosis: Pneumonia with trapped lung and parapneumonic effusion versus empyema Interval history: Slowly worsening respiratory status despite right-sided chest tube with drainage of approximately 1 L of serosanguineous fluid. Pleural studies pending. Objective Data Labs 04/08/23 13:25 04/09/23 10:49 Labs: Laboratory Results - last 24 hr 04/08/23 04/08/23 04/08/23 17:09 20:24 21:10 Creatinine Estim Creat Clear Calc Estimated GFR POC Glucose 78 120 H Random Vancomycin 15.1 04/09/23 04/09/23 04/09/23 03:03 07:08 10:49 Creatinine 0.81 Estim Creat Clear Calc 68.9 Estimated GFR > 60 POC Glucose 106 110 Random Vancomycin 04/09/23 11:09 Creatinine Estim Creat Clear Calc Estimated GFR POC Glucose 138 H Random Vancomycin Microbiology Microbiology Results: Microbiology 04/05/23 14:15 Thoracentesis Fluid Gram Stain - Final 04/05/23 14:15 Thoracentesis Fluid Anaerobic Culture - Preliminary No growth to date. 04/05/23 14:15 Thoracentesis Fluid Body Fluid Culture - Final No growth after 2 days 04/02/23 14:54 Blood - Venous Blood Culture - Final No growth after 5 days. 04/02/23 14:24 Blood - Venous Blood Culture - Final No growth after 5 days. Review of Systems Cardiovascular: Reports dyspnea Respiratory: Reports cough, Reports excessive phlegm production and Reports dyspnea Physical Exam 2 Vital Signs: Vital Signs: Last Vital Signs Temp 97.3 F 04/09/23 11:11 Pulse 90 04/09/23 11:11 Resp 20 04/09/23 11:11 BP 109/53 L 04/09/23 11:11 Pulse Ox 96 04/09/23 11:11 O2 Del Method Nasal Cannula 04/09/23 11:11 O2 Flow Rate 6 04/09/23 11:11 FiO2 95 04/09/23 05:12 Oxygen Flow Rate 2 04/02/23 13:19 BMI result Body Mass Index 30.3 Const: General: no acute distress, alert and awake Eyes: Sclerae: sclerae normal EOM: EOMs intact bilaterally Neck: Neck: Yes no lymphadenopathy, Yes trachea midline and Yes supple Resp: Effort & Inspection: tachypneic Auscultation: crackles (Right-sided) Cardio: Rate: regular rate Rhythm: regular rhythm Heart sounds: no gallops, no murmurs and no rubs GI: Palpation (GI): Soft to palpation and Other GI palpation findings present ( Nontender) Auscultation: normal bowel sounds Extrem: General: Yes no pedal edema, No clubbing and No cyanosis Procedures Date of Service Date of Service: 04/09/23 Assessment and Plan Assessment and plan (1) Trapped lung: Status: Acute (2) Pleural effusion: Status: Acute (3) Pneumonia: Status: Acute (4) Acute respiratory failure: Status: Acute Plan Impression: 67-year-old lady with worsening right-sided pneumonia with recurrence of right-sided pleural effusion, parapneumonic versus empyema with worsening respiratory status despite placement of right-sided chest tube with drainage of approximately 1 L. Follow-up CT imaging with trapped lung. Recommendations: Agree with current broad-spectrum antibiotics. Trapped lung on CT imaging, requires chemical versus surgical decortication. Time Spent With Patient Time: Total time managing care of this patient today ____ minutes. Progress Note: Quality Stroke Does the patient have a stroke diagnosis?: No
[2023-04-09 16:14] LABS: Glucose, Whole Blood 101 mg/dL (60-115)
[2023-04-09] MEDS: Heparin Sodium,Porcine 5,000 UNIT/ML VIAL 5000 UNIT SUBCUT (16:31)
[2023-04-09 20:34] LABS: Glucose, Whole Blood 187 mg/dL (60-115)
[2023-04-09 23:39] LABS: Strep Pneumo Ag urine Not Detected (Not Detected)
[2023-04-10] VITALS (8 sets, daily range): BP systolic 107–136; BP diastolic 52–63; PULSE 70–84; RESP 17–20; TEMP 36.2–36.7; O2SAT 93–98
[2023-04-10 00:33] LABS: Legionella Ag Urine Not Detected (Not Detected)
[2023-04-10] MEDS: Piperacillin Sodium/Tazobactam 4.5 GM in 0.9 % Sodium Chloride 100 ML IV ×4 (06:12→23:48)
[2023-04-10] MEDS: vancomycin HCL 125 MG CAPSULE PO ×4 (06:16→23:48)
[2023-04-10] MEDS: Metoprolol Tartrate 25 MG TABLET PO ×4 (06:16→23:47)
[2023-04-10] MEDS: Omeprazole 20 MG CAPSULE.DR PO (06:16)
[2023-04-10] MEDS: Morphine Sulfate 2 MG/ML CARTRIDGE IVPUSH ×2 (06:30→20:49)
[2023-04-10 07:27] LABS: Glucose, Whole Blood 112 mg/dL (60-115)
[2023-04-10] MEDS: Ferrous Sulfate 324 MG TABLET.DR PO ×2 (08:24→20:50)
[2023-04-10] MEDS: Cholecalciferol (Vitamin D3) 25 MCG TABLET 50 MCG PO (08:24)
[2023-04-10] MEDS: Magnesium Oxide 400 MG TABLET PO (08:25)
[2023-04-10] MEDS: Empagliflozin 10 MG TABLET PO (08:25)
[2023-04-10] MEDS: guaiFENesin LA 600 MG TAB.ER.12H 1200 MG PO ×2 (08:25→20:50)
[2023-04-10] MEDS: buPROPion HCl XL 300 MG TAB.ER.24H PO (08:25)
[2023-04-10] MEDS: Aspirin 81 MG TAB.CHEW PO (08:26)
[2023-04-10] MEDS: Gabapentin 100 MG CAPSULE PO ×2 (08:26→20:50)
[2023-04-10] MEDS: Atorvastatin Calcium 40 MG TABLET PO (08:26)
[2023-04-10] MEDS: 0.9 % Sodium Chloride Flush 3 ML SYRINGE IVFLUSH ×3 (08:27→16:17)
[2023-04-10] MEDS: Amiodarone HCL 200 MG TABLET 400 MG PO ×2 (08:33→20:49)
[2023-04-10] MEDS: Dextrose 5 % and 0.9 % NaCl 1,000 ML 70 ML IVCONT (08:52)
--- NOTE | 2023-04-10 08:52 | P.PNTS_ITS ---
Subjective Subjective Date of Service: 04/10/23 Interval history: Continues to c/o pain at chest tube site. Physical Exam Vital Signs: Vital Signs: Last Vital Signs Temp 98 F 04/10/23 06:59 Pulse 73 04/10/23 06:59 Resp 17 04/10/23 06:59 BP 107/52 L 04/10/23 06:59 Pulse Ox 96 04/10/23 06:59 O2 Del Method Nasal Cannula 04/10/23 06:59 O2 Flow Rate 5 04/10/23 03:11 FiO2 95 04/09/23 05:12 Oxygen Flow Rate 2 04/02/23 13:19 BMI result Body Mass Index 30.3 Const: General: comfortable, no acute distress and alert Orientation/consciousness: patient oriented x3 Resp: Effort & Inspection: normal respiratory effort, able to speak in complete sentences and no respiratory distress Auscultation: breath sounds absent (right lung ) Skin: General skin exam: no rashes or lesions noted Neuro: General: patient oriented x3 and moves all extremities Procedures Date of Service Date of Service: 04/10/23 Progress Note: A&P Assessment and plan (1) Trapped lung: Status: Acute (2) Pleural effusion: Status: Acute Plan 67-year-old lady with worsening right-sided pneumonia with recurrence of right- sided pleural effusion, chest tube placed 04/08/23, now with trapped lung. Repeat CT scan yesterday showed complete consolidation right lung with air bronchogram and mild loss of volume. Vitals improved today with less respiratory effort and decreasing supplemental O2 needs this morning. Will plan for right thoracotomy, decortication tomorrow. NPO at midnight, CBC/BMP/type and screen in AM. Time Spent With Patient Time: Total time managing care of this patient today ____ minutes. Quality Stroke Does the patient have a stroke diagnosis?: No VTE Prior VTE?: No VTE Risk Level:: Medical - moderate - high VTE Device Contraindication: Treatment Not Indicated VTE Drug Contraindication: N/A - Med Ordered
[2023-04-10 10:12] LABS: Vancomycin Trough 15.3 mcg/mL (10.0-20.0)
--- NOTE | 2023-04-10 10:32 | PM.PNTS ---
Subjective Subjective Date of Service: 04/10/23 Interval history: Please see surgical PA note Physical Exam Vital Signs: Vital Signs: Last Vital Signs Temp 98 F 04/10/23 06:59 Pulse 73 04/10/23 06:59 Resp 17 04/10/23 06:59 BP 107/52 L 04/10/23 06:59 Pulse Ox 96 04/10/23 06:59 O2 Del Method Nasal Cannula 04/10/23 06:59 O2 Flow Rate 5 04/10/23 03:11 FiO2 95 04/09/23 05:12 Oxygen Flow Rate 2 04/02/23 13:19 BMI result Body Mass Index 30.3 Procedures Date of Service Date of Service: 04/10/23 Progress Note: A&P Assessment and plan (1) Trapped lung: Status: Acute (2) Empyema lung: Status: Acute Plan Risks, benefits, and alternatives of open right thoracotomy with empyemectomy and decortication were reviewed with the patient and included but not limited to bleeding, infection, recurrence, numbness, pain, scarring, possible lung resection and the patient wished to proceed. Consent was obtained in presence of nurse. All questions answered. Patient is tentatively scheduled for surgery tomorrow. Time Spent With Patient Time: Total time managing care of this patient today ____ minutes. Quality Stroke Does the patient have a stroke diagnosis?: No VTE Prior VTE?: No VTE Risk Level:: Medical - moderate - high VTE Device Contraindication: Treatment Not Indicated VTE Drug Contraindication: N/A - Med Ordered
[2023-04-10] MEDS: vancomycin HCL 750 MG in 0.9 % Sodium Chloride 250 ML 265 MG IV (10:56)
[2023-04-10 11:49] LABS: Glucose, Whole Blood 167 mg/dL (60-115)
--- NOTE | 2023-04-10 11:57 | P.CNGI_ITS ---
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 Imaging revealed multifocal pneumonia with CT angio of the head/neck showing right hilar lymphadenopathy and hilar mass with confluence multi focal airspace opacities visualized within the right lung as well as multiple pulmonary nodules She was treated with AB and c diff with pos stool testing. Denies any fevers or chills. No sore throat, congestion, nausea, vomiting, melena, hematochezia, lightheadedness, palpitations, or chest pain she did have EGD for dysphagia 01/24 and had emprical balloon dilation, with neg bx for EOE When I went to see her she denied any swallowing issues and said it appeared better. SHe is going for lung decortication tomorrow. Review of Systems 2 Review of Systems: Constitutional : No Weight loss, No Fever, No Chills ENT/Mouth : No sore throat, No Rhinorrhea Eyes: No Swelling, No Redness Cardiovascular : No Chest Pain, No SOB, No Edema Respiratory : mild Cough, No Sputum, No Wheezing Gastrointestinal : see HPI Genitourinary : NO Dysuria, No Urinary Frequency, No Hematuria, No Urgency Musculoskeletal : No joint pain, No Myalgias, No Joint Swelling Skin : No Skin Lesions, No rash Neuro : No Weakness, No Numbness, No Dizziness, No Headache Psych : No Anxiety/Panic, No Depression Heme/Lymph: No Bruising, No Lymphadenopathy Endocrine : No Polyuria, No Polydipsia All other systems reviewed and are negative. [facility] Past Medical History Medical History Pleural effusion Dysphagia Lung mass Former smoker Pulmonary nodule HFrEF (heart failure with reduced ejection fraction) Embolic stroke Diabetes HLD (hyperlipidemia) HTN (hypertension) Lumbar spondylosis Chronic idiopathic constipation GERD (gastroesophageal reflux disease) Family History Family History Father Esophageal cancer Smoker Mother No problems noted. Brother No problems noted. Brother No problems noted. Sister No problems noted. Sister No problems noted. Sister No problems noted. Sister No problems noted. Son No problems noted. Daughter No problems noted. Daughter No problems noted. Daughter No problems noted. Surgical History Surgical History Hx of brain surgery Hx of colonoscopy H/O section History of esophagogastroduodenoscopy (EGD) Social History Social History Household Members: Other Housing: Other Housing Other:: Rehab facility Alcohol intake: never Patient Tobacco Use Status: Former Tobacco user Tobacco use type: Cigarette Smoked in Last 30 Days: No Patient Interested in Nicotine Replacement: No Patient Given Instructions on How to Stop Smoking: No Use of substances other than those prescribed or required for medical reasons: No Currently Displaying Signs/Symptoms of Drug Intoxication Withdrawal: No Any prior treatment program specific to substance use: No Have you been hit, kicked, punched, or otherwise hurt by someone within the past year? If so, by whom?: No Do you feel safe in your current relationship?: Yes Is there a partner from a previous relationship who is making you feel unsafe now?: No Are you made to feel afraid or neglected: No Advance Directives: No Advance Directives Information Provided: No Do you have thoughts of harming others: None Do you have a plan to hurt others: No Plan Recently lost weight without trying: Unsure Eating poorly because of decreased appetite: Yes Nutrition Risks: Difficulty swallowing Patient : No : No Poor oral hygiene: No service: No Current occupational status: disabled Meds Allergies Allergy/AdvReac Type Severity Reaction Status Date / Time peanut [PEANUTS] Allergy Severe THROAT Verified 11/21/22 12:12 SWELLING avocado [AVOCADO] Allergy Intermediate THROAT Verified 11/21/22 12:12 SWELLING colloidal oatmeal Allergy Mild unknown Verified 11/21/22 12:12 ketchup Allergy Mild unknown Verified 11/21/22 12:12 cat dander [CAT DANDER] Allergy Unknown UNKNOWN Verified 11/21/22 12:12 PER H&P Active Medications: Current Medications Acetaminophen (Acetaminophen 325 Mg Tablet) 650 mg PO Q6H PRN PRN Reason: Pain, Mild (Pain Scale 1-3) Last Admin: 04/06/23 20:32 Dose: 650 mg Albuterol/Ipratropium (Albuterol/Iprat 2.5/0.5mg 3 Ml Ampul.Neb) 3 ml INHALE Q4H PRN PRN Reason: Shortness of Breath/Wheezing Last Admin: 04/09/23 03:18 Dose: 3 ml Amiodarone HCl (Amiodarone Hcl 200 Mg Tablet) 400 mg PO BID [facility] Last Admin: 04/10/23 08:33 Dose: 400 mg Aspirin (Aspirin 81 Mg Tab.Chew) 81 mg PO DAILY [facility] Last Admin: 04/10/23 08:26 Dose: 81 mg Atorvastatin Calcium (Atorvastatin Calcium 40 Mg Tablet) 40 mg PO DAILY [facility] Last Admin: 04/10/23 08:26 Dose: 40 mg Bupropion HCl (Bupropion Hcl Xl 300 Mg Tab.Er.24h) 300 mg PO DAILY [facility] Last Admin: 04/10/23 08:25 Dose: 300 mg Dextrose (Dextrose 50 % 25 Gm/50 Ml Syringe) 25 gm IVPUSH Q15M PRN; Protocol PRN Reason: per Hypoglycemia Standing Ord. Empagliflozin (Empagliflozin 10 Mg Tablet) 10 mg PO DAILY [facility] Last Admin: 04/10/23 08:25 Dose: 10 mg Ferrous Sulfate (Ferrous Sulfate 324 Mg Tablet.Dr) 324 mg PO BID [facility] Last Admin: 04/10/23 08:24 Dose: 324 mg Furosemide (Furosemide 20 Mg Tablet) 20 mg PO DAILY [facility]; Protocol Last Admin: 04/09/23 08:27 Dose: 20 mg Gabapentin (Gabapentin 100 Mg Capsule) 100 mg PO BID [facility] Last Admin: 04/10/23 08:26 Dose: 100 mg Glucose (Glucose Gel 15 Gm Gel..Gram.) 15 gm PO Q15M PRN; Protocol PRN Reason: per Hypoglycemia Standing Ord. Guaifenesin (Guaifenesin La 600 Mg Tab.Er.12h) 1,200 mg PO Q12H [facility] Last Admin: 04/10/23 08:25 Dose: 1,200 mg Heparin Sodium (Porcine) (Heparin Sodium,Porcine 5,000 Unit/Ml Vial) 5,000 unit SUBCUT Q12H [facility] Last Admin: 04/10/23 06:18 Dose: Not Given Piperacillin Sod/Tazobactam (Sod 4.5 gm/ Sodium Chloride) 100 mls @ 200 mls/hr IV Q6H [facility] Last Infusion: 04/10/23 06:42 Dose: Infused Vancomycin HCl 750 mg/ Sodium (Chloride) 265 mls @ 265 mls/hr IV Q12H [facility] Last Admin: 04/10/23 10:56 Dose: 265 mls/hr Dextrose/Sodium Chloride (D5ns) 1,000 mls @ 70 mls/hr IVCONT .[id number] [facility] Last Infusion: 04/10/23 10:42 Dose: 0 mls/hr Insulin Human Lispro (Insulin Lispro 100 Unit/Ml 3 Ml Vial) 0 unit SUBCUT QIDACHS [facility]; Protocol Last Admin: 04/10/23 07:29 Dose: Not Given Magnesium Oxide (Magnesium Oxide 400 Mg Tablet) 400 mg PO DAILY [facility] Last Admin: 04/10/23 08:25 Dose: 400 mg Metoprolol Tartrate (Metoprolol Tartrate 25 Mg Tablet) 25 mg PO Q6H [facility]; Protocol Last Admin: 04/10/23 10:49 Dose: 25 mg Morphine Sulfate (Morphine Sulfate 2 Mg/Ml Cartridge) 2 mg IVPUSH Q4H PRN; Protocol PRN Reason: Pain, Severe (Pain Scale 7-10) Last Admin: 04/10/23 06:30 Dose: 2 mg Omeprazole (Omeprazole 20 Mg Capsule.Dr) 20 mg PO DAILY@0630 [facility] Last Admin: 04/10/23 06:16 Dose: 20 mg Ondansetron HCl (Ondansetron Hcl 4 Mg/2 Ml Vial) 4 mg IVPUSH Q8H PRN PRN Reason: Nausea and Vomiting Oxycodone HCl (Oxycodone Hcl Immed Release 5 Mg Tablet) 5 mg PO Q4H PRN PRN Reason: Pain, Moderate(Pain Scale 4-6) Last Admin: 04/09/23 02:24 Dose: 5 mg Pharmacy Consult (Consult Rx Vancomycin Dosing) 1 each MISCELLANE DAILY PRN PRN Reason: Consult order Senna (Sennosides 8.6 Mg Tablet) 17.2 mg PO BEDTIME PRN PRN Reason: Constipation Sodium Chloride (0.9 % Sodium Chloride Flush 3 Ml Syringe) 3 ml IVFLUSH QSHIFT [facility] Last Admin: 04/10/23 08:27 Dose: 3 ml Valsartan (Valsartan 40 Mg Tablet) 40 mg PO BID [facility]; Protocol Last Admin: 04/09/23 21:37 Dose: 40 mg Vancomycin HCl (Vancomycin Hcl 125 Mg Capsule) 125 mg PO Q6H [facility] Last Admin: 04/10/23 06:16 Dose: 125 mg Vitamin D (Cholecalciferol (Vitamin D3) 25 Mcg Tablet) 50 mcg PO DAILY [facility] Last Admin: 04/10/23 08:24 Dose: 50 mcg Zolpidem Tartrate (Zolpidem Tartrate 5 Mg Tablet) 5 mg PO BEDTIME PRN PRN Reason: Insomnia Last Admin: 04/07/23 21:50 Dose: 5 mg Home Medications Medication Instructions Recorded Confirmed Last Taken Type atorvastatin 40 mg tablet 40 mg PO DAILY 07/20/22 04/02/23 Unknown History bupropion HCl 300 mg 24 hr tablet, 300 mg PO DAILY 07/20/22 04/02/23 Unknown History extended release clonazepam 1 mg tablet 1 mg PO BID 07/20/22 04/02/23 Unknown History metformin 500 mg tablet 500 mg PO BID 07/20/22 04/02/23 10/04/22 History zolpidem 10 mg tablet 10 mg PO BEDTIME PRN Insomnia 07/20/22 04/02/23 Unknown History Lactobacillus acidoph-L.bulgaricus 4 tab PO TID 04/02/23 04/02/23 Unknown History 1 million cell tablet (Floranex) aspirin 81 mg chewable tablet 81 mg PO DAILY 04/02/23 04/02/23 Unknown History cholecalciferol (vitamin D3) 50 50 mcg PO DAILY 04/02/23 04/02/23 Unknown History mcg (2,000 unit) tablet clopidogrel 75 mg tablet (Plavix) 75 mg PO DAILY 04/02/23 04/02/23 Unknown History dapagliflozin propanediol 10 mg 10 mg PO DAILY 04/02/23 04/02/23 Unknown History tablet ferrous sulfate 325 mg (65 mg 325 mg PO BID 04/02/23 04/02/23 Unknown History iron) tablet,delayed release furosemide 20 mg tablet 20 mg PO DAILY 04/02/23 04/02/23 Unknown History guaifenesin 1,200 mg tablet, 1,200 mg PO Q12H 04/02/23 04/02/23 Unknown History extended release 12 hr magnesium oxide 400 mg PO DAILY 04/02/23 04/02/23 Unknown History metoprolol tartrate 25 mg tablet 25 mg PO BID 04/02/23 04/02/23 Unknown History omeprazole 20 mg capsule,delayed 20 mg PO DAILY 04/02/23 04/02/23 Unknown History release Physical Exam 2 Vital Signs: Vital Signs: Last Vital Signs Temp 97.7 F 04/10/23 11:11 Pulse 83 04/10/23 11:11 Resp 17 04/10/23 11:11 BP 117/58 L 04/10/23 11:11 Pulse Ox 93 04/10/23 11:11 O2 Del Method Nasal Cannula 04/10/23 11:11 O2 Flow Rate 5 04/10/23 03:11 FiO2 95 04/09/23 05:12 Oxygen Flow Rate 2 04/02/23 13:19 BMI result Body Mass Index 30.3 EXAM: GENERAL: The patient is well developed and nontoxic. VITAL SIGNS:see workflow HEENT: Nonicteric sclerae, PERRLA, EOMI. Oropharynx clear. Moist mucous membranes. Conjunctivae appear well perfused. No thyroid mass. CHEST: Chest wall is nontender. HEART: Regular rate and rhythm without murmurs. LUNGS: Clear to auscultation bilaterally. ABDOMEN: Soft, positive bowel sounds, nontender, no organomegaly.no flank tenderness SKIN: No rash, no excessive bruising, petechiae, or purpura. NEUROLOGIC: Cranial nerves II-XII intact without motor/sensory deficit. Psych: Appearance: grossly normal Results Labs 04/08/23 13:25 04/09/23 10:49 Microbiology Microbiology Results: Microbiology 04/05/23 14:15 Thoracentesis Fluid Gram Stain - Final 04/05/23 14:15 Thoracentesis Fluid Anaerobic Culture - Final NO GROWTH AFTER 5 DAYS 04/05/23 14:15 Thoracentesis Fluid Body Fluid Culture - Final No growth after 2 days 04/02/23 14:54 Blood - Venous Blood Culture - Final No growth after 5 days. 04/02/23 14:24 Blood - Venous Blood Culture - Final No growth after [address] scan - chest: Attestation: I personally reviewed and interpreted this imaging study as follows: (right sided effusion, cardiomegaly ) Assessment and Plan (1) Dysphagia: Qualifiers: Dysphagia type: unspecified Qualified Code(s): R13.10 - Dysphagia, unspecified Status: Acute Plan 1/ Dysphagia, possible aspiration concern, might be related to prior CVA, paraneoplastic effect given concern for possible lung neoplasia as well PLAN: 1/ She is going for decortication tomorrow, after that can plan for Ba swallow with pill study, depending on this can decide on EGD vs MBS. follow SALT recs in the meatime as doing. 2/ cont with PPI \ 3/ check anti neuronal ab Procedures Date of Service Date of Service: 04/10/23
[2023-04-10] MEDS: Insulin Lispro 100 UNIT/ML 3 ML VIAL SUBCUT (12:17)
--- NOTE | 2023-04-10 12:47 | MHC.CM.PN ---
Pt not yet ready for DC. DC plan is to return to [facility] in [facility], where she was for STR prior to hospitalization. CM to follow and assist with DC plan.
--- NOTE | 2023-04-10 15:37 | MHC.SL.SWA ---
Risk of Aspiration Due to: Neurological Condition History of Pneumonia Dysphasia Diet Status: No change Liquid Consistency and Strategies for Safe Swallow: Liquid Intake Recommendation: Thin Liquid Intake Strategies: Small Sips Solid Food Consistency: Dietary Recommendations: Regular Additional Modifications to Solid Foods: Patient would benefit from direct supervision during her meals to monitor for any clinical signs of aspiration or any difficulty. Oral Medication Intake: Whole with Puree Please contact the pharmacy regarding appropriate crushable or liquid drug formulations that are available whenever modified delivery is recommended. Compensatory Strategies and Precautions to be Taken for Safe Swallow: Sitting Upright (90 deg) Double Swallow Small Bites and Sips Alternate Liquids/Solids Rate of Ingestion Change Avoid Specific Foods Supervision While Eating and Drinking for Safe Swallow: Total Supervision (1:1) Foods to Avoid: Difficult to chew solids. Swallowing Recommended Treatments: Compens. Strategy Educat. Recommendation for Speech: Inpatient Speech Therapy Recommend patient continue with regular solids and thin liquids. Potential concern for silent aspiration w/ recent weight loss and R lung imaging. However, GI consult and testing is recommended prior to any TICK ERADICATOR instrumental examination (i.e. MBS). Java Developer Analyst Clinican/Clinical Fellow: No Supervisory Statement: I have reviewed and agree with the student/clinical fellow's documentation: N/A Speech Language Pathologist: Sarita Kingsley M.A., CCC-TICK ERADICATOR
[2023-04-10 15:49] LABS: Glucose, Whole Blood 104 mg/dL (60-115)
--- NOTE | 2023-04-10 17:16 | P.PNIM_ITS ---
Subjective Subjective Date of Service: 04/10/23 Interval History: f/u on PNA with effusion, Cdif and new AFIB Review of Systems sob and diarrhae somewhat improving no fever oxygen demand somewhat improving Physical Exam 2 Vital Signs: Vital Signs: Last Vital Signs Temp 97.2 F 04/10/23 15:21 Pulse 70 04/10/23 15:21 Resp 18 04/10/23 15:21 BP 122/57 L 04/10/23 15:21 Pulse Ox 95 04/10/23 15:21 O2 Del Method Nasal Cannula 04/10/23 15:21 O2 Flow Rate 4 04/10/23 15:21 FiO2 95 04/09/23 05:12 Oxygen Flow Rate 2 04/02/23 13:19 BMI result Body Mass Index 30.3 General: AO X 3, no acute distress Resp:: air entry diminshed significantly right >left CVS: S1,S2,RRR GI: +BS, NT, no distention Skin: No rash Neuro: motor grossly intact Psych: appropriate affect Objective Data Active Medications Acetaminophen (Acetaminophen 325 Mg Tablet) 650 mg PO Q6H PRN PRN Reason: Pain, Mild (Pain Scale 1-3) Last Admin: 04/06/23 20:32 Dose: 650 mg Documented By: ROSALEE Albuterol/Ipratropium (Albuterol/Iprat 2.5/0.5mg 3 Ml Ampul.Neb) 3 ml INHALE Q4H PRN PRN Reason: Shortness of Breath/Wheezing Last Admin: 04/09/23 03:18 Dose: 3 ml Documented By: ORTIZ Amiodarone HCl (Amiodarone Hcl 200 Mg Tablet) 400 mg PO BID [facility] Last Admin: 04/10/23 08:33 Dose: 400 mg Documented By: SMITHA Aspirin (Aspirin 81 Mg Tab.Chew) 81 mg PO DAILY [facility] Last Admin: 04/10/23 08:26 Dose: 81 mg Documented By: SMITHA Atorvastatin Calcium (Atorvastatin Calcium 40 Mg Tablet) 40 mg PO DAILY [facility] Last Admin: 04/10/23 08:26 Dose: 40 mg Documented By: SMITHA Bupropion HCl (Bupropion Hcl Xl 300 Mg Tab.Er.24h) 300 mg PO DAILY [facility] Last Admin: 04/10/23 08:25 Dose: 300 mg Documented By: SMITHA Dextrose (Dextrose 50 % 25 Gm/50 Ml Syringe) 25 gm IVPUSH Q15M PRN; Protocol PRN Reason: per Hypoglycemia Standing Ord. Empagliflozin (Empagliflozin 10 Mg Tablet) 10 mg PO DAILY [facility] Last Admin: 04/10/23 08:25 Dose: 10 mg Documented By: SMITHA Ferrous Sulfate (Ferrous Sulfate 324 Mg Tablet.Dr) 324 mg PO BID [facility] Last Admin: 04/10/23 08:24 Dose: 324 mg Documented By: SMITHA Furosemide (Furosemide 20 Mg Tablet) 20 mg PO DAILY [facility]; Protocol Last Admin: 04/09/23 08:27 Dose: 20 mg Documented By: BJ Gabapentin (Gabapentin 100 Mg Capsule) 100 mg PO BID [facility] Last Admin: 04/10/23 08:26 Dose: 100 mg Documented By: SMITHA Glucose (Glucose Gel 15 Gm Gel..Gram.) 15 gm PO Q15M PRN; Protocol PRN Reason: per Hypoglycemia Standing Ord. Guaifenesin (Guaifenesin La 600 Mg Tab.Er.12h) 1,200 mg PO Q12H [facility] Last Admin: 04/10/23 08:25 Dose: 1,200 mg Documented By: SMITHA Heparin Sodium (Porcine) (Heparin Sodium,Porcine 5,000 Unit/Ml Vial) 5,000 unit SUBCUT Q12H [facility] Last Admin: 04/10/23 16:14 Dose: Not Given Documented By: SMITHA Non-Admin Reason: Physician Held Med Piperacillin Sod/Tazobactam (Sod 4.5 gm/ Sodium Chloride) 100 mls @ 200 mls/hr IV Q6H [facility] Last Infusion: 04/10/23 12:52 Dose: Infused Documented By: SMITHA Vancomycin HCl 750 mg/ Sodium (Chloride) 265 mls @ 265 mls/hr IV Q12H [facility] Last Infusion: 04/10/23 12:20 Dose: Infused Documented By: SMITHA Dextrose/Sodium Chloride (D5ns) 1,000 mls @ 70 mls/hr IVCONT .[id number] [facility] Last Infusion: 04/10/23 10:42 Dose: 0 mls/hr Documented By: SMITHA Insulin Human Lispro (Insulin Lispro 100 Unit/Ml 3 Ml Vial) 0 unit SUBCUT QIDACHS [facility]; Protocol Last Admin: 04/10/23 15:49 Dose: Not Given Documented By: SMITHA Non-Admin Reason: No Insulin Coverage Magnesium Oxide (Magnesium Oxide 400 Mg Tablet) 400 mg PO DAILY [facility] Last Admin: 04/10/23 08:25 Dose: 400 mg Documented By: SMITHA Metoprolol Tartrate (Metoprolol Tartrate 25 Mg Tablet) 25 mg PO Q6H [facility]; Protocol Last Admin: 04/10/23 16:17 Dose: 25 mg Documented By: SMITHA Morphine Sulfate (Morphine Sulfate 2 Mg/Ml Cartridge) 2 mg IVPUSH Q4H PRN; Protocol PRN Reason: Pain, Severe (Pain Scale 7-10) Last Admin: 04/10/23 06:30 Dose: 2 mg Documented By: ROSALEE Omeprazole (Omeprazole 20 Mg Capsule.Dr) 20 mg PO DAILY@0630 [facility] Last Admin: 04/10/23 06:16 Dose: 20 mg Documented By: ROSALEE Ondansetron HCl (Ondansetron Hcl 4 Mg/2 Ml Vial) 4 mg IVPUSH Q8H PRN PRN Reason: Nausea and Vomiting Oxycodone HCl (Oxycodone Hcl Immed Release 5 Mg Tablet) 5 mg PO Q4H PRN PRN Reason: Pain, Moderate(Pain Scale 4-6) Last Admin: 04/09/23 02:24 Dose: 5 mg Documented By: IMELDA Pharmacy Consult (Consult Rx Vancomycin Dosing) 1 each MISCELLANE DAILY PRN PRN Reason: Consult order Senna (Sennosides 8.6 Mg Tablet) 17.2 mg PO BEDTIME PRN PRN Reason: Constipation Sodium Chloride (0.9 % Sodium Chloride Flush 3 Ml Syringe) 3 ml IVFLUSH QSHIFT [facility] Last Admin: 04/10/23 16:17 Dose: 3 ml Documented By: SMITHA Valsartan (Valsartan 40 Mg Tablet) 40 mg PO BID [facility]; Protocol Last Admin: 04/09/23 21:37 Dose: 40 mg Documented By: ROSALEE Vancomycin HCl (Vancomycin Hcl 125 Mg Capsule) 125 mg PO Q6H [facility] Last Admin: 04/10/23 12:22 Dose: 125 mg Documented By: SMITHA Vitamin D (Cholecalciferol (Vitamin D3) 25 Mcg Tablet) 50 mcg PO DAILY [facility] Last Admin: 04/10/23 08:24 Dose: 50 mcg Documented By: SMITHA Zolpidem Tartrate (Zolpidem Tartrate 5 Mg Tablet) 5 mg PO BEDTIME PRN PRN Reason: Insomnia Last Admin: 04/07/23 21:50 Dose: 5 mg Documented By: MEHULSU Labs 04/08/23 13:25 04/09/23 10:49 Labs: Laboratory Results - last 24 hr 04/04/23 04/09/23 04/10/23 23:05 20:30 07:23 POC Glucose 187 H 112 Vancomycin Trough Ur L.pneumophila Ag Not Detected Ur Strep pneumoniae Ag Not Detected 04/10/23 04/10/23 04/10/23 09:47 11:15 15:27 POC Glucose 167 H 104 Vancomycin Trough 15.3 Ur L.pneumophila Ag Ur Strep pneumoniae Ag Microbiology Microbiology Results: Microbiology 04/05/23 14:15 Gram Stain - Final Thoracentesis Fluid Anaerobic Culture - Final NO GROWTH AFTER 5 DAYS Body Fluid Culture - Final No growth after 2 days Assessment and Plan (1) Trapped lung: Status: Acute (2) Pneumonia: Status: Acute Plan 67-year-old female with history of [id number] type 2 diabetes, hypertension, hyperlipidemia, recent embolic CVA with hospitalization at [facility] from 03/06-03/11 now on DAPT, mood disorder unspecified, former smoker admitted for further management of severe pneumonia with sepsis and acute hypoxemic respiratory failure. paroxysmal AFIB (PAF)noted this morning Severe multifocal pneumonia with possible necrosis/abscess and Parapneumonic effusion recently hospitalized [facility] 03/06-03/11 for CVA, multifocal pneumonia treated with IV ctx ?underlying malignancy given unintentional weight loss (8kg last 5 months) vs possible aspirarion relaated pneumonia MRSA nasal screen negative,effusion culture so far negative CXR 04/07 showed near complete opacification of right side Ct chest 04/09:1. Complete consolidation right lung with air bronchogram and mild loss of volume resulting in ipsilateral mediastinal shift. There are multiple ill-defined opacities throughout the left lung suggestive of developing patchy infiltrates or metastatic process. Trace right pleural effusion. There is a right chest catheter along the lung bases in good position. vanco trough 15.3 (04/10/23) continue Zosyn + Vanco started 04/02/23, incentive spirometry, chest physiotherapy,nebs,oxygen demad slowly improving to 4 liters pulm and surgery follow up- may need decortication due to trap lung. keep npo past midnight acute hypoxemic respiratory failure d/t above -continue supplemental O2 to maintain oximetry >92% PAF--no prior documentation of AFIB, started on Metoprolol 25 q6, amiodarone 400 bid and eliquis added but on hold for possible procedure today and resume promptly Acute on chronic normocytic anemia, [place] [facility] [place] 9 -stool occult blood negative ?r/t acute illness no evidence of hemolysis 1unit of rbc on 04/04, H/H is better Acute diarrhea, Dif positive, patient was treated with Abx prior to hospitalaztion, diarrhea was present before admission and no change in consitent, stool sample was delayed as she was incontient with stool missed with urine all the time until we were able to colect sample and therefore Cdif present on admission. diarrhae improving -Continue PO Vanco 4 times a day Acute hypOkalemia -likely 2/2 diarrhea -repleted and corrected [id number] type 2 diabetes -POC glucose, diabetic diet -Humalog on sliding scale -hold metformin hypertension--BP normal with meds on hold HFrEf -no acute exacerbation -EF 35-40% 03/07 [facility] [place] lasix recent Embolic CVA, + now new afib -was on DAPT (ASA and Plavix), statin. Stoping Plavix since eliquis added -now it is clear that source of stroke was likely AFIB unspecified mood disorder -continue home meds, reduced zolpidem dose to 5 mg Dysphagia--PATHOLOGY TECH rec chopped + thin liquid seen by Gi-recomended further Gi workup after lung surgery DVT prophylaxis- SCPs, eliquis to resume if no procedure planned Full code inpt for overwhelming pneumonia and hypoxia and requires iv abx to preven detelioration and she might need bronchosopy, s/p thoracentesis -patient will need decortication possibly tomorrow due to trapped lung. Quality Stroke Does the patient have a stroke diagnosis?: No VTE Prior VTE?: No VTE Risk Level:: Medical - moderate - high VTE Device Contraindication: Treatment Not Indicated VTE Drug Contraindication: N/A - Med Ordered
[2023-04-10] MEDS: Albuterol/Iprat 2.5/0.5MG 3 ML AMPUL.NEB INHALE (19:40)
[2023-04-10 20:42] LABS: Glucose, Whole Blood 165 mg/dL (60-115)
[2023-04-11] VITALS (33 sets, daily range): BP systolic 70–151; BP diastolic 36–75; PULSE 70–120; RESP 12–28; TEMP 32–37.1; O2SAT 91–100
[2023-04-11] MEDS: vancomycin HCL 750 MG in 0.9 % Sodium Chloride 250 ML 265 MG IV (00:55)
[2023-04-11] MEDS: Piperacillin Sodium/Tazobactam 4.5 GM in 0.9 % Sodium Chloride 100 ML IV ×3 (05:46→23:17)
[2023-04-11] MEDS: Metoprolol Tartrate 25 MG TABLET PO (05:46)
[2023-04-11] MEDS: Omeprazole 20 MG CAPSULE.DR PO (05:46)
[2023-04-11] MEDS: vancomycin HCL 125 MG CAPSULE PO (05:47)
[2023-04-11 07:27] LABS: Glucose, Whole Blood 110 mg/dL (60-115)
[2023-04-11] MEDS: Atorvastatin Calcium 40 MG TABLET PO (07:44)
[2023-04-11] MEDS: guaiFENesin LA 600 MG TAB.ER.12H 1200 MG PO (07:44)
[2023-04-11] MEDS: Gabapentin 100 MG CAPSULE PO (07:44)
[2023-04-11] MEDS: Ferrous Sulfate 324 MG TABLET.DR PO (07:44)
[2023-04-11] MEDS: Empagliflozin 10 MG TABLET PO (07:44)
[2023-04-11] MEDS: buPROPion HCl XL 300 MG TAB.ER.24H PO (07:44)
[2023-04-11] MEDS: Cholecalciferol (Vitamin D3) 25 MCG TABLET 50 MCG PO (07:44)
[2023-04-11] MEDS: Amiodarone HCL 200 MG TABLET 400 MG PO ×2 (07:45→20:57)
[2023-04-11] MEDS: Magnesium Oxide 400 MG TABLET PO (07:45)
[2023-04-11] MEDS: 0.9 % Sodium Chloride Flush 3 ML SYRINGE IVFLUSH ×4 (07:45→22:06)
[2023-04-11 07:46] LABS: MANUAL DIFF FLAG NO
[2023-04-11 07:49] LABS: Basophils Percent Auto 0.3 % (0-2); Eosinophils Absolute Auto 0.6 X10*3/uL (0.0-0.4); Eosinophils Percent Auto 6.5 % (0-4); Hematocrit 27.3 % (37.0-47.0); Hemoglobin 8.2 g/dl (12.0-16.0); Imm Gran Abs Auto 0.03 X10*3/uL (0.00-0.03); Imm Gran Pct Auto 0.3 % (0.0-0.4); Lymphocytes Absolute Auto 0.4 X10*3/uL (1.2-4.9); Lymphocytes Percent Auto 4.2 % (20-40); Mean Corpuscular Hemoglobin 25.8 pg (27.0-33.0); Mean Corpuscular Volume 85.8 fL (80.0-98.0); Mean Platelet Volume 9.7 fL (9.4-12.3); Monocytes Absolute Auto 0.6 X10*3/uL (0.1-1.2); Monocytes Percent Auto 6.2 % (2-11); Neutrophils Absolute Auto 7.8 x10*3/uL (2.0-8.3); Neutrophils Percent Auto 82.5 % (45-73); Platelet Count 332 X10*3/uL (160-400); Red Blood Count 3.18 X10*6/uL (4.20-5.50); Red Cell Distribution Width 15.5 % (11.0-16.0); White Blood Count 9.5 X10*3/uL (4.8-10.8)
[2023-04-11] MEDS: Acetaminophen 325 MG TABLET 650 MG PO (07:55)
[2023-04-11 08:07] LABS: Blood Urea Nitrogen 11 mg/dL (9-16); Calcium 8.7 mg/dL (8.4-10.2); Creatinine Clr Calc Pharmacy 85.9; Estimated Glomerular Filt Rate > 60; Glucose Fasting 104 mg/dL (60-99)
[2023-04-11 08:13] LABS: Anion Gap 11 (12-20)
[2023-04-11 08:20] LABS: Carbon Dioxide 34 mmol/L (22-29); Chloride 103 mmol/L (96-108); Potassium 2.8 mmol/L (3.3-5.1); Sodium 145 mmol/L (135-145)
[2023-04-11] MEDS: Potassium Chloride/H20 10 MEQ/100 ML PIGGYBACK 100 MEQ IV ×4 (09:24→14:10)
--- NOTE | 2023-04-11 09:46 | PC.NURSE ---
MD ESPINOZA AND MD TRUJILLO AWARE OF THE LOW POTASSIUM.
--- NOTE | 2023-04-11 10:21 | PC.NURSE ---
RIGHT FOREARM 20G IV NO LEAKING ASYMPTIOMATIC. FLUSEHD WITH NS. LEFT LOWER FOREARM 20G INFUSING WITH POTASSIUM. NO LEAKING. ASYMPTOMATIC.
--- NOTE | 2023-04-11 12:30 | P.CONAN_ITS ---
HPI - Anesthesia Eval Consult details Narrative: 67 yo F admitted with hypoxic respiratory failure, empyrma, and a trapped right lung. Now presenting for right thoracotomy. [facility] Active Problems Active Problems: All Active Problems (Updated 04/10/23 @ 10:33 by Hoang Flores MD) Empyema lung (Acute) Trapped lung (Acute) Paroxysmal atrial fibrillation (Acute) Pleural effusion (Acute) Pneumonia (Acute) Acute respiratory failure (Acute) Dysphagia (Acute) Lung mass (Acute) Diarrhea (Acute) Acute hypoxemic respiratory failure (Acute) Sepsis (Acute) Severe pneumonia (Acute) Chronic idiopathic constipation (Acute) Pre-op examination (Acute) Lumbar radicular pain (Acute) Hamstring tendinitis of right thigh (Acute) Numbness and tingling of right leg (Acute) Right thigh pain (Acute) Boil of lower extremity (Acute) Furuncle of extremity (Acute) Spondylosis of lumbar region without myelopathy or radiculopathy (Acute) Right hip pain (Acute) Right knee pain (Acute) Tubular adenoma of colon (Acute) Acute sore throat (Acute) Abdominal bloating (Acute) Oropharyngeal dysphagia (Acute) Chronic superficial gastritis (Acute) Past Medical History Medical History Pleural effusion Dysphagia Lung mass Former smoker Pulmonary nodule HFrEF (heart failure with reduced ejection fraction) Embolic stroke Diabetes HLD (hyperlipidemia) HTN (hypertension) Lumbar spondylosis Chronic idiopathic constipation GERD (gastroesophageal reflux disease) Family History Family History Father Esophageal cancer Smoker Mother No problems noted. Brother No problems noted. Brother No problems noted. Sister No problems noted. Sister No problems noted. Sister No problems noted. Sister No problems noted. Son No problems noted. Daughter No problems noted. Daughter No problems noted. Daughter No problems noted. Family history of problems with anesthesia: No Surgical History Surgical History Hx of brain surgery Hx of colonoscopy H/O section History of esophagogastroduodenoscopy (EGD) History of Problems with Anesthesia: No Social History Social History Household Members: Other Housing: Other Housing Other:: Rehab facility Alcohol intake: never Comment: counts correct Patient Tobacco Use Status: Former Tobacco user Tobacco use type: Cigarette Smoked in Last 30 Days: No Patient Interested in Nicotine Replacement: No Patient Given Instructions on How to Stop Smoking: No Use of substances other than those prescribed or required for medical reasons: No Currently Displaying Signs/Symptoms of Drug Intoxication Withdrawal: No Any prior treatment program specific to substance use: No Have you been hit, kicked, punched, or otherwise hurt by someone within the past year? If so, by whom?: No Do you feel safe in your current relationship?: Yes Is there a partner from a previous relationship who is making you feel unsafe now?: No Are you made to feel afraid or neglected: No Are you DNR?: No Advance Directives: No Advance Directives Information Provided: No Do you have thoughts of harming others: None Do you have a plan to hurt others: No Plan Recently lost weight without trying: Unsure Eating poorly because of decreased appetite: Yes Nutrition Risks: Difficulty swallowing Patient : No : No Poor oral hygiene: No service: No Current occupational status: disabled Meds Allergies Allergy/AdvReac Type Severity Reaction Status Date / Time peanut [PEANUTS] Allergy Severe THROAT Verified 11/21/22 12:12 SWELLING avocado [AVOCADO] Allergy Intermediate THROAT Verified 11/21/22 12:12 SWELLING colloidal oatmeal Allergy Mild unknown Verified 11/21/22 12:12 ketchup Allergy Mild unknown Verified 11/21/22 12:12 cat dander [CAT DANDER] Allergy Unknown UNKNOWN Verified 11/21/22 12:12 PER H&P Active Medications: Current Medications Acetaminophen (Acetaminophen 325 Mg Tablet) 650 mg PO Q6H PRN PRN Reason: Pain, Mild (Pain Scale 1-3) Last Admin: 04/11/23 07:55 Dose: 650 mg Albuterol/Ipratropium (Albuterol/Iprat 2.5/0.5mg 3 Ml Ampul.Neb) 3 ml INHALE Q4H PRN PRN Reason: Shortness of Breath/Wheezing Last Admin: 04/10/23 19:40 Dose: 3 ml Amiodarone HCl (Amiodarone Hcl 200 Mg Tablet) 400 mg PO BID CICI Last Admin: 04/11/23 07:45 Dose: 400 mg Aspirin (Aspirin 81 Mg Tab.Chew) 81 mg PO DAILY [facility] Last Admin: 04/10/23 08:26 Dose: 81 mg Atorvastatin Calcium (Atorvastatin Calcium 40 Mg Tablet) 40 mg PO DAILY [facility] Last Admin: 04/11/23 07:44 Dose: 40 mg Bupropion HCl (Bupropion Hcl Xl 300 Mg Tab.Er.24h) 300 mg PO DAILY [facility] Last Admin: 04/11/23 07:44 Dose: 300 mg Dextrose (Dextrose 50 % 25 Gm/50 Ml Syringe) 25 gm IVPUSH Q15M PRN; Protocol PRN Reason: per Hypoglycemia Standing Ord. Empagliflozin (Empagliflozin 10 Mg Tablet) 10 mg PO DAILY [facility] Last Admin: 04/11/23 07:44 Dose: 10 mg Ferrous Sulfate (Ferrous Sulfate 324 Mg Tablet.Dr) 324 mg PO BID [facility] Last Admin: 04/11/23 07:44 Dose: 324 mg Furosemide (Furosemide 20 Mg Tablet) 20 mg PO DAILY [facility]; Protocol Last Admin: 04/09/23 08:27 Dose: 20 mg Gabapentin (Gabapentin 100 Mg Capsule) 100 mg PO BID [facility] Last Admin: 04/11/23 07:44 Dose: 100 mg Glucose (Glucose Gel 15 Gm Gel..Gram.) 15 gm PO Q15M PRN; Protocol PRN Reason: per Hypoglycemia Standing Ord. Guaifenesin (Guaifenesin La 600 Mg Tab.Er.12h) 1,200 mg PO Q12H [facility] Last Admin: 04/11/23 07:44 Dose: 1,200 mg Heparin Sodium (Porcine) (Heparin Sodium,Porcine 5,000 Unit/Ml Vial) 5,000 unit SUBCUT Q12H [facility] Last Admin: 04/10/23 16:14 Dose: Not Given Piperacillin Sod/Tazobactam (Sod 4.5 gm/ Sodium Chloride) 100 mls @ 200 mls/hr IV Q6H [facility] Last Admin: 04/11/23 13:33 Dose: Not Given Vancomycin HCl 750 mg/ Sodium (Chloride) 265 mls @ 265 mls/hr IV Q12H [facility] Last Admin: 04/11/23 13:30 Dose: Not Given Insulin Human Lispro (Insulin Lispro 100 Unit/Ml 3 Ml Vial) 0 unit SUBCUT QIDACHS [facility]; Protocol Last Admin: 04/11/23 13:12 Dose: Not Given Magnesium Oxide (Magnesium Oxide 400 Mg Tablet) 400 mg PO DAILY [facility] Last Admin: 04/11/23 07:45 Dose: 400 mg Metoprolol Tartrate (Metoprolol Tartrate 25 Mg Tablet) 25 mg PO Q6H [facility]; Protocol Last Admin: 04/11/23 13:30 Dose: Not Given Morphine Sulfate (Morphine Sulfate 2 Mg/Ml Cartridge) 2 mg IVPUSH Q4H PRN; Protocol PRN Reason: Pain, Severe (Pain Scale 7-10) Last Admin: 04/10/23 20:49 Dose: 2 mg Omeprazole (Omeprazole 20 Mg Capsule.Dr) 20 mg PO DAILY@0630 [facility] Last Admin: 04/11/23 05:46 Dose: 20 mg Ondansetron HCl (Ondansetron Hcl 4 Mg/2 Ml Vial) 4 mg IVPUSH Q8H PRN PRN Reason: Nausea and Vomiting Oxycodone HCl (Oxycodone Hcl Immed Release 5 Mg Tablet) 5 mg PO Q4H PRN PRN Reason: Pain, Moderate(Pain Scale 4-6) Last Admin: 04/09/23 02:24 Dose: 5 mg Pharmacy Consult (Consult Rx Vancomycin Dosing) 1 each MISCELLANE DAILY PRN PRN Reason: Consult order Senna (Sennosides 8.6 Mg Tablet) 17.2 mg PO BEDTIME PRN PRN Reason: Constipation Sodium Chloride (0.9 % Sodium Chloride Flush 3 Ml Syringe) 3 ml IVFLUSH QSHIFT [facility] Last Admin: 04/11/23 07:45 Dose: 3 ml Valsartan (Valsartan 40 Mg Tablet) 40 mg PO BID [facility]; Protocol Last Admin: 04/09/23 21:37 Dose: 40 mg Vancomycin HCl (Vancomycin Hcl 125 Mg Capsule) 125 mg PO Q6H [facility] Last Admin: 04/11/23 15:01 Dose: Not Given Vitamin D (Cholecalciferol (Vitamin D3) 25 Mcg Tablet) 50 mcg PO DAILY [facility] Last Admin: 04/11/23 07:44 Dose: 50 mcg Zolpidem Tartrate (Zolpidem Tartrate 5 Mg Tablet) 5 mg PO BEDTIME PRN PRN Reason: Insomnia Last Admin: 04/07/23 21:50 Dose: 5 mg Home Medications Medication Instructions Recorded Confirmed Last Taken Type atorvastatin 40 mg tablet 40 mg PO DAILY 07/20/22 04/02/23 Unknown History bupropion HCl 300 mg 24 hr tablet, 300 mg PO DAILY 07/20/22 04/02/23 Unknown History extended release clonazepam 1 mg tablet 1 mg PO BID 07/20/22 04/02/23 Unknown History metformin 500 mg tablet 500 mg PO BID 07/20/22 04/02/23 10/04/22 History zolpidem 10 mg tablet 10 mg PO BEDTIME PRN Insomnia 07/20/22 04/02/23 Unknown History Lactobacillus acidoph-L.bulgaricus 4 tab PO TID 04/02/23 04/02/23 Unknown History 1 million cell tablet (Floranex) aspirin 81 mg chewable tablet 81 mg PO DAILY 04/02/23 04/02/23 Unknown History cholecalciferol (vitamin D3) 50 50 mcg PO DAILY 04/02/23 04/02/23 Unknown History mcg (2,000 unit) tablet clopidogrel 75 mg tablet (Plavix) 75 mg PO DAILY 04/02/23 04/02/23 Unknown History dapagliflozin propanediol 10 mg 10 mg PO DAILY 04/02/23 04/02/23 Unknown History tablet ferrous sulfate 325 mg (65 mg 325 mg PO BID 04/02/23 04/02/23 Unknown History iron) tablet,delayed release furosemide 20 mg tablet 20 mg PO DAILY 04/02/23 04/02/23 Unknown History guaifenesin 1,200 mg tablet, 1,200 mg PO Q12H 04/02/23 04/02/23 Unknown History extended release 12 hr magnesium oxide 400 mg PO DAILY 04/02/23 04/02/23 Unknown History metoprolol tartrate 25 mg tablet 25 mg PO BID 04/02/23 04/02/23 Unknown History omeprazole 20 mg capsule,delayed 20 mg PO DAILY 04/02/23 04/02/23 Unknown History release Exam Exam Date and Time: April 11, 2023 Height,Weight and Vital Signs: Height 5 ft 4 in Weight 80.1 kg Last Vital Signs Temp 97.6 F 04/11/23 10:13 Pulse 74 04/11/23 10:13 Resp 28 H 04/11/23 10:13 BP 122/49 L 04/11/23 10:13 Pulse Ox 94 04/11/23 10:20 O2 Del Method Nasal Cannula 04/11/23 10:20 O2 Flow Rate 3 04/11/23 10:20 FiO2 95 04/09/23 05:12 Oxygen Flow Rate 2 04/02/23 13:19 Pertinent Lab Results Pertinent Lab Results: Laboratory Tests 04/02/23 04/02/23 04/02/23 14:24 14:25 14:36 WBC 17.2 H RBC 3.09 L D Hgb 7.8 L D Hct 25.5 L D MCV 82.5 MCH 25.2 L MCHC 30.6 L RDW 14.6 Plt Count 349 MPV 9.5 Immature Gran % (Auto) 0.3 Neut % (Auto) 86.0 H Lymph % (Auto) 4.1 L Payette % (Auto) 6.0 Eos % (Auto) 3.3 Baso % (Auto) 0.3 Lymph # (Auto) 0.7 L [place] # (Auto) 1.0 Eos # (Auto) 0.6 H Baso # (Auto) 0.1 Abs Immat Gran (auto) 0.06 H Absolute Neuts (auto) 14.8 H Absolute Nucleated RBC 0.000 Nucleated RBC % (auto) 0.0 ESR Haptoglobin Hold Purple Top PT 17.1 H INR 1.4 H O2 Saturation ABG pH at Pt Temp ABG pCO2 at Pt Temp ABG pO2 at Pt Temp ABG HCO3 ABG Base Excess (Actual) VBG pH 7.36 VBG pCO2 51 VBG pO2 45 VBG HCO3 29 H VBG O2 Saturation 64.0 VBG Base Excess 3.2 Sodium 138 Potassium 3.2 L Chloride 99 Carbon Dioxide 27 Anion Gap 15 BUN 15 Creatinine 0.92 Estim Creat Clear Calc 60.3 Estimated GFR > 60 POC Glucose Random Glucose 85 Fasting Glucose Lactic Acid 1.1 Calcium 9.2 Magnesium 1.6 Iron 7 L TIBC 114 L % Saturation 6 L Unsat Iron Binding 107 Ferritin 589 H Total Bilirubin 0.3 Direct Bilirubin 0.2 AST 23 ALT 15 Alkaline Phosphatase 44 Lactate Dehydrogenase 212 Troponin I High Sens 12.8 B-Natriuretic Peptide < 10 Total Protein 6.4 L Albumin 2.7 L Vitamin B12 Folate TSH Pleural pH Pleural WBC Pleural RBC Pleural Neutrophils Pleural Lymphocytes Pleural Monocytes Pleural Eosinophils Pleural Total Protein Pleural Albumin Pleural LDH Pleural Glucose Pleural Amylase Nasal Screen MRSA (PCR) Nasal S. aureus Screen Nasal MRSA/S.aureus Interp Stool Occult Blood Stl C. cayetanensis PCR Stool Rotavirus A PCR Stl Adenov F 40/41 PCR Stool Astrovirus (PCR) Stool Campylobacter PCR Stool Cryptosporidium PCR Stl Sh Tox Pr E STEC PCR Stool E coli O157 PCR Stl Enterotoxigenic E PCR Stool EPEC (PCR) Stool EAEC (PCR) Stl E. histolytica PCR Stool Giardia Lamblia PCR Stl P. shigelloides PCR Stool Salmonella PCR Stool Sapovirus (PCR) Stl Shigella/EIEC PCR St Y.enterocolitica PCR Stool Vibrio (PCR) Stl Vibrio cholerae PCR Stl Norovirus GI/GII PCR Vancomycin Trough Random Vancomycin C. difficile Tox B Gene C. difficile Toxin A&B C. difficile Interpret COVID-19 (AVILA) Negative COVID-19 Clin Com See Note Influenza Type A (CINDY) Negative Influenza Type B (CINDY) Negative Influenza A & B Note See Note Ur L.pneumophila Ag Ur Strep pneumoniae Ag Blood Type Antibody Screen Crossmatch 04/02/23 04/02/23 04/02/23 15:30 21:04 23:03 WBC RBC Hgb Hct MCV MCH MCHC RDW Plt Count MPV Immature Gran % (Auto) Neut % (Auto) Lymph % (Auto) Payette % (Auto) Eos % (Auto) Baso % (Auto) Lymph # (Auto) [place] # (Auto) Eos # (Auto) Baso # (Auto) Abs Immat Gran (auto) Absolute Neuts (auto) Absolute Nucleated RBC Nucleated RBC % (auto) ESR Haptoglobin Hold Purple Top PT INR O2 Saturation ABG pH at Pt Temp ABG pCO2 at Pt Temp ABG pO2 at Pt Temp ABG HCO3 ABG Base Excess (Actual) VBG pH VBG pCO2 VBG pO2 VBG HCO3 VBG O2 Saturation VBG Base Excess Sodium Potassium Chloride Carbon Dioxide Anion Gap BUN Creatinine Estim Creat Clear Calc Estimated GFR POC Glucose 81 77 Random Glucose Fasting Glucose Lactic Acid Calcium Magnesium Iron TIBC % Saturation Unsat Iron Binding Ferritin Total Bilirubin Direct Bilirubin AST ALT Alkaline Phosphatase Lactate Dehydrogenase Troponin I High Sens B-Natriuretic Peptide Total Protein Albumin Vitamin B12 Folate TSH Pleural pH Pleural WBC Pleural RBC Pleural Neutrophils Pleural Lymphocytes Pleural Monocytes Pleural Eosinophils Pleural Total Protein Pleural Albumin Pleural LDH Pleural Glucose Pleural Amylase Nasal Screen MRSA (PCR) Nasal S. aureus Screen Nasal MRSA/S.aureus Interp Stool Occult Blood NEGATIVE Stl C. cayetanensis PCR Stool Rotavirus A PCR Stl Adenov F 40/41 PCR Stool Astrovirus (PCR) Stool Campylobacter PCR Stool Cryptosporidium PCR Stl Sh Tox Pr E STEC PCR Stool E coli O157 PCR Stl Enterotoxigenic E PCR Stool EPEC (PCR) Stool EAEC (PCR) Stl E. histolytica PCR Stool Giardia Lamblia PCR Stl P. shigelloides PCR Stool Salmonella PCR Stool Sapovirus (PCR) Stl Shigella/EIEC PCR St Y.enterocolitica PCR Stool Vibrio (PCR) Stl Vibrio cholerae PCR Stl Norovirus GI/GII PCR Vancomycin Trough Random Vancomycin C. difficile Tox B Gene C. difficile Toxin A&B C. difficile Interpret COVID-19 (AVILA) COVID-19 Clin Com Influenza Type A (CINDY) Influenza Type B (CINDY) Influenza A & B Note Ur L.pneumophila Ag Ur Strep pneumoniae Ag Blood Type Antibody Screen Crossmatch 04/03/23 04/03/23 04/03/23 01:58 06:32 06:58 WBC 14.7 H RBC 2.75 L Hgb 7.0 L* Hct 23.1 L MCV 84.0 MCH 25.5 L MCHC 30.3 L RDW 14.8 Plt Count 307 MPV 9.8 Immature Gran % (Auto) 0.5 H Neut % (Auto) 85.4 H Lymph % (Auto) 3.5 L [place] % (Auto) 5.7 Eos % (Auto) 4.6 H Baso % (Auto) 0.3 Lymph # (Auto) 0.5 L [place] # (Auto) 0.8 Eos # (Auto) 0.7 H Baso # (Auto) 0.1 Abs Immat Gran (auto) 0.07 H Absolute Neuts (auto) 12.5 H Absolute Nucleated RBC 0.000 Nucleated RBC % (auto) 0.0 ESR Haptoglobin 480 H Hold Purple Top PT INR O2 Saturation ABG pH at Pt Temp ABG pCO2 at Pt Temp ABG pO2 at Pt Temp ABG HCO3 ABG Base Excess (Actual) VBG pH VBG pCO2 VBG pO2 VBG HCO3 VBG O2 Saturation VBG Base Excess Sodium 141 Potassium 3.5 Chloride 107 Carbon Dioxide 23 Anion Gap 15 BUN 10 Creatinine 0.75 Estim Creat Clear Calc 72.9 Estimated GFR > 60 POC Glucose 87 Random Glucose 94 Fasting Glucose Lactic Acid Calcium 8.2 L D Magnesium Iron TIBC % Saturation Unsat Iron Binding Ferritin Total Bilirubin Direct Bilirubin AST ALT Alkaline Phosphatase Lactate Dehydrogenase Troponin I High Sens B-Natriuretic Peptide Total Protein Albumin Vitamin B12 377 Folate 11.9 TSH Pleural pH Pleural WBC Pleural RBC Pleural Neutrophils Pleural Lymphocytes Pleural Monocytes Pleural Eosinophils Pleural Total Protein Pleural Albumin Pleural LDH Pleural Glucose Pleural Amylase Nasal Screen MRSA (PCR) NEGATIVE Nasal S. aureus Screen NEGATIVE Nasal MRSA/S.aureus Interp SEE NOTE Stool Occult Blood Stl C. cayetanensis PCR Stool Rotavirus A PCR Stl Adenov F 40/41 PCR Stool Astrovirus (PCR) Stool Campylobacter PCR Stool Cryptosporidium PCR Stl Sh Tox Pr E STEC PCR Stool E coli O157 PCR Stl Enterotoxigenic E PCR Stool EPEC (PCR) Stool EAEC (PCR) Stl E. histolytica PCR Stool Giardia Lamblia PCR Stl P. shigelloides PCR Stool Salmonella PCR Stool Sapovirus (PCR) Stl Shigella/EIEC PCR St Y.enterocolitica PCR Stool Vibrio (PCR) Stl Vibrio cholerae PCR Stl Norovirus GI/GII PCR Vancomycin Trough Random Vancomycin C. difficile Tox B Gene C. difficile Toxin A&B C. difficile Interpret COVID-19 (AVILA) COVID-19 Clin Com Influenza Type A (CINDY) Influenza Type B (CINDY) Influenza A & B Note Ur L.pneumophila Ag Ur Strep pneumoniae Ag Blood Type Antibody Screen Crossmatch 04/03/23 04/03/23 04/03/23 07:39 09:52 10:24 WBC 14.7 H RBC 3.02 L Hgb 7.6 L Hct 24.9 L MCV 82.5 MCH 25.2 L MCHC 30.5 L RDW 14.8 Plt Count 315 MPV 9.9 Immature Gran % (Auto) Neut % (Auto) Lymph % (Auto) [place] % (Auto) Eos % (Auto) Baso % (Auto) Lymph # (Auto) [place] # (Auto) Eos # (Auto) Baso # (Auto) Abs Immat Gran (auto) Absolute Neuts (auto) Absolute Nucleated RBC 0.000 Nucleated RBC % (auto) 0.0 ESR 119 H Haptoglobin Hold Purple Top PT INR O2 Saturation ABG pH at Pt Temp ABG pCO2 at Pt Temp ABG pO2 at Pt Temp ABG HCO3 ABG Base Excess (Actual) VBG pH VBG pCO2 VBG pO2 VBG HCO3 VBG O2 Saturation VBG Base Excess Sodium Potassium Chloride Carbon Dioxide Anion Gap BUN Creatinine Estim Creat Clear Calc Estimated GFR POC Glucose 83 Random Glucose Fasting Glucose Lactic Acid Calcium Magnesium Iron TIBC % Saturation Unsat Iron Binding Ferritin Total Bilirubin Direct Bilirubin AST ALT Alkaline Phosphatase Lactate Dehydrogenase Troponin I High Sens B-Natriuretic Peptide Total Protein Albumin Vitamin B12 Folate TSH Pleural pH Pleural WBC Pleural RBC Pleural Neutrophils Pleural Lymphocytes Pleural Monocytes Pleural Eosinophils Pleural Total Protein Pleural Albumin Pleural LDH Pleural Glucose Pleural Amylase Nasal Screen MRSA (PCR) Nasal S. aureus Screen Nasal MRSA/S.aureus Interp Stool Occult Blood Stl C. cayetanensis PCR Stool Rotavirus A PCR Stl Adenov F 40/41 PCR Stool Astrovirus (PCR) Stool Campylobacter PCR Stool Cryptosporidium PCR Stl Sh Tox Pr E STEC PCR Stool E coli O157 PCR Stl Enterotoxigenic E PCR Stool EPEC (PCR) Stool EAEC (PCR) Stl E. histolytica PCR Stool Giardia Lamblia PCR Stl P. shigelloides PCR Stool Salmonella PCR Stool Sapovirus (PCR) Stl Shigella/EIEC PCR St Y.enterocolitica PCR Stool Vibrio (PCR) Stl Vibrio cholerae PCR Stl Norovirus GI/GII PCR Vancomycin Trough Random Vancomycin C. difficile Tox B Gene C. difficile Toxin A&B C. difficile Interpret COVID-19 (AVILA) COVID-19 Clin Com Influenza Type A (CINDY) Influenza Type B (CINDY) Influenza A & B Note Ur L.pneumophila Ag Ur Strep pneumoniae Ag Blood Type B Positive Antibody Screen NEGATIVE Crossmatch 04/03/23 04/03/23 04/03/23 11:35 15:58 21:27 WBC RBC Hgb Hct MCV MCH MCHC RDW Plt Count MPV Immature Gran % (Auto) Neut % (Auto) Lymph % (Auto) [place] % (Auto) Eos % (Auto) Baso % (Auto) Lymph # (Auto) [place] # (Auto) Eos # (Auto) Baso # (Auto) Abs Immat Gran (auto) Absolute Neuts (auto) Absolute Nucleated RBC Nucleated RBC % (auto) ESR Haptoglobin Hold Purple Top PT INR O2 Saturation ABG pH at Pt Temp ABG pCO2 at Pt Temp ABG pO2 at Pt Temp ABG HCO3 ABG Base Excess (Actual) VBG pH VBG pCO2 VBG pO2 VBG HCO3 VBG O2 Saturation VBG Base Excess Sodium Potassium Chloride Carbon Dioxide Anion Gap BUN Creatinine Estim Creat Clear Calc Estimated GFR POC Glucose 108 109 123 H Random Glucose Fasting Glucose Lactic Acid Calcium Magnesium Iron TIBC % Saturation Unsat Iron Binding Ferritin Total Bilirubin Direct Bilirubin AST ALT Alkaline Phosphatase Lactate Dehydrogenase Troponin I High Sens B-Natriuretic Peptide Total Protein Albumin Vitamin B12 Folate TSH Pleural pH Pleural WBC Pleural RBC Pleural Neutrophils Pleural Lymphocytes Pleural Monocytes Pleural Eosinophils Pleural Total Protein Pleural Albumin Pleural LDH Pleural Glucose Pleural Amylase Nasal Screen MRSA (PCR) Nasal S. aureus Screen Nasal MRSA/S.aureus Interp Stool Occult Blood Stl C. cayetanensis PCR Stool Rotavirus A PCR Stl Adenov F 40/41 PCR Stool Astrovirus (PCR) Stool Campylobacter PCR Stool Cryptosporidium PCR Stl Sh Tox Pr E STEC PCR Stool E coli O157 PCR Stl Enterotoxigenic E PCR Stool EPEC (PCR) Stool EAEC (PCR) Stl E. histolytica PCR Stool Giardia Lamblia PCR Stl P. shigelloides PCR Stool Salmonella PCR Stool Sapovirus (PCR) Stl Shigella/EIEC PCR St Y.enterocolitica PCR Stool Vibrio (PCR) Stl Vibrio cholerae PCR Stl Norovirus GI/GII PCR Vancomycin Trough Random Vancomycin C. difficile Tox B Gene C. difficile Toxin A&B C. difficile Interpret COVID-19 (AVILA) COVID-19 Clin Com Influenza Type A (CINDY) Influenza Type B (CINDY) Influenza A & B Note Ur L.pneumophila Ag Ur Strep pneumoniae Ag Blood Type Antibody Screen Crossmatch 04/04/23 04/04/23 04/04/23 06:46 06:59 10:56 WBC 14.9 H RBC 2.78 L Hgb 7.2 L Hct 23.4 L MCV 84.2 MCH 25.9 L MCHC 30.8 L RDW 14.9 Plt Count 287 MPV 9.4 Immature Gran % (Auto) Neut % (Auto) Lymph % (Auto) [place] % (Auto) Eos % (Auto) Baso % (Auto) Lymph # (Auto) [place] # (Auto) Eos # (Auto) Baso # (Auto) Abs Immat Gran (auto) Absolute Neuts (auto) Absolute Nucleated RBC 0.000 Nucleated RBC % (auto) 0.0 ESR Haptoglobin Hold Purple Top PT INR O2 Saturation ABG pH at Pt Temp ABG pCO2 at Pt Temp ABG pO2 at Pt Temp ABG HCO3 ABG Base Excess (Actual) VBG pH VBG pCO2 VBG pO2 VBG HCO3 VBG O2 Saturation VBG Base Excess Sodium 140 Potassium 3.3 Chloride 108 Carbon Dioxide 22 Anion Gap 13 BUN Creatinine 0.76 Estim Creat Clear Calc 72.0 Estimated GFR > 60 POC Glucose 83 79 Random Glucose Fasting Glucose Lactic Acid Calcium Magnesium Iron TIBC % Saturation Unsat Iron Binding Ferritin Total Bilirubin Direct Bilirubin AST ALT Alkaline Phosphatase Lactate Dehydrogenase Troponin I High Sens B-Natriuretic Peptide Total Protein Albumin Vitamin B12 Folate TSH Pleural pH Pleural WBC Pleural RBC Pleural Neutrophils Pleural Lymphocytes Pleural Monocytes Pleural Eosinophils Pleural Total Protein Pleural Albumin Pleural LDH Pleural Glucose Pleural Amylase Nasal Screen MRSA (PCR) Nasal S. aureus Screen Nasal MRSA/S.aureus Interp Stool Occult Blood Stl C. cayetanensis PCR Stool Rotavirus A PCR Stl Adenov F 40/ PCR Stool Astrovirus (PCR) Stool Campylobacter PCR Stool Cryptosporidium PCR Stl Sh Tox Pr E STEC PCR Stool E coli O157 PCR Stl Enterotoxigenic E PCR Stool EPEC (PCR) Stool EAEC (PCR) Stl E. histolytica PCR Stool Giardia Lamblia PCR Stl P. shigelloides PCR Stool Salmonella PCR Stool Sapovirus (PCR) Stl Shigella/EIEC PCR St Y.enterocolitica PCR Stool Vibrio (PCR) Stl Vibrio cholerae PCR Stl Norovirus GI/GII PCR Vancomycin Trough 12.3 Random Vancomycin C. difficile Tox B Gene C. difficile Toxin A&B C. difficile Interpret COVID-19 (AVILA) COVID-19 Clin Com Influenza Type A (CINDY) Influenza Type B (CINDY) Influenza A & B Note Ur L.pneumophila Ag Ur Strep pneumoniae Ag Blood Type Antibody Screen Crossmatch 04/04/23 04/04/23 04/04/23 16:10 19:48 23:05 WBC RBC Hgb Hct MCV MCH MCHC RDW Plt Count MPV Immature Gran % (Auto) Neut % (Auto) Lymph % (Auto) [place] % (Auto) Eos % (Auto) Baso % (Auto) Lymph # (Auto) [place] # (Auto) Eos # (Auto) Baso # (Auto) Abs Immat Gran (auto) Absolute Neuts (auto) Absolute Nucleated RBC Nucleated RBC % (auto) ESR Haptoglobin Hold Purple Top PT INR O2 Saturation ABG pH at Pt Temp ABG pCO2 at Pt Temp ABG pO2 at Pt Temp ABG HCO3 ABG Base Excess (Actual) VBG pH VBG pCO2 VBG pO2 VBG HCO3 VBG O2 Saturation VBG Base Excess Sodium Potassium Chloride Carbon Dioxide Anion Gap BUN Creatinine Estim Creat Clear Calc Estimated GFR POC Glucose 113 146 H Random Glucose Fasting Glucose Lactic Acid Calcium Magnesium Iron TIBC % Saturation Unsat Iron Binding Ferritin Total Bilirubin Direct Bilirubin AST ALT Alkaline Phosphatase Lactate Dehydrogenase Troponin I High Sens B-Natriuretic Peptide Total Protein Albumin Vitamin B12 Folate TSH Pleural pH Pleural WBC Pleural RBC Pleural Neutrophils Pleural Lymphocytes Pleural Monocytes Pleural Eosinophils Pleural Total Protein Pleural Albumin Pleural LDH Pleural Glucose Pleural Amylase Nasal Screen MRSA (PCR) Nasal S. aureus Screen Nasal MRSA/S.aureus Interp Stool Occult Blood NEGATIVE Stl C. cayetanensis PCR Stool Rotavirus A PCR Stl Adenov F 40/41 PCR Stool Astrovirus (PCR) Stool Campylobacter PCR Stool Cryptosporidium PCR Stl Sh Tox Pr E STEC PCR Stool E coli O157 PCR Stl Enterotoxigenic E PCR Stool EPEC (PCR) Stool EAEC (PCR) Stl E. histolytica PCR Stool Giardia Lamblia PCR Stl P. shigelloides PCR Stool Salmonella PCR Stool Sapovirus (PCR) Stl Shigella/EIEC PCR St Y.enterocolitica PCR Stool Vibrio (PCR) Stl Vibrio cholerae PCR Stl Norovirus GI/GII PCR Vancomycin Trough Random Vancomycin C. difficile Tox B Gene C. difficile Toxin A&B C. difficile Interpret COVID-19 (AVILA) COVID-19 Clin Com Influenza Type A (CINDY) Influenza Type B (CINDY) Influenza A & B Note Ur L.pneumophila Ag Not Detected Ur Strep pneumoniae Ag Not Detected Blood Type Antibody Screen Crossmatch 04/05/23 04/05/23 04/05/23 06:53 08:46 10:51 WBC 15.4 H RBC 3.09 L Hgb 7.9 L Hct 26.0 L MCV 84.1 MCH 25.6 L MCHC 30.4 L RDW 15.1 Plt Count 369 D MPV 9.5 Immature Gran % (Auto) Neut % (Auto) Lymph % (Auto) [place] % (Auto) Eos % (Auto) Baso % (Auto) Lymph # (Auto) [place] # (Auto) Eos # (Auto) Baso # (Auto) Abs Immat Gran (auto) Absolute Neuts (auto) Absolute Nucleated RBC 0.000 Nucleated RBC % (auto) 0.0 ESR Haptoglobin Hold Purple Top PT INR O2 Saturation ABG pH at Pt Temp ABG pCO2 at Pt Temp ABG pO2 at Pt Temp ABG HCO3 ABG Base Excess (Actual) VBG pH VBG pCO2 VBG pO2 VBG HCO3 VBG O2 Saturation VBG Base Excess Sodium 143 Potassium 3.2 L Chloride 108 Carbon Dioxide 25 Anion Gap 13 BUN 8 L Creatinine 0.79 Estim Creat Clear Calc 69.2 Estimated GFR > 60 POC Glucose 99 141 H Random Glucose 95 Fasting Glucose Lactic Acid Calcium 8.3 L Magnesium Iron TIBC % Saturation Unsat Iron Binding Ferritin Total Bilirubin Direct Bilirubin AST ALT Alkaline Phosphatase Lactate Dehydrogenase Troponin I High Sens B-Natriuretic Peptide Total Protein Albumin Vitamin B12 Folate TSH Pleural pH Pleural WBC Pleural RBC Pleural Neutrophils Pleural Lymphocytes Pleural Monocytes Pleural Eosinophils Pleural Total Protein Pleural Albumin Pleural LDH Pleural Glucose Pleural Amylase Nasal Screen MRSA (PCR) Nasal S. aureus Screen Nasal MRSA/S.aureus Interp Stool Occult Blood Stl C. cayetanensis PCR Stool Rotavirus A PCR Stl Adenov F 40/41 PCR Stool Astrovirus (PCR) Stool Campylobacter PCR Stool Cryptosporidium PCR Stl Sh Tox Pr E STEC PCR Stool E coli O157 PCR Stl Enterotoxigenic E PCR Stool EPEC (PCR) Stool EAEC (PCR) Stl E. histolytica PCR Stool Giardia Lamblia PCR Stl P. shigelloides PCR Stool Salmonella PCR Stool Sapovirus (PCR) Stl Shigella/EIEC PCR St Y.enterocolitica PCR Stool Vibrio (PCR) Stl Vibrio cholerae PCR Stl Norovirus GI/GII PCR Vancomycin Trough Random Vancomycin C. difficile Tox B Gene C. difficile Toxin A&B C. difficile Interpret COVID-19 (AVILA) COVID-19 Clin Com Influenza Type A (CINDY) Influenza Type B (CINDY) Influenza A & B Note Ur L.pneumophila Ag Ur Strep pneumoniae Ag Blood Type Antibody Screen Crossmatch 04/05/23 04/05/23 04/05/23 14:15 15:59 17:14 WBC RBC Hgb Hct MCV MCH MCHC RDW Plt Count MPV Immature Gran % (Auto) Neut % (Auto) Lymph % (Auto) [place] % (Auto) Eos % (Auto) Baso % (Auto) Lymph # (Auto) [place] # (Auto) Eos # (Auto) Baso # (Auto) Abs Immat Gran (auto) Absolute Neuts (auto) Absolute Nucleated RBC Nucleated RBC % (auto) ESR Haptoglobin Hold Purple Top PT INR O2 Saturation 94.0 ABG pH at Pt Temp 7.39 ABG pCO2 at Pt Temp 48 H ABG pO2 at Pt Temp 74 L ABG HCO3 30 H ABG Base Excess (Actual) 4.3 VBG pH VBG pCO2 VBG pO2 VBG HCO3 VBG O2 Saturation VBG Base Excess Sodium Potassium Chloride Carbon Dioxide Anion Gap BUN Creatinine Estim Creat Clear Calc Estimated GFR POC Glucose 95 Random Glucose Fasting Glucose Lactic Acid Calcium Magnesium Iron TIBC % Saturation Unsat Iron Binding Ferritin Total Bilirubin Direct Bilirubin AST ALT Alkaline Phosphatase Lactate Dehydrogenase Troponin I High Sens B-Natriuretic Peptide Total Protein Albumin Vitamin B12 Folate TSH Pleural pH 7.53 Pleural WBC 3.053 Pleural RBC < 0.002 Pleural Neutrophils 81 Pleural Lymphocytes 15 Pleural Monocytes 2 Pleural Eosinophils 2 Pleural Total Protein 3.3 Pleural Albumin 1.5 Pleural LDH 137 Pleural Glucose 119 Pleural Amylase 27 Nasal Screen MRSA (PCR) Nasal S. aureus Screen Nasal MRSA/S.aureus Interp Stool Occult Blood Stl C. cayetanensis PCR Stool Rotavirus A PCR Stl Adenov F PCR Stool Astrovirus (PCR) Stool Campylobacter PCR Stool Cryptosporidium PCR Stl Sh Tox Pr E STEC PCR Stool E coli O157 PCR Stl Enterotoxigenic E PCR Stool EPEC (PCR) Stool EAEC (PCR) Stl E. histolytica PCR Stool Giardia Lamblia PCR Stl P. shigelloides PCR Stool Salmonella PCR Stool Sapovirus (PCR) Stl Shigella/EIEC PCR St Y.enterocolitica PCR Stool Vibrio (PCR) Stl Vibrio cholerae PCR Stl Norovirus GI/GII PCR Vancomycin Trough Random Vancomycin C. difficile Tox B Gene C. difficile Toxin A&B C. difficile Interpret COVID-19 (AVILA) COVID-19 Clin Com Influenza Type A (CINDY) Influenza Type B (CINDY) Influenza A & B Note Ur L.pneumophila Ag Ur Strep pneumoniae Ag Blood Type Antibody Screen Crossmatch 04/05/23 04/05/23 04/06/23 18:04 20:51 07:08 WBC RBC Hgb Hct MCV MCH MCHC RDW Plt Count MPV Immature Gran % (Auto) Neut % (Auto) Lymph % (Auto) [place] % (Auto) Eos % (Auto) Baso % (Auto) Lymph # (Auto) [place] # (Auto) Eos # (Auto) Baso # (Auto) Abs Immat Gran (auto) Absolute Neuts (auto) Absolute Nucleated RBC Nucleated RBC % (auto) ESR Haptoglobin Hold Purple Top PT INR O2 Saturation ABG pH at Pt Temp ABG pCO2 at Pt Temp ABG pO2 at Pt Temp ABG HCO3 ABG Base Excess (Actual) VBG pH VBG pCO2 VBG pO2 VBG HCO3 VBG O2 Saturation VBG Base Excess Sodium Potassium Chloride Carbon Dioxide Anion Gap BUN Creatinine 0.75 Estim Creat Clear Calc 72.9 Estimated GFR > 60 POC Glucose 121 H Random Glucose Fasting Glucose Lactic Acid Calcium Magnesium Iron TIBC % Saturation Unsat Iron Binding Ferritin Total Bilirubin Direct Bilirubin AST ALT Alkaline Phosphatase Lactate Dehydrogenase Troponin I High Sens B-Natriuretic Peptide Total Protein Albumin Vitamin B12 Folate TSH Pleural pH Pleural WBC Pleural RBC Pleural Neutrophils Pleural Lymphocytes Pleural Monocytes Pleural Eosinophils Pleural Total Protein Pleural Albumin Pleural LDH Pleural Glucose Pleural Amylase Nasal Screen MRSA (PCR) Nasal S. aureus Screen Nasal MRSA/S.aureus Interp Stool Occult Blood Stl C. cayetanensis PCR Stool Rotavirus A PCR Stl Adenov F 40/41 PCR Stool Astrovirus (PCR) Stool Campylobacter PCR Stool Cryptosporidium PCR Stl Sh Tox Pr E STEC PCR Stool E coli O157 PCR Stl Enterotoxigenic E PCR Stool EPEC (PCR) Stool EAEC (PCR) Stl E. histolytica PCR Stool Giardia Lamblia PCR Stl P. shigelloides PCR Stool Salmonella PCR Stool Sapovirus (PCR) Stl Shigella/EIEC PCR St Y.enterocolitica PCR Stool Vibrio (PCR) Stl Vibrio cholerae PCR Stl Norovirus GI/GII PCR Vancomycin Trough 15.4 Random Vancomycin C. difficile Tox B Gene C. difficile Toxin A&B C. difficile Interpret COVID-19 (AVILA) COVID-19 Clin Com Influenza Type A (CINDY) Influenza Type B (CINDY) Influenza A & B Note Ur L.pneumophila Ag Ur Strep pneumoniae Ag Blood Type Antibody Screen Crossmatch 04/06/23 04/06/23 04/06/23 07:23 11:24 15:16 WBC RBC Hgb Hct MCV MCH MCHC RDW Plt Count MPV Immature Gran % (Auto) Neut % (Auto) Lymph % (Auto) [place] % (Auto) Eos % (Auto) Baso % (Auto) Lymph # (Auto) [place] # (Auto) Eos # (Auto) Baso # (Auto) Abs Immat Gran (auto) Absolute Neuts (auto) Absolute Nucleated RBC Nucleated RBC % (auto) ESR Haptoglobin Hold Purple Top PT INR O2 Saturation ABG pH at Pt Temp ABG pCO2 at Pt Temp ABG pO2 at Pt Temp ABG HCO3 ABG Base Excess (Actual) VBG pH VBG pCO2 VBG pO2 VBG HCO3 VBG O2 Saturation VBG Base Excess Sodium Potassium Chloride Carbon Dioxide Anion Gap BUN Creatinine Estim Creat Clear Calc Estimated GFR POC Glucose 93 129 H Random Glucose Fasting Glucose Lactic Acid Calcium Magnesium Iron TIBC % Saturation Unsat Iron Binding Ferritin Total Bilirubin Direct Bilirubin AST ALT Alkaline Phosphatase Lactate Dehydrogenase Troponin I High Sens B-Natriuretic Peptide Total Protein Albumin Vitamin B12 Folate TSH Pleural pH Pleural WBC Pleural RBC Pleural Neutrophils Pleural Lymphocytes Pleural Monocytes Pleural Eosinophils Pleural Total Protein Pleural Albumin Pleural LDH Pleural Glucose Pleural Amylase Nasal Screen MRSA (PCR) Nasal S. aureus Screen Nasal MRSA/S.aureus Interp Stool Occult Blood Stl C. cayetanensis PCR Cancelled Stool Rotavirus A PCR Cancelled Stl Adenov F 40/41 PCR Cancelled Stool Astrovirus (PCR) Cancelled Stool Campylobacter PCR Cancelled Stool Cryptosporidium PCR Cancelled Stl Sh Tox Pr E STEC PCR Cancelled Stool E coli O157 PCR Cancelled Stl Enterotoxigenic E PCR Cancelled Stool EPEC (PCR) Cancelled Stool EAEC (PCR) Cancelled Stl E. histolytica PCR Cancelled Stool Giardia Lamblia PCR Cancelled Stl P. shigelloides PCR Cancelled Stool Salmonella PCR Cancelled Stool Sapovirus (PCR) Cancelled Stl Shigella/EIEC PCR Cancelled St Y.enterocolitica PCR Cancelled Stool Vibrio (PCR) Cancelled Stl Vibrio cholerae PCR Cancelled Stl Norovirus GI/GII PCR Cancelled Vancomycin Trough Random Vancomycin C. difficile Tox B Gene POSITIVE A* C. difficile Toxin A&B Positive A* C. difficile Interpret SEE NOTE COVID-19 (AVILA) COVID-19 Clin Com Influenza Type A (CINDY) Influenza Type B (CINDY) Influenza A & B Note Ur L.pneumophila Ag Ur Strep pneumoniae Ag Blood Type Antibody Screen Crossmatch 04/06/23 04/06/23 04/07/23 16:08 20:01 06:02 WBC RBC Hgb Hct MCV MCH MCHC RDW Plt Count MPV Immature Gran % (Auto) Neut % (Auto) Lymph % (Auto) [place] % (Auto) Eos % (Auto) Baso % (Auto) Lymph # (Auto) [place] # (Auto) Eos # (Auto) Baso # (Auto) Abs Immat Gran (auto) Absolute Neuts (auto) Absolute Nucleated RBC Nucleated RBC % (auto) ESR Haptoglobin Hold Purple Top SEE NOTE PT INR O2 Saturation ABG pH at Pt Temp ABG pCO2 at Pt Temp ABG pO2 at Pt Temp ABG HCO3 ABG Base Excess (Actual) VBG pH VBG pCO2 VBG pO2 VBG HCO3 VBG O2 Saturation VBG Base Excess Sodium 145 Potassium 2.9 L* Chloride 106 Carbon Dioxide 27 Anion Gap 15 BUN Creatinine 0.78 Estim Creat Clear Calc 70.1 Estimated GFR > 60 POC Glucose 82 113 Random Glucose Fasting Glucose Lactic Acid Calcium Magnesium 1.9 Iron TIBC % Saturation Unsat Iron Binding Ferritin Total Bilirubin Direct Bilirubin AST ALT Alkaline Phosphatase Lactate Dehydrogenase Troponin I High Sens B-Natriuretic Peptide Total Protein Albumin Vitamin B12 Folate TSH 1.87 Pleural pH Pleural WBC Pleural RBC Pleural Neutrophils Pleural Lymphocytes Pleural Monocytes Pleural Eosinophils Pleural Total Protein Pleural Albumin Pleural LDH Pleural Glucose Pleural Amylase Nasal Screen MRSA (PCR) Nasal S. aureus Screen Nasal MRSA/S.aureus Interp Stool Occult Blood Stl C. cayetanensis PCR Stool Rotavirus A PCR Stl Adenov F 40/41 PCR Stool Astrovirus (PCR) Stool Campylobacter PCR Stool Cryptosporidium PCR Stl Sh Tox Pr E STEC PCR Stool E coli O157 PCR Stl Enterotoxigenic E PCR Stool EPEC (PCR) Stool EAEC (PCR) Stl E. histolytica PCR Stool Giardia Lamblia PCR Stl P. shigelloides PCR Stool Salmonella PCR Stool Sapovirus (PCR) Stl Shigella/EIEC PCR St Y.enterocolitica PCR Stool Vibrio (PCR) Stl Vibrio cholerae PCR Stl Norovirus GI/GII PCR Vancomycin Trough Random Vancomycin C. difficile Tox B Gene C. difficile Toxin A&B C. difficile Interpret COVID-19 (AVILA) COVID-19 Clin Com Influenza Type A (CINDY) Influenza Type B (CINDY) Influenza A & B Note Ur L.pneumophila Ag Ur Strep pneumoniae Ag Blood Type Antibody Screen Crossmatch 04/07/23 04/07/23 04/07/23 07:12 09:03 11:10 WBC 10.3 RBC 3.19 L Hgb 7.8 L Hct 27.1 L MCV 85.0 MCH 24.5 L MCHC 28.8 L RDW 15.0 Plt Count 373 MPV 9.9 Immature Gran % (Auto) Neut % (Auto) Lymph % (Auto) [place] % (Auto) Eos % (Auto) Baso % (Auto) Lymph # (Auto) [place] # (Auto) Eos # (Auto) Baso # (Auto) Abs Immat Gran (auto) Absolute Neuts (auto) Absolute Nucleated RBC 0.000 Nucleated RBC % (auto) 0.0 ESR Haptoglobin Hold Purple Top PT INR O2 Saturation ABG pH at Pt Temp ABG pCO2 at Pt Temp ABG pO2 at Pt Temp ABG HCO3 ABG Base Excess (Actual) VBG pH VBG pCO2 VBG pO2 VBG HCO3 VBG O2 Saturation VBG Base Excess Sodium Potassium Chloride Carbon Dioxide Anion Gap BUN Creatinine Estim Creat Clear Calc Estimated GFR POC Glucose 88 86 Random Glucose Fasting Glucose Lactic Acid Calcium Magnesium Iron TIBC % Saturation Unsat Iron Binding Ferritin Total Bilirubin Direct Bilirubin AST ALT Alkaline Phosphatase Lactate Dehydrogenase Troponin I High Sens B-Natriuretic Peptide Total Protein Albumin Vitamin B12 Folate TSH Pleural pH Pleural WBC Pleural RBC Pleural Neutrophils Pleural Lymphocytes Pleural Monocytes Pleural Eosinophils Pleural Total Protein Pleural Albumin Pleural LDH Pleural Glucose Pleural Amylase Nasal Screen MRSA (PCR) Nasal S. aureus Screen Nasal MRSA/S.aureus Interp Stool Occult Blood Stl C. cayetanensis PCR Stool Rotavirus A PCR Stl Adenov F 40/41 PCR Stool Astrovirus (PCR) Stool Campylobacter PCR Stool Cryptosporidium PCR Stl Sh Tox Pr E STEC PCR Stool E coli O157 PCR Stl Enterotoxigenic E PCR Stool EPEC (PCR) Stool EAEC (PCR) Stl E. histolytica PCR Stool Giardia Lamblia PCR Stl P. shigelloides PCR Stool Salmonella PCR Stool Sapovirus (PCR) Stl Shigella/EIEC PCR St Y.enterocolitica PCR Stool Vibrio (PCR) Stl Vibrio cholerae PCR Stl Norovirus GI/GII PCR Vancomycin Trough Random Vancomycin C. difficile Tox B Gene C. difficile Toxin A&B C. difficile Interpret COVID-19 (AVILA) COVID-19 Clin Com Influenza Type A (CINDY) Influenza Type B (CINDY) Influenza A & B Note Ur L.pneumophila Ag Ur Strep pneumoniae Ag Blood Type Antibody Screen Crossmatch 04/07/23 04/07/23 04/07/23 11:37 16:00 18:06 WBC RBC Hgb Hct MCV MCH MCHC RDW Plt Count MPV Immature Gran % (Auto) Neut % (Auto) Lymph % (Auto) [place] % (Auto) Eos % (Auto) Baso % (Auto) Lymph # (Auto) [place] # (Auto) Eos # (Auto) Baso # (Auto) Abs Immat Gran (auto) Absolute Neuts (auto) Absolute Nucleated RBC Nucleated RBC % (auto) ESR Haptoglobin Hold Purple Top PT INR O2 Saturation ABG pH at Pt Temp ABG pCO2 at Pt Temp ABG pO2 at Pt Temp ABG HCO3 ABG Base Excess (Actual) VBG pH VBG pCO2 VBG pO2 VBG HCO3 VBG O2 Saturation VBG Base Excess Sodium 146 H Potassium 3.3 Chloride 107 Carbon Dioxide 27 Anion Gap 15 BUN Creatinine Estim Creat Clear Calc Estimated GFR POC Glucose 86 Random Glucose Fasting Glucose Lactic Acid Calcium Magnesium Iron TIBC % Saturation Unsat Iron Binding Ferritin Total Bilirubin Direct Bilirubin AST ALT Alkaline Phosphatase Lactate Dehydrogenase Troponin I High Sens B-Natriuretic Peptide Total Protein Albumin Vitamin B12 Folate TSH Pleural pH Pleural WBC Pleural RBC Pleural Neutrophils Pleural Lymphocytes Pleural Monocytes Pleural Eosinophils Pleural Total Protein Pleural Albumin Pleural LDH Pleural Glucose Pleural Amylase Nasal Screen MRSA (PCR) Nasal S. aureus Screen Nasal MRSA/S.aureus Interp Stool Occult Blood Stl C. cayetanensis PCR Stool Rotavirus A PCR Stl Adenov F 40/41 PCR Stool Astrovirus (PCR) Stool Campylobacter PCR Stool Cryptosporidium PCR Stl Sh Tox Pr E STEC PCR Stool E coli O157 PCR Stl Enterotoxigenic E PCR Stool EPEC (PCR) Stool EAEC (PCR) Stl E. histolytica PCR Stool Giardia Lamblia PCR Stl P. shigelloides PCR Stool Salmonella PCR Stool Sapovirus (PCR) Stl Shigella/EIEC PCR St Y.enterocolitica PCR Stool Vibrio (PCR) Stl Vibrio cholerae PCR Stl Norovirus GI/GII PCR Vancomycin Trough Random Vancomycin 19.7 C. difficile Tox B Gene C. difficile Toxin A&B C. difficile Interpret COVID-19 (AVILA) COVID-19 Clin Com Influenza Type A (CINDY) Influenza Type B (CINDY) Influenza A & B Note Ur L.pneumophila Ag Ur Strep pneumoniae Ag Blood Type B Positive Antibody Screen NEGATIVE Crossmatch See Detail 04/07/23 04/08/23 04/08/23 20:09 07:11 08:10 WBC RBC Hgb Hct MCV MCH MCHC RDW Plt Count MPV Immature Gran % (Auto) Neut % (Auto) Lymph % (Auto) [place] % (Auto) Eos % (Auto) Baso % (Auto) Lymph # (Auto) [place] # (Auto) Eos # (Auto) Baso # (Auto) Abs Immat Gran (auto) Absolute Neuts (auto) Absolute Nucleated RBC Nucleated RBC % (auto) ESR Haptoglobin Hold Purple Top SEE NOTE PT INR O2 Saturation ABG pH at Pt Temp ABG pCO2 at Pt Temp ABG pO2 at Pt Temp ABG HCO3 ABG Base Excess (Actual) VBG pH VBG pCO2 VBG pO2 VBG HCO3 VBG O2 Saturation VBG Base Excess Sodium Potassium Chloride Carbon Dioxide Anion Gap BUN Creatinine 0.71 Estim Creat Clear Calc 77.0 Estimated GFR > 60 POC Glucose 88 90 Random Glucose Fasting Glucose Lactic Acid Calcium Magnesium Iron TIBC % Saturation Unsat Iron Binding Ferritin Total Bilirubin Direct Bilirubin AST ALT Alkaline Phosphatase Lactate Dehydrogenase Troponin I High Sens B-Natriuretic Peptide Total Protein Albumin Vitamin B12 Folate TSH Pleural pH Pleural WBC Pleural RBC Pleural Neutrophils Pleural Lymphocytes Pleural Monocytes Pleural Eosinophils Pleural Total Protein Pleural Albumin Pleural LDH Pleural Glucose Pleural Amylase Nasal Screen MRSA (PCR) Nasal S. aureus Screen Nasal MRSA/S.aureus Interp Stool Occult Blood Stl C. cayetanensis PCR Stool Rotavirus A PCR Stl Adenov F 40/41 PCR Stool Astrovirus (PCR) Stool Campylobacter PCR Stool Cryptosporidium PCR Stl Sh Tox Pr E STEC PCR Stool E coli O157 PCR Stl Enterotoxigenic E PCR Stool EPEC (PCR) Stool EAEC (PCR) Stl E. histolytica PCR Stool Giardia Lamblia PCR Stl P. shigelloides PCR Stool Salmonella PCR Stool Sapovirus (PCR) Stl Shigella/EIEC PCR St Y.enterocolitica PCR Stool Vibrio (PCR) Stl Vibrio cholerae PCR Stl Norovirus GI/GII PCR Vancomycin Trough Random Vancomycin C. difficile Tox B Gene C. difficile Toxin A&B C. difficile Interpret COVID-19 (AVILA) COVID-19 Clin Com Influenza Type A (CINDY) Influenza Type B (CINDY) Influenza A & B Note Ur L.pneumophila Ag Ur Strep pneumoniae Ag Blood Type Antibody Screen Crossmatch 04/08/23 04/08/23 04/08/23 10:47 13:25 17:09 WBC 11.7 H RBC 3.21 L Hgb 8.5 L Hct 27.5 L MCV 85.7 MCH 26.5 L MCHC 30.9 L RDW 15.5 Plt Count 352 MPV 9.2 L Immature Gran % (Auto) Neut % (Auto) Lymph % (Auto) [place] % (Auto) Eos % (Auto) Baso % (Auto) Lymph # (Auto) [place] # (Auto) Eos # (Auto) Baso # (Auto) Abs Immat Gran (auto) Absolute Neuts (auto) Absolute Nucleated RBC 0.000 Nucleated RBC % (auto) 0.0 ESR Haptoglobin Hold Purple Top PT 17.8 H INR 1.5 H O2 Saturation ABG pH at Pt Temp ABG pCO2 at Pt Temp ABG pO2 at Pt Temp ABG HCO3 ABG Base Excess (Actual) VBG pH VBG pCO2 VBG pO2 VBG HCO3 VBG O2 Saturation VBG Base Excess Sodium 144 Potassium 3.5 Chloride 107 Carbon Dioxide 29 Anion Gap 12 BUN 10 Creatinine 0.73 Estim Creat Clear Calc 74.9 Estimated GFR > 60 POC Glucose 117 H 78 Random Glucose 91 Fasting Glucose Lactic Acid Calcium 8.8 D Magnesium Iron TIBC % Saturation Unsat Iron Binding Ferritin Total Bilirubin Direct Bilirubin AST ALT Alkaline Phosphatase Lactate Dehydrogenase Troponin I High Sens B-Natriuretic Peptide Total Protein Albumin Vitamin B12 Folate TSH Pleural pH Pleural WBC Pleural RBC Pleural Neutrophils Pleural Lymphocytes Pleural Monocytes Pleural Eosinophils Pleural Total Protein Pleural Albumin Pleural LDH Pleural Glucose Pleural Amylase Nasal Screen MRSA (PCR) Nasal S. aureus Screen Nasal MRSA/S.aureus Interp Stool Occult Blood Stl C. cayetanensis PCR Stool Rotavirus A PCR Stl Adenov F 40/41 PCR Stool Astrovirus (PCR) Stool Campylobacter PCR Stool Cryptosporidium PCR Stl Sh Tox Pr E STEC PCR Stool E coli O157 PCR Stl Enterotoxigenic E PCR Stool EPEC (PCR) Stool EAEC (PCR) Stl E. histolytica PCR Stool Giardia Lamblia PCR Stl P. shigelloides PCR Stool Salmonella PCR Stool Sapovirus (PCR) Stl Shigella/EIEC PCR St Y.enterocolitica PCR Stool Vibrio (PCR) Stl Vibrio cholerae PCR Stl Norovirus GI/GII PCR Vancomycin Trough Random Vancomycin C. difficile Tox B Gene C. difficile Toxin A&B C. difficile Interpret COVID-19 (AVILA) COVID-19 Clin Com Influenza Type A (CINDY) Influenza Type B (CINDY) Influenza A & B Note Ur L.pneumophila Ag Ur Strep pneumoniae Ag Blood Type Antibody Screen Crossmatch 04/08/23 04/08/23 04/09/23 20:24 21:10 03:03 WBC RBC Hgb Hct MCV MCH MCHC RDW Plt Count MPV Immature Gran % (Auto) Neut % (Auto) Lymph % (Auto) [place] % (Auto) Eos % (Auto) Baso % (Auto) Lymph # (Auto) [place] # (Auto) Eos # (Auto) Baso # (Auto) Abs Immat Gran (auto) Absolute Neuts (auto) Absolute Nucleated RBC Nucleated RBC % (auto) ESR Haptoglobin Hold Purple Top PT INR O2 Saturation ABG pH at Pt Temp ABG pCO2 at Pt Temp ABG pO2 at Pt Temp ABG HCO3 ABG Base Excess (Actual) VBG pH VBG pCO2 VBG pO2 VBG HCO3 VBG O2 Saturation VBG Base Excess Sodium Potassium Chloride Carbon Dioxide Anion Gap BUN Creatinine Estim Creat Clear Calc Estimated GFR POC Glucose 120 H 106 Random Glucose Fasting Glucose Lactic Acid Calcium Magnesium Iron TIBC % Saturation Unsat Iron Binding Ferritin Total Bilirubin Direct Bilirubin AST ALT Alkaline Phosphatase Lactate Dehydrogenase Troponin I High Sens B-Natriuretic Peptide Total Protein Albumin Vitamin B12 Folate TSH Pleural pH Pleural WBC Pleural RBC Pleural Neutrophils Pleural Lymphocytes Pleural Monocytes Pleural Eosinophils Pleural Total Protein Pleural Albumin Pleural LDH Pleural Glucose Pleural Amylase Nasal Screen MRSA (PCR) Nasal S. aureus Screen Nasal MRSA/S.aureus Interp Stool Occult Blood Stl C. cayetanensis PCR Stool Rotavirus A PCR Stl Adenov F 40/41 PCR Stool Astrovirus (PCR) Stool Campylobacter PCR Stool Cryptosporidium PCR Stl Sh Tox Pr E STEC PCR Stool E coli O157 PCR Stl Enterotoxigenic E PCR Stool EPEC (PCR) Stool EAEC (PCR) Stl E. histolytica PCR Stool Giardia Lamblia PCR Stl P. shigelloides PCR Stool Salmonella PCR Stool Sapovirus (PCR) Stl Shigella/EIEC PCR St Y.enterocolitica PCR Stool Vibrio (PCR) Stl Vibrio cholerae PCR Stl Norovirus GI/GII PCR Vancomycin Trough Random Vancomycin 15.1 C. difficile Tox B Gene C. difficile Toxin A&B C. difficile Interpret COVID-19 (AVILA) COVID-19 Clin Com Influenza Type A (CINDY) Influenza Type B (CINDY) Influenza A & B Note Ur L.pneumophila Ag Ur Strep pneumoniae Ag Blood Type Antibody Screen Crossmatch 04/09/23 04/09/23 04/09/23 07:08 10:49 11:09 WBC RBC Hgb Hct MCV MCH MCHC RDW Plt Count MPV Immature Gran % (Auto) Neut % (Auto) Lymph % (Auto) [place] % (Auto) Eos % (Auto) Baso % (Auto) Lymph # (Auto) [place] # (Auto) Eos # (Auto) Baso # (Auto) Abs Immat Gran (auto) Absolute Neuts (auto) Absolute Nucleated RBC Nucleated RBC % (auto) ESR Haptoglobin Hold Purple Top PT INR O2 Saturation ABG pH at Pt Temp ABG pCO2 at Pt Temp ABG pO2 at Pt Temp ABG HCO3 ABG Base Excess (Actual) VBG pH VBG pCO2 VBG pO2 VBG HCO3 VBG O2 Saturation VBG Base Excess Sodium Potassium Chloride Carbon Dioxide Anion Gap BUN Creatinine 0.81 Estim Creat Clear Calc 68.9 Estimated GFR > 60 POC Glucose 110 138 H Random Glucose Fasting Glucose Lactic Acid Calcium Magnesium Iron TIBC % Saturation Unsat Iron Binding Ferritin Total Bilirubin Direct Bilirubin AST ALT Alkaline Phosphatase Lactate Dehydrogenase Troponin I High Sens B-Natriuretic Peptide Total Protein Albumin Vitamin B12 Folate TSH Pleural pH Pleural WBC Pleural RBC Pleural Neutrophils Pleural Lymphocytes Pleural Monocytes Pleural Eosinophils Pleural Total Protein Pleural Albumin Pleural LDH Pleural Glucose Pleural Amylase Nasal Screen MRSA (PCR) Nasal S. aureus Screen Nasal MRSA/S.aureus Interp Stool Occult Blood Stl C. cayetanensis PCR Stool Rotavirus A PCR Stl Adenov F 40/41 PCR Stool Astrovirus (PCR) Stool Campylobacter PCR Stool Cryptosporidium PCR Stl Sh Tox Pr E STEC PCR Stool E coli O157 PCR Stl Enterotoxigenic E PCR Stool EPEC (PCR) Stool EAEC (PCR) Stl E. histolytica PCR Stool Giardia Lamblia PCR Stl P. shigelloides PCR Stool Salmonella PCR Stool Sapovirus (PCR) Stl Shigella/EIEC PCR St Y.enterocolitica PCR Stool Vibrio (PCR) Stl Vibrio cholerae PCR Stl Norovirus GI/GII PCR Vancomycin Trough Random Vancomycin C. difficile Tox B Gene C. difficile Toxin A&B C. difficile Interpret COVID-19 (AVILA) COVID-19 Clin Com Influenza Type A (CINDY) Influenza Type B (CINDY) Influenza A & B Note Ur L.pneumophila Ag Ur Strep pneumoniae Ag Blood Type Antibody Screen Crossmatch 04/09/23 04/09/23 04/10/23 16:10 20:30 07:23 WBC RBC Hgb Hct MCV MCH MCHC RDW Plt Count MPV Immature Gran % (Auto) Neut % (Auto) Lymph % (Auto) [place] % (Auto) Eos % (Auto) Baso % (Auto) Lymph # (Auto) [place] # (Auto) Eos # (Auto) Baso # (Auto) Abs Immat Gran (auto) Absolute Neuts (auto) Absolute Nucleated RBC Nucleated RBC % (auto) ESR Haptoglobin Hold Purple Top PT INR O2 Saturation ABG pH at Pt Temp ABG pCO2 at Pt Temp ABG pO2 at Pt Temp ABG HCO3 ABG Base Excess (Actual) VBG pH VBG pCO2 VBG pO2 VBG HCO3 VBG O2 Saturation VBG Base Excess Sodium Potassium Chloride Carbon Dioxide Anion Gap BUN Creatinine Estim Creat Clear Calc Estimated GFR POC Glucose 101 187 H 112 Random Glucose Fasting Glucose Lactic Acid Calcium Magnesium Iron TIBC % Saturation Unsat Iron Binding Ferritin Total Bilirubin Direct Bilirubin AST ALT Alkaline Phosphatase Lactate Dehydrogenase Troponin I High Sens B-Natriuretic Peptide Total Protein Albumin Vitamin B12 Folate TSH Pleural pH Pleural WBC Pleural RBC Pleural Neutrophils Pleural Lymphocytes Pleural Monocytes Pleural Eosinophils Pleural Total Protein Pleural Albumin Pleural LDH Pleural Glucose Pleural Amylase Nasal Screen MRSA (PCR) Nasal S. aureus Screen Nasal MRSA/S.aureus Interp Stool Occult Blood Stl C. cayetanensis PCR Stool Rotavirus A PCR Stl Adenov F 40/41 PCR Stool Astrovirus (PCR) Stool Campylobacter PCR Stool Cryptosporidium PCR Stl Sh Tox Pr E STEC PCR Stool E coli O157 PCR Stl Enterotoxigenic E PCR Stool EPEC (PCR) Stool EAEC (PCR) Stl E. histolytica PCR Stool Giardia Lamblia PCR Stl P. shigelloides PCR Stool Salmonella PCR Stool Sapovirus (PCR) Stl Shigella/EIEC PCR St Y.enterocolitica PCR Stool Vibrio (PCR) Stl Vibrio cholerae PCR Stl Norovirus GI/GII PCR Vancomycin Trough Random Vancomycin C. difficile Tox B Gene C. difficile Toxin A&B C. difficile Interpret COVID-19 (AVILA) COVID-19 Clin Com Influenza Type A (CINDY) Influenza Type B (CINDY) Influenza A & B Note Ur L.pneumophila Ag Ur Strep pneumoniae Ag Blood Type Antibody Screen Crossmatch 04/10/23 04/10/23 04/10/23 09:47 11:15 15:27 WBC RBC Hgb Hct MCV MCH MCHC RDW Plt Count MPV Immature Gran % (Auto) Neut % (Auto) Lymph % (Auto) [place] % (Auto) Eos % (Auto) Baso % (Auto) Lymph # (Auto) [place] # (Auto) Eos # (Auto) Baso # (Auto) Abs Immat Gran (auto) Absolute Neuts (auto) Absolute Nucleated RBC Nucleated RBC % (auto) ESR Haptoglobin Hold Purple Top PT INR O2 Saturation ABG pH at Pt Temp ABG pCO2 at Pt Temp ABG pO2 at Pt Temp ABG HCO3 ABG Base Excess (Actual) VBG pH VBG pCO2 VBG pO2 VBG HCO3 VBG O2 Saturation VBG Base Excess Sodium Potassium Chloride Carbon Dioxide Anion Gap BUN Creatinine Estim Creat Clear Calc Estimated GFR POC Glucose 167 H 104 Random Glucose Fasting Glucose Lactic Acid Calcium Magnesium Iron TIBC % Saturation Unsat Iron Binding Ferritin Total Bilirubin Direct Bilirubin AST ALT Alkaline Phosphatase Lactate Dehydrogenase Troponin I High Sens B-Natriuretic Peptide Total Protein Albumin Vitamin B12 Folate TSH Pleural pH Pleural WBC Pleural RBC Pleural Neutrophils Pleural Lymphocytes Pleural Monocytes Pleural Eosinophils Pleural Total Protein Pleural Albumin Pleural LDH Pleural Glucose Pleural Amylase Nasal Screen MRSA (PCR) Nasal S. aureus Screen Nasal MRSA/S.aureus Interp Stool Occult Blood Stl C. cayetanensis PCR Stool Rotavirus A PCR Stl Adenov F 40/41 PCR Stool Astrovirus (PCR) Stool Campylobacter PCR Stool Cryptosporidium PCR Stl Sh Tox Pr E STEC PCR Stool E coli O157 PCR Stl Enterotoxigenic E PCR Stool EPEC (PCR) Stool EAEC (PCR) Stl E. histolytica PCR Stool Giardia Lamblia PCR Stl P. shigelloides PCR Stool Salmonella PCR Stool Sapovirus (PCR) Stl Shigella/EIEC PCR St Y.enterocolitica PCR Stool Vibrio (PCR) Stl Vibrio cholerae PCR Stl Norovirus GI/GII PCR Vancomycin Trough 15.3 Random Vancomycin C. difficile Tox B Gene C. difficile Toxin A&B C. difficile Interpret COVID-19 (AVILA) COVID-19 Clin Com Influenza Type A (CINDY) Influenza Type B (CINDY) Influenza A & B Note Ur L.pneumophila Ag Ur Strep pneumoniae Ag Blood Type Antibody Screen Crossmatch 04/10/23 04/11/23 04/11/23 20:37 07:14 07:34 WBC 9.5 RBC 3.18 L Hgb 8.2 L Hct 27.3 L MCV 85.8 MCH 25.8 L MCHC 30.0 L RDW 15.5 Plt Count 332 MPV 9.7 Immature Gran % (Auto) 0.3 Neut % (Auto) 82.5 H Lymph % (Auto) 4.2 L [place] % (Auto) 6.2 Eos % (Auto) 6.5 H Baso % (Auto) 0.3 Lymph # (Auto) 0.4 L [place] # (Auto) 0.6 Eos # (Auto) 0.6 H Baso # (Auto) 0.0 Abs Immat Gran (auto) 0.03 Absolute Neuts (auto) 7.8 Absolute Nucleated RBC 0.000 Nucleated RBC % (auto) 0.0 ESR Haptoglobin Hold Purple Top PT INR O2 Saturation ABG pH at Pt Temp ABG pCO2 at Pt Temp ABG pO2 at Pt Temp ABG HCO3 ABG Base Excess (Actual) VBG pH VBG pCO2 VBG pO2 VBG HCO3 VBG O2 Saturation VBG Base Excess Sodium 145 Potassium 2.8 L* Chloride 103 Carbon Dioxide 34 H Anion Gap 11 L BUN 11 Creatinine 0.65 Estim Creat Clear Calc 85.9 Estimated GFR > 60 POC Glucose 165 H 110 Random Glucose Fasting Glucose 104 H Lactic Acid Calcium 8.7 Magnesium Iron TIBC % Saturation Unsat Iron Binding Ferritin Total Bilirubin Direct Bilirubin AST ALT Alkaline Phosphatase Lactate Dehydrogenase Troponin I High Sens B-Natriuretic Peptide Total Protein Albumin Vitamin B12 Folate TSH Pleural pH Pleural WBC Pleural RBC Pleural Neutrophils Pleural Lymphocytes Pleural Monocytes Pleural Eosinophils Pleural Total Protein Pleural Albumin Pleural LDH Pleural Glucose Pleural Amylase Nasal Screen MRSA (PCR) Nasal S. aureus Screen Nasal MRSA/S.aureus Interp Stool Occult Blood Stl C. cayetanensis PCR Stool Rotavirus A PCR Stl Adenov F 40/41 PCR Stool Astrovirus (PCR) Stool Campylobacter PCR Stool Cryptosporidium PCR Stl Sh Tox Pr E STEC PCR Stool E coli O157 PCR Stl Enterotoxigenic E PCR Stool EPEC (PCR) Stool EAEC (PCR) Stl E. histolytica PCR Stool Giardia Lamblia PCR Stl P. shigelloides PCR Stool Salmonella PCR Stool Sapovirus (PCR) Stl Shigella/EIEC PCR St Y.enterocolitica PCR Stool Vibrio (PCR) Stl Vibrio cholerae PCR Stl Norovirus GI/GII PCR Vancomycin Trough Random Vancomycin C. difficile Tox B Gene C. difficile Toxin A&B C. difficile Interpret COVID-19 (AVILA) COVID-19 Clin Com Influenza Type A (CINDY) Influenza Type B (CINDY) Influenza A & B Note Ur L.pneumophila Ag Ur Strep pneumoniae Ag Blood Type B Positive Antibody Screen NEGATIVE Crossmatch Airway Mallampati Class: II TM Dist: <=3cm Neck ROM: Full Loose/Missing/Broken Teeth: Yes Heart: S1S2 Lungs: Clear left side, absent right side Assessment and Plan Final Anesthetic Review Family History of Problems with Anesthesia: No History of Problems with Anesthesia: No NPO: Yes ASA Class: III Final Preanesthetic Review: No Changes in Pt Med Stat, Meds/Allgs Chart Reviewed, Consent Obtained/Reviewed and Anes Risks/Benef Reviewed Patient Risk: High Procedure Risk: Intermediate Anesthetic Plan Anesthetic Plan: GA and Agree w/ Assess. and Plan Disposition: Inp. Admit - ICU (patient consented with peripatologist to remain intubated post-op)
--- NOTE | 2023-04-11 13:03 | P.PNTS_ITS ---
Subjective Subjective Date of Service: 04/11/23 Interval history: Awaiting surgery today. Physical Exam Vital Signs: Vital Signs: Last Vital Signs Temp 97.6 F 04/11/23 10:13 Pulse 74 04/11/23 10:13 Resp 28 H 04/11/23 10:13 BP 122/49 L 04/11/23 10:13 Pulse Ox 94 04/11/23 10:20 O2 Del Method Nasal Cannula 04/11/23 10:20 O2 Flow Rate 3 04/11/23 10:20 FiO2 95 04/09/23 05:12 Oxygen Flow Rate 2 04/02/23 13:19 BMI result Body Mass Index 30.3 Const: General: comfortable, no acute distress and alert Orientation/consciousness: patient oriented x3 Chest: Other: chest tube in place Resp: Effort & Inspection: normal respiratory effort and no respiratory distress Skin: General skin exam: no rashes or lesions noted Neuro: General: patient oriented x3 Procedures Date of Service Date of Service: 04/11/23 Progress Note: A&P Assessment and plan (1) Trapped lung: Status: Acute (2) Empyema lung: Status: Acute Plan ADmitted with pneumonia, R pleural effusion with R chest tube placed. Now with trapped lung, empyema. Plan for open right thoracotomy with empyemectomy and dec ortication today. All questions answered. Time Spent With Patient Time: Total time managing care of this patient today ____ minutes. Quality Stroke Does the patient have a stroke diagnosis?: No VTE Prior VTE?: No VTE Risk Level:: Medical - moderate - high VTE Device Contraindication: Treatment Not Indicated VTE Drug Contraindication: N/A - Med Ordered
--- NOTE | 2023-04-11 13:16 | MHC.SLORD ---
Speech Language Pathology Order Status: Patient NPO for a procedure today, HYDRAULIC TESTER will continue to follow.
--- NOTE | 2023-04-11 15:02 | P.PNIM_ITS ---
Subjective Subjective Date of Service: 04/11/23 Interval History: hypoxia ,hypokaleimia Review of Systems sob improivng Denies any chest pain Diarrhea also improving Physical Exam 2 Vital Signs: Vital Signs: Last Vital Signs Temp 97.6 F 04/11/23 10:13 Pulse 74 04/11/23 10:13 Resp 28 H 04/11/23 10:13 BP 122/49 L 04/11/23 10:13 Pulse Ox 94 04/11/23 10:20 O2 Del Method Nasal Cannula 04/11/23 10:20 O2 Flow Rate 3 04/11/23 10:20 FiO2 95 04/09/23 05:12 Oxygen Flow Rate 2 04/02/23 13:19 BMI result Body Mass Index 30.3 General: AO X 3, no acute distress Resp:: air entry diminshed significantly right >left CVS: S1,S2,RRR GI: +BS, NT, no distention Skin: No rash Neuro: motor grossly intact Psych: appropriate affect Objective Data Active Medications Acetaminophen (Acetaminophen 325 Mg Tablet) 650 mg PO Q6H PRN PRN Reason: Pain, Mild (Pain Scale 1-3) Last Admin: 04/11/23 07:55 Dose: 650 mg Documented By: SMITHA Albuterol/Ipratropium (Albuterol/Iprat 2.5/0.5mg 3 Ml Ampul.Neb) 3 ml INHALE Q4H PRN PRN Reason: Shortness of Breath/Wheezing Last Admin: 04/10/23 19:40 Dose: 3 ml Documented By: PHILLIP Amiodarone HCl (Amiodarone Hcl 200 Mg Tablet) 400 mg PO BID [facility] Last Admin: 04/11/23 07:45 Dose: 400 mg Documented By: SMITHA Aspirin (Aspirin 81 Mg Tab.Chew) 81 mg PO DAILY [facility] Last Admin: 04/10/23 08:26 Dose: 81 mg Documented By: SMITHA Atorvastatin Calcium (Atorvastatin Calcium 40 Mg Tablet) 40 mg PO DAILY [facility] Last Admin: 04/11/23 07:44 Dose: 40 mg Documented By: SMITHA Bupropion HCl (Bupropion Hcl Xl 300 Mg Tab.Er.24h) 300 mg PO DAILY [facility] Last Admin: 04/11/23 07:44 Dose: 300 mg Documented By: SMITHA Dextrose (Dextrose 50 % 25 Gm/50 Ml Syringe) 25 gm IVPUSH Q15M PRN; Protocol PRN Reason: per Hypoglycemia Standing Ord. Empagliflozin (Empagliflozin 10 Mg Tablet) 10 mg PO DAILY [facility] Last Admin: 04/11/23 07:44 Dose: 10 mg Documented By: SMITHA Ferrous Sulfate (Ferrous Sulfate 324 Mg Tablet.) 324 mg PO BID [facility] Last Admin: 04/11/23 07:44 Dose: 324 mg Documented By: SMITHA Furosemide (Furosemide 20 Mg Tablet) 20 mg PO DAILY [facility]; Protocol Last Admin: 04/09/23 08:27 Dose: 20 mg Documented By: BJ Gabapentin (Gabapentin 100 Mg Capsule) 100 mg PO BID [facility] Last Admin: 04/11/23 07:44 Dose: 100 mg Documented By: SMITHA Glucose (Glucose Gel 15 Gm Gel..Gram.) 15 gm PO Q15M PRN; Protocol PRN Reason: per Hypoglycemia Standing Ord. Guaifenesin (Guaifenesin La 600 Mg Tab.Er.12h) 1,200 mg PO Q12H [facility] Last Admin: 04/11/23 07:44 Dose: 1,200 mg Documented By: SMITHA Heparin Sodium (Porcine) (Heparin Sodium,Porcine 5,000 Unit/Ml Vial) 5,000 unit SUBCUT Q12H [facility] Last Admin: 04/10/23 16:14 Dose: Not Given Documented By: SMITHA Non-Admin Reason: Physician Held Med Piperacillin Sod/Tazobactam (Sod 4.5 gm/ Sodium Chloride) 100 mls @ 200 mls/hr IV Q6H [facility] Last Admin: 04/11/23 13:33 Dose: Not Given Documented By: SMITHA Non-Admin Reason: Off Unit: Surgery Vancomycin HCl 750 mg/ Sodium (Chloride) 265 mls @ 265 mls/hr IV Q12H [facility] Last Admin: 04/11/23 13:30 Dose: Not Given Documented By: SMITHA Non-Admin Reason: Off Unit: Surgery Insulin Human Lispro (Insulin Lispro 100 Unit/Ml 3 Ml Vial) 0 unit SUBCUT QIDACHS [facility]; Protocol Last Admin: 04/11/23 13:12 Dose: Not Given Documented By: SMITHA Non-Admin Reason: Off Unit: Surgery Magnesium Oxide (Magnesium Oxide 400 Mg Tablet) 400 mg PO DAILY [facility] Last Admin: 04/11/23 07:45 Dose: 400 mg Documented By: SMITHA Metoprolol Tartrate (Metoprolol Tartrate 25 Mg Tablet) 25 mg PO Q6H [facility]; Protocol Last Admin: 04/11/23 13:30 Dose: Not Given Documented By: SMITHA Non-Admin Reason: Off Unit: Surgery Morphine Sulfate (Morphine Sulfate 2 Mg/Ml Cartridge) 2 mg IVPUSH Q4H PRN; Protocol PRN Reason: Pain, Severe (Pain Scale 7-10) Last Admin: 04/10/23 20:49 Dose: 2 mg Documented By: ROSALEE Omeprazole (Omeprazole 20 Mg Capsule.Dr) 20 mg PO DAILY@06 [facility] Last Admin: 04/11/23 05:46 Dose: 20 mg Documented By: ROSALEE Ondansetron HCl (Ondansetron Hcl 4 Mg/2 Ml Vial) 4 mg IVPUSH Q8H PRN PRN Reason: Nausea and Vomiting Oxycodone HCl (Oxycodone Hcl Immed Release 5 Mg Tablet) 5 mg PO Q4H PRN PRN Reason: Pain, Moderate(Pain Scale 4-6) Last Admin: 04/09/23 02:24 Dose: 5 mg Documented By: IMELDA Pharmacy Consult (Consult Rx Vancomycin Dosing) 1 each MISCELLANE DAILY PRN PRN Reason: Consult order Senna (Sennosides 8.6 Mg Tablet) 17.2 mg PO BEDTIME PRN PRN Reason: Constipation Sodium Chloride (0.9 % Sodium Chloride Flush 3 Ml Syringe) 3 ml IVFLUSH QSHIFT [facility] Last Admin: 04/11/23 07:45 Dose: 3 ml Documented By: SMITHA Valsartan (Valsartan 40 Mg Tablet) 40 mg PO BID [facility]; Protocol Last Admin: 04/09/23 21:37 Dose: 40 mg Documented By: ROSALEE Vancomycin HCl (Vancomycin Hcl 125 Mg Capsule) 125 mg PO Q6H [facility] Last Admin: 04/11/23 15:01 Dose: Not Given Documented By: SMITHA Non-Admin Reason: Off Unit: Surgery Vitamin D (Cholecalciferol (Vitamin D3) 25 Mcg Tablet) 50 mcg PO DAILY [facility] Last Admin: 04/11/23 07:44 Dose: 50 mcg Documented By: SMITHA Zolpidem Tartrate (Zolpidem Tartrate 5 Mg Tablet) 5 mg PO BEDTIME PRN PRN Reason: Insomnia Last Admin: 04/07/23 21:50 Dose: 5 mg Documented By: IMELDA Labs 04/11/23 07:34 04/11/23 07:34 Labs: Laboratory Results - last 24 hr 04/10/23 04/10/23 04/11/23 15:27 20:37 07:14 MCV MCH MCHC RDW Plt Count MPV Immature Gran % (Auto) Neut % (Auto) Lymph % (Auto) [place] % (Auto) Eos % (Auto) Baso % (Auto) Lymph # (Auto) [place] # (Auto) Eos # (Auto) Baso # (Auto) Abs Immat Gran (auto) Absolute Neuts (auto) Absolute Nucleated RBC Nucleated RBC % (auto) Anion Gap Estim Creat Clear Calc Estimated GFR POC Glucose 104 165 H 110 Fasting Glucose Calcium Blood Type Antibody Screen 04/11/23 07:34 MCV 85.8 MCH 25.8 L MCHC 30.0 L RDW 15.5 Plt Count 332 MPV 9.7 Immature Gran % (Auto) 0.3 Neut % (Auto) 82.5 H Lymph % (Auto) 4.2 L [place] % (Auto) 6.2 Eos % (Auto) 6.5 H Baso % (Auto) 0.3 Lymph # (Auto) 0.4 L [place] # (Auto) 0.6 Eos # (Auto) 0.6 H Baso # (Auto) 0.0 Abs Immat Gran (auto) 0.03 Absolute Neuts (auto) 7.8 Absolute Nucleated RBC 0.000 Nucleated RBC % (auto) 0.0 Anion Gap 11 L Estim Creat Clear Calc 85.9 Estimated GFR > 60 POC Glucose Fasting Glucose 104 H Calcium 8.7 Blood Type B Positive Antibody Screen NEGATIVE Assessment and Plan (1) Trapped lung: Status: Acute (2) Pneumonia: Status: Acute Plan 67-year-old female with history of ixb-wozzkdi-coewonvav type 2 diabetes, hypertension, hyperlipidemia, recent embolic CVA with hospitalization at [facility] from 03/06-03/11 now on DAPT, mood disorder unspecified, former smoker admitted for further management of severe pneumonia with sepsis and acute hypoxemic respiratory failure. paroxysmal AFIB (PAF)noted this morning Severe multifocal pneumonia with possible necrosis/abscess and Parapneumonic effusion recently hospitalized [facility] 03/06-03/11 for CVA, multifocal pneumonia treated with IV ctx ?underlying malignancy given unintentional weight loss (8kg last 5 months) vs possible aspirarion relaated pneumonia MRSA nasal screen negative,effusion culture so far negative CXR 04/07 showed near complete opacification of right side Ct chest 04/09:1. Complete consolidation right lung with air bronchogram and mild loss of volume resulting in ipsilateral mediastinal shift. There are multiple ill-defined opacities throughout the left lung suggestive of developing patchy infiltrates or metastatic process. Trace right pleural effusion. There is a right chest catheter along the lung bases in good position. vanco trough 15.3 (04/10/23) continue Zosyn + Vanco started 04/02/23, incentive spirometry, chest physiotherapy,nebs,oxygen demad slowly improving to 3liters pulm and surgery follow up- may need decortication due to trap lung. keep npo hypokalemia :replecements ordered moniter renal function and electrolytes . acute hypoxemic respiratory failure d/t above -continue supplemental O2 to maintain oximetry >92% PAF--no prior documentation of AFIB, started on Metoprolol 25 q6, amiodarone 400 bid and eliquis added but on hold for possible procedure today and resume promptly Acute on chronic normocytic anemia, last hgb at [facility] on 03/07 was 9 -stool occult blood negative ?r/t acute illness no evidence of hemolysis 1unit of rbc on 04/04, H/H is better Acute diarrhea, Dif positive, patient was treated with Abx prior to hospitalaztion, diarrhea was present before admission and no change in consitent, stool sample was delayed as she was incontient with stool missed with urine all the time until we were able to colect sample and therefore Cdif present on admission. diarrhae improving -Continue PO Vanco 4 times a day Acute hypOkalemia -likely 2/2 diarrhea -repleted and corrected gwo-xyartin-ztsfcjbco type 2 diabetes -POC glucose, diabetic diet -Humalog on sliding scale -hold metformin hypertension--BP normal with meds on hold HFrEf -no acute exacerbation -EF 35-40% 03/07 [facility] -continue lasix recent Embolic CVA, + now new afib -was on DAPT (ASA and Plavix), statin. Stoping Plavix since eliquis added -now it is clear that source of stroke was likely AFIB unspecified mood disorder -continue home meds, reduced zolpidem dose to 5 mg Dysphagia--HOP STRAINER rec chopped + thin liquid seen by Gi-recomended further Gi workup after lung surgery DVT prophylaxis- SCPs, eliquis to resume if no procedure planned Full code inpt for overwhelming pneumonia and hypoxia and requires iv abx to preven detelioration and she might need bronchosopy, s/p thoracentesis -patient will need decortication possibly tomorrow due to trapped lung. Quality Stroke Does the patient have a stroke diagnosis?: No VTE Prior VTE?: No VTE Risk Level:: Medical - moderate - high VTE Device Contraindication: Treatment Not Indicated VTE Drug Contraindication: N/A - Med Ordered
--- NOTE | 2023-04-11 16:09 | P.OP_ITS ---
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 Procedure [] bronchoscopy; pre and postprocedure, right exploratory thoracotomy, right upper lobe and right lower lobe multiple core biopsies, right upper lobe wedge biopsy,Decortication, intercostal nerve block with Exparel Surgeon: [] Mark Odd Shoe Examiner: [Dorene Type of Anesthesia: [] Double-lumen general converted to a single-lumen at completion of the procedure Indication for surgery: [] Patient this presented with respiratory symptoms, dyspnea, feeling unwell, and workup demonstrated among other things large right pleural effusion. She underwent right tube thoracostomy placement. Postprocedure CT scan demonstrated findings suggestive of lung abscess/empyema. Intraoperative findings were as Noted above. Entire right upper lobe and mid dle lobes were consolidated/mass filled, along , with multiple abscesses and lung masses. Right lower lobe was grossly within normal limits. No obvious pleural seeding demonstrated. Because of significant and profound infection, inflammation and cicatrization in the hilum, it was difficult to assess for any mediastinal adenopathy. Findings: [] Patient brought to the operating room, placed on operative table supine position, after adequate level of general double-lumen anesthesia was induced, bronchoscopy was performed to assist anesthesia and placement of double-lumen tube as well as to assess the airways. Patient had profound and copious secretions from the right lung airways and no obvious endoluminal pathology demonstrated. Patient was then placed in the left lateral decubitus position and the right chest was prepped and draped in usual sterile fashion. Using a small posterolateral incision just below the scapular tip, this carried down through skin, subcutaneous tissue, latissimus dorsi muscle. Serratus anterior muscle was retracted anteriorly and preserved. Fifth intercostal space was opened along the upper margin of the 6th rib and posterior aspect of the 6th rib was transected to enhance exposure. Packs and retractors were placed to enhance exposure. Findings were as noted above. Variety of biopsies and core biopsies were taken. Pathology of frozen section demonstrated carcinomatosis. Because of the profound , extensive disease carcinomatosis involving both upper middle lobes as well as multiple lung abscesses, no further resection was performed. Chest cavity was irrigated, secured hemostasis. Through thi anterior separate stab wound incisions, anterior apical and posterior basal chest tubes were placed and secured to the skin using 0 silk sutures. Chest wound was closed in the following manner; over and over 2. Intercostal sutures were used to reapproximate the ribs. Latissimus dorsi was closed with running 2. Vicryl suture. Running deep dermal 2-0 Vicryl suture followed by subcuticular 4-0 Vicryl sutures were placed. Chest tubes were connected to Pleur-evac and lung re-expanded with no obvious air leak demonstrated. Wound had Steri-Strips and sterile dressings applied along with chest tube sites. Sponge, needle, instrument counts reported correct. Patient was reintubated at completion of procedure with a single-lumen tube and bronchoscopy demonstrated some copious secretions but no other obvious airway pathology. EBL proximally 750 cc. Postprocedure chest x-ray pending.
[2023-04-11] MEDS: propofoL 1,000 MG/100 ML VIAL 14.42 MG IVCONT (16:35)
[2023-04-11] MEDS: Norepinephrine Bitartrate/D5W 8 MG/250 ML PLAST..BAG 30.04 MG IV (16:37)
[2023-04-11 16:40] LABS: Glucose, Whole Blood 118 mg/dL (60-115)
--- NOTE | 2023-04-11 16:59 | W.PM.CCHP ---
Procedures Date of Service Date of Service: 04/11/23 Central Line Placement Right IJ: Central Line Comments: Right internal jugular triple-lumen central venous catheter emergently placed under ultrasound guidance and usual sterile conditions with no immediate complications for vasopressor support. X-ray for line position is pending.
--- NOTE | 2023-04-11 17:04 | P.PNCC_ITS ---
Critical Care Event Note Summary Date of Service: 04/11/23 Code activated: No Narrative: 67-year-old lady with underlying diabetes mellitus, hypertension, recent embolic CVA, admitted on 04/02/2023 with a right sided pneumonia. Hospital course significant for development of parapneumonic effusion status post thoracentesis with reoccurrence in progressing to empyema with trapped lung, status post surgical chest tube, and now decortication on 04/11/2023 with intraop findings of right-sided bilobar abscesses, initially with bilobectomy planned. However, in the procedure pathology showed carcinoma, thus bilobectomy with abundant and patient had decortication with placement of 2 chest tubes. She remained intubated at the end of the case and was transferred to intensive care unit. Postoperative course significant for shock requiring pressor support in signif icantly increased FiO2 requirements. Critical Care Time (minutes): 0
[2023-04-11 17:14] LABS: ABG Base Excess 9.2 mmol/L; ABG HCO3 33 mmol/L (22-26); ABG pCO2 42 mmHg (32-45); ABG pO2 116 mmHg (83-108)
[2023-04-11 17:52] LABS: MANUAL DIFF FLAG NO
[2023-04-11 17:54] LABS: Basophils Absolute Auto 0.1 X10*3/uL (0.0-0.2); Basophils Percent Auto 0.2 % (0-2); Eosinophils Absolute Auto 0.2 X10*3/uL (0.0-0.4); Hematocrit 25.7 % (37.0-47.0); Hemoglobin 7.6 g/dl (12.0-16.0); Imm Gran Abs Auto 0.14 X10*3/uL (0.00-0.03); Imm Gran Pct Auto 0.7 % (0.0-0.4); Lymphocytes Absolute Auto 0.7 X10*3/uL (1.2-4.9); Lymphocytes Percent Auto 3.6 % (20-40); Mean Corpuscular HGB Conc 29.6 g/dl (31.0-35.0); Mean Corpuscular Hemoglobin 25.9 pg (27.0-33.0); Mean Corpuscular Volume 87.4 fL (80.0-98.0); Mean Platelet Volume 9.5 fL (9.4-12.3); Monocytes Absolute Auto 1.1 X10*3/uL (0.1-1.2); Monocytes Percent Auto 5.6 % (2-11); NRBC Pct Auto 0.1 /100WBC (0.0-0.2); Neutrophils Percent Auto 88.9 % (45-73); Platelet Count 621 X10*3/uL (160-400); Red Blood Count 2.94 X10*6/uL (4.20-5.50); Red Cell Distribution Width 15.7 % (11.0-16.0); White Blood Count 20.3 X10*3/uL (4.8-10.8)
[2023-04-11 18:08] LABS: Anion Gap 19 (12-20); Blood Urea Nitrogen 14 mg/dL (9-16); Calcium 8.6 mg/dL (8.4-10.2); Carbon Dioxide 25 mmol/L (22-29); Chloride 102 mmol/L (96-108); Creatinine Clr Calc Pharmacy 70.7; Estimated Glomerular Filt Rate > 60; Glucose Random 153 mg/dL (60-115); Potassium 4.1 mmol/L (3.3-5.1); Sodium 142 mmol/L (135-145)
--- NOTE | 2023-04-11 18:46 | HO.SKINPHOTO ---
Location: coccyx Category: PI Stage: Stage II Length: 2cm Width: 2cm Depth: cm
--- NOTE | 2023-04-11 19:00 | PC.NURSE ---
04/12/23 Assumed care of patient 16:15. Pt arrived from OR s/p procedure with Dr. Flores. initial BP 73/44, HR 92. Levophed started at 0.05 per protocol. Levo gtt titrated up per MD aggressively for MAP goal >65. 17:15 Levo @0.6. Propofol gtt @30. 16:48 Plan for TLC central line insertion due to high levophed requirements. Time out performed. 16:51 TLC right IJ insertion, 1 attempt, 3 lumens, 16cm, 7F. 17:00 OG tube placed. CXR to comfirm TLC and OG tube placement captured. Vent settings AC 16/350/8.0/60%, ET tube 8.0 22@lip. Pt VVS, RN to RN handoff at 19:00.
[2023-04-11] MEDS: Norepinephrine Bitartrate/D5W 8 MG/250 ML PLAST..BAG 105.13 MG IV ×2 (19:33→21:44)
[2023-04-11] MEDS: Lactated Ringers 1,000 ML 150 ML IVCONT (19:35)
[2023-04-11] MEDS: Albumin Human 25 % 100 ML IV ×2 (19:40→20:46)
[2023-04-11] MEDS: propofoL 1,000 MG/100 ML VIAL 24.03 MG IVCONT ×2 (19:57→23:51)
[2023-04-11 20:56] LABS: Glucose, Whole Blood 133 mg/dL (60-115)
[2023-04-11] MEDS: Chlorhexidine Gluc Oral Rinse 15 ML MOUTHWASH BUCCAL (20:57)
[2023-04-11 21:03] LABS: Vancomycin Random 10.7 mcg/mL (15-20)
[2023-04-11] MEDS: fentaNYL citrate/NS 1,000 MCG/100 ML PLAST..BAG 2.5 MCG IVCONT (21:51)
[2023-04-11] MEDS: vancomycin HCL 1,000 MG in 0.9 % Sodium Chloride 250 ML 270 MG IV (22:18)
[2023-04-11 22:24] LABS: ABG Refer to POC result
[2023-04-12] VITALS (61 sets, daily range): BP systolic 99–160; BP diastolic 43–76; PULSE 88–115; RESP 15–26; TEMP 32–37.4; O2SAT 92–97; BMI 31.4
[2023-04-12] MEDS: Norepinephrine Bitartrate/D5W 8 MG/250 ML PLAST..BAG 60.08 MG IV (00:16)
[2023-04-12] MEDS: Lactated Ringers 1,000 ML 150 ML IVCONT (01:07)
--- NOTE | 2023-04-12 03:28 | PC.NURSE ---
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 MARKED VENT DYSYNCHRONY WITH POSITIONING..ESPECIALL Y WITH LEFT SIDE DOWNWARD,,,PROPOFOL TITRATED TO 50 MCG/KG/MIN...ANTERIOR AND POSTERIOR CHEST TUBES TO SINGLE PLEURAVAC DRAINING SEROSANGUINOUS DRAINAGE...NO AIR LEAK NOTE...DRESSINGS DRY/INTACT...SCANT URINE OUTPUT VIA HERNANDEZ...LEVOPHED TITRATED 0.6 TO 0.7 MCG/KG/MIN WITH IMPROVED BP....URINE OUTPUT REMAINED SCANT.....ALBUMEN 25 GRAMS IV X2 DOSES GIVEN...LR 2000ml TOTAL INFUSED ( 150 CC/HR AND 250 ML BOLUSES X2 PER MOBILE HOME LOT UTILITY WORKER)...FENTANYL DRIP STARTED AND TITRATED TO 100 MCG/HR WITH RETURN OF VENT SYNCHRONY....RT PRESENT OVERNIGHT...FIO2 WEANED TO 40 %...TV TO 300...PEEP TO 5CM...REMAINS WITH MARGINAL OUTPUT AT PRESENT..APPROX 10-12 CC/HR....TO ASSESS AM LABS BEFORE FURTHER TREATMENT OF URINE OUTPUT....S.TACH OCCASIONAL PAC'S...T-MAX 99.3
[2023-04-12] MEDS: propofoL 1,000 MG/100 ML VIAL 24.03 MG IVCONT ×2 (03:53→07:51)
[2023-04-12] MEDS: Norepinephrine Bitartrate/D5W 8 MG/250 ML PLAST..BAG 45.06 MG IV (03:56)
[2023-04-12] MEDS: fentaNYL citrate/NS 1,000 MCG/100 ML PLAST..BAG 10 MCG IVCONT (04:06)
[2023-04-12 04:44] LABS: MANUAL DIFF FLAG NO
[2023-04-12 04:45] LABS: Basophils Percent Auto 0.2 % (0-2); Eosinophils Absolute Auto 0.5 X10*3/uL (0.0-0.4); Eosinophils Percent Auto 2.9 % (0-4); Imm Gran Pct Auto 0.6 % (0.0-0.4); Lymphocytes Absolute Auto 1.3 X10*3/uL (1.2-4.9); Lymphocytes Percent Auto 7.4 % (20-40); Mean Corpuscular Hemoglobin 26.5 pg (27.0-33.0); Mean Corpuscular Volume 85.5 fL (80.0-98.0); Mean Platelet Volume 9.5 fL (9.4-12.3); Monocytes Absolute Auto 0.8 X10*3/uL (0.1-1.2); Monocytes Percent Auto 4.5 % (2-11); Neutrophils Absolute Auto 14.9 x10*3/uL (2.0-8.3); Neutrophils Percent Auto 84.4 % (45-73); Platelet Count 335 X10*3/uL (160-400); Red Cell Distribution Width 15.9 % (11.0-16.0); White Blood Count 17.7 X10*3/uL (4.8-10.8)
[2023-04-12 04:46] LABS: Venous Blood Gas Refer to POC result
[2023-04-12 04:49] LABS: VBG Base Excess 7.2 mmol/L; VBG HCO3 32 mmol/L (22-26); VBG pCO2 48 mmHg; VBG pH 7.42 (7.32-7.43); VBG pO2 61 mmHg
[2023-04-12 04:50] LABS: Hemoglobin 5.3 g/dl (12.0-16.0)
[2023-04-12 04:51] LABS: Hematocrit 17.1 % (37.0-47.0)
[2023-04-12 05:08] LABS: Alanine Aminotransferase 852 U/L (0-31); Albumin Level 2.6 g/dL (3.5-5.0); Alkaline Phosphatase 41 U/L (39-117); Anion Gap 14 (12-20); Aspartate Amino Transferase 1911 U/L (5-31); Bilirubin Total 0.4 mg/dL (0.0-1.0); Blood Urea Nitrogen 20 mg/dL (9-16); Calcium 7.6 mg/dL (8.4-10.2); Carbon Dioxide 29 mmol/L (22-29); Chloride 101 mmol/L (96-108); Estimated Glomerular Filt Rate 37; Glucose Random 219 mg/dL (60-115); Magnesium 1.9 mg/dL (1.6-2.6); Phosphorus 4.5 mg/dL (2.7-4.5); Potassium 3.5 mmol/L (3.3-5.1); Sodium 140 mmol/L (135-145); Total Protein 4.9 g/dL (6.5-8.0)
[2023-04-12] MEDS: Piperacillin Sodium/Tazobactam 4.5 GM in 0.9 % Sodium Chloride 100 ML IV (05:16)
[2023-04-12] MEDS: Albumin Human 25 % 100 ML IV ×2 (05:38→06:39)
[2023-04-12 07:19] LABS: Glucose, Whole Blood 188 mg/dL (60-115)
[2023-04-12] MEDS: Insulin Lispro 100 UNIT/ML 3 ML VIAL SUBCUT ×2 (07:20→11:48)
[2023-04-12] MEDS: 0.9 % Sodium Chloride Flush 3 ML SYRINGE IVFLUSH ×2 (07:21→16:45)
[2023-04-12] MEDS: Amiodarone HCL 200 MG TABLET 400 MG PO (08:33)
[2023-04-12] MEDS: Chlorhexidine Gluc Oral Rinse 15 ML MOUTHWASH BUCCAL (08:33)
[2023-04-12] MEDS: Famotidine/PF 20 MG/2 ML VIAL IVPUSH (08:33)
--- NOTE | 2023-04-12 09:09 | PM.PNTS ---
Subjective Subjective Date of Service: 04/12/23 Interval history: Intubated, on vent. 200cc serosanguineous output from chest tube. Physical Exam Vital Signs: Vital Signs: Last Vital Signs Temp 98.4 F 04/12/23 09:00 Pulse 96 04/12/23 09:00 Resp 16 04/12/23 09:00 BP 147/68 H 04/12/23 09:00 Pulse Ox 97 04/12/23 09:00 O2 Del Method Mechanical Ventil ation 04/12/23 09:00 O2 Flow Rate 3 04/11/23 10:20 FiO2 50 04/12/23 09:00 Oxygen Flow Rate 2 04/02/23 13:19 BMI result Body Mass Index 31.4 Chest: Other: two right chest tubes in place, no air leak, serosanguineous output thoractomy dressing c/d/i Cardio: Rate: regular rate Procedures Date of Service Date of Service: 04/12/23 Progress Note: A&P Assessment and plan (1) Carcinomatosis: Status: Acute (2) Acute respiratory failure: Status: Acute (3) Acute blood loss anemia: Status: Acute (4) Lung abscess: Status: Acute Plan POD #1 s/p bronchoscopy pre and postprocedure, right exploratory thoracotomy, right upper lobe and right lower lobe multiple core biopsies, right upper lobe wedge biopsy, intercostal nerve block with Exparel. 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 Patient remains intubated, on vent. Chest tube with moderate serosanguineous output, no air leak. CXR continues to show complete R lung opacification likely due to consolidation from CA, PNA and lung abscesses. H/H significantly decreased this am likely due to blood loss. Currently being transfused. Patient remains critically ill- remainder of care per ICU team. Time Spent With Patient Time: Total time managing care of this patient today ____ minutes. Quality Stroke Does the patient have a stroke diagnosis?: No VTE Prior VTE?: No VTE Risk Level:: Medical - moderate - high VTE Device Contraindication: Treatment Not Indicated VTE Drug Contraindication: N/A - Med Ordered
--- NOTE | 2023-04-12 09:28 | PM.CCPN ---
Subjective Subjective Date of Service: 04/12/23 Interval History: 67-year-old lady with underlying diabetes mellitus, hypertension, recent embolic CVA, admitted on 04/02/2023 with a right sided pneumonia. Hospital course significant for development of parapneumonic effusion status post thoracentesis with reoccurrence in progressing to empyema with trapped lung, status post surgical chest tube, and decortication on 04/11/2023 with intraop findings of right-sided bilobar abscesses, initially with bilobectomy planned. However, in the procedure pathology showed carcinoma, thus bilobectomy with aborted and patient had decortication with placement of 2 chest tubes. She remained intubated at the end of the case and was transferred to intensive care unit. Postoperative course significant for shock requiring pressor support and significantly increased FiO2 requirements. Overnight with decrease in hemoglobin to 5.3. Finishing 2nd unit of packed red blood cells now. FiO2 and pressor requirements are improving. Critical Care Time (minutes): 60 Physical Exam Vital Signs: Vital Signs: Last Vital Signs Temp 98.4 F 04/12/23 09:00 Pulse 96 04/12/23 09:00 Resp 16 04/12/23 09:00 BP 147/68 H 04/12/23 09:00 Pulse Ox 97 04/12/23 09:00 O2 Del Method Mechanical Ventil ation 04/12/23 09:00 O2 Flow Rate 3 04/11/23 10:20 FiO2 50 04/12/23 09:00 Oxygen Flow Rate 2 04/02/23 13:19 BMI result Body Mass Index 31.4 Const: General: no acute distress and other (Sedated on the vent) Eyes: Sclerae: sclerae normal EOM: EOMs intact bilaterally Neck: Neck: Yes no lymphadenopathy, Yes trachea midline and Yes supple Resp: Auscultation: other (Poor air movement on the right, left-sided crackles) Cardio: Rate: regular rate Rhythm: regular rhythm Heart sounds: no gallops, no murmurs and no rubs GI: Palpation (GI): Soft to palpation and Other GI palpation findings present ( Nontender) Auscultation: normal bowel sounds Extrem: General: No clubbing, No cyanosis and Yes edema (1+ bilateral) Objective Data Labs 04/12/23 04:36 04/12/23 04:36 Labs: Laboratory Results - last 24 hr 04/11/23 04/11/23 04/11/23 07:34 16:32 17:07 WBC RBC Hgb Hct MCV MCH MCHC RDW Plt Count MPV Immature Gran % (Auto) Neut % (Auto) Lymph % (Auto) [place] % (Auto) Eos % (Auto) Baso % (Auto) Lymph # (Auto) [place] # (Auto) Eos # (Auto) Baso # (Auto) Abs Immat Gran (auto) Absolute Neuts (auto) Absolute Nucleated RBC Nucleated RBC % (auto) O2 Saturation 99.0 ABG pH at Pt Temp 7.50 H ABG pCO2 at Pt Temp 42 ABG pO2 at Pt Temp 116 H ABG HCO3 33 H ABG Base Excess (Actual) 9.2 VBG pH VBG pCO2 VBG pO2 VBG HCO3 VBG O2 Saturation VBG Base Excess Sodium Potassium Chloride Carbon Dioxide Anion Gap BUN Creatinine Estim Creat Clear Calc Estimated GFR POC Glucose 118 H Random Glucose Calcium Phosphorus Magnesium Total Bilirubin AST ALT Alkaline Phosphatase Total Protein Albumin Random Vancomycin Blood Type B Positive Antibody Screen NEGATIVE Crossmatch See Detail 04/11/23 04/11/23 04/11/23 17:46 20:04 20:53 WBC 20.3 H RBC 2.94 L Hgb 7.6 L Hct 25.7 L MCV 87.4 MCH 25.9 L MCHC 29.6 L RDW 15.7 Plt Count 621 H D MPV 9.5 Immature Gran % (Auto) 0.7 H Neut % (Auto) 88.9 H Lymph % (Auto) 3.6 L [place] % (Auto) 5.6 Eos % (Auto) 1.0 Baso % (Auto) 0.2 Lymph # (Auto) 0.7 L [place] # (Auto) 1.1 Eos # (Auto) 0.2 Baso # (Auto) 0.1 Abs Immat Gran (auto) 0.14 H Absolute Neuts (auto) 18.0 H Absolute Nucleated RBC 0.020 H Nucleated RBC % (auto) 0.1 O2 Saturation ABG pH at Pt Temp ABG pCO2 at Pt Temp ABG pO2 at Pt Temp ABG HCO3 ABG Base Excess (Actual) VBG pH VBG pCO2 VBG pO2 VBG HCO3 VBG O2 Saturation VBG Base Excess Sodium 142 Potassium 4.1 D Chloride 102 Carbon Dioxide 25 Anion Gap 19 BUN 14 Creatinine 0.79 Estim Creat Clear Calc 70.7 Estimated GFR > 60 POC Glucose 133 H Random Glucose 153 H Calcium 8.6 Phosphorus Magnesium Total Bilirubin AST ALT Alkaline Phosphatase Total Protein Albumin Random Vancomycin 10.7 L Blood Type Antibody Screen Crossmatch 04/12/23 04/12/23 04/12/23 04:36 04:42 07:15 WBC 17.7 H RBC 2.00 L D Hgb 5.3 L* D Hct 17.1 L* D MCV 85.5 MCH 26.5 L MCHC 31.0 RDW 15.9 Plt Count 335 D MPV 9.5 Immature Gran % (Auto) 0.6 H Neut % (Auto) 84.4 H Lymph % (Auto) 7.4 L [place] % (Auto) 4.5 Eos % (Auto) 2.9 Baso % (Auto) 0.2 Lymph # (Auto) 1.3 [place] # (Auto) 0.8 Eos # (Auto) 0.5 H Baso # (Auto) 0.0 Abs Immat Gran (auto) 0.10 H Absolute Neuts (auto) 14.9 H Absolute Nucleated RBC 0.000 Nucleated RBC % (auto) 0.0 O2 Saturation ABG pH at Pt Temp ABG pCO2 at Pt Temp ABG pO2 at Pt Temp ABG HCO3 ABG Base Excess (Actual) VBG pH 7.42 VBG pCO2 48 VBG pO2 61 VBG HCO3 32 H VBG O2 Saturation Not Reportable VBG Base Excess 7.2 Sodium 140 Potassium 3.5 Chloride 101 Carbon Dioxide 29 Anion Gap 14 BUN 20 H Creatinine 1.42 H Estim Creat Clear Calc 40.0 Estimated GFR 37 POC Glucose 188 H Random Glucose 219 H Calcium 7.6 L D Phosphorus 4.5 Magnesium 1.9 Total Bilirubin 0.4 AST 1911 H ALT 852 H Alkaline Phosphatase 41 Total Protein 4.9 L Albumin 2.6 L Random Vancomycin Blood Type Antibody Screen Crossmatch Microbiology Microbiology Results: Microbiology 04/05/23 14:15 Thoracentesis Fluid Gram Stain - Final 04/05/23 14:15 Thoracentesis Fluid Anaerobic Culture - Final NO GROWTH AFTER 5 DAYS 04/05/23 14:15 Thoracentesis Fluid Body Fluid Culture - Final No growth after 2 days 04/02/23 14:54 Blood - Venous Blood Culture - Final No growth after 5 days. 04/02/23 14:24 Blood - Venous Blood Culture - Final No growth after 5 days. Progress Note: A&P Assessment and plan (1) Lung abscess: Status: Acute (2) Carcinomatosis: Status: Acute (3) Empyema lung: Status: Acute (4) Pneumonia: Status: Acute (5) Acute hypoxemic respiratory failure: Status: Acute Plan Assessment: 67-year-old lady admitted with acute hypoxic respiratory failure secondary to right-sided pneumonia, further complicated by trapped lung requiring decortication, intraoperatively noted to have multiple right-sided lung abscesses and tumors. Plan: Neuro: No acute issues. Cardiac: Shock, continue titrate off pressors as tolerated. Underlying history of systolic congestive heart failure. Pulmonary: Acute hypoxic respiratory failure secondary to postobstructive pneumonia on the background of new diagnosis of lung cancer, status post decortication. Continue to titrate off ventilatory support as tolerated. Thoracic surgery service care appreciated. Renal: No acute issues. Endo: No acute issues. GI: No acute issues. ID: Pneumonia, with postobstructive features, continue broad-spectrum antibiotics. C diff, continue p.o. vancomycin. Heme/Onc: New diagnosis of lung cancer, pathology is pending. Psych: No acute issues. Miscellaneous: No acute issues. Prophylaxis: Heparin, famotidine Diet: Nothing by mouth Critical care time spent: 60 minutes Quality Stroke Does the patient have a stroke diagnosis?: No VTE Prior VTE?: No VTE Risk Level:: Medical - moderate - high VTE Device Contraindication: Treatment Not Indicated VTE Drug Contraindication: N/A - Med Ordered
--- NOTE | 2023-04-12 09:32 | P.CDIM_ITS ---
PROVIDER RESPONSE TEXT: To clarify, the appropriate diagnosis supported by the clinical indicators: Vasoplegic circulatory shock QUERY TEXT: PHYSICIAN'S DOCUMENTATION REQUEST Date of Query: 04/12/2023 09:01 AM EST Patient Name: Saira Acosta Admit Date: 04/03/2023 Dear Faustino Hackett, A review of the medical record indicates additional documentation may be needed. Please review below and update the documentation accordingly. Clinical Indicators: Per Critical Care Progress Note 04/11/23: Postoperative course significant for shock requiring pressor support in significantly increased FiO2 requirements. Based on the above, could you clarify the appropriate diagnosis for the type of shock: Cardiogenic shock Septic shock Endotoxic shock Hypovolemic shock Vasoplegic circulatory shock Other (explain) Clinically unable to determine (explain) Thank you, Mary Jani RN Use of terms such as suspected, likely, concern for, or probable (associated with a specific diagnosi s that is being evaluated, monitored, or treated as if it exists) are acceptable and can be coded in the inpatient se tting, when documented at the time of discharge. Please use your independent medical judgment in providing your response. THIS QUERY IS PART OF THE PERMANENT MEDICAL RECORD
--- NOTE | 2023-04-12 09:45 | MHC.SLORD ---
Speech Language Pathology Order Status: Per EMR, pt is intubated & vented. SAP [employer] ARCHITECT consult deferred post-extubation.
[2023-04-12] MEDS: Norepinephrine Bitartrate/D5W 8 MG/250 ML PLAST..BAG 18.02 MG IV (09:59)
[2023-04-12] MEDS: vancomycin HCL 1,000 MG in 0.9 % Sodium Chloride 250 ML 270 MG IV (09:59)
--- NOTE | 2023-04-12 10:37 | HE.PHANOTE ---
RE: vanco Patient's creatinine about doubled; called [facility] to have her have the AM dose of vanco taken down. Infusion was started at about 1000 and call was made and bag was stopped ~1030. Next level due @2100
--- NOTE | 2023-04-12 10:48 | MHC.CLN ---
PT IS INTUBATED AND SEDATED CURRENTLY NPO DISCUSS AT ROUNDS WITH MD IF TF NEEDED; RECOMMEND GLUCERNA AT MAX GOAL RATE 55ML/HR WITH 240ML FREE WATER FLUSH Q 6 HRS TO PROVIDE 1320KCALS (1954KCALS WITH SEDATION; 30.5KCALS/KG BASED ON CMW), 55G PROTEIN (.85G/KG), 2086ML TOTAL FREE WATER FROM FORMULA AND FLUSHES (32.5ML/KG) MONITOR TOLERANCE, RESIDUALS AND LYTES FOLLOWING FOR DIET ADVANCEMENT SEE ALSO FULL CLINICAL NUTRITION ASSESSMENT
[2023-04-12 11:21] LABS: Glucose, Whole Blood 168 mg/dL (60-115)
[2023-04-12 11:44] LABS: MANUAL DIFF FLAG NO
[2023-04-12 11:51] LABS: Basophils Absolute Auto 0.1 X10*3/uL (0.0-0.2); Basophils Percent Auto 0.4 % (0-2); Eosinophils Absolute Auto 1.2 X10*3/uL (0.0-0.4); Eosinophils Percent Auto 9.4 % (0-4); Hematocrit 22.4 % (37.0-47.0); Hemoglobin 7.1 g/dl (12.0-16.0); Imm Gran Abs Auto 0.08 X10*3/uL (0.00-0.03); Imm Gran Pct Auto 0.6 % (0.0-0.4); Lymphocytes Percent Auto 7.8 % (20-40); Mean Corpuscular HGB Conc 31.7 g/dl (31.0-35.0); Mean Corpuscular Hemoglobin 27.3 pg (27.0-33.0); Mean Corpuscular Volume 86.2 fL (80.0-98.0); Mean Platelet Volume 9.3 fL (9.4-12.3); Monocytes Absolute Auto 0.6 X10*3/uL (0.1-1.2); Monocytes Percent Auto 4.7 % (2-11); Neutrophils Absolute Auto 10.2 x10*3/uL (2.0-8.3); Neutrophils Percent Auto 77.1 % (45-73); Platelet Count 191 X10*3/uL (160-400); Red Cell Distribution Width 14.8 % (11.0-16.0); White Blood Count 13.2 X10*3/uL (4.8-10.8)
[2023-04-12] MEDS: Piperacillin Sodium/Tazobactam 3.375 GM in 0.9 % Sodium Chloride 50 ML IV ×2 (12:02→17:19)
--- NOTE | 2023-04-12 14:36 | HO.POSTANES ---
Post Anesthesia Evaluation Post Anesthesia Evaluation Date of Service: 04/12/23 Vital Signs: Vital Signs Temp Pulse Resp BP Pulse Ox O2 Del Method O2 Flow Rate 04/12/23 14:00 100 17 127/64 95 High Flow Nasal Cannula 40 04/12/23 13:00 98 15 123/58 L 95 High Flow Nasal Cannula 40 04/12/23 12:00 98.6 F 100 19 124/62 95 High Flow Nasal Cannula 40 04/12/23 11:50 102 H 135/63 04/12/23 11:13 22 H 04/12/23 11:05 04/12/23 11:00 98.5 F 99 21 H 125/57 L 96 Mechanical Ventilation 04/12/23 10:03 93 100/47 L 04/12/23 10:00 99.0 F 97 16 107/56 L 96 Mechanical Ventilation 04/12/23 09:59 92 106/51 L 04/12/23 09:59 92 106/51 L 04/12/23 09:53 93 111/69 04/12/23 09:48 93 135/63 04/12/23 09:42 90 123/58 L 04/12/23 09:36 94 148/69 H 04/12/23 09:36 98.4 F 94 16 148/69 H 04/12/23 09:00 98.4 F 96 16 147/68 H 97 Mechanical Ventilation 04/12/23 08:50 94 151/66 H 04/12/23 08:33 95 139/60 04/12/23 08:00 04/12/23 08:00 98.6 F 94 20 133/56 L 97 Mechanical Ventilation 04/12/23 07:51 98.6 F 98 16 143/66 H 04/12/23 07:48 98 149/68 H 04/12/23 07:32 98 160/71 H 04/12/23 07:31 98.6 F 98 16 160/71 H 04/12/23 07:23 98.6 F 98 16 160/76 H 04/12/23 07:22 98 160/76 H 04/12/23 07:00 98.8 F 98 16 158/66 H 97 Mechanical Ventilation 04/12/23 06:00 98.8 F 101 H 17 143/67 H 97 Mechanical Ventilation 04/12/23 05:45 98.8 F 102 H 18 132/75 04/12/23 05:40 98.8 F 100 18 147/64 H 04/12/23 05:26 98.8 F 102 H 18 134/60 04/12/23 05:00 98.6 F 102 H 18 137/55 L 96 Mechanical Ventilation 04/12/23 04:06 102 H 16 125/56 L 04/12/23 04:06 102 H 16 125/56 L 04/12/23 04:00 98.6 F 104 H 16 125/56 L 97 Mechanical Ventilation 04/12/23 03:56 104 H 127/58 L 04/12/23 03:56 104 H 127/58 L 04/12/23 03:53 104 H 127/58 L 04/12/23 03:53 104 H 127/58 L 04/12/23 03:12 04/12/23 03:01 04/12/23 03:00 99.0 F 102 H 18 124/52 L 95 Mechanical Ventilation FiO2 04/12/23 14:00 50 04/12/23 13:00 50 04/12/23 12:00 50 04/12/23 11:50 04/12/23 11:13 04/12/23 11:05 50 04/12/23 11:00 50 04/12/23 10:03 04/12/23 10:00 50 04/12/23 09:59 04/12/23 09:59 04/12/23 09:53 04/12/23 09:48 04/12/23 09:42 04/12/23 09:36 04/12/23 09:36 04/12/23 09:00 50 04/12/23 08:50 04/12/23 08:33 04/12/23 08:00 50 04/12/23 08:00 50 04/12/23 07:51 04/12/23 07:48 04/12/23 07:32 04/12/23 07:31 04/12/23 07:23 04/12/23 07:22 04/12/23 07:00 50 04/12/23 06:00 50 04/12/23 05:45 04/12/23 05:40 04/12/23 05:26 04/12/23 05:00 50 04/12/23 04:06 04/12/23 04:06 04/12/23 04:00 40 04/12/23 03:56 04/12/23 03:56 04/12/23 03:53 04/12/23 03:53 04/12/23 03:12 40 04/12/23 03:01 40 04/12/23 03:00 40 Anesthesia: General Endotracheal-GETA Mental Status: Awake Pain Control: Satisfactory Nausea/Vomiting: None Hydration: Adequate Anesthesia-Related Issues: No Anes. Related Issues
--- NOTE | 2023-04-12 15:00 | MHC.CM.PN ---
Addendum entered by Margarita Tomlinson 04/12/23 16:10: Of note, pt is a bed hold at [facility]. Clinical updates remitted to facility Original Note: Pt transferred to ICU after she developed shock in PACU s/p lung decortication. Pt on pressors, vented and is receiving blood products. She has two Y tube connected chest tubes attached to suction. Pt is critical at this time and finalization of d/c needs is now undetermined d/t change in condition. CM to follow for d/c planning needs.
[2023-04-12] MEDS: Heparin Sodium,Porcine 5,000 UNIT/ML VIAL 5000 UNIT SUBCUT (16:44)
[2023-04-12 19:37] LABS: Glucose, Whole Blood 127 mg/dL (60-115)
[2023-04-12 21:04] LABS: Glucose, Whole Blood 138 mg/dL (60-115)
[2023-04-12 21:18] LABS: Vancomycin Random 25.4 mcg/mL (15-20)
[2023-04-13] VITALS (34 sets, daily range): BP systolic 100–144; BP diastolic 39–75; PULSE 76–110; RESP 15–29; TEMP 34.1–37.6; O2SAT 90–100; BMI 32.4
[2023-04-13] MEDS: Piperacillin Sodium/Tazobactam 3.375 GM in 0.9 % Sodium Chloride 50 ML IV ×2 (00:15→05:54)
[2023-04-13] MEDS: 0.9 % Sodium Chloride Flush 3 ML SYRINGE IVFLUSH ×4 (00:16→23:16)
[2023-04-13] MEDS: Furosemide 40 MG/4 ML VIAL IVPUSH (00:46)
[2023-04-13 05:15] LABS: MANUAL DIFF FLAG NO
[2023-04-13 05:18] LABS: VBG Base Excess 6.2 mmol/L; VBG HCO3 31 mmol/L (22-26); VBG pCO2 47 mmHg; VBG pH 7.42 (7.32-7.43); VBG pO2 53 mmHg
[2023-04-13 05:19] LABS: Basophils Absolute Auto 0.1 X10*3/uL (0.0-0.2); Basophils Percent Auto 0.4 % (0-2); Eosinophils Absolute Auto 1.2 X10*3/uL (0.0-0.4); Eosinophils Percent Auto 7.8 % (0-4); Hematocrit 22.6 % (37.0-47.0); Hemoglobin 7.1 g/dl (12.0-16.0); Imm Gran Abs Auto 0.08 X10*3/uL (0.00-0.03); Imm Gran Pct Auto 0.5 % (0.0-0.4); Lymphocytes Absolute Auto 0.6 X10*3/uL (1.2-4.9); Lymphocytes Percent Auto 4.1 % (20-40); Mean Corpuscular HGB Conc 31.4 g/dl (31.0-35.0); Mean Corpuscular Hemoglobin 26.8 pg (27.0-33.0); Mean Corpuscular Volume 85.3 fL (80.0-98.0); Mean Platelet Volume 9.4 fL (9.4-12.3); Monocytes Absolute Auto 0.6 X10*3/uL (0.1-1.2); Monocytes Percent Auto 3.9 % (2-11); Neutrophils Absolute Auto 12.8 x10*3/uL (2.0-8.3); Neutrophils Percent Auto 83.3 % (45-73); Platelet Count 168 X10*3/uL (160-400); Red Blood Count 2.65 X10*6/uL (4.20-5.50); Red Cell Distribution Width 15.3 % (11.0-16.0); White Blood Count 15.4 X10*3/uL (4.8-10.8)
[2023-04-13 05:36] LABS: Alanine Aminotransferase 522 U/L (0-31); Albumin Level 2.6 g/dL (3.5-5.0); Alkaline Phosphatase 56 U/L (39-117); Anion Gap 17 (12-20); Aspartate Amino Transferase 410 U/L (5-31); Bilirubin Total 0.7 mg/dL (0.0-1.0); Blood Urea Nitrogen 30 mg/dL (9-16); Calcium 7.7 mg/dL (8.4-10.2); Carbon Dioxide 27 mmol/L (22-29); Chloride 102 mmol/L (96-108); Creatinine Clr Calc Pharmacy 18.1; Estimated Glomerular Filt Rate 15; Glucose Random 109 mg/dL (60-115); Magnesium 1.9 mg/dL (1.6-2.6); Phosphorus 5.1 mg/dL (2.7-4.5); Potassium 3.6 mmol/L (3.3-5.1); Sodium 142 mmol/L (135-145); Total Protein 4.9 g/dL (6.5-8.0)
[2023-04-13 06:02] LABS: Venous Blood Gas Refer to POC result
[2023-04-13] MEDS: Famotidine/PF 20 MG/2 ML VIAL IVPUSH (07:33)
[2023-04-13] MEDS: Albumin Human 25 % 100 ML IV ×3 (07:34→20:51)
[2023-04-13] MEDS: Amiodarone HCL 200 MG TABLET 400 MG PO (07:37)
[2023-04-13 07:49] LABS: Glucose, Whole Blood 114 mg/dL (60-115)
[2023-04-13 09:34] LABS: Vancomycin Random 24.7 mcg/mL (15-20)
[2023-04-13] MEDS: Bumetanide 1 MG/4 ML VIAL IVPUSH (10:08)
[2023-04-13] MEDS: Piperacillin Sodium/Tazobactam 2.25 GM in 0.9 % Sodium Chloride 50 ML IV ×3 (10:20→23:16)
--- NOTE | 2023-04-13 10:36 | P.PNCC_ITS ---
Subjective Subjective Date of Service: 04/13/23 Interval History: 67-year-old lady with underlying diabetes mellitus, hypertension, recent embolic CVA, admitted on 04/02/2023 with a right sided pneumonia. Hospital course significant for development of parapneumonic effusion status post thoracentesis with reoccurrence in progressing to empyema with trapped lung, status post surgical chest tube, and decortication on 04/11/2023 with intraop findings of right-sided bilobar abscesses, initially with bilobectomy planned. However, in the procedure pathology showed carcinoma, thus bilobectomy with aborted and patient had decortication with placement of 2 chest tubes. She remained intubated at the end of the case and was transferred to intensive care unit. Postoperative course significant for shock requiring pressor support and significantly increased FiO2 requirements. Worsening renal function, likely secondary to development of ischemic ATN. Transaminases are improving. Critical Care Time (minutes): 0 Physical Exam 2 Vital Signs: Vital Signs: Last Vital Signs Temp 98.9 F 04/13/23 08:00 Pulse 99 04/13/23 10:01 Resp 21 H 04/13/23 10:00 BP 112/54 L 04/13/23 10:01 Pulse Ox 93 04/13/23 10:00 O2 Del Method High Flow Nasal C annula 04/13/23 10:00 O2 Flow Rate 40 04/13/23 10:00 FiO2 40 04/13/23 10:00 Oxygen Flow Rate 2 04/02/23 13:19 BMI result Body Mass Index 32.4 Const: General: no acute distress, alert and awake Eyes: Sclerae: sclerae normal EOM: EOMs intact bilaterally Neck: Neck: Yes no lymphadenopathy, Yes trachea midline and Yes supple Resp: Effort & Inspection: normal respiratory effort and no respiratory distress Auscultation: crackles ([id number]) Cardio: Rate: regular rate Rhythm: regular rhythm Heart sounds: no gallops, no murmurs and no rubs GI: Palpation (GI): Soft to palpation and Other GI palpation findings present ( Nontender) Auscultation: normal bowel sounds Extrem: General: No clubbing, No cyanosis and Yes edema (1+ bilateral) Objective Data Labs 04/13/23 05:10 04/13/23 05:10 Labs: Laboratory Results - last 24 hr 04/12/23 04/12/23 04/12/23 11:18 11:40 15:58 WBC 13.2 H RBC 2.60 L D Hgb 7.1 L D Hct 22.4 L D MCV 86.2 MCH 27.3 MCHC 31.7 RDW 14.8 Plt Count 191 D MPV 9.3 L Immature Gran % (Auto) 0.6 H Neut % (Auto) 77.1 H Lymph % (Auto) 7.8 L [place] % (Auto) 4.7 Eos % (Auto) 9.4 H Baso % (Auto) 0.4 Lymph # (Auto) 1.0 L [place] # (Auto) 0.6 Eos # (Auto) 1.2 H Baso # (Auto) 0.1 Abs Immat Gran (auto) 0.08 H Absolute Neuts (auto) 10.2 H Absolute Nucleated RBC 0.000 Nucleated RBC % (auto) 0.0 VBG pH VBG pCO2 VBG pO2 VBG HCO3 VBG O2 Saturation VBG Base Excess Sodium Potassium Chloride Carbon Dioxide Anion Gap BUN Creatinine Estim Creat Clear Calc Estimated GFR POC Glucose 168 H 127 H Random Glucose Calcium Phosphorus Magnesium Total Bilirubin AST ALT Alkaline Phosphatase Total Protein Albumin Random Vancomycin 04/12/23 04/12/23 04/13/23 20:55 21:01 05:10 WBC 15.4 H RBC 2.65 L Hgb 7.1 L Hct 22.6 L MCV 85.3 MCH 26.8 L MCHC 31.4 RDW 15.3 Plt Count 168 MPV 9.4 Immature Gran % (Auto) 0.5 H Neut % (Auto) 83.3 H Lymph % (Auto) 4.1 L [place] % (Auto) 3.9 Eos % (Auto) 7.8 H Baso % (Auto) 0.4 Lymph # (Auto) 0.6 L [place] # (Auto) 0.6 Eos # (Auto) 1.2 H Baso # (Auto) 0.1 Abs Immat Gran (auto) 0.08 H Absolute Neuts (auto) 12.8 H Absolute Nucleated RBC 0.000 Nucleated RBC % (auto) 0.0 VBG pH VBG pCO2 VBG pO2 VBG HCO3 VBG O2 Saturation VBG Base Excess Sodium 142 Potassium 3.6 Chloride 102 Carbon Dioxide 27 Anion Gap 17 BUN 30 H Creatinine 3.13 H Estim Creat Clear Calc 18.1 Estimated GFR 15 POC Glucose 138 H Random Glucose 109 Calcium 7.7 L Phosphorus 5.1 H Magnesium 1.9 Total Bilirubin 0.7 AST 410 H ALT 522 H Alkaline Phosphatase 56 Total Protein 4.9 L Albumin 2.6 L Random Vancomycin 25.4 H* 04/13/23 04/13/23 04/13/23 05:11 07:46 09:07 WBC RBC Hgb Hct MCV MCH MCHC RDW Plt Count MPV Immature Gran % (Auto) Neut % (Auto) Lymph % (Auto) [place] % (Auto) Eos % (Auto) Baso % (Auto) Lymph # (Auto) [place] # (Auto) Eos # (Auto) Baso # (Auto) Abs Immat Gran (auto) Absolute Neuts (auto) Absolute Nucleated RBC Nucleated RBC % (auto) VBG pH 7.42 VBG pCO2 47 VBG pO2 53 VBG HCO3 31 H VBG O2 Saturation 87.0 VBG Base Excess 6.2 Sodium Potassium Chloride Carbon Dioxide Anion Gap BUN Creatinine Estim Creat Clear Calc Estimated GFR POC Glucose 114 Random Glucose Calcium Phosphorus Magnesium Total Bilirubin AST ALT Alkaline Phosphatase Total Protein Albumin Random Vancomycin 24.7 H Microbiology Microbiology Results: Microbiology 04/11/23 14:24 Lung - Right Gram Stain - Final 04/11/23 14:24 Lung - Right Routine Culture - Preliminary No growth to date. 04/11/23 14:24 Lung - Right Anaerobic Culture - Preliminary No growth to date. 04/05/23 14:15 Thoracentesis Fluid Gram Stain - Final 04/05/23 14:15 Thoracentesis Fluid Anaerobic Culture - Final NO GROWTH AFTER 5 DAYS 04/05/23 14:15 Thoracentesis Fluid Body Fluid Culture - Final No growth after 2 days 04/02/23 14:54 Blood - Venous Blood Culture - Final No growth after 5 days. 04/02/23 14:24 Blood - Venous Blood Culture - Final No growth after 5 days. Progress Note: A&P Assessment and plan (1) ROBERT (acute kidney injury): Status: Acute (2) Lung abscess: Status: Acute (3) Carcinomatosis: Status: Acute (4) Empyema lung: Status: Acute (5) Acute hypoxemic respiratory failure: Status: Acute (6) Diabetes: Status: Acute (7) HFrEF (heart failure with reduced ejection fraction): Status: Acute Plan Assessment: 67-year-old lady admitted with acute hypoxic respiratory failure secondary to right-sided pneumonia, further complicated by trapped lung requiring decortication, intraoperatively noted to have multiple right-sided lung abscesses and tumors. Plan: Neuro: No acute issues. Cardiac: Shock, resolved, titrated off pressors. Underlying history of systolic congestive heart failure. Pulmonary: Acute hypoxic respiratory failure secondary to postobstructive pneumonia on the background of new diagnosis of lung cancer, status post decortication. Continue to titrate off ventilatory support as tolerated. Thoracic surgery service care appreciated. Renal: Acute kidney injury, likely secondary to ischemic ATN. Non oliguric. Continue to monitor renal indices and urine output. Endo: No acute issues. GI: Ischemic hepatitis, improving. ID: Pneumonia, with postobstructive features, continue broad-spectrum antibiotics. C diff, continue p.o. vancomycin. Heme/Onc: New diagnosis of lung cancer, pathology is pending. Psych: No acute issues. Miscellaneous: No acute issues. Prophylaxis: Heparin Diet: Pending swallow evaluation Quality Stroke Does the patient have a stroke diagnosis?: No VTE Prior VTE?: No VTE Risk Level:: Medical - moderate - high VTE Device Contraindication: Treatment Not Indicated VTE Drug Contraindication: N/A - Med Ordered
[2023-04-13 11:35] LABS: Glucose, Whole Blood 121 mg/dL (60-115)
[2023-04-13] MEDS: vancomycin HCL 125 MG CAPSULE PO ×2 (13:00→18:26)
--- NOTE | 2023-04-13 13:08 | MHC.SL.DTX ---
Dysphagia Diet modifications: Last documented Solid diet consistencies: NPO Last documented Liquid consistency: NPO Changes made to current diet?: No Liquid Consistency and Strategies: Liquid Intake Recommendation: NPO Compensatory Strategies for Safe Swallow: Small Sips Compensatory Strategies for Safe Swallow(b): Sitting Upright (90 deg) Double Swallow Small Bites and Sips Alternate Liquids/Solids Rate of Ingestion Change Avoid Specific Foods Solid Food Consistency: Dietary Recommendations: NPO Additional Modifications to Solids: Patient would benefit from direct supervision during her meals to monitor for any clinical signs of aspiration or any difficulty. Oral Medication Intake: Crushed with Puree Strategies and Precautions to be Taken for Safe Swallow: Sitting Upright (90 deg) Double Swallow Small Bites and Sips Alternate Liquids/Solids Rate of Ingestion Change Avoid Specific Foods Supervision While Eating and/Drinking: Total Supervision (1:1) Foods to Avoid: N/a Swallowing Recommended Treatments: Compens. Strategy Educat. Level of Impact on: Daily activities: Interpersonal interactions: Education: Employment: Community: Prognosis for Improvement: Recommendation for Speech: Inpatient Speech Therapy Frequency/Duration: M-F while inpatient. Date Range for Service Req: Timeline to reassess: Treatment: Pt was last seen by PLATE PAINTER APPRENTICE on 04/10/23 and was tolerating a regular solid texture diet with thin liquids at bedside. She continued to develop worsening respiratory status however. Chest XR show complete opacification of her right lung. A chest tube was inserted and removed considerable amount of fluid without significant improvement. She was intubated on 04/11 and made NPO for decortication surgery. During the procedure she was noted to have carcinoma like masses in the right upper and middle lobes with abscess. She was extubated on 04/12 and failed her initial swallow screen. Per RN she passed for Thin Liquids later in the day and an order was initiated, however it was for her previous regular texture and her tray was withheld. PLATE PAINTER APPRENTICE was contacted on 04/13 and requested to see her. She was seen with a bilingual medical receptionist present. Oral motor skills present with reduced range of motion and weakness. She can phonate, however her vocal quality is changed from baseline characterized by reduced amplitude and increased breathiness suggestive of phonotrauma from recent intubation. She is notably congested at rest and at one point reports to the paste up copy camera operator, I feel like I'm suffocating . She tolerated initial bites of single ice chips with appropriate oral preparation. Laryngeal palpation reveals reduced elevation and excursion of the larynx across trials. She is provided thin liquid water via spoon but demonstrates increased congestion after x3 trials. It is difficult to discern if this is related to insufficient pharyngeal clearance v. increased work of breathing due to the coordination of respiration and swallowing. She is provided puree solid pudding with delayed oral preparation and increased congestion immediately after the swallow followed by throat clearing and cough. No further trials were attempted given Pt's increased risk of worsening respiratory status. Recommending the Pt REMAIN NPO. PLATE PAINTER APPRENTICE instructed RN to trial ICE CHIPS throughout her shift. RN concerned with medication administration. PLATE PAINTER APPRENTICE recommends MEDS CRUSHED in PUREE for ESSENTIAL PO MEDS ONLY. RN to notify PLATE PAINTER APPRENTICE if reassessment is warranted tomorrow. Pt is a candidate for MBS to rule-out aspiration prior to further advancement. [ End ] Window Air Conditioner Installer Clinican/Clinical Fellow: No Supervisory Statement: I have reviewed and agree with the student/clinical fellow's documentation: N/A Speech Language Pathologist: Myke Chavez M.A., CCC-PLATE PAINTER APPRENTICE
[2023-04-13 16:29] LABS: Glucose, Whole Blood 124 mg/dL (60-115)
[2023-04-13] MEDS: Heparin Sodium,Porcine 5,000 UNIT/ML VIAL 5000 UNIT SUBCUT (17:10)
--- NOTE | 2023-04-13 19:36 | PM.PNGS ---
Subjective Subjective Date of Service: 04/13/23 Interval history: pt extubated but on high flow oxygen not talking Physical Exam Vital Signs: Vital Signs: Last Vital Signs Temp 97.9 F 04/13/23 18:00 Pulse 93 04/13/23 18:00 Resp 18 04/13/23 18:00 BP 129/54 L 04/13/23 18:00 Pulse Ox 93 04/13/23 18:00 O2 Del Method High Flow Nasal C annula 04/13/23 17:00 O2 Flow Rate 40 04/13/23 17:00 FiO2 40 04/13/23 17:00 Oxygen Flow Rate 2 04/02/23 13:19 BMI result Body Mass Index 32.4 Chest: Other: bandages intact and chest tube with serosang drainage and no air leak on suction Objective Data Active Medications Acetaminophen (Acetaminophen 325 Mg Tablet) 650 mg PO Q6H PRN PRN Reason: Pain, Mild (Pain Scale 1-3) Last Admin: 04/11/23 07:55 Dose: 650 mg Documented By: SMITHA Albuterol/Ipratropium (Albuterol/Iprat 2.5/0.5mg 3 Ml Ampul.Neb) 3 ml INHALE Q4H PRN PRN Reason: Shortness of Breath/Wheezing Last Admin: 04/10/23 19:40 Dose: 3 ml Documented By: PHILLIP Amiodarone HCl (Amiodarone Hcl 200 Mg Tablet) 400 mg PO BID [facility] Last Admin: 04/13/23 19:21 Dose: Not Given Documented By: DARIUS Non-Admin Reason: NPO Dextrose (Dextrose 50 % 25 Gm/50 Ml Syringe) 25 gm IVPUSH Q15M PRN; Protocol PRN Reason: per Hypoglycemia Standing Ord. Glucose (Glucose Gel 15 Gm Gel..Gram.) 15 gm PO Q15M PRN; Protocol PRN Reason: per Hypoglycemia Standing Ord. Heparin Sodium (Porcine) (Heparin Sodium,Porcine 5,000 Unit/Ml Vial) 5,000 unit SUBCUT Q12H [facility] Last Admin: 04/13/23 17:10 Dose: 5,000 unit Documented By: ZOEY Fentanyl (Sublimaze/Ns) 1,000 mcg in 100 mls @ 0 mls/hr IVCONT .Q0M [facility]; Protocol Last Titration: 04/13/23 01:05 Dose: Infused Documented By: DARIUS Vancomycin HCl 1,000 mg/ (Sodium Chloride) 270 mls @ 270 mls/hr IV Q12H [facility] Albumin Human (Kedbumin 25 %) 100 mls @ 100 mls/hr IV Q6H [facility] Stop: 04/14/23 02:59 Last Infusion: 04/13/23 15:05 Dose: Infused Documented By: ZOEY Piperacillin Sod/Tazobactam (Sod 2.25 gm/ Sodium Chloride) 50 mls @ 100 mls/hr IV Q6H [facility] Last Infusion: 04/13/23 17:46 Dose: Infused Documented By: ZOEY Insulin Human Lispro (Insulin Lispro 100 Unit/Ml 3 Ml Vial) 0 unit SUBCUT QIDACHS [facility]; Protocol Last Admin: 04/13/23 16:57 Dose: Not Given Documented By: ZOEY Non-Admin Reason: No Insulin Coverage Naloxone HCl (Naloxone Hcl 0.4 Mg/Ml Vial) 0.2 mg IVPUSH Q2M PRN PRN Reason: Excessive sedation or RR < 8 Sodium Chloride (0.9 % Sodium Chloride Flush 3 Ml Syringe) 3 ml IVFLUSH QSHIFT [facility] Last Admin: 04/13/23 17:11 Dose: 3 ml Documented By: ZOEY Vancomycin HCl (Vancomycin Hcl 125 Mg Capsule) 125 mg PO Q6H [facility] Last Admin: 04/13/23 18:26 Dose: 125 mg Documented By: ZOEY Labs 04/13/23 05:10 04/13/23 05:10 Labs: Laboratory Results - last 24 hr 04/12/23 04/12/23 04/12/23 15:58 20:55 21:01 MCV MCH MCHC RDW Plt Count MPV Immature Gran % (Auto) Neut % (Auto) Lymph % (Auto) [place] % (Auto) Eos % (Auto) Baso % (Auto) Lymph # (Auto) [place] # (Auto) Eos # (Auto) Baso # (Auto) Abs Immat Gran (auto) Absolute Neuts (auto) Absolute Nucleated RBC Nucleated RBC % (auto) VBG pH VBG pCO2 VBG pO2 VBG HCO3 VBG O2 Saturation VBG Base Excess Anion Gap Estim Creat Clear Calc Estimated GFR POC Glucose 127 H 138 H Random Glucose Calcium Phosphorus Magnesium Total Bilirubin AST ALT Alkaline Phosphatase Total Protein Albumin Random Vancomycin 25.4 H* 04/13/23 04/13/23 04/13/23 05:10 05:11 07:46 MCV 85.3 MCH 26.8 L MCHC 31.4 RDW 15.3 Plt Count 168 MPV 9.4 Immature Gran % (Auto) 0.5 H Neut % (Auto) 83.3 H Lymph % (Auto) 4.1 L [place] % (Auto) 3.9 Eos % (Auto) 7.8 H Baso % (Auto) 0.4 Lymph # (Auto) 0.6 L [place] # (Auto) 0.6 Eos # (Auto) 1.2 H Baso # (Auto) 0.1 Abs Immat Gran (auto) 0.08 H Absolute Neuts (auto) 12.8 H Absolute Nucleated RBC 0.000 Nucleated RBC % (auto) 0.0 VBG pH 7.42 VBG pCO2 47 VBG pO2 53 VBG HCO3 31 H VBG O2 Saturation 87.0 VBG Base Excess 6.2 Anion Gap 17 Estim Creat Clear Calc 18.1 Estimated GFR 15 POC Glucose 114 Random Glucose 109 Calcium 7.7 L Phosphorus 5.1 H Magnesium 1.9 Total Bilirubin 0.7 AST 410 H ALT 522 H Alkaline Phosphatase 56 Total Protein 4.9 L Albumin 2.6 L Random Vancomycin 04/13/23 04/13/23 04/13/23 09:07 11:27 16:23 MCV MCH MCHC RDW Plt Count MPV Immature Gran % (Auto) Neut % (Auto) Lymph % (Auto) [place] % (Auto) Eos % (Auto) Baso % (Auto) Lymph # (Auto) [place] # (Auto) Eos # (Auto) Baso # (Auto) Abs Immat Gran (auto) Absolute Neuts (auto) Absolute Nucleated RBC Nucleated RBC % (auto) VBG pH VBG pCO2 VBG pO2 VBG HCO3 VBG O2 Saturation VBG Base Excess Anion Gap Estim Creat Clear Calc Estimated GFR POC Glucose 121 H 124 H Random Glucose Calcium Phosphorus Magnesium Total Bilirubin AST ALT Alkaline Phosphatase Total Protein Albumin Random Vancomycin 24.7 H Microbiology Microbiology Results: Microbiology 04/11/23 14:24 Gram Stain - Final Lung - Right Routine Culture - Preliminary No growth to date. Anaerobic Culture - Preliminary No growth to date. Procedures Date of Service Date of Service: 04/13/23 Progress Note: A&P Assessment and plan (1) Empyema lung: Status: Acute Assessment and Plan: POD #2 s/p bronchoscopy pre and postprocedure, right exploratory thoracotomy, right upper lobe and right lower lobe multiple core biopsies, right upper lobe wedge biopsy, intercostal nerve block with Exparel. 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 pt doing better extubated and no air leak but 500 serosang fluid in last 24 hrs. cont with chest tube on suction and fu cxr Time Spent With Patient Time: Total time managing care of this patient today ____ minutes. Quality Stroke Does the patient have a stroke diagnosis?: No VTE Prior VTE?: No VTE Risk Level:: Medical - moderate - high VTE Device Contraindication: Treatment Not Indicated VTE Drug Contraindication: N/A - Med Ordered
[2023-04-13 20:34] LABS: Glucose, Whole Blood 123 mg/dL (60-115)
[2023-04-14] VITALS (48 sets, daily range): BP systolic 104–170; BP diastolic 51–111; PULSE 78–105; RESP 18–36; TEMP 34.5–37.2; O2SAT 0–99; BMI 30.2
[2023-04-14] MEDS: Albumin Human 25 % 100 ML IV (03:34)
[2023-04-14] MEDS: Heparin Sodium,Porcine 5,000 UNIT/ML VIAL 5000 UNIT SUBCUT (04:52)
[2023-04-14] MEDS: Piperacillin Sodium/Tazobactam 2.25 GM in 0.9 % Sodium Chloride 50 ML IV ×4 (04:52→22:06)
[2023-04-14 05:17] LABS: MANUAL DIFF FLAG NO
[2023-04-14 05:20] LABS: Basophils Percent Auto 0.2 % (0-2); Eosinophils Absolute Auto 0.4 X10*3/uL (0.0-0.4); Eosinophils Percent Auto 2.5 % (0-4); Imm Gran Abs Auto 0.13 X10*3/uL (0.00-0.03); Imm Gran Pct Auto 0.8 % (0.0-0.4); Lymphocytes Absolute Auto 0.4 X10*3/uL (1.2-4.9); Lymphocytes Percent Auto 2.5 % (20-40); Mean Corpuscular HGB Conc 32.7 g/dl (31.0-35.0); Mean Corpuscular Hemoglobin 27.8 pg (27.0-33.0); Mean Corpuscular Volume 85.2 fL (80.0-98.0); Mean Platelet Volume 10.4 fL (9.4-12.3); Monocytes Absolute Auto 0.7 X10*3/uL (0.1-1.2); Monocytes Percent Auto 4.6 % (2-11); Neutrophils Absolute Auto 13.7 x10*3/uL (2.0-8.3); Neutrophils Percent Auto 89.4 % (45-73); Platelet Count 138 X10*3/uL (160-400); Red Cell Distribution Width 15.4 % (11.0-16.0); White Blood Count 15.3 X10*3/uL (4.8-10.8)
[2023-04-14 05:23] LABS: VBG Base Excess 1.5 mmol/L; VBG HCO3 27 mmol/L (22-26); VBG pCO2 47 mmHg; VBG pH 7.36 (7.32-7.43); VBG pO2 50 mmHg
[2023-04-14 05:29] LABS: Hematocrit 19.6 % (37.0-47.0); Hemoglobin 6.4 g/dl (12.0-16.0)
[2023-04-14 05:41] LABS: Alanine Aminotransferase 454 U/L (0-31); Albumin Level 3.5 g/dL (3.5-5.0); Alkaline Phosphatase 89 U/L (39-117); Anion Gap 22 (12-20); Aspartate Amino Transferase 321 U/L (5-31); Bilirubin Total 0.9 mg/dL (0.0-1.0); Blood Urea Nitrogen 44 mg/dL (9-16); Calcium 8.7 mg/dL (8.4-10.2); Carbon Dioxide 24 mmol/L (22-29); Chloride 103 mmol/L (96-108); Creatinine Clr Calc Pharmacy 12.2; Estimated Glomerular Filt Rate 10; Glucose Random 114 mg/dL (60-115); Magnesium 2.3 mg/dL (1.6-2.6); Potassium 3.5 mmol/L (3.3-5.1); Sodium 145 mmol/L (135-145)
[2023-04-14 06:44] LABS: Venous Blood Gas Refer to POC result
[2023-04-14 07:19] LABS: Glucose, Whole Blood 120 mg/dL (60-115)
[2023-04-14] MEDS: Amiodarone HCL 200 MG TABLET 400 MG PO ×2 (07:53→21:32)
[2023-04-14] MEDS: 0.9 % Sodium Chloride Flush 3 ML SYRINGE IVFLUSH ×3 (07:58→21:24)
[2023-04-14 09:15] LABS: Vancomycin Random 22.4 mcg/mL (15-20)
[2023-04-14] MEDS: Metoprolol Succinate ER 50 MG TAB.ER.24H PO (09:34)
--- NOTE | 2023-04-14 09:34 | P.PNCC_ITS ---
Subjective Subjective Date of Service: 04/14/23 Interval History: 67-year-old lady with underlying diabetes mellitus, hypertension, recent embolic CVA, admitted on 04/02/2023 with a right sided pneumonia. Hospital course significant for development of parapneumonic effusion status post thoracentesis with reoccurrence in progressing to empyema with trapped lung, status post surgical chest tube, and decortication on 04/11/2023 with intraop findings of right-sided bilobar abscesses, initially with bilobectomy planned. However, in the procedure pathology showed carcinoma, thus bilobectomy with aborted and patient had decortication with placement of 2 chest tubes. She remained intubated at the end of the case and was transferred to intensive care unit. Postoperative course significant for shock requiring pressor support and significantly increased FiO2 requirements. No events overnight. Critical Care Time (minutes): 0 Physical Exam 2 Vital Signs: Vital Signs: Last Vital Signs Temp 97.9 F 04/14/23 08:00 Pulse 101 H 04/14/23 09:00 Resp 31 H 04/14/23 09:00 BP 145/76 H 04/14/23 09:00 Pulse Ox 90 L 04/14/23 09:00 O2 Del Method High Flow Nasal C annula 04/14/23 09:00 O2 Flow Rate 40 04/14/23 09:00 FiO2 40 04/14/23 09:00 Oxygen Flow Rate 2 04/02/23 13:19 BMI result Body Mass Index 30.2 Const: General: no acute distress, alert and awake Eyes: Sclerae: sclerae normal EOM: EOMs intact bilaterally Neck: Neck: Yes no lymphadenopathy, Yes trachea midline and Yes supple Resp: Effort & Inspection: normal respiratory effort and no respiratory distress Auscultation: crackles (R>L) Cardio: Rate: tachycardic Rhythm: regular rhythm Heart sounds: no gallops, no murmurs and no rubs GI: Palpation (GI): Soft to palpation and Other GI palpation findings present ( Nontender) Auscultation: normal bowel sounds Extrem: General: No clubbing, No cyanosis and Yes edema (1+ bilateral) Objective Data Labs 04/14/23 05:06 04/14/23 05:06 Labs: Laboratory Results - last 24 hr 04/11/23 04/13/23 04/13/23 07:34 09:07 11:27 WBC RBC Hgb Hct MCV MCH MCHC RDW Plt Count MPV Immature Gran % (Auto) Neut % (Auto) Lymph % (Auto) [place] % (Auto) Eos % (Auto) Baso % (Auto) Lymph # (Auto) [place] # (Auto) Eos # (Auto) Baso # (Auto) Abs Immat Gran (auto) Absolute Neuts (auto) Absolute Nucleated RBC Nucleated RBC % (auto) VBG pH VBG pCO2 VBG pO2 VBG HCO3 VBG O2 Saturation VBG Base Excess Sodium Potassium Chloride Carbon Dioxide Anion Gap BUN Creatinine Estim Creat Clear Calc Estimated GFR POC Glucose 121 H Random Glucose Calcium Phosphorus Magnesium Total Bilirubin AST ALT Alkaline Phosphatase Total Protein Albumin Random Vancomycin 24.7 H Blood Type B Positive Antibody Screen NEGATIVE Crossmatch See Detail 04/13/23 04/13/23 04/14/23 16:23 20:29 05:06 WBC 15.3 H RBC 2.30 L Hgb 6.4 L* Hct 19.6 L* MCV 85.2 MCH 27.8 MCHC 32.7 RDW 15.4 Plt Count 138 L MPV 10.4 Immature Gran % (Auto) 0.8 H Neut % (Auto) 89.4 H Lymph % (Auto) 2.5 L [place] % (Auto) 4.6 Eos % (Auto) 2.5 Baso % (Auto) 0.2 Lymph # (Auto) 0.4 L [place] # (Auto) 0.7 Eos # (Auto) 0.4 Baso # (Auto) 0.0 Abs Immat Gran (auto) 0.13 H Absolute Neuts (auto) 13.7 H Absolute Nucleated RBC 0.000 Nucleated RBC % (auto) 0.0 VBG pH VBG pCO2 VBG pO2 VBG HCO3 VBG O2 Saturation VBG Base Excess Sodium 145 Potassium 3.5 Chloride 103 Carbon Dioxide 24 Anion Gap 22 H BUN 44 H Creatinine 4.55 H* Estim Creat Clear Calc 12.2 Estimated GFR 10 POC Glucose 124 H 123 H Random Glucose 114 Calcium 8.7 D Phosphorus 6.0 H Magnesium 2.3 Total Bilirubin 0.9 AST 321 H ALT 454 H Alkaline Phosphatase 89 Total Protein 6.0 L Albumin 3.5 Random Vancomycin Blood Type Antibody Screen Crossmatch 04/14/23 04/14/23 04/14/23 05:15 07:15 08:53 WBC RBC Hgb Hct MCV MCH MCHC RDW Plt Count MPV Immature Gran % (Auto) Neut % (Auto) Lymph % (Auto) [place] % (Auto) Eos % (Auto) Baso % (Auto) Lymph # (Auto) [place] # (Auto) Eos # (Auto) Baso # (Auto) Abs Immat Gran (auto) Absolute Neuts (auto) Absolute Nucleated RBC Nucleated RBC % (auto) VBG pH 7.36 VBG pCO2 47 VBG pO2 50 VBG HCO3 27 H VBG O2 Saturation 80.0 VBG Base Excess 1.5 Sodium Potassium Chloride Carbon Dioxide Anion Gap BUN Creatinine Estim Creat Clear Calc Estimated GFR POC Glucose 120 H Random Glucose Calcium Phosphorus Magnesium Total Bilirubin AST ALT Alkaline Phosphatase Total Protein Albumin Random Vancomycin 22.4 H Blood Type Antibody Screen Crossmatch Microbiology Microbiology Results: Microbiology 04/11/23 14:24 Lung - Right Gram Stain - Final 04/11/23 14:24 Lung - Right Routine Culture - Preliminary No growth to date. 04/11/23 14:24 Lung - Right Anaerobic Culture - Preliminary No growth to date. 04/05/23 14:15 Thoracentesis Fluid Gram Stain - Final 04/05/23 14:15 Thoracentesis Fluid Anaerobic Culture - Final NO GROWTH AFTER 5 DAYS 04/05/23 14:15 Thoracentesis Fluid Body Fluid Culture - Final No growth after 2 days 04/02/23 14:54 Blood - Venous Blood Culture - Final No growth after 5 days. 04/02/23 14:24 Blood - Venous Blood Culture - Final No growth after 5 days. Progress Note: A&P Assessment and plan (1) HFrEF (heart failure with reduced ejection fraction): Status: Acute (2) Diabetes: Status: Acute (3) ROBERT (acute kidney injury): Status: Acute (4) Lung abscess: Status: Acute (5) Carcinomatosis: Status: Acute (6) Empyema lung: Status: Acute (7) Paroxysmal atrial fibrillation: Status: Acute (8) Acute hypoxemic respiratory failure: Status: Acute (9) Severe pneumonia: Status: Acute Plan Assessment: 67-year-old lady admitted with acute hypoxic respiratory failure secondary to right-sided pneumonia, further complicated by trapped lung requiring decortication, intraoperatively noted to have multiple right-sided lung abscesses and tumors. Plan: Neuro: No acute issues. Cardiac: Shock, resolved, titrated off pressors. Underlying history of systolic congestive heart failure. Pulmonary: Acute hypoxic respiratory failure secondary to postobstructive pneumonia on the background of new diagnosis of lung cancer, status post decortication. Extubated 04/12/2023. Thoracic surgery service care appreciated. Renal: Acute kidney injury, likely secondary to ischemic ATN. Non oliguric. Continue to monitor renal indices and urine output. Endo: No acute issues. GI: Ischemic hepatitis, improving. ID: Pneumonia, with postobstructive features, continue broad-spectrum antibiotics. C diff, continue p.o. vancomycin. Heme/Onc: New diagnosis of lung cancer, pathology is pending. Subacute blood- loss anemia, continues with PRBC support. Psych: No acute issues. Miscellaneous: No acute issues. Prophylaxis: Heparin Diet: Pureed Quality Stroke Does the patient have a stroke diagnosis?: No VTE Prior VTE?: No VTE Risk Level:: Medical - moderate - high VTE Device Contraindication: Treatment Not Indicated VTE Drug Contraindication: N/A - Med Ordered
[2023-04-14 11:29] LABS: Glucose, Whole Blood 157 mg/dL (60-115)
[2023-04-14] MEDS: vancomycin HCL 125 MG CAPSULE PO ×2 (12:55→18:04)
[2023-04-14 16:28] LABS: Glucose, Whole Blood 175 mg/dL (60-115)
[2023-04-14] MEDS: Insulin Lispro 100 UNIT/ML 3 ML VIAL SUBCUT (16:44)
--- NOTE | 2023-04-14 19:29 | P.PCNCC_ITS ---
Procedures Date of Service Date of Service: 04/14/23 <Art Mckeon NP - Last Filed: 04/14/23 19:37> 04/15/23 <Faustino Hackett MD - Last Filed: 04/15/23 09:29> Intubation Intubation Comments: Patient suddenly hypoxic to 60% maxed out on high-flow nasal cannula and non-rebreather, requiring emergent intubation. Emergent endotracheal intubation performed with 7.5-cuffed ET tube with glidescope visualization of the vocal cords with no immediate complications.? ET tube position verified on chest x- ray. <Art Mckeon NP - Last Filed: 04/14/23 19:37> Consent for Procedure: Emergent-no informed consent obtained <rAt Mckeon NP - Last Filed: 04/14/23 19:37> Time out performed: Yes <Art Mckeon NP - Last Filed: 04/14/23 19:37> Sedative: propofol <Art Mckeon NP - Last Filed: 04/14/23 19:37> Mg given: 50 <Art Mckeon NP - Last Filed: 04/14/23 19:37> Laryngoscope: fiber optic video scope <Art Mckeon NP - Last Filed: 04/14/23 19:37> ET tube size: 7.5 <Art Mckeon NP - Last Filed: 04/14/23 19:37> ET tube uncuffed: No <Art Mckeon NP - Last Filed: 04/14/23 19:37> Tube secured depth (cm): 25 <Art Mckeon NP - Last Filed: 04/14/23 19:37> Tube secured location: lips <Art Mckeon NP - Last Filed: 04/14/23 19:37> Tube placement confirmation: visualized tube passing through cords, equal breath sounds bilaterally, no breath sounds over epigastrium and confirmation by capnometry <Art Mckeon NP - Last Filed: 04/14/23 19:37> Patient tolerated procedure: well and no complications <Art Mckeon NP - Last Filed: 04/14/23 19:37> Intubation complications: none <Art Mckeon NP - Last Filed: 04/14/23 19:37>
[2023-04-14] MEDS: propofoL 200 MG/20 ML VIAL 50 MG IVPUSH (19:37)
[2023-04-14] MEDS: EPINEPHrine 1 MG/10 ML SYRINGE IVPUSH (19:38)
[2023-04-14] MEDS: Norepinephrine Bitartrate/D5W 8 MG/250 ML PLAST..BAG 44.94 MG IV (19:39)
[2023-04-14] MEDS: propofoL 1,000 MG/100 ML VIAL 23.97 MG IVCONT ×2 (19:40→22:51)
[2023-04-14] MEDS: fentaNYL citrate/NS 1,000 MCG/100 ML PLAST..BAG 5 MCG IVCONT (19:47)
--- NOTE | 2023-04-14 19:48 | PM.CCN ---
Critical Care Event Note Summary Date of Service: 04/14/23 Code activated: No Narrative: This case had a high probability of a clinically significant, sudden, or life threatening deterioration of this patient's condition which required my full and direct attention, intervention and personal management. Critical Care Time (minutes): 30 Comment: Patient hypoxic to 60s despite being maxed out of high-flow nasal cannula and non-rebreather, requiring emergent intubation. Likely from mucus plug. Hypotension related to sedation. Daughter notified of change in clinical status
[2023-04-14 20:29] LABS: Hematocrit 30.8 % (37.0-47.0); Mean Corpuscular HGB Conc 32.5 g/dl (31.0-35.0); Mean Corpuscular Hemoglobin 28.5 pg (27.0-33.0); Mean Corpuscular Volume 87.7 fL (80.0-98.0); Mean Platelet Volume 9.8 fL (9.4-12.3); NRBC Pct Auto 0.3 /100WBC (0.0-0.2); Platelet Count 258 X10*3/uL (160-400); Red Blood Count 3.51 X10*6/uL (4.20-5.50); Red Cell Distribution Width 16.2 % (11.0-16.0); White Blood Count 26.6 X10*3/uL (4.8-10.8)
[2023-04-14 20:30] LABS: Venous Blood Gas Refer to POC result
[2023-04-14 20:31] LABS: VBG Base Excess -4.6 mmol/L; VBG HCO3 21 mmol/L (22-26); VBG pCO2 45 mmHg; VBG pH 7.28 (7.32-7.43); VBG pO2 57 mmHg
[2023-04-14 20:57] LABS: SLIDE REVIEW MANUAL DIFF
[2023-04-14 21:03] LABS: Band Neutrophils Percent 20 % (3-5); Lymphocytes Absolute Manual 0.3 X10*3/uL (1.2-4.9); Lymphocytes Percent Manual 1 % (20-40); Monocytes Absolute Manual 1.3 X10*3/uL (0.1-1.2); Monocytes Percent Manual 5 % (2-11); Neutrophils Percent Manual 74 % (45-73); RBC Morphology NOTED
[2023-04-14 21:05] LABS: Ovalocytes 1+ (5-14) /OIF; Polychromasia 1+ (0-2) /OIF
[2023-04-14 21:06] LABS: Platelet Estimate NORMAL (NORMAL); Toxic Vacuolation PRESENT
[2023-04-14 21:07] LABS: Large Platelet PRESENT; Platelet Morphology Comment NOTED
[2023-04-14 21:26] LABS: Glucose, Whole Blood 145 mg/dL (60-115)
[2023-04-14] MEDS: Chlorhexidine Gluc Oral Rinse 15 ML MOUTHWASH BUCCAL (21:31)
[2023-04-14] MEDS: vancomycin HCL Oral Solution 125 MG/5 ML SOLN.RECON PO (22:06)
[2023-04-14] MEDS: Norepinephrine Bitartrate/D5W 8 MG/250 ML PLAST..BAG 35.96 MG IV (23:50)
[2023-04-15] VITALS (39 sets, daily range): BP systolic 100–131; BP diastolic 60–78; PULSE 67–90; RESP 18–20; TEMP 34.7–38.6; O2SAT 91–96; BMI 30.7
--- NOTE | 2023-04-15 00:53 | PC.NURSE ---
Addendum entered by Kelvin Lyle RN 04/15/23 06:24: T-MAX 101.5 ORAL...AM LIVER PROFILE AND KIDNEY FUNCTION REVIEWED WITH CORSET MAKER... Addendum entered by Kelvin Lyle RN 04/15/23 06:15: CHEST TUBES DRAINED 55ml 6pm-6am Original Note: CARE ASSUMED 7PM...PATIENT AWAKE..WHISPERS SOFTLY TO QUESTIONS....TACHYPNEIC..RHONCHOROUS THROUGHOUT LEFT FIELD..RIGHT FIELD RHONCHOROUS AND DIMINISHED..O2 40% FIO2/40 L/M HIGH-MARIANA CANNULA...RR 30'S...SKIN COOL AND NOLAN...SAO2 RAPIDLY DROPPING AT SHIFT CHANGE DOWN TO 60% SAO2..O2 TITRATED TO 100% AND 60 L/M...ICU CORSET MAKER PRESENT...ADDED 100% NRB WITH SAO2 78-80%...DECISION TO RE-INTUBATE PATIENT....RT PAGED STAT AND PRESENT..AMBUED 100% O2...PROPOFOL 50MG IVP X1 FOR INTUBATION....INTUBATED 7.5 ETT 25CM....DECREASED BP TO 40/20 POST-PROPOFOL...EPINEPHRINE 1MG IVP PER ICU CORSET MAKER WHILE LEVOPHED INFUSION BEING PREPPED...SINUS TACH HR 120'S POST-EPINEPHRINE WITH IMPROVED BP..LEVOPHED DRIP HUNG AND TITRATED TO 0.3 MCG/KG/MIN.....PROPOFOL DRIP TITRATED TO 50 MCG/KG/MIN...GRIMACING AND VENT DYSYNCHRONY..FENTANYL DRIP STARTED AND TITRATED TO 100 MCG/HR....NSR HR 80'S AFTER TRANSIENT TACHYCARDIA POST-EPINEPHRINE...OG-TUBE PLACED...CXR DONE AND REVIEWED BY CORSET MAKER...ETT PULLED BACK 2CM BY RT....SEDATE AND VENT SYNCHRONY PRESENT WITH PROPOFOL AND FENTANYL DRIPS..BP STABLE ON LEVOPHED DRIP...REMAINS WITH SCANT URINE OUTPUT APPROX 5-6 CC/HR..CORSET MAKER AWARE...VANCOMYCIN PO CHANGED TO LIQUIED FORM..INCONTINANT LOOSE GREEN STOOL...RIGHT ANTERIOR AND POSTERIOR CHEST TUBES X2 TO -20CM DRY SUCTION WITH SMALL AMOUNT SEROUS TO SEROSANGUINOUS DRAINAGE..NO AIR-LEAK..FAMILY NOTIFIED OF RE-INTUBATION BY CORSET MAKER
[2023-04-15] MEDS: fentaNYL citrate/NS 1,000 MCG/100 ML PLAST..BAG 10 MCG IVCONT (01:51)
[2023-04-15] MEDS: propofoL 1,000 MG/100 ML VIAL 19.18 MG IVCONT (03:29)
[2023-04-15] MEDS: vancomycin HCL Oral Solution 125 MG/5 ML SOLN.RECON PO ×4 (03:33→22:12)
[2023-04-15] MEDS: Piperacillin Sodium/Tazobactam 2.25 GM in 0.9 % Sodium Chloride 50 ML IV ×4 (04:17→22:12)
[2023-04-15] MEDS: Pantoprazole Sodium 40 MG/10 ML VIAL IVPUSH (05:23)
[2023-04-15 05:48] LABS: VBG Base Excess -2.8 mmol/L; VBG HCO3 22 mmol/L (22-26); VBG pCO2 40 mmHg; VBG pH 7.34 (7.32-7.43); VBG pO2 52 mmHg
[2023-04-15 05:49] LABS: Venous Blood Gas Refer to POC result
[2023-04-15 05:55] LABS: Basophils Absolute Auto 0.1 X10*3/uL (0.0-0.2); Basophils Percent Auto 0.3 % (0-2); Eosinophils Absolute Auto 0.1 X10*3/uL (0.0-0.4); Eosinophils Percent Auto 0.3 % (0-4); Hematocrit 31.1 % (37.0-47.0); Hemoglobin 10.2 g/dl (12.0-16.0); Imm Gran Pct Auto 1.6 % (0.0-0.4); Lymphocytes Absolute Auto 0.8 X10*3/uL (1.2-4.9); MANUAL DIFF FLAG SCAN; Mean Corpuscular HGB Conc 32.8 g/dl (31.0-35.0); Mean Corpuscular Hemoglobin 28.3 pg (27.0-33.0); Mean Corpuscular Volume 86.4 fL (80.0-98.0); Mean Platelet Volume 10.5 fL (9.4-12.3); Monocytes Absolute Auto 1.7 X10*3/uL (0.1-1.2); Monocytes Percent Auto 6.7 % (2-11); Neutrophils Absolute Auto 21.8 x10*3/uL (2.0-8.3); Neutrophils Percent Auto 88.1 % (45-73); Platelet Count 229 X10*3/uL (160-400); Red Cell Distribution Width 16.3 % (11.0-16.0); SCAN SMEAR FLAG 1; White Blood Count 24.8 X10*3/uL (4.8-10.8)
[2023-04-15 06:11] LABS: Alanine Aminotransferase 1268 U/L (0-31); Albumin Level 3.2 g/dL (3.5-5.0); Alkaline Phosphatase 156 U/L (39-117); Anion Gap 24 (12-20); Aspartate Amino Transferase 2398 U/L (5-31); Bilirubin Total 1.3 mg/dL (0.0-1.0); Blood Urea Nitrogen 66 mg/dL (9-16); Calcium 8.7 mg/dL (8.4-10.2); Carbon Dioxide 22 mmol/L (22-29); Chloride 104 mmol/L (96-108); Creatinine Clr Calc Pharmacy 9.7; Estimated Glomerular Filt Rate 7; Glucose Random 158 mg/dL (60-115); Magnesium 2.5 mg/dL (1.6-2.6); Phosphorus 7.7 mg/dL (2.7-4.5); Potassium 4.1 mmol/L (3.3-5.1); Sodium 146 mmol/L (135-145); Total Protein 6.1 g/dL (6.5-8.0)
[2023-04-15 06:16] LABS: SLIDE REVIEW VERIFIED
[2023-04-15 07:27] LABS: Glucose, Whole Blood 161 mg/dL (60-115)
[2023-04-15] MEDS: 0.9 % Sodium Chloride Flush 3 ML SYRINGE IVFLUSH ×2 (07:56→14:16)
[2023-04-15] MEDS: Insulin Lispro 100 UNIT/ML 3 ML VIAL SUBCUT ×3 (07:56→23:58)
[2023-04-15] MEDS: Norepinephrine Bitartrate/D5W 8 MG/250 ML PLAST..BAG 26.97 MG IV (07:58)
[2023-04-15] MEDS: propofoL 1,000 MG/100 ML VIAL 14.38 MG IVCONT ×3 (08:04→19:56)
[2023-04-15] MEDS: Amiodarone HCL 200 MG TABLET 400 MG PO ×2 (08:42→19:56)
[2023-04-15] MEDS: Chlorhexidine Gluc Oral Rinse 15 ML MOUTHWASH BUCCAL ×3 (08:42→19:49)
[2023-04-15] MEDS: Metoprolol Succinate ER 50 MG TAB.ER.24H PO (08:42)
[2023-04-15] MEDS: Albumin Human 25 % 100 ML IV ×3 (08:49→19:47)
--- NOTE | 2023-04-15 09:29 | P.PNCC_ITS ---
Subjective Subjective Date of Service: 04/15/23 Interval History: 67-year-old lady with underlying diabetes mellitus, hypertension, recent embolic CVA, admitted on 04/02/2023 with a right sided pneumonia. Hospital course significant for development of parapneumonic effusion status post thoracentesis with reoccurrence in progressing to empyema with trapped lung, status post surgical chest tube, and decortication on 04/11/2023 with intraop findings of right-sided bilobar abscesses, initially with bilobectomy planned. However, in the procedure pathology showed carcinoma, thus bilobectomy with aborted and patient had decortication with placement of 2 chest tubes. She remained intubated at the end of the case and was transferred to intensive care unit. Extubated 04/12/2023. Overnight with acute respiratory decompensation likely secondary to mucus plugging requiring intubation and ventilatory support. Critical Care Time (minutes): 60 Physical Exam 2 Vital Signs: Vital Signs: Last Vital Signs Temp 101.1 F H 04/15/23 08:52 Pulse 83 04/15/23 08:52 Resp 18 04/15/23 08:52 BP 120/70 04/15/23 08:52 Pulse Ox 95 04/15/23 08:52 O2 Del Method Mechanical Ventil ation 04/15/23 08:52 O2 Flow Rate 40 04/14/23 19:00 FiO2 50 04/15/23 08:52 Oxygen Flow Rate 2 04/02/23 13:19 BMI result Body Mass Index 30.7 Const: General: no acute distress and other (Sedated on the vent) Eyes: Sclerae: sclerae normal EOM: EOMs intact bilaterally Neck: Neck: Yes no lymphadenopathy, Yes trachea midline and Yes supple Resp: Auscultation: other (Poor right-sided air movement) Cardio: Rate: regular rate Rhythm: regular rhythm Heart sounds: no gallops, no murmurs and no rubs GI: Palpation (GI): Soft to palpation and Other GI palpation findings present ( Nontender) Auscultation: normal bowel sounds Extrem: General: No clubbing, No cyanosis and Yes edema (1+ bilateral) Objective Data Labs 04/15/23 05:38 04/15/23 05:38 Labs: Laboratory Results - last 24 hr 02/08/24 02/11/24 02/11/24 07:34 09:32 11:24 WBC RBC Hgb Hct MCV MCH MCHC RDW Plt Count MPV Immature Gran % (Auto) Neut % (Auto) Lymph % (Auto) [place] % (Auto) Eos % (Auto) Baso % (Auto) Lymph # (Auto) [place] # (Auto) Eos # (Auto) Baso # (Auto) Abs Immat Gran (auto) Absolute Neuts (auto) Absolute Nucleated RBC Nucleated RBC % (auto) Neutrophils % (Manual) Band Neutrophils % Lymphocytes % (Manual) Monocytes % (Manual) Abs Neuts (Manual) Lymphocytes # (Manual) Monocytes # (Manual) Toxic Vacuolation Platelet Estimate Large Platelets Plt Morphology Comment RBC Morphology Polychromasia Ovalocytes Smear Tech's Comments VBG pH VBG pCO2 VBG pO2 VBG HCO3 VBG O2 Saturation VBG Base Excess Sodium Potassium Chloride Carbon Dioxide Anion Gap BUN Creatinine Estim Creat Clear Calc Estimated GFR POC Glucose 157 H Random Glucose Calcium Phosphorus Magnesium Total Bilirubin AST ALT Alkaline Phosphatase Total Protein Albumin Blood Type B Positive Antibody Screen NEGATIVE Crossmatch See Detail See Detail 04/14/23 04/14/23 04/14/23 16:23 20:23 20:25 WBC 26.6 H RBC 3.51 L D Hgb 10.0 L D Hct 30.8 L D MCV 87.7 MCH 28.5 MCHC 32.5 RDW 16.2 H Plt Count 258 D MPV 9.8 Immature Gran % (Auto) Cancelled Neut % (Auto) Cancelled Lymph % (Auto) Cancelled [place] % (Auto) Cancelled Eos % (Auto) Cancelled Baso % (Auto) Cancelled Lymph # (Auto) Cancelled [place] # (Auto) Cancelled Eos # (Auto) Cancelled Baso # (Auto) Cancelled Abs Immat Gran (auto) Cancelled Absolute Neuts (auto) Cancelled Absolute Nucleated RBC 0.070 H Nucleated RBC % (auto) 0.3 H Neutrophils % (Manual) 74 H Band Neutrophils % 20 H Lymphocytes % (Manual) 1 L Monocytes % (Manual) 5 Abs Neuts (Manual) 25.0 H Lymphocytes # (Manual) 0.3 L Monocytes # (Manual) 1.3 H Toxic Vacuolation PRESENT Platelet Estimate NORMAL Large Platelets PRESENT Plt Morphology Comment NOTED RBC Morphology NOTED Polychromasia 1+ (0-2) Ovalocytes 1+ (5-14) Smear Tech's Comments MANUAL DIFF VBG pH 7.28 L VBG pCO2 45 VBG pO2 57 VBG HCO3 21 L VBG O2 Saturation 82.0 VBG Base Excess -4.6 Sodium Potassium Chloride Carbon Dioxide Anion Gap BUN Creatinine Estim Creat Clear Calc Estimated GFR POC Glucose 175 H Random Glucose Calcium Phosphorus Magnesium Total Bilirubin AST ALT Alkaline Phosphatase Total Protein Albumin Blood Type Antibody Screen Crossmatch 04/14/23 04/15/23 04/15/23 21:22 05:38 05:42 WBC 24.8 H RBC 3.60 L Hgb 10.2 L Hct 31.1 L MCV 86.4 MCH 28.3 MCHC 32.8 RDW 16.3 H Plt Count 229 MPV 10.5 Immature Gran % (Auto) 1.6 H Neut % (Auto) 88.1 H Lymph % (Auto) 3.0 L [place] % (Auto) 6.7 Eos % (Auto) 0.3 Baso % (Auto) 0.3 Lymph # (Auto) 0.8 L [place] # (Auto) 1.7 H Eos # (Auto) 0.1 Baso # (Auto) 0.1 Abs Immat Gran (auto) 0.40 H Absolute Neuts (auto) 21.8 H Absolute Nucleated RBC 0.250 H Nucleated RBC % (auto) 1.0 H Neutrophils % (Manual) Band Neutrophils % Lymphocytes % (Manual) Monocytes % (Manual) Abs Neuts (Manual) Lymphocytes # (Manual) Monocytes # (Manual) Toxic Vacuolation Platelet Estimate Large Platelets Plt Morphology Comment RBC Morphology Polychromasia Ovalocytes Smear Tech's Comments VERIFIED VBG pH 7.34 VBG pCO2 40 VBG pO2 52 VBG HCO3 22 VBG O2 Saturation 77.0 VBG Base Excess -2.8 Sodium 146 H Potassium 4.1 Chloride 104 Carbon Dioxide 22 Anion Gap 24 H BUN 66 H Creatinine 5.76 H* Estim Creat Clear Calc 9.7 Estimated GFR 7 POC Glucose 145 H Random Glucose 158 H Calcium 8.7 Phosphorus 7.7 H Magnesium 2.5 Total Bilirubin 1.3 H AST 2398 H ALT 1268 H Alkaline Phosphatase 156 H Total Protein 6.1 L Albumin 3.2 L Blood Type Antibody Screen Crossmatch 04/15/23 07:22 WBC RBC Hgb Hct MCV MCH MCHC RDW Plt Count MPV Immature Gran % (Auto) Neut % (Auto) Lymph % (Auto) [place] % (Auto) Eos % (Auto) Baso % (Auto) Lymph # (Auto) [place] # (Auto) Eos # (Auto) Baso # (Auto) Abs Immat Gran (auto) Absolute Neuts (auto) Absolute Nucleated RBC Nucleated RBC % (auto) Neutrophils % (Manual) Band Neutrophils % Lymphocytes % (Manual) Monocytes % (Manual) Abs Neuts (Manual) Lymphocytes # (Manual) Monocytes # (Manual) Toxic Vacuolation Platelet Estimate Large Platelets Plt Morphology Comment RBC Morphology Polychromasia Ovalocytes Smear Tech's Comments VBG pH VBG pCO2 VBG pO2 VBG HCO3 VBG O2 Saturation VBG Base Excess Sodium Potassium Chloride Carbon Dioxide Anion Gap BUN Creatinine Estim Creat Clear Calc Estimated GFR POC Glucose 161 H Random Glucose Calcium Phosphorus Magnesium Total Bilirubin AST ALT Alkaline Phosphatase Total Protein Albumin Blood Type Antibody Screen Crossmatch Microbiology Microbiology Results: Microbiology 04/11/23 14:24 Lung - Right Gram Stain - Final 04/11/23 14:24 Lung - Right Routine Culture - Final No growth after 2 days 04/11/23 14:24 Lung - Right Anaerobic Culture - Preliminary No growth to date. 04/05/23 14:15 Thoracentesis Fluid Gram Stain - Final 04/05/23 14:15 Thoracentesis Fluid Anaerobic Culture - Final NO GROWTH AFTER 5 DAYS 04/05/23 14:15 Thoracentesis Fluid Body Fluid Culture - Final No growth after 2 days 04/02/23 14:54 Blood - Venous Blood Culture - Final No growth after 5 days. 04/02/23 14:24 Blood - Venous Blood Culture - Final No growth after 5 days. Progress Note: A&P Assessment and plan (1) Acute hypoxemic respiratory failure: Status: Acute (2) Pneumonia: Status: Acute (3) Paroxysmal atrial fibrillation: Status: Acute (4) Empyema lung: Status: Acute (5) Carcinomatosis: Status: Acute (6) Lung abscess: Status: Acute (7) ROBERT (acute kidney injury): Status: Acute (8) Diabetes: Status: Acute (9) HFrEF (heart failure with reduced ejection fraction): Status: Acute Plan Assessment: 67-year-old lady admitted with acute hypoxic respiratory failure secondary to right-sided pneumonia, further complicated by trapped lung requiring decortication, intraoperatively noted to have multiple right-sided lung abscesses and tumors. Plan: Neuro: No acute issues. Cardiac: Shock, resolved, titrated off pressors. Underlying history of systolic congestive heart failure. Pulmonary: Acute hypoxic respiratory failure secondary to postobstructive pneumonia on the background of new diagnosis of lung cancer, status post decortication. Extubated 04/12/2023. Required re-intubation to on 01/22/2024 for acute respiratory decompensation likely secondary to mucus plugging. Thoracic surgery service care appreciated. Renal: Acute kidney injury, likely secondary to ischemic ATN. Non oliguric. Continue to monitor renal indices and urine output. Endo: No acute issues. GI: Ischemic hepatitis, continue to monitor transaminases. ID: Pneumonia, with postobstructive features, continue broad-spectrum antibiotics. C diff, continue p.o. vancomycin. Heme/Onc: New diagnosis of lung cancer, pathology is pending. Subacute blood- loss anemia, continues with PRBC support. Psych: No acute issues. Miscellaneous: No acute issues. Prophylaxis: Heparin, famotidine Diet: Tube feeds Critical care time spent: 60 minutes Quality Stroke Does the patient have a stroke diagnosis?: No VTE Prior VTE?: No VTE Risk Level:: Medical - moderate - high VTE Device Contraindication: Treatment Not Indicated VTE Drug Contraindication: N/A - Med Ordered
--- NOTE | 2023-04-15 09:33 | MHC.CLN ---
F/U PT WAS RE-INTUBATED AND SEDATED CURRENTLY NPO DISCUSS AT ROUNDS WITH MD IF TF NEEDED; RECOMMEND GLUCERNA AT MAX GOAL RATE 55ML/HR WITH 240ML FREE WATER FLUSH Q 6 HRS TO PROVIDE 1320KCALS (1700KCALS WITH SEDATION; 26KCALS/KG BASED ON CMW), 55G PROTEIN (.85G/KG), 2086ML TOTAL FREE WATER FROM FORMULA AND FLUSHES (32.5ML/KG) MONITOR TOLERANCE, RESIDUALS AND LYTES FOLLOWING FOR DIET ADVANCEMENT
[2023-04-15 10:05] LABS: Vancomycin Random 20.9 mcg/mL (15-20)
--- NOTE | 2023-04-15 11:44 | MHC.SLORD ---
Speech Language Pathology Order Status: Patient currently intubated, swallow assessment deferred. PRODUCTION UNDERWRITER will cotinue to follow, re-assess when appropriate.
[2023-04-15] MEDS: fentaNYL citrate/NS 1,000 MCG/100 ML PLAST..BAG 5 MCG IVCONT (13:23)
[2023-04-15 13:24] LABS: Glucose, Whole Blood 139 mg/dL (60-115)
[2023-04-15 17:37] LABS: Glucose, Whole Blood 168 mg/dL (60-115)
[2023-04-15] MEDS: Norepinephrine Bitartrate/D5W 8 MG/250 ML PLAST..BAG 17.98 MG IV (17:56)
[2023-04-15 23:53] LABS: Glucose, Whole Blood 166 mg/dL (60-115)
[2023-04-16] VITALS (37 sets, daily range): BP systolic 83–116; BP diastolic 39–67; PULSE 70–97; RESP 17–18; TEMP 34.8–38.1; O2SAT 90–95; BMI 32.4
[2023-04-16] MEDS: 0.9 % Sodium Chloride Flush 3 ML SYRINGE IVFLUSH ×4 (00:01→23:31)
[2023-04-16 00:43] LABS: Vancomycin Random 21.1 mcg/mL (15-20)
[2023-04-16] MEDS: propofoL 1,000 MG/100 ML VIAL 14.38 MG IVCONT ×2 (01:35→07:31)
[2023-04-16] MEDS: Albumin Human 25 % 100 ML IV (02:25)
[2023-04-16] MEDS: vancomycin HCL Oral Solution 125 MG/5 ML SOLN.RECON PO ×4 (04:11→23:31)
[2023-04-16] MEDS: Piperacillin Sodium/Tazobactam 2.25 GM in 0.9 % Sodium Chloride 50 ML IV ×4 (04:16→23:31)
[2023-04-16 05:12] LABS: VBG Base Excess -4.2 mmol/L; VBG HCO3 21 mmol/L (22-26); VBG pCO2 41 mmHg; VBG pH 7.32 (7.32-7.43); VBG pO2 46 mmHg
[2023-04-16 05:15] LABS: Venous Blood Gas Refer to POC result
[2023-04-16 05:38] LABS: MANUAL DIFF FLAG NO
[2023-04-16 05:42] LABS: Basophils Absolute Auto 0.1 X10*3/uL (0.0-0.2); Basophils Percent Auto 0.7 % (0-2); Eosinophils Absolute Auto 1.8 X10*3/uL (0.0-0.4); Eosinophils Percent Auto 9.7 % (0-4); Hematocrit 26.4 % (37.0-47.0); Hemoglobin 8.6 g/dl (12.0-16.0); Imm Gran Abs Auto 0.18 X10*3/uL (0.00-0.03); Lymphocytes Absolute Auto 0.9 X10*3/uL (1.2-4.9); Lymphocytes Percent Auto 4.9 % (20-40); Mean Corpuscular HGB Conc 32.6 g/dl (31.0-35.0); Mean Corpuscular Hemoglobin 28.6 pg (27.0-33.0); Mean Corpuscular Volume 87.7 fL (80.0-98.0); Mean Platelet Volume 11.7 fL (9.4-12.3); Monocytes Absolute Auto 1.1 X10*3/uL (0.1-1.2); Monocytes Percent Auto 5.9 % (2-11); NRBC Pct Auto 0.7 /100WBC (0.0-0.2); Neutrophils Absolute Auto 14.2 x10*3/uL (2.0-8.3); Neutrophils Percent Auto 77.8 % (45-73); Platelet Count 137 X10*3/uL (160-400); Red Blood Count 3.01 X10*6/uL (4.20-5.50); Red Cell Distribution Width 16.9 % (11.0-16.0); White Blood Count 18.2 X10*3/uL (4.8-10.8)
[2023-04-16 06:01] LABS: Alanine Aminotransferase 715 U/L (0-31); Albumin Level 3.7 g/dL (3.5-5.0); Alkaline Phosphatase 122 U/L (39-117); Anion Gap 25 (12-20); Aspartate Amino Transferase 435 U/L (5-31); Bilirubin Total 1.5 mg/dL (0.0-1.0); Blood Urea Nitrogen 79 mg/dL (9-16); Calcium 8.3 mg/dL (8.4-10.2); Carbon Dioxide 20 mmol/L (22-29); Chloride 103 mmol/L (96-108); Creatinine Clr Calc Pharmacy 8.8; Estimated Glomerular Filt Rate 6; Glucose Random 152 mg/dL (60-115); Magnesium 2.5 mg/dL (1.6-2.6); Phosphorus 6.7 mg/dL (2.7-4.5); Potassium 3.8 mmol/L (3.3-5.1); Sodium 144 mmol/L (135-145); Total Protein 6.1 g/dL (6.5-8.0)
[2023-04-16] MEDS: Pantoprazole Sodium 40 MG/10 ML VIAL IVPUSH (06:07)
[2023-04-16] MEDS: Norepinephrine Bitartrate/D5W 8 MG/250 ML PLAST..BAG 20.97 MG IV ×2 (06:07→17:53)
[2023-04-16] MEDS: Insulin Lispro 100 UNIT/ML 3 ML VIAL SUBCUT ×3 (06:07→17:51)
[2023-04-16] MEDS: Amiodarone HCL 200 MG TABLET 400 MG PO ×2 (07:28→20:17)
[2023-04-16] MEDS: Chlorhexidine Gluc Oral Rinse 15 ML MOUTHWASH BUCCAL ×3 (07:29→20:16)
[2023-04-16] MEDS: fentaNYL citrate/NS 1,000 MCG/100 ML PLAST..BAG 5 MCG IVCONT (08:39)
--- NOTE | 2023-04-16 09:49 | MHC.SPEECHCO ---
Pt remains intubated, per RN, possible sedation vacation tomorrow, 04/17. ACCOUNTING PRACTICE MANAGER following.
--- NOTE | 2023-04-16 11:00 | HO.SKINPHOTO ---
Location: Category: Stage: Length: Width: Depth: cm Location: Category: Stage: Length: Width: Depth: cm Location: Category: Stage: Length: Width: Depth: cm Location: Category: Stage: Length: Width: Depth: cm Location: Category: Stage: Length: Width: Depth: cm Location: R post shoulder Category: skin tear Stage: Length: Width: Depth: cm
[2023-04-16 11:57] LABS: Glucose, Whole Blood 175 mg/dL (60-115)
--- NOTE | 2023-04-16 11:58 | P.PNCC_ITS ---
Subjective Subjective Date of Service: 04/16/23 Interval History: 67-year-old lady with underlying diabetes mellitus, hypertension, recent embolic CVA, admitted on 04/02/2023 with a right sided pneumonia. Hospital course significant for development of parapneumonic effusion status post thoracentesis with reoccurrence in progressing to empyema with trapped lung, status post surgical chest tube, and decortication on 04/11/2023 with intraop findings of right-sided bilobar abscesses, initially with bilobectomy planned. However, in the procedure pathology showed carcinoma, thus bilobectomy with aborted and patient had decortication with placement of 2 chest tubes. She remained intubated at the end of the case and was transferred to intensive care unit. Extubated 04/12/2023. Required re-intubation on 04/14/2023 for acute respiratory distress. No events overnight. Critical Care Time (minutes): 60 Physical Exam 2 Vital Signs: Vital Signs: Last Vital Signs Temp 100.4 F 04/16/23 10:00 Pulse 72 04/16/23 11:00 Resp 18 04/16/23 11:00 BP 96/57 L 04/16/23 11:00 Pulse Ox 95 04/16/23 11:00 O2 Del Method Mechanical Ventil ation 04/16/23 11:00 O2 Flow Rate 40 04/14/23 19:00 FiO2 40 04/16/23 11:23 Oxygen Flow Rate 2 04/02/23 13:19 BMI result Body Mass Index 32.4 Const: General: no acute distress and other (Sedated on the vent) Eyes: Sclerae: sclerae normal EOM: EOMs intact bilaterally Neck: Neck: Yes no lymphadenopathy, Yes trachea midline and Yes supple Resp: Auscultation: other (Poor right-sided air movement) Cardio: Rate: regular rate Rhythm: regular rhythm Heart sounds: no gallops, no murmurs and no rubs GI: Palpation (GI): Soft to palpation and Other GI palpation findings present ( Nontender) Auscultation: normal bowel sounds Extrem: General: No clubbing, No cyanosis and Yes edema (1+ bilateral) Objective Data Labs 04/16/23 04:46 04/16/23 04:46 Labs: Laboratory Results - last 24 hr 04/15/23 04/15/23 04/15/23 11:01 17:17 21:47 WBC RBC Hgb Hct MCV MCH MCHC RDW Plt Count MPV Immature Gran % (Auto) Neut % (Auto) Lymph % (Auto) [place] % (Auto) Eos % (Auto) Baso % (Auto) Lymph # (Auto) [place] # (Auto) Eos # (Auto) Baso # (Auto) Abs Immat Gran (auto) Absolute Neuts (auto) Absolute Nucleated RBC Nucleated RBC % (auto) VBG pH VBG pCO2 VBG pO2 VBG HCO3 VBG O2 Saturation VBG Base Excess Sodium Potassium Chloride Carbon Dioxide Anion Gap BUN Creatinine Estim Creat Clear Calc Estimated GFR POC Glucose 139 H 168 H Random Glucose Calcium Phosphorus Magnesium Total Bilirubin AST ALT Alkaline Phosphatase Total Protein Albumin Random Vancomycin 21.1 H 04/15/23 04/16/23 04/16/23 23:49 04:46 05:05 WBC 18.2 H RBC 3.01 L Hgb 8.6 L Hct 26.4 L MCV 87.7 MCH 28.6 MCHC 32.6 RDW 16.9 H Plt Count 137 L D MPV 11.7 Immature Gran % (Auto) 1.0 H Neut % (Auto) 77.8 H Lymph % (Auto) 4.9 L [place] % (Auto) 5.9 Eos % (Auto) 9.7 H Baso % (Auto) 0.7 Lymph # (Auto) 0.9 L [place] # (Auto) 1.1 Eos # (Auto) 1.8 H Baso # (Auto) 0.1 Abs Immat Gran (auto) 0.18 H Absolute Neuts (auto) 14.2 H Absolute Nucleated RBC 0.130 H Nucleated RBC % (auto) 0.7 H VBG pH 7.32 VBG pCO2 41 VBG pO2 46 VBG HCO3 21 L VBG O2 Saturation 71.0 VBG Base Excess -4.2 Sodium 144 Potassium 3.8 Chloride 103 Carbon Dioxide 20 L Anion Gap 25 H BUN 79 H Creatinine 6.57 H* Estim Creat Clear Calc 8.8 Estimated GFR 6 POC Glucose 166 H Random Glucose 152 H Calcium 8.3 L Phosphorus 6.7 H Magnesium 2.5 Total Bilirubin 1.5 H AST 435 H ALT 715 H Alkaline Phosphatase 122 H Total Protein 6.1 L Albumin 3.7 Random Vancomycin 04/16/23 11:53 WBC RBC Hgb Hct MCV MCH MCHC RDW Plt Count MPV Immature Gran % (Auto) Neut % (Auto) Lymph % (Auto) [place] % (Auto) Eos % (Auto) Baso % (Auto) Lymph # (Auto) [place] # (Auto) Eos # (Auto) Baso # (Auto) Abs Immat Gran (auto) Absolute Neuts (auto) Absolute Nucleated RBC Nucleated RBC % (auto) VBG pH VBG pCO2 VBG pO2 VBG HCO3 VBG O2 Saturation VBG Base Excess Sodium Potassium Chloride Carbon Dioxide Anion Gap BUN Creatinine Estim Creat Clear Calc Estimated GFR POC Glucose 175 H Random Glucose Calcium Phosphorus Magnesium Total Bilirubin AST ALT Alkaline Phosphatase Total Protein Albumin Random Vancomycin Microbiology Microbiology Results: Microbiology 04/11/23 14:24 Lung - Right Gram Stain - Final 04/11/23 14:24 Lung - Right Routine Culture - Final No growth after 2 days 04/11/23 14:24 Lung - Right Anaerobic Culture - Final NO GROWTH AFTER 5 DAYS 04/05/23 14:15 Thoracentesis Fluid Gram Stain - Final 04/05/23 14:15 Thoracentesis Fluid Anaerobic Culture - Final NO GROWTH AFTER 5 DAYS 04/05/23 14:15 Thoracentesis Fluid Body Fluid Culture - Final No growth after 2 days 04/02/23 14:54 Blood - Venous Blood Culture - Final No growth after 5 days. 04/02/23 14:24 Blood - Venous Blood Culture - Final No growth after 5 days. Progress Note: A&P Assessment and plan (1) Ischemic hepatitis: Status: Acute (2) HFrEF (heart failure with reduced ejection fraction): Status: Acute (3) Diabetes: Status: Acute (4) ROBERT (acute kidney injury): Status: Acute (5) Lung abscess: Status: Acute (6) Carcinomatosis: Status: Acute (7) Empyema lung: Status: Acute (8) Trapped lung: Status: Acute (9) Pneumonia: Status: Acute (10) Acute hypoxemic respiratory failure: Status: Acute Plan Assessment: 67-year-old lady admitted with acute hypoxic respiratory failure secondary to right-sided pneumonia, further complicated by trapped lung requiring decortication, intraoperatively noted to have multiple right-sided lung abscesses and tumors. Plan: Neuro: No acute issues. Cardiac: Shock, continue to titrate off pressors as tolerated. Underlying history of systolic congestive heart failure. Pulmonary: Acute hypoxic respiratory failure secondary to postobstructive pneumonia on the background of new diagnosis of lung cancer, status post decortication. Extubated 04/12/2023. Required re-intubation to on 01/22/2024 for acute respiratory decompensation likely secondary to mucus plugging. Thoracic surgery service care appreciated. Renal: Acute kidney injury, likely secondary to ischemic ATN. Phosphorus starting to improve. Non oliguric. Continue to monitor renal indices and urine output. Endo: No acute issues. GI: Ischemic hepatitis, improving, continue to monitor transaminases. ID: Pneumonia, with postobstructive features, continue broad-spectrum antibiotics. C diff, continue p.o. vancomycin. Heme/Onc: New diagnosis of lung cancer, pathology is pending. Subacute blood- loss anemia, continues with PRBC support for hemoglobin goal above 7. Psych: No acute issues. Miscellaneous: No acute issues. Prophylaxis: Heparin, famotidine Diet: Tube feeds Critical care time spent: 60 minutes Quality Stroke Does the patient have a stroke diagnosis?: No VTE Prior VTE?: No VTE Risk Level:: Medical - moderate - high VTE Device Contraindication: Treatment Not Indicated VTE Drug Contraindication: N/A - Med Ordered
--- NOTE | 2023-04-16 15:06 | MHC.CM.PN ---
Pt continues care in ICU: re-intubated after failed extubation attempt: family to decide on goals of care once pathology returns. Goals are to trial vent weaning on 04/17. Pt is a bed hold at [facility] for 20 days. Clinical updates to be remitted. CM to follow
[2023-04-16] MEDS: propofoL 1,000 MG/100 ML VIAL 9.59 MG IVCONT ×2 (15:10→20:17)
[2023-04-16 17:45] LABS: Glucose, Whole Blood 205 mg/dL (60-115)
[2023-04-17] VITALS (39 sets, daily range): BP systolic 88–115; BP diastolic 42–88; PULSE 70–82; RESP 18–20; TEMP 35–38.1; O2SAT 89–95; BMI 33.4
[2023-04-17 00:08] LABS: Glucose, Whole Blood 208 mg/dL (60-115)
[2023-04-17] MEDS: Insulin Lispro 100 UNIT/ML 3 ML VIAL SUBCUT ×5 (00:15→23:42)
[2023-04-17] MEDS: Norepinephrine Bitartrate/D5W 8 MG/250 ML PLAST..BAG 25.47 MG IV ×2 (01:13→11:08)
[2023-04-17] MEDS: propofoL 1,000 MG/100 ML VIAL 9.59 MG IVCONT ×3 (01:15→21:06)
[2023-04-17] MEDS: fentaNYL citrate/NS 1,000 MCG/100 ML PLAST..BAG 5 MCG IVCONT ×2 (01:47→22:27)
[2023-04-17] MEDS: Piperacillin Sodium/Tazobactam 2.25 GM in 0.9 % Sodium Chloride 50 ML IV ×4 (04:21→22:33)
[2023-04-17] MEDS: vancomycin HCL Oral Solution 125 MG/5 ML SOLN.RECON PO ×4 (04:21→21:06)
[2023-04-17 04:38] LABS: VBG Base Excess -5.8 mmol/L; VBG HCO3 20 mmol/L (22-26); VBG pCO2 42 mmHg; VBG pH 7.28 (7.32-7.43); VBG pO2 50 mmHg
[2023-04-17 04:41] LABS: Venous Blood Gas Refer to POC result
[2023-04-17 05:45] LABS: Basophils Absolute Auto 0.2 X10*3/uL (0.0-0.2); Basophils Percent Auto 0.6 % (0-2); Eosinophils Absolute Auto 2.9 X10*3/uL (0.0-0.4); Eosinophils Percent Auto 11.3 % (0-4); Hematocrit 29.3 % (37.0-47.0); Hemoglobin 9.6 g/dl (12.0-16.0); Imm Gran Abs Auto 0.53 X10*3/uL (0.00-0.03); Imm Gran Pct Auto 2.1 % (0.0-0.4); Lymphocytes Percent Auto 3.8 % (20-40); MANUAL DIFF FLAG SCAN; Mean Corpuscular HGB Conc 32.8 g/dl (31.0-35.0); Mean Corpuscular Hemoglobin 28.8 pg (27.0-33.0); Mean Platelet Volume 11.6 fL (9.4-12.3); Monocytes Absolute Auto 1.6 X10*3/uL (0.1-1.2); Monocytes Percent Auto 6.2 % (2-11); Neutrophils Absolute Auto 19.6 x10*3/uL (2.0-8.3); Platelet Count 215 X10*3/uL (160-400); Red Blood Count 3.33 X10*6/uL (4.20-5.50); Red Cell Distribution Width 17.5 % (11.0-16.0); SCAN SMEAR FLAG 1; White Blood Count 25.8 X10*3/uL (4.8-10.8)
[2023-04-17 05:50] LABS: NRBC Pct Auto 1.1 /100WBC (0.0-0.2)
[2023-04-17 05:54] LABS: Glucose, Whole Blood 188 mg/dL (60-115)
[2023-04-17] MEDS: Pantoprazole Sodium 40 MG/10 ML VIAL IVPUSH (05:55)
[2023-04-17 06:08] LABS: Alanine Aminotransferase 615 U/L (0-31); Albumin Level 3.3 g/dL (3.5-5.0); Alkaline Phosphatase 163 U/L (39-117); Anion Gap 26 (12-20); Aspartate Amino Transferase 314 U/L (5-31); Bilirubin Total 1.5 mg/dL (0.0-1.0); Blood Urea Nitrogen 91 mg/dL (9-16); Calcium 8.2 mg/dL (8.4-10.2); Carbon Dioxide 19 mmol/L (22-29); Chloride 101 mmol/L (96-108); Creatinine Clr Calc Pharmacy 7.5; Estimated Glomerular Filt Rate 5; Glucose Random 196 mg/dL (60-115); Magnesium 2.5 mg/dL (1.6-2.6); Phosphorus 6.4 mg/dL (2.7-4.5); Potassium 3.9 mmol/L (3.3-5.1); Sodium 142 mmol/L (135-145); Total Protein 6.2 g/dL (6.5-8.0)
[2023-04-17 06:33] LABS: SLIDE REVIEW VERIFIED
[2023-04-17] MEDS: Amiodarone HCL 200 MG TABLET 400 MG PO ×2 (08:05→21:06)
[2023-04-17] MEDS: Albumin Human 25 % 100 ML IV ×2 (08:05→15:27)
[2023-04-17] MEDS: 0.9 % Sodium Chloride Flush 3 ML SYRINGE IVFLUSH ×3 (08:05→22:36)
[2023-04-17] MEDS: Chlorhexidine Gluc Oral Rinse 15 ML MOUTHWASH BUCCAL ×3 (08:05→21:06)
--- NOTE | 2023-04-17 09:25 | MHC.CLN ---
F/U PT REMAINS INTUBATED AND SEDATED DISCUSSED AT ROUNDS WITH PT RECEIVING JEVITY 1.0 AT MAX GOAL RATE 50ML/HR PROVIDES 1272KCALS (1525KCALS WITH SEDATION; 24KCALS/KG BASED ON CMW), 53G PROTEIN (.83G/KG), 1002ML TOTAL FREE WATER FROM FORMULA MONITOR TOLERANCE, RESIDUALS AND LYTES
--- NOTE | 2023-04-17 09:45 | P.PNCC_ITS ---
Subjective Subjective Date of Service: 04/17/23 Interval History: 67-year-old lady with underlying diabetes mellitus, hypertension, recent embolic CVA, admitted on 04/02/2023 with a right sided pneumonia. Hospital course significant for development of parapneumonic effusion status post thoracentesis with reoccurrence in progressing to empyema with trapped lung, status post surgical chest tube, and decortication on 04/11/2023 with intraop findings of right-sided bilobar abscesses, initially with bilobectomy planned. However, in the procedure pathology showed carcinoma, thus bilobectomy with aborted and patient had decortication with placement of 2 chest tubes complicated by ischemic hepatitis and ATN. She remained intubated at the end of the case and was transferred to intensive care unit. Extubated 04/12/2023. Required re- intubation on 04/14/2023 for acute respiratory distress. No events overnight. Critical Care Time (minutes): 45 Physical Exam 2 Vital Signs: Vital Signs: Last Vital Signs Temp 99.7 F 04/17/23 09:00 Pulse 74 04/17/23 09:00 Resp 18 04/17/23 09:00 BP 95/51 L 04/17/23 09:20 Pulse Ox 91 L 04/17/23 09:00 O2 Del Method Mechanical Ventil ation 04/17/23 09:00 O2 Flow Rate 40 04/14/23 19:00 FiO2 50 04/17/23 09:00 Oxygen Flow Rate 2 04/02/23 13:19 BMI result Body Mass Index 33.4 Const: General: no acute distress and other (Sedated on the vent) Eyes: Sclerae: sclerae normal EOM: EOMs intact bilaterally Neck: Neck: Yes no lymphadenopathy, Yes trachea midline and Yes supple Resp: Auscultation: other (Poor right-sided air movement) Cardio: Rate: regular rate Rhythm: regular rhythm Heart sounds: no gallops, no murmurs and no rubs GI: Palpation (GI): Soft to palpation and Other GI palpation findings present ( Nontender) Auscultation: normal bowel sounds Extrem: General: No clubbing, No cyanosis and Yes edema (On +bilateral) Objective Data Labs 04/17/23 04:33 04/17/23 04:33 Labs: Laboratory Results - last 24 hr 04/16/23 04/16/2324 11:53 17:39 00:01 WBC RBC Hgb Hct MCV MCH MCHC RDW Plt Count MPV Immature Gran % (Auto) Neut % (Auto) Lymph % (Auto) [place] % (Auto) Eos % (Auto) Baso % (Auto) Lymph # (Auto) [place] # (Auto) Eos # (Auto) Baso # (Auto) Abs Immat Gran (auto) Absolute Neuts (auto) Absolute Nucleated RBC Nucleated RBC % (auto) Smear Tech's Comments VBG pH VBG pCO2 VBG pO2 VBG HCO3 VBG O2 Saturation VBG Base Excess Sodium Potassium Chloride Carbon Dioxide Anion Gap BUN Creatinine Estim Creat Clear Calc Estimated GFR POC Glucose 175 H 205 H 208 H Random Glucose Calcium Phosphorus Magnesium Total Bilirubin AST ALT Alkaline Phosphatase Total Protein Albumin 04/17/23 04/17/23 04/17/23 04:31 04:33 05:50 WBC 25.8 H RBC 3.33 L Hgb 9.6 L Hct 29.3 L MCV 88.0 MCH 28.8 MCHC 32.8 RDW 17.5 H Plt Count 215 D MPV 11.6 Immature Gran % (Auto) 2.1 H Neut % (Auto) 76.0 H Lymph % (Auto) 3.8 L [place] % (Auto) 6.2 Eos % (Auto) 11.3 H Baso % (Auto) 0.6 Lymph # (Auto) 1.0 L [place] # (Auto) 1.6 H Eos # (Auto) 2.9 H Baso # (Auto) 0.2 Abs Immat Gran (auto) 0.53 H Absolute Neuts (auto) 19.6 H Absolute Nucleated RBC 0.280 H Nucleated RBC % (auto) 1.1 H Smear Tech's Comments VERIFIED VBG pH 7.28 L VBG pCO2 42 VBG pO2 50 VBG HCO3 20 L VBG O2 Saturation 76.0 VBG Base Excess -5.8 Sodium 142 Potassium 3.9 Chloride 101 Carbon Dioxide 19 L Anion Gap 26 H BUN 91 H Creatinine 7.77 H* Estim Creat Clear Calc 7.5 Estimated GFR 5 POC Glucose 188 H Random Glucose 196 H Calcium 8.2 L Phosphorus 6.4 H Magnesium 2.5 Total Bilirubin 1.5 H AST 314 H ALT 615 H Alkaline Phosphatase 163 H Total Protein 6.2 L Albumin 3.3 L Microbiology Microbiology Results: Microbiology 04/11/23 14:24 Lung - Right Gram Stain - Final 04/11/23 14:24 Lung - Right Routine Culture - Final No growth after 2 days 04/11/23 14:24 Lung - Right Anaerobic Culture - Final NO GROWTH AFTER 5 DAYS 04/05/23 14:15 Thoracentesis Fluid Gram Stain - Final 04/05/23 14:15 Thoracentesis Fluid Anaerobic Culture - Final NO GROWTH AFTER 5 DAYS 04/05/23 14:15 Thoracentesis Fluid Body Fluid Culture - Final No growth after 2 days 04/02/23 14:54 Blood - Venous Blood Culture - Final No growth after 5 days. 04/02/23 14:24 Blood - Venous Blood Culture - Final No growth after 5 days. Progress Note: A&P Assessment and plan (1) Ischemic hepatitis: Status: Acute (2) HFrEF (heart failure with reduced ejection fraction): Status: Acute (3) Diabetes: Status: Acute (4) ROBERT (acute kidney injury): Status: Acute (5) Lung abscess: Status: Acute (6) Carcinomatosis: Status: Acute (7) Empyema lung: Status: Acute (8) Trapped lung: Status: Acute (9) Acute hypoxemic respiratory failure: Status: Acute Plan Assessment: 67-year-old lady admitted with acute hypoxic respiratory failure secondary to right-sided pneumonia, further complicated by trapped lung requiring decortication, intraoperatively noted to have multiple right-sided lung abscesses and tumors. Plan: Neuro: No acute issues. Cardiac: Shock, continue to titrate off pressors as tolerated. Underlying history of systolic congestive heart failure. Pulmonary: Acute hypoxic respiratory failure secondary to postobstructive pneumonia on the background of new diagnosis of lung cancer, status post decortication. Extubated 04/12/2023. Required re-intubation to on 01/22/2024 for acute respiratory decompensation likely secondary to mucus plugging. Thoracic surgery service care appreciated. Renal: Acute kidney injury, likely secondary to ischemic ATN. Phosphorus continues to improve. Non oliguric. Continue to monitor renal indices and urine output. Endo: No acute issues. GI: Ischemic hepatitis, improving, continue to monitor transaminases. ID: Pneumonia, with postobstructive features, continue broad-spectrum antibiotics. C diff, continue p.o. vancomycin. Heme/Onc: New diagnosis of lung cancer, pathology is pending. Subacute blood- loss anemia, continues with PRBC support for hemoglobin goal above 7. Psych: No acute issues. Miscellaneous: No acute issues. Prophylaxis: Heparin, ppi Diet: Tube feeds Critical care time spent: 45 minutes Quality Stroke Does the patient have a stroke diagnosis?: No VTE Prior VTE?: No VTE Risk Level:: Medical - moderate - high VTE Device Contraindication: Treatment Not Indicated VTE Drug Contraindication: N/A - Med Ordered
[2023-04-17 12:04] LABS: Glucose, Whole Blood 215 mg/dL (60-115)
--- NOTE | 2023-04-17 12:25 | PM.PNTS ---
Subjective Subjective Date of Service: 04/17/23 Interval history: Intubated. Physical Exam Vital Signs: Vital Signs: Last Vital Signs Temp 99.7 F 04/17/23 12:00 Pulse 74 04/17/23 12:01 Resp 18 04/17/23 12:00 BP 99/52 L 04/17/23 12:01 Pulse Ox 91 L 04/17/23 12:00 O2 Del Method Mechanical Ventil ation 04/17/23 12:00 O2 Flow Rate 40 04/14/23 19:00 FiO2 50 04/17/23 12:00 Oxygen Flow Rate 2 04/02/23 13:19 BMI result Body Mass Index 33.4 Chest: Other: chest tubes intact, output has decreased, remains serosang, no air leak Resp: Other: on vent Procedures Date of Service Date of Service: 04/17/23 Progress Note: A&P Assessment and plan (1) Carcinomatosis: Status: Acute Plan S/p bronchoscopy; pre and postprocedure, right exploratory thoracotomy, right upper lobe and right lower lobe multiple core biopsies, right upper lobe wedge biopsy, decortication on 04/11/23, found to have carcinomatosis, postobstructive pneumonia and lung abscesses intraop. Remains critically ill in ICU, intubated. Chest tube without air leak, serosanguineous output decreasing. Chest tubes uneventfully removed at bedside and occlusive dressing placed. Post procedure CXR pending. Time Spent With Patient Time: Total time managing care of this patient today ____ minutes. Quality Stroke Does the patient have a stroke diagnosis?: No VTE Prior VTE?: No VTE Risk Level:: Medical - moderate - high VTE Device Contraindication: Treatment Not Indicated VTE Drug Contraindication: N/A - Med Ordered
--- NOTE | 2023-04-17 12:51 | MHC.SLORD ---
Speech Language Pathology Order Status: Pt remains intubated & vented. ANTI[employer] RE[employer]UCER evaluation on hold 24+ hours post extubation.
--- NOTE | 2023-04-17 12:56 | MHC.CM.PN ---
EMR REVIEWED, PT REMAINS VENTED AND SEDATED W/PLAN TO ATTEMPT TO EXTUBATE TODAY, CM WILL CONT TO FOLLOW DC NEEDS.
[2023-04-17 17:52] LABS: Glucose, Whole Blood 199 mg/dL (60-115)
[2023-04-17] MEDS: Norepinephrine Bitartrate/D5W 8 MG/250 ML PLAST..BAG 26.97 MG IV (20:15)
[2023-04-17 23:33] LABS: Glucose, Whole Blood 188 mg/dL (60-115)
[2023-04-18] VITALS (38 sets, daily range): BP systolic 71–129; BP diastolic 5–64; PULSE 79–89; RESP 17–20; TEMP 34.6–38.3; O2SAT 90–94; BMI 35.2
[2023-04-18] MEDS: vancomycin HCL Oral Solution 125 MG/5 ML SOLN.RECON PO ×4 (04:05→22:48)
[2023-04-18] MEDS: Piperacillin Sodium/Tazobactam 2.25 GM in 0.9 % Sodium Chloride 50 ML IV (04:05)
[2023-04-18] MEDS: Norepinephrine Bitartrate/D5W 8 MG/250 ML PLAST..BAG 26.97 MG IV (04:11)
[2023-04-18] MEDS: Pantoprazole Sodium 40 MG/10 ML VIAL IVPUSH (05:31)
[2023-04-18] MEDS: propofoL 1,000 MG/100 ML VIAL 9.59 MG IVCONT ×2 (05:40→13:38)
[2023-04-18 05:45] LABS: Glucose, Whole Blood 147 mg/dL (60-115)
[2023-04-18 05:45] LABS: VBG Base Excess -7.2 mmol/L; VBG HCO3 19 mmol/L (22-26); VBG pCO2 40 mmHg; VBG pH 7.27 (7.32-7.43); VBG pO2 48 mmHg
[2023-04-18 05:49] LABS: Venous Blood Gas Refer to POC result
[2023-04-18 06:21] LABS: Basophils Absolute Auto 0.1 X10*3/uL (0.0-0.2); Basophils Percent Auto 0.4 % (0-2); Eosinophils Absolute Auto 2.3 X10*3/uL (0.0-0.4); Eosinophils Percent Auto 8.7 % (0-4); Hematocrit 27.2 % (37.0-47.0); Hemoglobin 8.8 g/dl (12.0-16.0); Imm Gran Abs Auto 0.78 X10*3/uL (0.00-0.03); Lymphocytes Percent Auto 3.7 % (20-40); MANUAL DIFF FLAG SCAN; Mean Corpuscular HGB Conc 32.4 g/dl (31.0-35.0); Mean Corpuscular Hemoglobin 28.5 pg (27.0-33.0); Mean Platelet Volume 11.5 fL (9.4-12.3); Monocytes Absolute Auto 1.8 X10*3/uL (0.1-1.2); Monocytes Percent Auto 6.8 % (2-11); NRBC Pct Auto 0.5 /100WBC (0.0-0.2); Neutrophils Absolute Auto 20.3 x10*3/uL (2.0-8.3); Neutrophils Percent Auto 77.4 % (45-73); Platelet Count 205 X10*3/uL (160-400); Red Blood Count 3.09 X10*6/uL (4.20-5.50); Red Cell Distribution Width 17.6 % (11.0-16.0); SCAN SMEAR FLAG 1; White Blood Count 26.2 X10*3/uL (4.8-10.8)
[2023-04-18 06:34] LABS: Alanine Aminotransferase 415 U/L (0-31); Albumin Level 3.4 g/dL (3.5-5.0); Alkaline Phosphatase 177 U/L (39-117); Anion Gap 26 (12-20); Aspartate Amino Transferase 173 U/L (5-31); Bilirubin Total 1.9 mg/dL (0.0-1.0); Blood Urea Nitrogen 98 mg/dL (9-16); Calcium 8.4 mg/dL (8.4-10.2); Carbon Dioxide 18 mmol/L (22-29); Chloride 100 mmol/L (96-108); Estimated Glomerular Filt Rate 5; Glucose Random 224 mg/dL (60-115); Magnesium 2.6 mg/dL (1.6-2.6); Phosphorus 6.9 mg/dL (2.7-4.5); Potassium 4.4 mmol/L (3.3-5.1); Sodium 140 mmol/L (135-145); Total Protein 6.4 g/dL (6.5-8.0)
[2023-04-18 07:10] LABS: SLIDE REVIEW VERIFIED
--- NOTE | 2023-04-18 09:39 | P.PNCC_ITS ---
Subjective Subjective Date of Service: 04/18/23 Interval History: 67-year-old female with acute hypoxic respiratory failure with extensive right lung consolidation noted to have widespread carcinomatosis probably bilateral certainly worse on the right side had 2 chest tubes that have subsequently been discontinued had pulmonary abscesses as well but pathology definitely positive for squamous cell carcinoma developed acute hepatic and acute renal failure with this episode as well has been on Zosyn and vancomycin remains intubated following a re-intubation on the 11 or 4 days ago but remains an uric with worsening BUN and creatinine and clearly now uremic with positive anion gap metabolic acidosis hyperphosphatemia and I did bedside echo demonstrating global ejection fraction probably in the 40s with diffuse hypokinesis of the left ventricle it looks like loaded with amiodarone over at least a 2 week stay in the hospital remains on 400 mg twice daily which I am holding at this point and has a dilated diffusely hypokinetic right ventricle as well so clearly has evidence of biventricular failure but IVC diameter is under 2 cm In discussion with the thoracic surgeon said the entire lung was replaced by tumor with multiple abscesses in which are all postobstructive and the no clearly with a very dismal prognosis for any meaningful recovery and of course she still remains comatose which I believe now is on the basis of progressive uremia Critical Care Time (minutes): 45 Physical Exam 2 Vital Signs: Vital Signs: Last Vital Signs Temp 100.6 F H 04/18/23 09:00 Pulse 83 04/18/23 09:00 Resp 20 04/18/23 09:00 BP 97/53 L 04/18/23 09:00 Pulse Ox 92 04/18/23 09:00 O2 Del Method Mechanical Ventil ation 04/18/23 09:00 O2 Flow Rate 40 04/14/23 19:00 FiO2 50 04/18/23 09:00 Oxygen Flow Rate 2 04/02/23 13:19 BMI result Body Mass Index 35.2 Stable vital signs and very barely responsive and almost immediately falls back into an unresponsive state Absent right-sided breath sounds No pericardial effusion no rub no neck vein distention no gallops Abdomen is soft no organomegaly no acrocyanosis Objective Data Labs 04/19/23 04:36 04/19/23 04:36 Labs: Laboratory Results - last 24 hr 04/17/23 04/17/23 04/17/23 11:49 17:43 23:29 WBC RBC Hgb Hct MCV MCH MCHC RDW Plt Count MPV Immature Gran % (Auto) Neut % (Auto) Lymph % (Auto) [place] % (Auto) Eos % (Auto) Baso % (Auto) Lymph # (Auto) [place] # (Auto) Eos # (Auto) Baso # (Auto) Abs Immat Gran (auto) Absolute Neuts (auto) Absolute Nucleated RBC Nucleated RBC % (auto) Smear Tech's Comments VBG pH VBG pCO2 VBG pO2 VBG HCO3 VBG O2 Saturation VBG Base Excess Sodium Potassium Chloride Carbon Dioxide Anion Gap BUN Creatinine Estim Creat Clear Calc Estimated GFR POC Glucose 215 H 199 H 188 H Random Glucose Calcium Phosphorus Magnesium Total Bilirubin AST ALT Alkaline Phosphatase Total Protein Albumin 04/18/23 04/18/23 04/18/23 05:31 05:36 05:38 WBC 26.2 H RBC 3.09 L Hgb 8.8 L Hct 27.2 L MCV 88.0 MCH 28.5 MCHC 32.4 RDW 17.6 H Plt Count 205 MPV 11.5 Immature Gran % (Auto) 3.0 H Neut % (Auto) 77.4 H Lymph % (Auto) 3.7 L [place] % (Auto) 6.8 Eos % (Auto) 8.7 H Baso % (Auto) 0.4 Lymph # (Auto) 1.0 L [place] # (Auto) 1.8 H Eos # (Auto) 2.3 H Baso # (Auto) 0.1 Abs Immat Gran (auto) 0.78 H Absolute Neuts (auto) 20.3 H Absolute Nucleated RBC 0.120 H Nucleated RBC % (auto) 0.5 H Smear Tech's Comments VERIFIED VBG pH 7.27 L VBG pCO2 40 VBG pO2 48 VBG HCO3 19 L VBG O2 Saturation 75.0 VBG Base Excess -7.2 Sodium 140 Potassium 4.4 Chloride 100 Carbon Dioxide 18 L Anion Gap 26 H BUN 98 H Creatinine 8.65 H* Estim Creat Clear Calc 7.0 Estimated GFR 5 POC Glucose 147 H Random Glucose 224 H Calcium 8.4 Phosphorus 6.9 H Magnesium 2.6 Total Bilirubin 1.9 H AST 173 H ALT 415 H Alkaline Phosphatase 177 H Total Protein 6.4 L Albumin 3.4 L Microbiology Microbiology Results: Microbiology 04/11/23 14:24 Lung - Right Gram Stain - Final 04/11/23 14:24 Lung - Right Routine Culture - Final No growth after 2 days 04/11/23 14:24 Lung - Right Anaerobic Culture - Final NO GROWTH AFTER 5 DAYS 04/05/23 14:15 Thoracentesis Fluid Gram Stain - Final 04/05/23 14:15 Thoracentesis Fluid Anaerobic Culture - Final NO GROWTH AFTER 5 DAYS 04/05/23 14:15 Thoracentesis Fluid Body Fluid Culture - Final No growth after 2 days 04/02/23 14:54 Blood - Venous Blood Culture - Final No growth after 5 days. 04/02/23 14:24 Blood - Venous Blood Culture - Final No growth after 5 days. Progress Note: A&P Assessment and plan (1) Ischemic hepatitis: Status: Acute (2) HFrEF (heart failure with reduced ejection fraction): Status: Acute (3) Diabetes: Status: Acute (4) ROBERT (acute kidney injury): Status: Acute (5) Lung abscess: Status: Acute (6) Acute blood loss anemia: Status: Acute (7) Carcinomatosis: Status: Acute (8) Empyema lung: Status: Acute (9) Trapped lung: Status: Acute (10) Paroxysmal atrial fibrillation: Status: Acute (11) Pleural effusion: Status: Acute (12) Pneumonia: Status: Acute (13) Acute respiratory failure: Status: Acute (14) Primary lung squamous cell carcinoma: Status: Acute (15) Uremia: Status: Acute Plan So 67-year-old female with 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 just living off the left lung and developing progressive uremia but thus far still not fluid overloaded and no emergent need for dialysis at this point although she is progressively unresponsive which is probably based on the uremia but will discuss this with family because I feel dialysis entailing placement of dialysis catheter is inappropriate in his very advanced end-stage disease and the uremia might actually be a blessing Quality Stroke Does the patient have a stroke diagnosis?: No VTE Prior VTE?: No VTE Risk Level:: Medical - moderate - high VTE Device Contraindication: Treatment Not Indicated VTE Drug Contraindication: N/A - Med Ordered
[2023-04-18] MEDS: Chlorhexidine Gluc Oral Rinse 15 ML MOUTHWASH BUCCAL ×3 (09:51→20:42)
[2023-04-18] MEDS: 0.9 % Sodium Chloride Flush 3 ML SYRINGE IVFLUSH ×2 (09:51→15:06)
[2023-04-18] MEDS: Norepinephrine Bitartrate/D5W 8 MG/250 ML PLAST..BAG 29.96 MG IV (10:55)
[2023-04-18 12:35] LABS: Glucose, Whole Blood 217 mg/dL (60-115)
[2023-04-18] MEDS: fentaNYL citrate/NS 1,000 MCG/100 ML PLAST..BAG 5 MCG IVCONT (13:37)
[2023-04-18] MEDS: Insulin Lispro 100 UNIT/ML 3 ML VIAL SUBCUT ×2 (13:37→18:16)
--- NOTE | 2023-04-18 16:11 | MHC.CM.PN ---
Pt remains intubated in ICU: chest tubes d/c'd on 04/17. Goals of care are to wait for family decisions and continued current care.
[2023-04-18] MEDS: Norepinephrine Bitartrate/D5W 8 MG/250 ML PLAST..BAG 35.96 MG IV (17:44)
[2023-04-18 18:03] LABS: Glucose, Whole Blood 205 mg/dL (60-115)
[2023-04-18 23:58] LABS: Glucose, Whole Blood 184 mg/dL (60-115)
[2023-04-19] VITALS (40 sets, daily range): BP systolic 94–128; BP diastolic 38–63; PULSE 82–98; RESP 16–21; TEMP 34.6–38.5; O2SAT 91–100; BMI 35.2
[2023-04-19] MEDS: Insulin Lispro 100 UNIT/ML 3 ML VIAL SUBCUT ×4 (00:03→17:14)
[2023-04-19] MEDS: Norepinephrine Bitartrate/D5W 8 MG/250 ML PLAST..BAG 35.96 MG IV (00:03)
[2023-04-19] MEDS: vancomycin HCL Oral Solution 125 MG/5 ML SOLN.RECON PO ×4 (04:19→21:29)
[2023-04-19] MEDS: Lactulose 20 GM/30 ML SOLUTION OG-TUBE (04:19)
[2023-04-19] MEDS: propofoL 1,000 MG/100 ML VIAL 4.79 MG IVCONT (04:19)
[2023-04-19 04:47] LABS: VBG Base Excess -9.2 mmol/L; VBG HCO3 17 mmol/L (22-26); VBG pCO2 39 mmHg; VBG pH 7.24 (7.32-7.43); VBG pO2 52 mmHg
[2023-04-19 04:49] LABS: Venous Blood Gas Refer to POC result
[2023-04-19 05:21] LABS: Hematocrit 28.1 % (37.0-47.0); Mean Corpuscular Hemoglobin 28.6 pg (27.0-33.0); Mean Corpuscular Volume 89.2 fL (80.0-98.0); Mean Platelet Volume 11.5 fL (9.4-12.3); NRBC Pct Auto 0.4 /100WBC (0.0-0.2); Platelet Count 249 X10*3/uL (160-400); Red Blood Count 3.15 X10*6/uL (4.20-5.50); Red Cell Distribution Width 18.2 % (11.0-16.0); White Blood Count 28.2 X10*3/uL (4.8-10.8)
[2023-04-19 05:38] LABS: Alanine Aminotransferase 283 U/L (0-31); Albumin Level 3.2 g/dL (3.5-5.0); Alkaline Phosphatase 222 U/L (39-117); Anion Gap 30 (12-20); Aspartate Amino Transferase 54 U/L (5-31); Bilirubin Total 1.9 mg/dL (0.0-1.0); Blood Urea Nitrogen 102 mg/dL (9-16); Calcium 8.6 mg/dL (8.4-10.2); Carbon Dioxide 15 mmol/L (22-29); Chloride 98 mmol/L (96-108); Creatinine Clr Calc Pharmacy 6.5; Estimated Glomerular Filt Rate 4; Glucose Random 214 mg/dL (60-115); Magnesium 2.8 mg/dL (1.6-2.6); Phosphorus 7.8 mg/dL (2.7-4.5); Potassium 4.9 mmol/L (3.3-5.1); Sodium 138 mmol/L (135-145); Total Protein 6.7 g/dL (6.5-8.0)
[2023-04-19] MEDS: Pantoprazole Sodium 40 MG/10 ML VIAL IVPUSH (05:44)
[2023-04-19] MEDS: Norepinephrine Bitartrate/D5W 8 MG/250 ML PLAST..BAG 38.95 MG IV (05:44)
[2023-04-19 06:18] LABS: Atypical Lymph Absolute Manual 0.6 x10*3/uL; Atypical Lymphs Percent Manual 2 % (0-6); Band Neutrophils Percent 24 % (3-5); Eosinophils Absolute Manual 3.7 X10*3/uL (0.0-0.4); Eosinophils Percent Manual 13 % (0-4); Large Platelet PRESENT; Lymphocytes Absolute Manual 1.1 X10*3/uL (1.2-4.9); Lymphocytes Percent Manual 4 % (20-40); Macrocytosis 1+ (5-14) /OIF; Microcytosis 1+ (5-14) /OIF; Monocytes Absolute Manual 2.8 X10*3/uL (0.1-1.2); Monocytes Percent Manual 10 % (2-11); Neutrophils Percent Manual 47 % (45-73); Platelet Estimate NORMAL (NORMAL); Platelet Morphology Comment NORMAL; RBC Morphology NOTED
[2023-04-19 06:19] LABS: Basophilic Stippling 1+ (0-2) /OIF; Burr Cells 1+ (0-2) /OIF; Hypochromasia 1+ (5-14) /OIF; Polychromasia 1+ (0-2) /OIF; Schistocytes 1+ (0-2) /OIF; Toxic Vacuolation PRESENT
[2023-04-19] MEDS: 0.9 % Sodium Chloride Flush 3 ML SYRINGE IVFLUSH ×2 (06:56→14:11)
[2023-04-19] MEDS: Chlorhexidine Gluc Oral Rinse 15 ML MOUTHWASH BUCCAL ×3 (08:08→20:18)
[2023-04-19] MEDS: fentaNYL citrate/NS 1,000 MCG/100 ML PLAST..BAG 5 MCG IVCONT (09:09)
--- NOTE | 2023-04-19 10:15 | MHC.CLN ---
F/U PT REMAINS INTUBATED AND SEDATED PT RECEIVING JEVITY 1.0 AT MAX GOAL RATE 50ML/HR PROVIDES 1272KCALS (1525KCALS WITH SEDATION; 24KCALS/KG BASED ON CMW), 53G PROTEIN (.83G/KG), 1002ML TOTAL FREE WATER FROM FORMULA MONITOR TOLERANCE, RESIDUALS AND LYTES
[2023-04-19 11:26] LABS: Glucose, Whole Blood 201 mg/dL (60-115)
[2023-04-19] MEDS: Norepinephrine Bitartrate/D5W 8 MG/250 ML PLAST..BAG 41.95 MG IV ×2 (11:32→21:29)
--- NOTE | 2023-04-19 12:51 | MHC.SLORD ---
Speech Language Pathology Order Status: Patient continues intubated and sedated in ICU. LINE WALKER will continue to monitor, assess when appropriate.
[2023-04-19] MEDS: Norepinephrine Bitartrate/D5W 8 MG/250 ML PLAST..BAG 44.94 MG IV (16:33)
[2023-04-19 17:13] LABS: Glucose, Whole Blood 204 mg/dL (60-115)
--- NOTE | 2023-04-19 17:50 | P.PNCC_ITS ---
Subjective Subjective Date of Service: 04/19/23 Interval History: 67-year-old female with X extensive end-stage squamous cell carcinoma of the lung with essentially a fully replaced and nonfunctioning right lung still ventilator dependent with progressive acute stage 5 renal failure and progressive uremia but no absolute emergent indication for dialysis and not currently fluid overloaded by bedside echo and becoming adeno more deeply unresponsive at this point virtually off the propofol I discussed this with the healthcare proxy daughter who is going to discuss this with the other siblings but this is a grim prognosis without any treatment capability and I explained to them about do not resuscitate because it really as a bridge to know where and about not putting in a dialysis catheter because dialysis with the inappropriate and potentially just simply becoming comatose from the uremia might be more comforting and we will therefore change her to her to a DNR status tonight and if the family is in agreement we will consider comfort measures in the morning Critical Care Time (minutes): 35 Physical Exam 2 Vital Signs: Vital Signs: Last Vital Signs Temp 100.8 F H 04/19/23 17:00 Pulse 91 04/19/23 17:00 Resp 18 04/19/23 17:00 BP 114/53 L 04/19/23 17:00 Pulse Ox 99 04/19/23 17:00 O2 Del Method Mechanical Ventil ation 04/19/23 17:00 O2 Flow Rate 50 04/19/23 15:00 FiO2 50 04/19/23 17:00 Oxygen Flow Rate 2 04/02/23 13:19 BMI result Body Mass Index 35.2 Bedside echo without IVC distension and no pericardial involvement Very comatose very briefly response to name calling and then immediately becomes unresponsive no display of discomfort no dyssynchrony with the ventilator but definitely fully ventilator dependent Absent right-sided breath sounds entire right lung is replaced Abdomen soft with no organomegaly No peripheral edema no acrocyanosis Objective Data Labs 04/19/23 04:36 04/19/23 04:36 Labs: Laboratory Results - last 24 hr 04/18/23 04/18/23 04/19/23 18:01 23:49 04:36 WBC 28.2 H RBC 3.15 L Hgb 9.0 L Hct 28.1 L MCV 89.2 MCH 28.6 MCHC 32.0 RDW 18.2 H Plt Count 249 MPV 11.5 Immature Gran % (Auto) Cancelled Neut % (Auto) Cancelled Lymph % (Auto) Cancelled [place] % (Auto) Cancelled Eos % (Auto) Cancelled Baso % (Auto) Cancelled Lymph # (Auto) Cancelled [place] # (Auto) Cancelled Eos # (Auto) Cancelled Baso # (Auto) Cancelled Abs Immat Gran (auto) Cancelled Absolute Neuts (auto) Cancelled Absolute Nucleated RBC 0.110 H Nucleated RBC % (auto) 0.4 H Neutrophils % (Manual) 47 Band Neutrophils % 24 H Lymphocytes % (Manual) 4 L Atypical Lymphs % (Man) 2 Monocytes % (Manual) 10 Eosinophils % (Manual) 13 H Abs Neuts (Manual) 20.0 H Lymphocytes # (Manual) 1.1 L Atyp Lymphs # (Manual) 0.6 Monocytes # (Manual) 2.8 H Eosinophils # (Manual) 3.7 H Toxic Vacuolation PRESENT Platelet Estimate NORMAL Large Platelets PRESENT Plt Morphology Comment NORMAL RBC Morphology NOTED Polychromasia 1+ (0-2) Hypochromasia 1+ (5-14) Basophilic Stippling 1+ (0-2) Microcytosis 1+ (5-14) Macrocytosis 1+ (5-14) Theodore Cells 1+ (0-2) Schistocytes 1+ (0-2) VBG pH VBG pCO2 VBG pO2 VBG HCO3 VBG O2 Saturation VBG Base Excess Sodium 138 Potassium 4.9 Chloride 98 Carbon Dioxide 15 L Anion Gap 30 H BUN 102 H Creatinine 9.20 H* Estim Creat Clear Calc 6.5 Estimated GFR 4 POC Glucose 205 H 184 H Random Glucose 214 H Calcium 8.6 Phosphorus 7.8 H Magnesium 2.8 H Total Bilirubin 1.9 H AST 54 H ALT 283 H Alkaline Phosphatase 222 H Total Protein 6.7 Albumin 3.2 L 04/19/23 04/19/23 04/19/23 04:40 11:19 17:10 WBC RBC Hgb Hct MCV MCH MCHC RDW Plt Count MPV Immature Gran % (Auto) Neut % (Auto) Lymph % (Auto) [place] % (Auto) Eos % (Auto) Baso % (Auto) Lymph # (Auto) [place] # (Auto) Eos # (Auto) Baso # (Auto) Abs Immat Gran (auto) Absolute Neuts (auto) Absolute Nucleated RBC Nucleated RBC % (auto) Neutrophils % (Manual) Band Neutrophils % Lymphocytes % (Manual) Atypical Lymphs % (Man) Monocytes % (Manual) Eosinophils % (Manual) Abs Neuts (Manual) Lymphocytes # (Manual) Atyp Lymphs # (Manual) Monocytes # (Manual) Eosinophils # (Manual) Toxic Vacuolation Platelet Estimate Large Platelets Plt Morphology Comment RBC Morphology Polychromasia Hypochromasia Basophilic Stippling Microcytosis Macrocytosis Theodore Cells Schistocytes VBG pH 7.24 L VBG pCO2 39 VBG pO2 52 VBG HCO3 17 L VBG O2 Saturation 78.0 VBG Base Excess -9.2 Sodium Potassium Chloride Carbon Dioxide Anion Gap BUN Creatinine Estim Creat Clear Calc Estimated GFR POC Glucose 201 H 204 H Random Glucose Calcium Phosphorus Magnesium Total Bilirubin AST ALT Alkaline Phosphatase Total Protein Albumin Microbiology Microbiology Results: Microbiology 04/11/23 14:24 Lung - Right Gram Stain - Final 04/11/23 14:24 Lung - Right Routine Culture - Final No growth after 2 days 04/11/23 14:24 Lung - Right Anaerobic Culture - Final NO GROWTH AFTER 5 DAYS 04/05/23 14:15 Thoracentesis Fluid Gram Stain - Final 04/05/23 14:15 Thoracentesis Fluid Anaerobic Culture - Final NO GROWTH AFTER 5 DAYS 04/05/23 14:15 Thoracentesis Fluid Body Fluid Culture - Final No growth after 2 days 04/02/23 14:54 Blood - Venous Blood Culture - Final No growth after 5 days. 04/02/23 14:24 Blood - Venous Blood Culture - Final No growth after 5 days. Progress Note: A&P Assessment and plan (1) Uremia: Status: Acute (2) Primary lung squamous cell carcinoma: Status: Acute (3) Ischemic hepatitis: Status: Acute (4) HFrEF (heart failure with reduced ejection fraction): Status: Acute (5) Diabetes: Status: Acute (6) ROBERT (acute kidney injury): Status: Acute (7) Lung abscess: Status: Acute (8) Acute blood loss anemia: Status: Acute (9) Carcinomatosis: Status: Acute (10) Empyema lung: Status: Acute (11) Trapped lung: Status: Acute (12) Paroxysmal atrial fibrillation: Status: Acute (13) Pleural effusion: Status: Acute (14) Pneumonia: Status: Acute (15) Acute respiratory failure: Status: Acute (16) Acute hypoxemic respiratory failure: Status: Acute (17) Sepsis: Status: Acute Plan So grave prognosis from extensive stage IV lung carcinoma with progressive uremia and an urea and comatose with grave prognosis Healthcare proxy daughter fully understands and will discuss with the rest of the siblings but for now DNR status was established and possible comfort measure status in the morning Quality Stroke Does the patient have a stroke diagnosis?: No VTE Prior VTE?: No VTE Risk Level:: Medical - moderate - high VTE Device Contraindication: Treatment Not Indicated VTE Drug Contraindication: N/A - Med Ordered
--- NOTE | 2023-04-19 17:50 | PC.NURSE ---
This RN spoke with patient daughter Joselito #[phone] as second witness for DNR status change.
[2023-04-19 23:54] LABS: Glucose, Whole Blood 244 mg/dL (60-115)
[2023-04-20] VITALS (37 sets, daily range): BP systolic 110–147; BP diastolic 58–68; PULSE 87–91; RESP 17–25; TEMP 35.1–38.2; O2SAT 91–93; BMI 36.4
[2023-04-20] MEDS: 0.9 % Sodium Chloride Flush 3 ML SYRINGE IVFLUSH ×4 (00:01→21:06)
[2023-04-20] MEDS: Insulin Lispro 100 UNIT/ML 3 ML VIAL SUBCUT ×3 (00:01→18:01)
[2023-04-20] MEDS: fentaNYL citrate/NS 1,000 MCG/100 ML PLAST..BAG 7.5 MCG IVCONT ×2 (02:18→14:48)
[2023-04-20] MEDS: Norepinephrine Bitartrate/D5W 8 MG/250 ML PLAST..BAG 41.95 MG IV ×2 (03:02→08:46)
[2023-04-20] MEDS: vancomycin HCL Oral Solution 125 MG/5 ML SOLN.RECON PO ×3 (03:04→21:05)
[2023-04-20 04:35] LABS: VBG Base Excess -10.4 mmol/L; VBG HCO3 14 mmol/L (22-26); VBG pCO2 28 mmHg; VBG pO2 79 mmHg
[2023-04-20 05:10] LABS: Basophils Absolute Auto 0.1 X10*3/uL (0.0-0.2); Basophils Percent Auto 0.5 % (0-2); Eosinophils Absolute Auto 0.7 X10*3/uL (0.0-0.4); Eosinophils Percent Auto 2.7 % (0-4); Hematocrit 27.2 % (37.0-47.0); Hemoglobin 8.7 g/dl (12.0-16.0); Imm Gran Abs Auto 0.65 X10*3/uL (0.00-0.03); Imm Gran Pct Auto 2.7 % (0.0-0.4); Lymphocytes Absolute Auto 0.7 X10*3/uL (1.2-4.9); MANUAL DIFF FLAG SCAN; Mean Corpuscular Hemoglobin 28.5 pg (27.0-33.0); Mean Corpuscular Volume 89.2 fL (80.0-98.0); Monocytes Absolute Auto 2.2 X10*3/uL (0.1-1.2); NRBC Pct Auto 0.5 /100WBC (0.0-0.2); Neutrophils Absolute Auto 19.9 x10*3/uL (2.0-8.3); Neutrophils Percent Auto 82.1 % (45-73); Platelet Count 237 X10*3/uL (160-400); Red Blood Count 3.05 X10*6/uL (4.20-5.50); Red Cell Distribution Width 18.3 % (11.0-16.0); SCAN SMEAR FLAG 1; White Blood Count 24.2 X10*3/uL (4.8-10.8)
[2023-04-20 05:31] LABS: SLIDE REVIEW VERIFIED
[2023-04-20 05:34] LABS: Albumin Level 2.9 g/dL (3.5-5.0); Anion Gap 30 (12-20); Blood Urea Nitrogen 118 mg/dL (9-16); Calcium 8.6 mg/dL (8.4-10.2); Carbon Dioxide 14 mmol/L (22-29); Chloride 95 mmol/L (96-108); Creatinine Clr Calc Pharmacy 6.3; Estimated Glomerular Filt Rate 4; Glucose Random 245 mg/dL (60-115); Magnesium 2.8 mg/dL (1.6-2.6); Phosphorus 8.3 mg/dL (2.7-4.5); Sodium 134 mmol/L (135-145)
[2023-04-20] MEDS: Pantoprazole Sodium 40 MG/10 ML VIAL IVPUSH (05:59)
[2023-04-20 06:18] LABS: Venous Blood Gas Refer to POC result
[2023-04-20] MEDS: Chlorhexidine Gluc Oral Rinse 15 ML MOUTHWASH BUCCAL ×3 (08:46→20:23)
[2023-04-20 12:15] LABS: Glucose, Whole Blood 171 mg/dL (60-115)
[2023-04-20] MEDS: Norepinephrine Bitartrate/D5W 8 MG/250 ML PLAST..BAG 38.95 MG IV (14:47)
--- NOTE | 2023-04-20 15:55 | P.PNCC_ITS ---
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 with the entire right lung just simply tumor with a large number of postobstructive abscesses throughout the lung chest tubes of long since been discontinued she remains on the ventilator virtually unresponsive certainly no cognitive function persistently uremic with with us a slightly ever increasing degree of acidosis I had an extensive discussion with the family and explained the end-stage nature of this disease and precisely the reasons why I would not dialyze because adeno it is it has such a grave prognosis to begin with at this point being comatose in part from the uremia was a blessing I think sparing her being cognitive of in of the pain so the discussion was had with the the other family members namely the children and they just need of a few days for them all to come in to see her and be able to say goodbye at which point they will make her comfort measure Critical Care Time (minutes): 30 Physical Exam 2 Vital Signs: Vital Signs: Last Vital Signs Temp 100.4 F 04/20/23 14:00 Pulse 87 04/20/23 14:47 Resp 19 04/20/23 14:00 BP 128/59 L 04/20/23 14:47 Pulse Ox 92 04/20/23 14:00 O2 Del Method Mechanical Ventil ation 04/20/23 14:00 O2 Flow Rate 50 04/19/23 15:00 FiO2 60 04/20/23 15:25 Oxygen Flow Rate 2 04/02/23 13:19 BMI result Body Mass Index 36.4 Remains unresponsive synchronous with the ventilator Low-grade temperatures but stable vital signs otherwise No breath sounds on the on the right side the no consistent with the whiteout and nonfunctioning right lung Abdomen soft with no organomegaly Cardiac exam with normal LV and RV function Objective Data Labs 04/20/23 04:27 04/20/23 04:27 Labs: Laboratory Results - last 24 hr 04/19/23 04/19/23 04/20/23 17:10 23:51 04:27 WBC 24.2 H RBC 3.05 L Hgb 8.7 L Hct 27.2 L MCV 89.2 MCH 28.5 MCHC 32.0 RDW 18.3 H Plt Count 237 MPV 11.0 Immature Gran % (Auto) 2.7 H Neut % (Auto) 82.1 H Lymph % (Auto) 3.0 L [place] % (Auto) 9.0 Eos % (Auto) 2.7 Baso % (Auto) 0.5 Lymph # (Auto) 0.7 L [place] # (Auto) 2.2 H Eos # (Auto) 0.7 H Baso # (Auto) 0.1 Abs Immat Gran (auto) 0.65 H Absolute Neuts (auto) 19.9 H Absolute Nucleated RBC 0.130 H Nucleated RBC % (auto) 0.5 H Smear Tech's Comments VERIFIED VBG pH VBG pCO2 VBG pO2 VBG HCO3 VBG O2 Saturation VBG Base Excess Sodium 134 L Potassium 5.0 Chloride 95 L Carbon Dioxide 14 L Anion Gap 30 H BUN 118 H Creatinine Cancelled Estim Creat Clear Calc Estimated GFR POC Glucose 204 H 244 H Random Glucose Calcium Phosphorus Magnesium Albumin 04/20/23 04/20/23 04/20/23 04:27 04:27 04:27 WBC RBC Hgb Hct MCV MCH MCHC RDW Plt Count MPV Immature Gran % (Auto) Neut % (Auto) Lymph % (Auto) [place] % (Auto) Eos % (Auto) Baso % (Auto) Lymph # (Auto) [place] # (Auto) Eos # (Auto) Baso # (Auto) Abs Immat Gran (auto) Absolute Neuts (auto) Absolute Nucleated RBC Nucleated RBC % (auto) Smear Tech's Comments VBG pH VBG pCO2 VBG pO2 VBG HCO3 VBG O2 Saturation VBG Base Excess Sodium Potassium Chloride Carbon Dioxide Anion Gap BUN Creatinine 9.66 H* Estim Creat Clear Calc Cancelled 6.3 Estimated GFR Cancelled 4 POC Glucose Random Glucose 245 H Calcium 8.6 Phosphorus 8.3 H Magnesium 2.8 H Albumin 2.9 L 04/20/23 04/20/23 04:28 12:10 WBC RBC Hgb Hct MCV MCH MCHC RDW Plt Count MPV Immature Gran % (Auto) Neut % (Auto) Lymph % (Auto) [place] % (Auto) Eos % (Auto) Baso % (Auto) Lymph # (Auto) [place] # (Auto) Eos # (Auto) Baso # (Auto) Abs Immat Gran (auto) Absolute Neuts (auto) Absolute Nucleated RBC Nucleated RBC % (auto) Smear Tech's Comments VBG pH 7.30 L VBG pCO2 28 VBG pO2 79 VBG HCO3 14 L VBG O2 Saturation 95.0 VBG Base Excess -10.4 Sodium Potassium Chloride Carbon Dioxide Anion Gap BUN Creatinine Estim Creat Clear Calc Estimated GFR POC Glucose 171 H Random Glucose Calcium Phosphorus Magnesium Albumin Microbiology Microbiology Results: Microbiology 04/11/23 14:24 Lung - Right Gram Stain - Final 04/11/23 14:24 Lung - Right Routine Culture - Final No growth after 2 days 04/11/23 14:24 Lung - Right Anaerobic Culture - Final NO GROWTH AFTER 5 DAYS 04/05/23 14:15 Thoracentesis Fluid Gram Stain - Final 04/05/23 14:15 Thoracentesis Fluid Anaerobic Culture - Final NO GROWTH AFTER 5 DAYS 04/05/23 14:15 Thoracentesis Fluid Body Fluid Culture - Final No growth after 2 days 04/02/23 14:54 Blood - Venous Blood Culture - Final No growth after 5 days. 04/02/23 14:24 Blood - Venous Blood Culture - Final No growth after 5 days. Progress Note: A&P Assessment and plan (1) Uremia: Status: Acute (2) Primary lung squamous cell carcinoma: Status: Acute (3) Ischemic hepatitis: Status: Acute (4) HFrEF (heart failure with reduced ejection fraction): Status: Acute (5) Diabetes: Status: Acute (6) ROBERT (acute kidney injury): Status: Acute (7) Lung abscess: Status: Acute (8) Acute blood loss anemia: Status: Acute (9) Empyema lung: Status: Acute (10) Trapped lung: Status: Acute (11) Paroxysmal atrial fibrillation: Status: Acute (12) Pleural effusion: Status: Acute (13) Pneumonia: Status: Acute (14) Acute respiratory failure: Status: Acute (15) Acute hypoxemic respiratory failure: Status: Acute (16) Sepsis: Status: Acute (17) Severe pneumonia: Status: Acute Plan So the plan is for the family to gather and be able to say their goodbyes and then convert her to comfort measure only for this end-stage disease without any prognosis of recovery otherwise Quality Stroke Does the patient have a stroke diagnosis?: No VTE Prior VTE?: No VTE Risk Level:: Medical - moderate - high VTE Device Contraindication: Treatment Not Indicated VTE Drug Contraindication: N/A - Med Ordered
[2023-04-20 18:01] LABS: Glucose, Whole Blood 196 mg/dL (60-115)
[2023-04-20] MEDS: Norepinephrine Bitartrate/D5W 8 MG/250 ML PLAST..BAG 35.96 MG IV (20:23)
[2023-04-21] VITALS (34 sets, daily range): BP systolic 101–147; BP diastolic 48–75; PULSE 85–119; RESP 16–24; TEMP 34.1–38; O2SAT 90–94; BMI 37.6
[2023-04-21 00:12] LABS: Glucose, Whole Blood 154 mg/dL (60-115)
[2023-04-21] MEDS: Insulin Lispro 100 UNIT/ML 3 ML VIAL SUBCUT ×3 (00:19→17:59)
[2023-04-21] MEDS: fentaNYL citrate/NS 1,000 MCG/100 ML PLAST..BAG 7.5 MCG IVCONT ×2 (03:37→16:26)
[2023-04-21] MEDS: Norepinephrine Bitartrate/D5W 8 MG/250 ML PLAST..BAG 32.96 MG IV ×3 (03:40→18:31)
[2023-04-21] MEDS: vancomycin HCL Oral Solution 125 MG/5 ML SOLN.RECON PO (04:17)
[2023-04-21 04:33] LABS: VBG Base Excess -10.1 mmol/L; VBG HCO3 16 mmol/L (22-26); VBG pCO2 38 mmHg; VBG pH 7.23 (7.32-7.43); VBG pO2 58 mmHg
[2023-04-21 04:40] LABS: Basophils Absolute Auto 0.2 X10*3/uL (0.0-0.2); Basophils Percent Auto 0.7 % (0-2); Eosinophils Percent Auto 4.2 % (0-4); Hematocrit 26.1 % (37.0-47.0); Hemoglobin 8.5 g/dl (12.0-16.0); Imm Gran Abs Auto 0.35 X10*3/uL (0.00-0.03); Imm Gran Pct Auto 1.4 % (0.0-0.4); Lymphocytes Absolute Auto 0.8 X10*3/uL (1.2-4.9); Lymphocytes Percent Auto 3.3 % (20-40); MANUAL DIFF FLAG SCAN; Mean Corpuscular HGB Conc 32.6 g/dl (31.0-35.0); Mean Corpuscular Hemoglobin 28.4 pg (27.0-33.0); Mean Corpuscular Volume 87.3 fL (80.0-98.0); Mean Platelet Volume 11.4 fL (9.4-12.3); Monocytes Absolute Auto 2.2 X10*3/uL (0.1-1.2); Monocytes Percent Auto 8.9 % (2-11); NRBC Pct Auto 0.3 /100WBC (0.0-0.2); Neutrophils Absolute Auto 19.8 x10*3/uL (2.0-8.3); Neutrophils Percent Auto 81.5 % (45-73); Platelet Count 233 X10*3/uL (160-400); Red Blood Count 2.99 X10*6/uL (4.20-5.50); Red Cell Distribution Width 18.3 % (11.0-16.0); SCAN SMEAR FLAG 1; White Blood Count 24.3 X10*3/uL (4.8-10.8)
[2023-04-21 04:58] LABS: Venous Blood Gas Refer to POC result
[2023-04-21 05:02] LABS: Alanine Aminotransferase 124 U/L (0-31); Albumin Level 2.7 g/dL (3.5-5.0); Alkaline Phosphatase 166 U/L (39-117); Anion Gap 31 (12-20); Aspartate Amino Transferase 25 U/L (5-31); Bilirubin Total 1.2 mg/dL (0.0-1.0); Calcium 8.9 mg/dL (8.4-10.2); Carbon Dioxide 16 mmol/L (22-29); Chloride 93 mmol/L (96-108); Creatinine Clr Calc Pharmacy 5.6; Estimated Glomerular Filt Rate 4; Glucose Random 137 mg/dL (60-115); Potassium 5.5 mmol/L (3.3-5.1); Sodium 134 mmol/L (135-145); Total Protein 6.9 g/dL (6.5-8.0)
[2023-04-21 05:03] LABS: SLIDE REVIEW VERIFIED
[2023-04-21 05:14] LABS: Blood Urea Nitrogen 119 mg/dL (9-16)
[2023-04-21 06:19] LABS: Glucose, Whole Blood 147 mg/dL (60-115)
[2023-04-21] MEDS: 0.9 % Sodium Chloride Flush 3 ML SYRINGE IVFLUSH ×3 (07:17→21:24)
[2023-04-21] MEDS: Chlorhexidine Gluc Oral Rinse 15 ML MOUTHWASH BUCCAL ×3 (07:18→21:23)
[2023-04-21 11:32] LABS: Glucose, Whole Blood 174 mg/dL (60-115)
--- NOTE | 2023-04-21 17:16 | PM.CCPN ---
Subjective Subjective Date of Service: 04/21/23 Interval History: 67-year-old female with end-stage metastatic squamous cell carcinoma of the lung with almost complete replacement of the right lung which is essentially nonfunctional but which is also completely covered by multiple abscesses because of postobstructive effects but significant involvement as well of the left lung and remains comatose no longer sedated and ventilator dependent and clearly uremic with complete an urea and progressive uremia and after discussion with the family they made her DNR and they are simply waiting for all the family members together to say a final goodbye which point I will probably choose comfort measures only Critical Care Time (minutes): 30 Physical Exam Vital Signs: Vital Signs: Last Vital Signs Temp 96.6 F L 04/21/23 16:00 Pulse 91 04/21/23 17:00 Resp 18 04/21/23 17:00 BP 134/69 04/21/23 17:00 Pulse Ox 91 L 04/21/23 17:00 O2 Del Method Mechanical Ventil ation 04/21/23 16:00 O2 Flow Rate 50 04/19/23 15:00 FiO2 60 04/21/23 17:00 Oxygen Flow Rate 2 04/02/23 13:19 BMI result Body Mass Index 37.6 Currently again no neck vein distension adequate bilateral carotid upstrokes Unarousable Absent breath sounds on the right Currently no gallops no rubs Abdomen distending and unequivocally has developed an ileus with significant NG aspirated volume Objective Data Labs 04/21/23 04:19 04/21/23 04:19 Labs: Laboratory Results - last 24 hr 04/20/23 04/21/23 04/21/23 17:57 00:01 04:19 WBC 24.3 H RBC 2.99 L Hgb 8.5 L Hct 26.1 L MCV 87.3 MCH 28.4 MCHC 32.6 RDW 18.3 H Plt Count 233 MPV 11.4 Immature Gran % (Auto) 1.4 H Neut % (Auto) 81.5 H Lymph % (Auto) 3.3 L [place] % (Auto) 8.9 Eos % (Auto) 4.2 H Baso % (Auto) 0.7 Lymph # (Auto) 0.8 L [place] # (Auto) 2.2 H Eos # (Auto) 1.0 H Baso # (Auto) 0.2 Abs Immat Gran (auto) 0.35 H Absolute Neuts (auto) 19.8 H Absolute Nucleated RBC 0.080 H Nucleated RBC % (auto) 0.3 H Smear Tech's Comments VERIFIED VBG pH VBG pCO2 VBG pO2 VBG HCO3 VBG O2 Saturation VBG Base Excess Sodium 134 L Potassium 5.5 H Chloride 93 L Carbon Dioxide 16 L Anion Gap 31 H BUN 119 H Creatinine Cancelled Estim Creat Clear Calc Estimated GFR POC Glucose 196 H 154 H Random Glucose Calcium Phosphorus Magnesium Total Bilirubin AST ALT Alkaline Phosphatase Total Protein Albumin 04/21/23 04/21/23 04/21/23 04:19 04:19 04:19 WBC RBC Hgb Hct MCV MCH MCHC RDW Plt Count MPV Immature Gran % (Auto) Neut % (Auto) Lymph % (Auto) [place] % (Auto) Eos % (Auto) Baso % (Auto) Lymph # (Auto) [place] # (Auto) Eos # (Auto) Baso # (Auto) Abs Immat Gran (auto) Absolute Neuts (auto) Absolute Nucleated RBC Nucleated RBC % (auto) Smear Tech's Comments VBG pH VBG pCO2 VBG pO2 VBG HCO3 VBG O2 Saturation VBG Base Excess Sodium Potassium Chloride Carbon Dioxide Anion Gap BUN Creatinine 10.84 H* Estim Creat Clear Calc Cancelled 5.6 Estimated GFR Cancelled 4 POC Glucose Random Glucose 137 H Calcium 8.9 Phosphorus 10.0 H Magnesium 3.0 H Total Bilirubin 1.2 H AST 25 ALT 124 H Alkaline Phosphatase 166 H Total Protein 6.9 Albumin 2.7 L 04/21/23 04/21/23 04/21/23 04:28 06:15 11:25 WBC RBC Hgb Hct MCV MCH MCHC RDW Plt Count MPV Immature Gran % (Auto) Neut % (Auto) Lymph % (Auto) [place] % (Auto) Eos % (Auto) Baso % (Auto) Lymph # (Auto) [place] # (Auto) Eos # (Auto) Baso # (Auto) Abs Immat Gran (auto) Absolute Neuts (auto) Absolute Nucleated RBC Nucleated RBC % (auto) Smear Tech's Comments VBG pH 7.23 L VBG pCO2 38 VBG pO2 58 VBG HCO3 16 L VBG O2 Saturation 82.0 VBG Base Excess -10.1 Sodium Potassium Chloride Carbon Dioxide Anion Gap BUN Creatinine Estim Creat Clear Calc Estimated GFR POC Glucose 147 H 174 H Random Glucose Calcium Phosphorus Magnesium Total Bilirubin AST ALT Alkaline Phosphatase Total Protein Albumin Microbiology Microbiology Results: Microbiology 04/11/23 14:24 Lung - Right Gram Stain - Final 04/11/23 14:24 Lung - Right Routine Culture - Final No growth after 2 days 04/11/23 14:24 Lung - Right Anaerobic Culture - Final NO GROWTH AFTER 5 DAYS 04/05/23 14:15 Thoracentesis Fluid Gram Stain - Final 04/05/23 14:15 Thoracentesis Fluid Anaerobic Culture - Final NO GROWTH AFTER 5 DAYS 04/05/23 14:15 Thoracentesis Fluid Body Fluid Culture - Final No growth after 2 days 04/02/23 14:54 Blood - Venous Blood Culture - Final No growth after 5 days. 04/02/23 14:24 Blood - Venous Blood Culture - Final No growth after 5 days. Progress Note: A&P Assessment and plan (1) Uremia: Status: Acute (2) Primary lung squamous cell carcinoma: Status: Acute (3) Ischemic hepatitis: Status: Acute (4) HFrEF (heart failure with reduced ejection fraction): Status: Acute (5) Diabetes: Status: Acute (6) ROBERT (acute kidney injury): Status: Acute (7) Lung abscess: Status: Acute (8) Acute blood loss anemia: Status: Acute (9) Carcinomatosis: Status: Acute (10) Empyema lung: Status: Acute (11) Trapped lung: Status: Acute (12) Paroxysmal atrial fibrillation: Status: Acute (13) Pleural effusion: Status: Acute (14) Pneumonia: Status: Acute (15) Acute respiratory failure: Status: Acute (16) Dysphagia: Status: Acute (17) Lung mass: Status: Acute (18) Diarrhea: Status: Acute (19) Acute hypoxemic respiratory failure: Status: Acute (20) Sepsis: Status: Acute (21) Severe pneumonia: Status: Acute Plan The plan maintain her on NG suction and to be kept intubated but no plan for dialysis due to the end stage prognosis and currently DNR and once the family has all gathered to be made comfort measures Quality Stroke Does the patient have a stroke diagnosis?: No VTE Prior VTE?: No VTE Risk Level:: Medical - moderate - high VTE Device Contraindication: Treatment Not Indicated VTE Drug Contraindication: N/A - Med Ordered
[2023-04-21 17:53] LABS: Glucose, Whole Blood 164 mg/dL (60-115)
--- NOTE | 2023-04-21 22:40 | ECG_ITS ---
Test Reason : rhythm change Blood Pressure : / mmHG Vent. Rate : 133 BPM Atrial Rate : 000 BPM P-R Int : 000 ms QRS Dur : 108 ms QT Int : 356 ms P-R-T Axes : 000 -20 055 degrees QTc Int : 529 ms Atrial fibrillation with rapid ventricular response Low voltage QRS Incomplete right bundle branch block Abnormal ECG When compared to the previous EKG of Atrial fibrillation with rapid ventricular response has replaced Sinus tachycardia Referred By: Tonya Salinas Electronically Signed By:MIKE ANDERSEN MD
--- NOTE | 2023-04-21 22:49 | PC.NURSE ---
MONITOR SHOWED SR, RATE 80'S-90'S, NO ECTOPY THEN PT STARTED HAVING SHORT RUNS OF AFIB, RATE UP TO 120'S AND CAPTURED ON EKG. PROVIDER AWARE AND AT BEDSIDE. AFIB IS NOT SUSTAINED. CURRENTLY RHYTHM IS SR, RATE 88, NO ECTOPY. BP 140/69. PT REMAINS ON VENTILATOR, ACVC+ SETTINGS. NO RESP DIFFICULTIES. O2 SAT 91-93%.
[2023-04-21 23:44] LABS: Glucose, Whole Blood 141 mg/dL (60-115)
[2023-04-22] VITALS (36 sets, daily range): BP systolic 103–143; BP diastolic 55–69; PULSE 83–116; RESP 14–24; TEMP 34.4–37.8; O2SAT 90–94; BMI 36.1
[2023-04-22] MEDS: Norepinephrine Bitartrate/D5W 8 MG/250 ML PLAST..BAG 29.96 MG IV ×3 (02:17→18:09)
[2023-04-22 04:56] LABS: VBG Base Excess -11.2 mmol/L; VBG HCO3 14 mmol/L (22-26); VBG pCO2 30 mmHg; VBG pH 7.27 (7.32-7.43); VBG pO2 60 mmHg
[2023-04-22 04:57] LABS: Venous Blood Gas Refer to POC result
[2023-04-22 05:46] LABS: Basophils Absolute Auto 0.2 X10*3/uL (0.0-0.2); Basophils Percent Auto 0.6 % (0-2); Eosinophils Absolute Auto 0.3 X10*3/uL (0.0-0.4); Hematocrit 24.4 % (37.0-47.0); Hemoglobin 8.2 g/dl (12.0-16.0); Imm Gran Abs Auto 0.29 X10*3/uL (0.00-0.03); Imm Gran Pct Auto 1.2 % (0.0-0.4); Lymphocytes Absolute Auto 0.4 X10*3/uL (1.2-4.9); Lymphocytes Percent Auto 1.7 % (20-40); MANUAL DIFF FLAG SCAN; Mean Corpuscular HGB Conc 33.6 g/dl (31.0-35.0); Mean Corpuscular Hemoglobin 28.6 pg (27.0-33.0); Mean Platelet Volume 11.4 fL (9.4-12.3); Monocytes Absolute Auto 1.9 X10*3/uL (0.1-1.2); Monocytes Percent Auto 7.7 % (2-11); NRBC Pct Auto 0.4 /100WBC (0.0-0.2); Neutrophils Absolute Auto 22.1 x10*3/uL (2.0-8.3); Neutrophils Percent Auto 87.8 % (45-73); Platelet Count 267 X10*3/uL (160-400); Red Blood Count 2.87 X10*6/uL (4.20-5.50); Red Cell Distribution Width 18.4 % (11.0-16.0); SCAN SMEAR FLAG 1; White Blood Count 25.1 X10*3/uL (4.8-10.8)
[2023-04-22] MEDS: fentaNYL citrate/NS 1,000 MCG/100 ML PLAST..BAG 7.5 MCG IVCONT ×2 (05:46→18:08)
[2023-04-22 06:13] LABS: Albumin Level 2.6 g/dL (3.5-5.0); Anion Gap 36 (12-20); Carbon Dioxide 15 mmol/L (22-29); Chloride 89 mmol/L (96-108); Creatinine Clr Calc Pharmacy 5.3; Estimated Glomerular Filt Rate 3; Glucose Random 160 mg/dL (60-115); Magnesium 3.2 mg/dL (1.6-2.6); Phosphorus 12.5 mg/dL (2.7-4.5); Potassium 5.7 mmol/L (3.3-5.1); SLIDE REVIEW VERIFIED; Sodium 134 mmol/L (135-145)
[2023-04-22 06:21] LABS: Blood Urea Nitrogen 136 mg/dL (9-16)
--- NOTE | 2023-04-22 06:44 | PC.NURSE ---
Assumed care of patient at 23:15. Patient continues on tele NSR 90's with bursts of brief pAFIB into 120's lasting a few moments before spontaneously resolving back to NSR. This is not new for this admission per chart review and this was discussed with vanessa Salinas [employer], stated EKG already obtained this evening. Patient continues obtunded/unresponsive. Remains on fentanyl gtt and levophed as ordered and appropriate. Patient appears comfortable and in no distress. No purposeful movements or response to stimuli; pt only with flickering of eyes when in-line suctioned. Continues on vent ACVC+ (see vent assessments). Patient requiring frequent q1h in-line suctioning for moderate thick secretions with +effect, spo2 improving from 90% to 93-94% after suctioning provided. PO care provided. OG tube to LIWS patent of liquid brown output. Bladder scanned per MD order = 232ml. No discomfort noted on palpation to pelvic region. [employer] notified. Hypoactive BSx4. Abdomen soft, round, non-distended, non-tender. Turning and repositioning provided q2h for skin integrity. See shift assessments and EMAR for full details. Bed alarm on and safety measures in place.? Temp downtrending this morning 96-degree range. [employer] and MD notified. Warm blankets applied. Creatinine remains critically elevated, now 11.56, K 5.7. Dr. Bah made aware. Handoff report given to oncoming RN at 06:45.
--- NOTE | 2023-04-22 07:41 | P.PNCC_ITS ---
Subjective Subjective Date of Service: 04/22/23 Critical Care Time (minutes): 90 Physical Exam 2 Vital Signs: Vital Signs: Last Vital Signs Temp 99.9 F 04/22/23 07:00 Pulse 99 04/22/23 07:00 Resp 18 04/22/23 07:00 BP 130/63 04/22/23 07:00 Pulse Ox 91 L 04/22/23 07:00 O2 Del Method Mechanical Ventil ation 04/22/23 07:00 O2 Flow Rate 50 04/19/23 15:00 FiO2 60 04/22/23 07:00 Oxygen Flow Rate 2 04/02/23 13:19 BMI result Body Mass Index 36.1 Const: Other: intubated, sedated General: no acute distress HEENT: Head: Yes normal to inspection, Yes normocephalic and Yes atraumatic Eyes: General: appearance normal, both eyes and all related structures Neck: Neck: Yes normal visual inspection, Yes full ROM and Yes supple Chest: Chest palpation & inspection: normal inspection of the chest Resp: Other: appreciable rhonchi, R greater than L Cardio: Rate: regular rate Rhythm: regular rhythm GI: Inspection: Yes normal to inspection, No Abdominal wall edema and No distended Palpation (GI): Soft to palpation, not firm, nontender, no guarding and not rigid : External Female Exam: normal external appearance Skin: General skin exam: no rashes or lesions noted Neuro: General: tone normal Extrem: Other: appreciable anasarca General: Yes capillary refill normal Objective Data Labs 04/22/23 04:37 04/22/23 04:37 Labs: Laboratory Results - last 24 hr 04/21/23 04/21/23 04/21/23 11:25 17:46 23:39 WBC RBC Hgb Hct MCV MCH MCHC RDW Plt Count MPV Immature Gran % (Auto) Neut % (Auto) Lymph % (Auto) [place] % (Auto) Eos % (Auto) Baso % (Auto) Lymph # (Auto) [place] # (Auto) Eos # (Auto) Baso # (Auto) Abs Immat Gran (auto) Absolute Neuts (auto) Absolute Nucleated RBC Nucleated RBC % (auto) Smear Tech's Comments VBG pH VBG pCO2 VBG pO2 VBG HCO3 VBG O2 Saturation VBG Base Excess Sodium Potassium Chloride Carbon Dioxide Anion Gap BUN Creatinine Estim Creat Clear Calc Estimated GFR POC Glucose 174 H 164 H 141 H Random Glucose Calcium Phosphorus Magnesium Albumin 04/22/23 04/22/23 04:37 04:50 WBC 25.1 H RBC 2.87 L Hgb 8.2 L Hct 24.4 L MCV 85.0 MCH 28.6 MCHC 33.6 RDW 18.4 H Plt Count 267 MPV 11.4 Immature Gran % (Auto) 1.2 H Neut % (Auto) 87.8 H Lymph % (Auto) 1.7 L [place] % (Auto) 7.7 Eos % (Auto) 1.0 Baso % (Auto) 0.6 Lymph # (Auto) 0.4 L [place] # (Auto) 1.9 H Eos # (Auto) 0.3 Baso # (Auto) 0.2 Abs Immat Gran (auto) 0.29 H Absolute Neuts (auto) 22.1 H Absolute Nucleated RBC 0.090 H Nucleated RBC % (auto) 0.4 H Smear Tech's Comments VERIFIED VBG pH 7.27 L VBG pCO2 30 VBG pO2 60 VBG HCO3 14 L VBG O2 Saturation 82.0 VBG Base Excess -11.2 Sodium 134 L Potassium 5.7 H Chloride 89 L Carbon Dioxide 15 L Anion Gap 36 H BUN 136 H Creatinine 11.56 H* Estim Creat Clear Calc 5.3 Estimated GFR 3 POC Glucose Random Glucose 160 H Calcium 9.0 Phosphorus 12.5 H Magnesium 3.2 H Albumin 2.6 L Microbiology Microbiology Results: Microbiology 04/11/23 14:24 Lung - Right Gram Stain - Final 04/11/23 14:24 Lung - Right Routine Culture - Final No growth after 2 days 04/11/23 14:24 Lung - Right Anaerobic Culture - Final NO GROWTH AFTER 5 DAYS 04/05/23 14:15 Thoracentesis Fluid Gram Stain - Final 04/05/23 14:15 Thoracentesis Fluid Anaerobic Culture - Final NO GROWTH AFTER 5 DAYS 04/05/23 14:15 Thoracentesis Fluid Body Fluid Culture - Final No growth after 2 days 04/02/23 14:54 Blood - Venous Blood Culture - Final No growth after 5 days. 04/02/23 14:24 Blood - Venous Blood Culture - Final No growth after 5 days. Progress Note: A&P Assessment and plan (1) Primary lung squamous cell carcinoma: Status: Acute (2) Acute hypoxemic respiratory failure: Status: Acute (3) Acute renal failure: Status: Acute (4) HFrEF (heart failure with reduced ejection fraction): Status: Acute (5) Septic shock: Status: Acute Plan Patient is a 67 Y F with hypertension, diabetes mellitus, recent CVA, initially presenting on 04/02 w/ pneumonia, admitted floor; hospital course c/b parapneumonic effusion, empyema, s/p decortication on 04/11; intra-operatively, found to have advanced carcinoma; extubated POD1, 04/12, developed acute respiratory failure, intubated 04/14; following GOC discussion, patient made DNR/DNI N: intubated, sedated w/ propofol, fentanyl gtt; wean as tolerated CV: shock, on norepinephrine gtt; ongoing arrythmia, likely d/t critical illness, electrolyte derrangements in setting of acute renal failure R: advanced carcinoma, c/b pneumonia, effusion, empyema, and acute respiratory failure, intubated GI: NG tube; coffee-grounds; c/f UGIB; pantoprazole BID : acute renal failure; following GOC discussion, hemodialysis not within philosophy of care H: leukocytosis, anemia; suspect platelet dysfunction in setting of acute renal failure ID: post-obstructive pneumonia, s/p broad-spectrum antibiotics; c. diff, not tolerating PO vancomycin P: no acute issues Quality Stroke Does the patient have a stroke diagnosis?: No VTE Prior VTE?: No VTE Risk Level:: Medical - moderate - high VTE Device Contraindication: Treatment Not Indicated VTE Drug Contraindication: N/A - Med Ordered
[2023-04-22] MEDS: Chlorhexidine Gluc Oral Rinse 15 ML MOUTHWASH BUCCAL ×3 (07:57→20:20)
[2023-04-22] MEDS: 0.9 % Sodium Chloride Flush 3 ML SYRINGE IVFLUSH ×2 (07:57→16:27)
[2023-04-22] MEDS: Pantoprazole Sodium 40 MG/10 ML VIAL 80 MG IVPUSH (08:22)
[2023-04-22] MEDS: Magnesium Sulfate/D5W 1 GM/100 ML PIGGYBACK IV (08:22)
[2023-04-22 11:35] LABS: Glucose, Whole Blood 230 mg/dL (60-115)
--- NOTE | 2023-04-22 11:35 | MHC.CLN ---
F/U REMAINS INTUBATED AND SEDATED. TUBE FEED HELD DUE TO HIGH RESIDUALS/NOT TOLERATING. CONTINUE TO FOLLOW WITH TEAM.
[2023-04-22] MEDS: Insulin Lispro 100 UNIT/ML 3 ML VIAL SUBCUT ×2 (11:57→18:08)
[2023-04-22] MEDS: Furosemide 40 MG/4 ML VIAL IVPUSH (13:02)
[2023-04-22] MEDS: Albumin Human 25 % 100 ML IV ×2 (13:02→13:49)
[2023-04-22] MEDS: Pantoprazole Sodium 40 MG/10 ML VIAL IVPUSH (16:27)
[2023-04-22 17:50] LABS: Glucose, Whole Blood 183 mg/dL (60-115)
[2023-04-22 23:52] LABS: Glucose, Whole Blood 182 mg/dL (60-115)
[2023-04-23] VITALS (38 sets, daily range): BP systolic 77–159; BP diastolic 43–86; PULSE 82–124; RESP 15–29; TEMP 34.6–37.2; O2SAT 87–96; BMI 34.7
[2023-04-23] MEDS: Insulin Lispro 100 UNIT/ML 3 ML VIAL SUBCUT ×5 (00:30→23:43)
[2023-04-23] MEDS: 0.9 % Sodium Chloride Flush 3 ML SYRINGE IVFLUSH ×4 (00:30→22:34)
[2023-04-23] MEDS: Norepinephrine Bitartrate/D5W 8 MG/250 ML PLAST..BAG 23.97 MG IV (02:35)
[2023-04-23 05:37] LABS: Basophils Absolute Auto 0.1 X10*3/uL (0.0-0.2); Basophils Percent Auto 0.3 % (0-2); Eosinophils Absolute Auto 0.4 X10*3/uL (0.0-0.4); Eosinophils Percent Auto 1.4 % (0-4); Hematocrit 22.1 % (37.0-47.0); Hemoglobin 7.4 g/dl (12.0-16.0); Imm Gran Abs Auto 0.36 X10*3/uL (0.00-0.03); Imm Gran Pct Auto 1.4 % (0.0-0.4); Lymphocytes Absolute Auto 0.6 X10*3/uL (1.2-4.9); Lymphocytes Percent Auto 2.4 % (20-40); MANUAL DIFF FLAG SCAN; Mean Corpuscular HGB Conc 33.5 g/dl (31.0-35.0); Mean Corpuscular Hemoglobin 28.5 pg (27.0-33.0); Mean Platelet Volume 11.6 fL (9.4-12.3); Monocytes Absolute Auto 2.1 X10*3/uL (0.1-1.2); Monocytes Percent Auto 8.2 % (2-11); NRBC Pct Auto 0.3 /100WBC (0.0-0.2); Neutrophils Absolute Auto 22.4 x10*3/uL (2.0-8.3); Neutrophils Percent Auto 86.3 % (45-73); Platelet Count 298 X10*3/uL (160-400); Red Cell Distribution Width 18.1 % (11.0-16.0); SCAN SMEAR FLAG 1
[2023-04-23 05:39] LABS: VBG Base Excess -12.3 mmol/L; VBG HCO3 13 mmol/L (22-26); VBG pCO2 32 mmHg; VBG pH 7.23 (7.32-7.43); VBG pO2 64 mmHg
[2023-04-23 05:41] LABS: Venous Blood Gas Refer to POC result
[2023-04-23] MEDS: Pantoprazole Sodium 40 MG/10 ML VIAL IVPUSH ×2 (05:51→16:51)
[2023-04-23] MEDS: fentaNYL citrate/NS 1,000 MCG/100 ML PLAST..BAG 10 MCG IVCONT ×3 (05:51→22:35)
[2023-04-23 06:03] LABS: SLIDE REVIEW VERIFIED
[2023-04-23 06:12] LABS: Anion Gap 37 (12-20); Blood Urea Nitrogen 150 mg/dL (9-16); Calcium 9.2 mg/dL (8.4-10.2); Carbon Dioxide 14 mmol/L (22-29); Chloride 89 mmol/L (96-108); Creatinine Clr Calc Pharmacy 4.9; Estimated Glomerular Filt Rate 3; Glucose Random 153 mg/dL (60-115); Magnesium 3.8 mg/dL (1.6-2.6); Phosphorus 14.4 mg/dL (2.7-4.5); Potassium 6.1 mmol/L (3.3-5.1); Sodium 134 mmol/L (135-145)
[2023-04-23] MEDS: Albuterol Sulfate 7.5 MG, Albuterol Sulfate (0.083%) 2.5 MG 10 MG INHALE (07:38)
--- NOTE | 2023-04-23 07:43 | PM.CCPN ---
Subjective Subjective Date of Service: 04/23/23 Interval History: worsening, overt renal failure Critical Care Time (minutes): 90 Physical Exam Vital Signs: Vital Signs: Last Vital Signs Temp 97.9 F 04/23/23 07:00 Pulse 83 04/23/23 07:00 Resp 18 04/23/23 07:00 BP 113/56 L 04/23/23 07:00 Pulse Ox 91 L 04/23/23 07:00 O2 Del Method Mechanical Ventil ation 04/23/23 07:00 O2 Flow Rate 50 04/19/23 15:00 FiO2 75 04/23/23 07:00 Oxygen Flow Rate 2 04/02/23 13:19 BMI result Body Mass Index 34.7 Const: Other: intubated, sedated; no acute distress HEENT: Head: Yes normal to inspection, Yes normocephalic and Yes atraumatic Eyes: General: appearance normal, both eyes and all related structures Neck: Neck: Yes normal visual inspection, Yes full ROM and Yes supple Chest: Chest palpation & inspection: normal inspection of the chest Resp: Other: some appreciable rhonchi; no appreciable rales, wheezing Effort & Inspection: normal respiratory effort Cardio: Rate: regular rate Rhythm: regular rhythm GI: Inspection: Yes normal to inspection, No Abdominal wall edema and No distended Palpation (GI): Soft to palpation, not firm, nontender, no guarding and not rigid Skin: General skin exam: no rashes or lesions noted Neuro: General: tone normal Extrem: Other: appreciable 2+ pitting edema to bilateral knees Psych: Other: unable to assess Objective Data Labs 04/23/23 05:06 04/23/23 05:06 Labs: Laboratory Results - last 24 hr 04/22/23 04/22/23 04/22/23 11:32 17:43 23:48 WBC RBC Hgb Hct MCV MCH MCHC RDW Plt Count MPV Immature Gran % (Auto) Neut % (Auto) Lymph % (Auto) Upson % (Auto) Eos % (Auto) Baso % (Auto) Lymph # (Auto) Upson # (Auto) Eos # (Auto) Baso # (Auto) Abs Immat Gran (auto) Absolute Neuts (auto) Absolute Nucleated RBC Nucleated RBC % (auto) Smear Tech's Comments VBG pH VBG pCO2 VBG pO2 VBG HCO3 VBG O2 Saturation VBG Base Excess Sodium Potassium Chloride Carbon Dioxide Anion Gap BUN Creatinine Estim Creat Clear Calc Estimated GFR POC Glucose 230 H 183 H 182 H Random Glucose Calcium Phosphorus Magnesium 04/23/23 04/23/23 05:06 05:32 WBC 26.0 H RBC 2.60 L Hgb 7.4 L Hct 22.1 L MCV 85.0 MCH 28.5 MCHC 33.5 RDW 18.1 H Plt Count 298 MPV 11.6 Immature Gran % (Auto) 1.4 H Neut % (Auto) 86.3 H Lymph % (Auto) 2.4 L Upson % (Auto) 8.2 Eos % (Auto) 1.4 Baso % (Auto) 0.3 Lymph # (Auto) 0.6 L Upson # (Auto) 2.1 H Eos # (Auto) 0.4 Baso # (Auto) 0.1 Abs Immat Gran (auto) 0.36 H Absolute Neuts (auto) 22.4 H Absolute Nucleated RBC 0.070 H Nucleated RBC % (auto) 0.3 H Smear Tech's Comments VERIFIED VBG pH 7.23 L VBG pCO2 32 VBG pO2 64 VBG HCO3 13 L VBG O2 Saturation 85.0 VBG Base Excess -12.3 Sodium 134 L Potassium 6.1 H* Chloride 89 L Carbon Dioxide 14 L Anion Gap 37 H BUN 150 H Creatinine 12.03 H* Estim Creat Clear Calc 4.9 Estimated GFR 3 POC Glucose Random Glucose 153 H Calcium 9.2 Phosphorus 14.4 H Magnesium 3.8 H* Microbiology Microbiology Results: Microbiology 04/11/23 14:24 Lung - Right Gram Stain - Final 04/11/23 14:24 Lung - Right Routine Culture - Final No growth after 2 days 04/11/23 14:24 Lung - Right Anaerobic Culture - Final NO GROWTH AFTER 5 DAYS 04/05/23 14:15 Thoracentesis Fluid Gram Stain - Final 04/05/23 14:15 Thoracentesis Fluid Anaerobic Culture - Final NO GROWTH AFTER 5 DAYS 04/05/23 14:15 Thoracentesis Fluid Body Fluid Culture - Final No growth after 2 days 04/02/23 14:54 Blood - Venous Blood Culture - Final No growth after 5 days. 04/02/23 14:24 Blood - Venous Blood Culture - Final No growth after 5 days. Progress Note: A&P Assessment and plan (1) Acute renal failure: Status: Acute (2) Primary lung squamous cell carcinoma: Status: Acute (3) HFrEF (heart failure with reduced ejection fraction): Status: Acute (4) Acute hypoxemic respiratory failure: Status: Acute Plan Patient is a 67 Y F with hypertension, diabetes mellitus, recent CVA, initially presenting on 04/02 w/ pneumonia, admitted floor; hospital course c/b parapneumonic effusion, empyema, s/p decortication on 04/11; intra-operatively, found to have advanced carcinoma; extubated POD1, 04/12, developed acute respiratory failure, intubated 04/14; following GOC discussion, patient made DNR/DNI N: intubated, sedated w/ propofol, fentanyl gtt; wean as tolerated CV: shock, on norepinephrine gtt; ongoing arrhythmia, likely d/t critical illness, electrolyte derrangements in setting of acute renal failure R: advanced carcinoma, c/b pneumonia, effusion, empyema, and acute respiratory failure, intubated; wean as tolerated GI: NG tube; coffee-grounds; c/f UGIB; pantoprazole BID : acute renal failure; following GOC discussion, hemodialysis not within philosophy of care; to continue w/ medical management of electrolyte derrangements H: leukocytosis, anemia; suspect platelet dysfunction in setting of acute renal failure ID: post-obstructive pneumonia, s/p broad-spectrum antibiotics; c. diff, not tolerating PO vancomycin P: no acute issues Quality Stroke Does the patient have a stroke diagnosis?: No VTE Prior VTE?: No VTE Risk Level:: Medical - moderate - high VTE Device Contraindication: Treatment Not Indicated VTE Drug Contraindication: Treatment Not Tolerated
[2023-04-23] MEDS: Chlorhexidine Gluc Oral Rinse 15 ML MOUTHWASH BUCCAL ×3 (07:52→22:34)
[2023-04-23] MEDS: Dextrose 50 % 25 GM/50 ML SYRINGE IVPUSH (07:52)
--- NOTE | 2023-04-23 09:34 | MHC.CLN ---
F/U REMAINS INTUBATED AND SEDATED. TUBE FEED HELD SINCE 04/20 DUE TO HIGH RESIDUALS/NOT TOLERATING. CONTINUE TO FOLLOW WITH TEAM.
[2023-04-23] MEDS: Sodium Bicarbonate 8.4% 150 MEQ in Dextrose 5 % 850 ML 50 MEQ IV (09:55)
--- NOTE | 2023-04-23 10:10 | W.MHC.ACPN ---
Advanced Care Planning Note Advanced Care Planning Note Discussed with: patient Time spent (in minutes): 15 Narrative: I introduced myself to Ms. Dove this morning via phone and offered updates and any clarifications. Ms. Dove re-iterated previous conversations to change Ms. Acosta's philosophy of care to comfort-focused care. Ms. Dove stated that Ms. Acosta's family was planning for this transition on Saturday. I expressed my concerns that Ms. Gabriels renal failure is progressing and she is experiencing electrolyte derrangements that are already causing arrhythmias, and that she may before Saturday. Ms. Dove expressed understanding of this and will speak to her family about possibly transitioning to comfort-focused care sooner rather than later. Problems Discussed (1) Acute renal failure: (2) Primary lung squamous cell carcinoma: (3) HFrEF (heart failure with reduced ejection fraction): (4) Acute hypoxemic respiratory failure:
[2023-04-23] MEDS: Scopolamine 1.5 MG PATCH.TD.3 1 MG EAR-BEHIND (11:16)
[2023-04-23 11:40] LABS: Glucose, Whole Blood 171 mg/dL (60-115)
[2023-04-23] MEDS: Norepinephrine Bitartrate/D5W 8 MG/250 ML PLAST..BAG 20.97 MG IV (12:28)
--- NOTE | 2023-04-23 15:04 | MHC.CM.PN ---
Pt was made DNR/DNI with the goals of transitioning her to [facility] this Saturday per family discussion. MD spoke w/family today about pt's rapidly deteriorating status noting she may not survive until Saturday. Family to consider earlier transition to [facility]. CM to follow.
--- NOTE | 2023-04-23 15:58 | PM.EVENT ---
Event Note Date of Service: 04/23/23 Event Note: At 15:50, Ms. Acosta's vasopressor requirement quickly escalated. Multiple attempts were made to reach Ms. Dove without success, unfortunately. Given philosophy of care discussed in previous days, to continue reasonable escalation of vasopressors with hopes that Ms. Dove will come to hospital following work in near future. Time Spent With Patient Time: Total time managing care of this patient today ____ minutes.
--- NOTE | 2023-04-23 16:24 | W.MHC.ACPN ---
Advanced Care Planning Note Advanced Care Planning Note Discussed with: family member(s) Time spent (in minutes): 15 Narrative: Ms. Dove arrived to Ms. Acosta's bedside. I offered updates and clarifications. Ms. Dove stated she discussed with her family, and have decided to transition to comfort-focused care tomorrow AM. Problems Discussed (1) Acute renal failure: (2) Primary lung squamous cell carcinoma: (3) HFrEF (heart failure with reduced ejection fraction): (4) Acute hypoxemic respiratory failure:
[2023-04-23 18:04] LABS: Glucose, Whole Blood 181 mg/dL (60-115)
[2023-04-23] MEDS: Norepinephrine Bitartrate/D5W 8 MG/250 ML PLAST..BAG 34.46 MG IV (20:45)
[2023-04-23 23:33] LABS: Glucose, Whole Blood 192 mg/dL (60-115)
[2023-04-24] VITALS (17 sets, daily range): BP systolic 91–129; BP diastolic 45–69; PULSE 25–90; RESP 20–24; TEMP 34.9–37.3; O2SAT 87–91; BMI 35.5
[2023-04-24] MEDS: Sodium Bicarbonate 8.4% 150 MEQ in Dextrose 5 % 850 ML 50 MEQ IV (02:29)
[2023-04-24] MEDS: Norepinephrine Bitartrate/D5W 8 MG/250 ML PLAST..BAG 34.46 MG IV ×2 (02:33→09:44)
[2023-04-24 05:41] LABS: Glucose, Whole Blood 149 mg/dL (60-115)
[2023-04-24] MEDS: Pantoprazole Sodium 40 MG/10 ML VIAL IVPUSH (06:20)
[2023-04-24 06:55] LABS: Basophils Absolute Auto 0.1 X10*3/uL (0.0-0.2); Basophils Percent Auto 0.2 % (0-2); Eosinophils Absolute Auto 0.5 X10*3/uL (0.0-0.4); Eosinophils Percent Auto 1.7 % (0-4); Hematocrit 22.3 % (37.0-47.0); Hemoglobin 7.5 g/dl (12.0-16.0); Imm Gran Abs Auto 0.62 X10*3/uL (0.00-0.03); Imm Gran Pct Auto 2.3 % (0.0-0.4); Lymphocytes Absolute Auto 0.6 X10*3/uL (1.2-4.9); Lymphocytes Percent Auto 2.2 % (20-40); MANUAL DIFF FLAG SCAN; Mean Corpuscular HGB Conc 33.6 g/dl (31.0-35.0); Mean Corpuscular Hemoglobin 28.5 pg (27.0-33.0); Mean Corpuscular Volume 84.8 fL (80.0-98.0); Mean Platelet Volume 11.9 fL (9.4-12.3); Monocytes Percent Auto 7.4 % (2-11); NRBC Pct Auto 0.3 /100WBC (0.0-0.2); Neutrophils Absolute Auto 23.2 x10*3/uL (2.0-8.3); Neutrophils Percent Auto 86.2 % (45-73); Platelet Count 365 X10*3/uL (160-400); Red Blood Count 2.63 X10*6/uL (4.20-5.50); Red Cell Distribution Width 18.4 % (11.0-16.0); SCAN SMEAR FLAG 1; White Blood Count 26.9 X10*3/uL (4.8-10.8)
[2023-04-24 07:15] LABS: Anion Gap 37 (12-20); Calcium 8.4 mg/dL (8.4-10.2); Carbon Dioxide 16 mmol/L (22-29); Chloride 85 mmol/L (96-108); Creatinine Clr Calc Pharmacy 4.9; Estimated Glomerular Filt Rate 3; Glucose Random 155 mg/dL (60-115); Magnesium 3.7 mg/dL (1.6-2.6); Phosphorus 14.9 mg/dL (2.7-4.5); Potassium 6.1 mmol/L (3.3-5.1); Sodium 132 mmol/L (135-145)
[2023-04-24] MEDS: Chlorhexidine Gluc Oral Rinse 15 ML MOUTHWASH BUCCAL (07:29)
--- NOTE | 2023-04-24 07:31 | P.PNCC_ITS ---
Subjective Subjective Date of Service: 04/24/23 Interval History: progressing multi-system organ failure Critical Care Time (minutes): 90 Physical Exam 2 Vital Signs: Vital Signs: Last Vital Signs Temp 98.8 F 04/24/23 07:00 Pulse 90 04/24/23 07:00 Resp 23 H 04/24/23 07:00 BP 115/59 L 04/24/23 07:00 Pulse Ox 90 L 04/24/23 07:00 O2 Del Method Mechanical Ventil ation 04/24/23 07:00 O2 Flow Rate 50 04/19/23 15:00 FiO2 100 04/24/23 07:00 Oxygen Flow Rate 2 04/02/23 13:19 BMI result Body Mass Index 35.5 Const: Other: intubated; no acute distress HEENT: Head: Yes normal to inspection, Yes normocephalic and Yes atraumatic Eyes: General: appearance normal, both eyes and all related structures Neck: Neck: Yes normal visual inspection and Yes supple Chest: Chest palpation & inspection: normal inspection of the chest Resp: Other: appreciable diffuse rhonchi Cardio: Rate: regular rate Rhythm: regular rhythm GI: Inspection: Yes normal to inspection, No Abdominal wall edema and No distended Palpation (GI): Soft to palpation, not firm, nontender, no guarding and not rigid Skin: General skin exam: no rashes or lesions noted Neuro: General: tone normal Extrem: Other: appreciable anasarca General: Yes normal to inspection and Yes capillary refill normal Psych: Other: unable to assess Objective Data Labs 04/24/23 05:55 04/24/23 05:55 Labs: Laboratory Results - last 24 hr 04/23/23 04/23/23 04/23/23 08:50 11:36 18:00 WBC RBC Hgb Hct MCV MCH MCHC RDW Plt Count MPV Sodium Potassium Chloride Carbon Dioxide Anion Gap BUN Creatinine Estim Creat Clear Calc Estimated GFR POC Glucose 171 H 181 H Random Glucose Calcium Phosphorus Magnesium Blood Type B Positive Antibody Screen NEGATIVE 04/23/23 04/24/23 04/24/23 23:29 05:35 05:55 WBC 26.9 H RBC 2.63 L Hgb 7.5 L Hct 22.3 L MCV 84.8 MCH 28.5 MCHC 33.6 RDW 18.4 H Plt Count 365 MPV 11.9 Sodium 132 L Potassium 6.1 H* Chloride 85 L Carbon Dioxide 16 L Anion Gap 37 H BUN > 125 H Creatinine 12.18 H* Estim Creat Clear Calc 4.9 Estimated GFR 3 POC Glucose 192 H 149 H Random Glucose 155 H Calcium 8.4 D Phosphorus 14.9 H Magnesium 3.7 H* Blood Type Antibody Screen Microbiology Microbiology Results: Microbiology 04/11/23 14:24 Lung - Right Gram Stain - Final 04/11/23 14:24 Lung - Right Routine Culture - Final No growth after 2 days 04/11/23 14:24 Lung - Right Anaerobic Culture - Final NO GROWTH AFTER 5 DAYS 04/05/23 14:15 Thoracentesis Fluid Gram Stain - Final 04/05/23 14:15 Thoracentesis Fluid Anaerobic Culture - Final NO GROWTH AFTER 5 DAYS 04/05/23 14:15 Thoracentesis Fluid Body Fluid Culture - Final No growth after 2 days 04/02/23 14:54 Blood - Venous Blood Culture - Final No growth after 5 days. 04/02/23 14:24 Blood - Venous Blood Culture - Final No growth after 5 days. Progress Note: A&P Assessment and plan (1) Acute renal failure: Status: Acute (2) Primary lung squamous cell carcinoma: Status: Acute (3) HFrEF (heart failure with reduced ejection fraction): Status: Acute (4) Diabetes: Status: Acute (5) Acute respiratory failure: Status: Acute Plan A: Patient is a 67 Y F with hypertension, diabetes mellitus, recent CVA, initially presenting on 04/02 w/ pneumonia, admitted floor; hospital course c/b parapneumonic effusion, empyema, s/p decortication on 04/11; intra-operatively, found to have advanced carcinoma; extubated POD1, 04/12, developed acute respiratory failure, intubated 04/14; following GOC discussion, patient made DNR/DNI, plan for transition to comfort-focused care on 04/24 - to continue with current medical management until transition to comfort- focused care this AM Quality Stroke Does the patient have a stroke diagnosis?: No VTE Prior VTE?: No VTE Risk Level:: Medical - moderate - high VTE Device Contraindication: Treatment Not Indicated VTE Drug Contraindication: Treatment Not Tolerated
[2023-04-24 07:45] LABS: Blood Urea Nitrogen 154 mg/dL (9-16)
[2023-04-24 08:01] LABS: SLIDE REVIEW VERIFIED
[2023-04-24] MEDS: fentaNYL citrate/NS 1,000 MCG/100 ML PLAST..BAG 10 MCG IVCONT (08:04)
--- NOTE | 2023-04-24 09:22 | MHC.CLN ---
F/U REMAINS INTUBATED AND SEDATED. NPO STATUS AND NO TF. PLAN TO TRANSITION TO COMFORT FOCUSED CARE TODAY. CONTINUE TO FOLLOW WITH TEAM.
--- NOTE | 2023-04-24 09:45 | MHC.CM.PN ---
EMR REVIEWED, PER SET UP MECHANIC PLAN IS NOW FOR FAMILY TO COME IN TODAY AND PT WILL BE TRANSITIONED TO [employer], CM WILL CONT TO FOLLOW.
--- NOTE | 2023-04-24 10:58 | PM.DDS ---
Discharge Sum: Prov Provider Primary care physician: Jony Dickson MD Pronouncing clinician: Torrie Waggoner Discharge Sum: Diag PCOD Cause of : Acute respiratory failure with hypoxia Contributing Factors (1) Pneumonia: (2) Primary lung squamous cell carcinoma: (3) Acute renal failure: (4) HFrEF (heart failure with reduced ejection fraction): (5) Diabetes: Discharge Sum: Summary Date and Time Date of admission: 04/02/23 20:15 Date of : 04/24/23 Time of : 11:24 Summary Details: Ms. Acosta was a 67 Y F with hypertension, diabetes mellitus, complicated by recent cerebrovascular accident, who initially presented to the emergency department from a intermediate facility on 04/02 due to hypoxia and admitted to the floor for presumed pneumonia. Ms. Acosta's hospital course was complicated by parapneumonic effusion and empyema, and underwent decortication on 04/11, when Ms. Acosta was found to have advanced carcinomatosis. Ms. Acosta was extubated on post-operative day 1, though developed worsening respiratory failure and was re-intubated on 04/14. Ms. Acosta's ICU course was complicated by progressive renal failure and shock. After goals of care discussions, Ms. Acosta was made DNR/DNI, and transitioned to comfort-focused care on 04/24. Ms. Acosta later that day. Additional Data Confirmation of as documented by pronouncing clinician: no pulse, no respirations, no heart sounds and pupils fixed and dilated Family: at bedside Attending physician: Torrie Waggoner MD
[2023-04-24] MEDS: Glycopyrrolate 0.2 MG/ML VIAL IVPUSH (11:16)
[2023-04-24] MEDS: LORazepam 2 MG/ML VIAL 1 MG IVPUSH (11:16)
== END 2023-04-24 11:24 | disposition expired | DRG 853 ==
LOC: HO.ED 20:16 → HO.EDOVER 21:40 → HO.IMC 22:15 → HO.ICU 04-11 16:33
PROVIDERS: Hospitalist; Internal Medicine; Internal Medicine Cardiovascular Disease; Internal Medicine Pulmonary Disease; Nurse Practitioner Family; Physician Assistant Medical; Physician Assistant Surgical; Registered Nurse Community Health; Student in an Organized Health Care Education/Training Program; Surgery; Admitting Provider Physician Assistant; Emergency Provider Emergency Medicine; PCP Internal Medicine; Visit Provider Internal Medicine Critical Care Medicine
PROC: 0BBC0ZX Excision of Right Upper Lung Lobe, Open Approach, Diagnostic (ICD-10-PCS; principal; 2023-04-11 11:00)
PROC: 0BJ08ZZ Inspection of Tracheobronchial Tree, Via Natural or Artificial Opening Endoscopic (ICD-10-PCS; CPT 31622; 2023-04-11 11:00)
DX: A41.9 Sepsis, unspecified organism (principal); J85.1 Abscess of lung with pneumonia; J96.01 Acute respiratory failure with hypoxia; T81.19XA Other postprocedural shock, initial encounter; N17.0 Acute kidney failure with tubular necrosis; K72.01 Acute and subacute hepatic failure with coma; C34.81 Malignant neoplasm of overlapping sites of right bronchus and lung; A04.72 Enterocolitis due to Clostridium difficile, not specified as recurrent; D62 Acute posthemorrhagic anemia; I50.22 Chronic systolic (congestive) heart failure; J98.19 Other pulmonary collapse; J91.8 Pleural effusion in other conditions classified elsewhere; Z66 Do not resuscitate; Z51.5 Encounter for palliative care; E78.5 Hyperlipidemia, unspecified; R13.10 Dysphagia, unspecified; I48.0 Paroxysmal atrial fibrillation; F39 Unspecified mood [affective] disorder; D63.0 Anemia in neoplastic disease; E87.6 Hypokalemia; Y84.8 Other medical procedures as the cause of abnormal reaction of the patient, or of later complication, without mention of misadventure at the time of the procedure; E11.9 Type 2 diabetes mellitus without complications; I11.0 Hypertensive heart disease with heart failure; Z20.822 Contact with and (suspected) exposure to COVID-19; Z86.73 Personal history of transient ischemic attack (TIA), and cerebral infarction without residual deficits; Z87.891 Personal history of nicotine dependence; Z79.82 Long term (current) use of aspirin; Z79.84 Long term (current) use of oral hypoglycemic drugs; Z79.899 Other long term (current) drug therapy
CPT/HCPCS: 32555; 36415; 36600; 71045; 71250; 71260; 76604; 80048; 80051; 80053; 80076; 80202; 82040; 82042; 82150; 82272; 82565; 82607; 82728; 82746; 82803; 82945; 82947; 83010; 83540; 83605; 83615; 83735; 83880; 83986; 84100; 84157; 84443; 84484; 85007; 85025; 85027; 85610; 85652; 86850; 86900; 86901; 86923; 87040; 87070; 87073; 87205; 87324; 87449; 87493; 87502; 87507; 87635; 87640; 87641; 87899; 88112; 88305; 88307; 88331; 88332; 88341; 88342; 89051; 92526; 92610; 93005; 93306; 93356; 94002; 94003; 94640; 99285; C1758; C9113; C9290; J0171; J0456; J0665; J0696; J1596; J1644; J1939; J1940; J2060; J2270; J2371; J2543; J2598; J2704; J3010; J3370; J3475; J3480; J7120; P9016; P9047; Q9957; Q9967

== ENCOUNTER → 2023-04-02 13:32 | Outpatient (BNV) | payer OTHER, SELFPAY | PROVIDERS: Admitting Provider Physician Assistant; Emergency Provider Emergency Medicine; Visit Provider Internal Medicine Cardiovascular Disease | DX: R06.02 Shortness of breath (principal) | CPT/HCPCS: 93010 ==

== ENCOUNTER → 2023-04-02 18:10 | Outpatient (BNV) | payer OTHER, SELFPAY | PROVIDERS: Emergency Provider Emergency Medicine; Visit Provider Physician Assistant | DX: J96.01 Acute respiratory failure with hypoxia (principal); J98.19 Other pulmonary collapse; J18.9 Pneumonia, unspecified organism | CPT/HCPCS: 99223; 99232; 99233; 99499 ==

== ENCOUNTER 2023-04-02 20:15 | Outpatient (BNV) | payer OTHER, SELFPAY | END 2023-04-08 07:00 | PROVIDERS: Admitting Provider Physician Assistant; Emergency Provider Emergency Medicine; PCP Internal Medicine; Visit Provider Internal Medicine | DX: I48.0 Paroxysmal atrial fibrillation (principal) | CPT/HCPCS: 93306 ==

== ENCOUNTER 2023-04-02 20:15 | Outpatient (BNV) | payer OTHER, SELFPAY | END 2023-04-05 13:30 | PROVIDERS: Admitting Provider Physician Assistant; Emergency Provider Emergency Medicine; Visit Provider Radiology Diagnostic Radiology | DX: J90 Pleural effusion, not elsewhere classified (principal) | CPT/HCPCS: 32555 ==

== ENCOUNTER 2023-04-02 20:15 | Outpatient (BNV) | payer OTHER, SELFPAY | END 2023-04-21 22:40 | PROVIDERS: Admitting Provider Physician Assistant; Emergency Provider Emergency Medicine; PCP Internal Medicine; Visit Provider Internal Medicine Cardiovascular Disease | DX: I48.0 Paroxysmal atrial fibrillation (principal); I45.19 Other right bundle-branch block | CPT/HCPCS: 93010 ==

== ENCOUNTER 2023-04-02 20:15 | Outpatient (BNV) | payer OTHER, SELFPAY | END 2023-04-07 09:18 | PROVIDERS: Admitting Provider Physician Assistant; Emergency Provider Emergency Medicine; PCP Internal Medicine; Visit Provider Internal Medicine | DX: R94.31 Abnormal electrocardiogram [ECG] [EKG] (principal) | CPT/HCPCS: 93010 ==

== ENCOUNTER → 2023-04-02 20:15 | Outpatient (BNV) | payer OTHER, SELFPAY | PROVIDERS: Admitting Provider Physician Assistant; Emergency Provider Emergency Medicine; Visit Provider Hospitalist | DX: C80.0 Disseminated malignant neoplasm, unspecified (principal); J86.9 Pyothorax without fistula; J18.9 Pneumonia, unspecified organism; J96.01 Acute respiratory failure with hypoxia | CPT/HCPCS: 36556; 99223; 99232; 99233; 99291; 99499 ==

== ENCOUNTER → 2023-04-02 20:15 | Outpatient (BNV) | payer OTHER, SELFPAY | PROVIDERS: Admitting Provider Physician Assistant; Emergency Provider Emergency Medicine; PCP Internal Medicine; Visit Provider Physician Assistant Surgical | DX: C80.0 Disseminated malignant neoplasm, unspecified (principal) | CPT/HCPCS: 32097; 32551; 99024; 99223; 99232; 99233 ==

== ENCOUNTER → 2023-04-02 20:15 | Outpatient (BNV) | payer OTHER, SELFPAY | PROVIDERS: Admitting Provider Physician Assistant; Emergency Provider Emergency Medicine; PCP Internal Medicine; Visit Provider Registered Nurse Community Health | DX: C34.90 Malignant neoplasm of unspecified part of unspecified bronchus or lung (principal); J96.01 Acute respiratory failure with hypoxia; N17.9 Acute kidney failure, unspecified; I50.20 Unspecified systolic (congestive) heart failure; A41.9 Sepsis, unspecified organism; R65.21 Severe sepsis with septic shock | CPT/HCPCS: 31500; 99238; 99291; 99499 ==

== ENCOUNTER → 2023-04-02 20:15 | Outpatient (BNV) | payer OTHER, SELFPAY | PROVIDERS: Admitting Provider Physician Assistant; Emergency Provider Emergency Medicine; Visit Provider Internal Medicine Cardiovascular Disease | DX: I48.0 Paroxysmal atrial fibrillation (principal) | CPT/HCPCS: 99222 ==

== ENCOUNTER → 2023-04-02 20:15 | Outpatient (BNV) | payer OTHER, SELFPAY | PROVIDERS: Admitting Provider Physician Assistant; Emergency Provider Emergency Medicine; PCP Internal Medicine; Visit Provider Internal Medicine Gastroenterology | DX: R13.10 Dysphagia, unspecified (principal) | CPT/HCPCS: 99222 ==